=== PATIENT | male | born 1940 | race Caucasian/White ===

== ENCOUNTER → 2020-10-13 | Outpatient (CLI) | payer MEDICARE, OTHER ==
--- NOTE | 2020-10-14 05:13 | XR ---
EXAMINATION TYPE: XR chest 2V DATE OF EXAM: 10/13/2020 COMPARISON: 12/10/2015 HISTORY: 80-year-old male with cough and shortness of breath TECHNIQUE: Frontal and lateral views FINDINGS: Heart borderline enlarged. Hyperinflation. Interstitial prominence. Some patchy opacity at the periph mickey of the right mid to lower lung. Old healed fracture deformities right posterolateral ribs. No siz able effusion. IMPRESSION: COPD. Borderline heart size. Either atelectasis or possible early developing infiltrate at the periph mickey of the right mid and lower lung. If warranted, CT could provide more detailed parenchymal assessm ent.
== END ==
LOC: RADXRMAIN 16:31
PROVIDERS: ATTEND Internal Medicine
DX: J44.9 Chronic obstructive pulmonary disease, unspecified (principal)
CPT/HCPCS: 71046

== ENCOUNTER 2021-09-02 13:29 | Inpatient (IN) | payer MEDICARE, OTHER ==
[2021-09-02] MEDS ORDERED: cefTRIAXone IN SWFI 1,000 MG/10 ML SYRINGE IVP STA (14:51)
[2021-09-02] MEDS ORDERED: SODIUM CHLORIDE 0.9% 500 ML 500 ML IV STA (14:51)
[2021-09-02] MEDS ORDERED: MORPHINE SULFATE 4 MG/ML SYRINGE IVP STA (15:05)
--- NOTE | 2021-09-02 15:07 | ED ---
General Adult HPI - General Chief complaint: Extremity Problem,Nontraumatic Stated complaint: Left Foot Swelling Time Seen by Provider: 09/02/21 14:14 Source: patient Mode of arrival: ambulatory Limitations: no limitations - History of Present Illness Initial comments: 80-year-old male resents to the emergency room for a chief complaint of left foot pain. Patient states that he has had left foot redness and swelling for the past couple weeks. States he was seen at another facility a week ago and was told it looked like a contusion. Patient did offer the information that he injured his foot but it was several years ago. No recent injury. Patient now states that his lower leg is swollen and red as well. States that the lateral 3 toes are black on that foot and very painful. Patient has no other complaints at this time including shortness of breath, chest pain, abdominal pain, nausea or vomiting, headache, or visual changes. - Related Data Home Medications Medication Instructions Recorded Confirmed Aspirin EC [Ecotrin Low Dose] 81 mg PO DAILY 09/02/21 09/02/21 Cholecalciferol [Vitamin D3 (25 25 mcg PO DAILY 09/02/21 09/02/21 Mcg = 1000 Iu)] Fluticasone/Vilanterol [Breo 1 puff INHALATION RT-DAILY 09/02/21 09/02/21 Ellipta 100-25 Mcg Inhaler] HYDROcodone/APAP 7.5-325MG [[place] 1 tab PO BID PRN 09/02/21 09/02/21 7.5-325] Lisinopril-Hctz 20-25 mg 0.5 tab PO DAILY 09/02/21 09/02/21 [Zestoretic 20-25] Metoprolol Tartrate [Lopressor] 25 mg PO BID 09/02/21 09/02/21 Rosuvastatin Calcium [Crestor] 5 mg PO HS 09/02/21 09/02/21 Tamsulosin [Flomax] 0.4 mg PO DAILY 09/02/21 09/02/21 Allergies Allergy/AdvReac Type Severity Reaction Status Date / Time No Known Allergies Allergy Verified 09/02/21 15:32 Review of Systems ROS Statement: Those systems with pertinent positive or pertinent negative responses have been documented in the HPI. ROS Other: All systems not noted in ROS Statement are negative. Past Medical History Past Medical History: COPD, CVA/TIA, Hyperlipidemia, Hypertension History of Any Multi-Drug Resistant Organisms: None Reported Past Surgical History: Hernia Repair Past Psychological History: No Psychological Hx Reported Smoking Status: Current every day smoker Past Alcohol Use History: None Reported Past Drug Use History: None Reported General Exam Limitations: no limitations General appearance: alert, in no apparent distress Head exam: Present: atraumatic Eye exam: Present: normal appearance, PERRL, EOMI. Absent: scleral icterus, c onjunctival injection ENT exam: Present: normal exam, mucous membranes moist Neck exam: Present: normal inspection, full ROM. Absent: tenderness Respiratory exam: Present: normal lung sounds bilaterally. Absent: respiratory distress, wheezes Cardiovascular Exam: Present: regular rate, normal rhythm, normal heart sounds GI/Abdominal exam: Present: soft, normal bowel sounds. Absent: distended, tenderness Extremities exam: Present: tenderness (Tenderness to the left foot in general), joint swelling (Patient does have swelling of the tib-fib and left foot as well as some erythema), other (Patient's fourth and fifth toes are ischemic and necrotic). Absent: normal capillary refill (DP pulse not palpable however signals evident with ultrasound) Course Vital Signs 09/02/21 13:39 Temperature 97.8 F Pulse Rate 75 Respiratory 20 Rate Blood Pressure 107/58 O2 Sat by Pulse 93 L Oximetry Medical Decision Making - Medical Decision Making Vitals are stable. Patient is well appearing. However patient does have ischemia of the fourth and fifth digits of the left foot as well as erythema and edema of the lower leg. CBC CMP unremarkable. Case was discussed with Dr. Alvarado. He does accept admission and request Lovenox 1 mg per kg twice a day be started. We will consult Dr. Da Silva. We'll obtain an arterial ultrasound. - Lab Data Result diagrams: 09/02/21 15:06 09/02/21 15:06 Lab Results 09/02/21 09/02/21 09/02/21 Range/Units 15:06 15:06 15:06 WBC 9.6 (3.8-10.6) k/uL RBC 4.82 (4.30-5.90) m/uL Hgb 15.6 (13.0-17.5) gm/dL Hct 48.2 (39.0-53.0) % MCV 100.0 (80.0-100.0) fL MCH 32.4 (25.0-35.0) pg MCHC 32.4 (31.0-37.0) g/dL RDW 13.4 (11.5-15.5) % Plt Count 189 (150-450) k/uL MPV 9.3 Neutrophils % 73 % Lymphocytes % 14 % Monocytes % 5 % Eosinophils % 6 % Basophils % 1 % Neutrophils # 7.0 (1.3-7.7) k/uL Lymphocytes # 1.3 (1.0-4.8) k/uL Monocytes # 0.5 (0-1.0) k/uL Eosinophils # 0.6 (0-0.7) k/uL Basophils # 0.1 (0-0.2) k/uL PT 10.0 (9.0-12.0) sec INR 0.9 (<1.2) APTT 24.5 (22.0-30.0) sec Sodium 137 (137-145) mmol/L Potassium 4.2 (3.5-5.1) mmol/L Chloride 104 (98-107) mmol/L Carbon Dioxide 25 (22-30) mmol/L Anion Gap 8 mmol/L BUN 29 H (9-20) mg/dL Creatinine 0.88 (0.66-1.25) mg/dL Est GFR (CKD-EPI)AfAm >90 (>60 ml/min/1.73 sqM) Est GFR (CKD-EPI)NonAf 81 (>60 ml/min/1.73 sqM) Glucose 110 H (74-99) mg/dL Plasma Lactic Acid Mazin (0.7-2.0) mmol/L Calcium 10.2 (8.4-10.2) mg/dL Total Bilirubin 0.7 (0.2-1.3) mg/dL AST 29 (17-59) U/L ALT 23 (4-49) U/L Alkaline Phosphatase 62 (38-126) U/L Total Protein 6.6 (6.3-8.2) g/dL Albumin 3.8 (3.5-5.0) g/dL 09/02/21 Range/Units 15:06 WBC (3.8-10.6) k/uL RBC (4.30-5.90) m/uL Hgb (13.0-17.5) gm/dL Hct (39.0-53.0) % MCV (80.0-100.0) fL MCH (25.0-35.0) pg MCHC (31.0-37.0) g/dL RDW (11.5-15.5) % Plt Count (150-450) k/uL MPV Neutrophils % % Lymphocytes % % Monocytes % % Eosinophils % % Basophils % % Neutrophils # (1.3-7.7) k/uL Lymphocytes # (1.0-4.8) k/uL Monocytes # (0-1.0) k/uL Eosinophils # (0-0.7) k/uL Basophils # (0-0.2) k/uL PT (9.0-12.0) sec INR (<1.2) APTT (22.0-30.0) sec Sodium (137-145) mmol/L Potassium (3.5-5.1) mmol/L Chloride (98-107) mmol/L Carbon Dioxide (22-30) mmol/L Anion Gap mmol/L BUN (9-20) mg/dL Creatinine (0.66-1.25) mg/dL Est GFR (CKD-EPI)AfAm (>60 ml/min/1.73 sqM) Est GFR (CKD-EPI)NonAf (>60 ml/min/1.73 sqM) Glucose (74-99) mg/dL Plasma Lactic Acid Mazin 1.0 (0.7-2.0) mmol/L Calcium (8.4-10.2) mg/dL Total Bilirubin (0.2-1.3) mg/dL AST (17-59) U/L ALT (4-49) U/L Alkaline Phosphatase (38-126) U/L Total Protein (6.3-8.2) g/dL Albumin (3.5-5.0) g/dL Disposition Clinical Impression: Cellulitis, PAD (peripheral artery disease), Ischemia of toe Disposition: ADMITTED IP TO THIS HOSP Is patient prescribed a controlled substance at d/c from ED?: No Referrals: Uche Alvarado MD [Primary Care Provider] - 1-2 days Time of Disposition: 16:30
[2021-09-02 15:14] LABS: Basophils # (A) 0.1 k/uL (0-0.2); Basophils % (A) 1 %; Eosinophils # (A) 0.6 k/uL (0-0.7); Eosinophils % (A) 6 %; HCT 48.2 % (39.0-53.0); HGB 15.6 gm/dL (13.0-17.5); Lymphocytes # (A) 1.3 k/uL (1.0-4.8); Lymphocytes % (A) 14 %; MCH 32.4 pg (25.0-35.0); MCHC 32.4 g/dL (31.0-37.0); Mean Platelet Volume 9.3; Monocytes # (A) 0.5 k/uL (0-1.0); Monocytes % (A) 5 %; Neutrophils % (A) 73 %; Platelet Count 189 k/uL (150-450); RBC 4.82 m/uL (4.30-5.90); RDW 13.4 % (11.5-15.5); WBC 9.6 k/uL (3.8-10.6)
[2021-09-02 15:24] LABS: ALT 23 U/L (4-49); AST 29 U/L (17-59); African American GFR (CKD) >90 (>60 ml/min/1.73 sqM); Albumin 3.8 g/dL (3.5-5.0); Alkaline Phosphatase 62 U/L (38-126); Anion Gap 8 mmol/L; Blood Urea Nitrogen 29 mg/dL (9-20); Calcium 10.2 mg/dL (8.4-10.2); Carbon Dioxide 25 mmol/L (22-30); Chloride 104 mmol/L (98-107); Glucose 110 mg/dL (74-99); INR 0.9 (<1.2); Non-African American GFR(CKD) 81 (>60 ml/min/1.73 sqM); Partial Thromboplastin Time 24.5 sec (22.0-30.0); Potassium 4.2 mmol/L (3.5-5.1); Sodium 137 mmol/L (137-145); Total Bilirubin 0.7 mg/dL (0.2-1.3); Total Protein 6.6 g/dL (6.3-8.2)
[2021-09-02] MEDS ORDERED: HYDROmorphone 0.5 MG/0.5 ML SYRINGE IVP PRN (16:27)
[2021-09-02] MEDS ORDERED: NALOXONE 0.4 MG/ML 1 ML VIAL IV PRN (16:27)
[2021-09-02] MEDS ORDERED: HYDROcodone/APAP 7.5-325MG 1 EACH TAB PO PRN (16:29)
[2021-09-02] MEDS ORDERED: ENOXAPARIN 80 MG/0.8 ML SYRINGE SQ ONE (16:45)
[2021-09-02] MEDS: SODIUM CHLORIDE 0.9% 1,000 ML IV SCH (17:25)
[2021-09-02] MEDS ORDERED: ATORVASTATIN 10 MG TAB PO SCH (21:00)
[2021-09-02] MEDS: NICOTINE 21MG/24HR PATCH TRANSDERM SCH (21:21)
[2021-09-02] MEDS: METOPROLOL TARTRATE 25 MG TAB PO SCH (21:21)
[2021-09-03] MEDS ORDERED: ENOXAPARIN 80 MG/0.8 ML SYRINGE SQ SCH (06:00)
[2021-09-03] MEDS: SODIUM CHLORIDE 0.9% 1,000 ML IV SCH (06:56)
[2021-09-03] MEDS ORDERED: SYMBICORT 80-4.5 MCG INHALER INHALATION SCH (08:00)
[2021-09-03 08:21] VITALS: RESP 18
[2021-09-03 08:54] LABS: African American GFR (CKD) 97.8 (60.0-200.0); Albumin 3.7 g/dL (3.8-4.9); Albumin/Globulin Ratio 1.76 (1.60-3.17); Anion Gap 11.5 mmol/L (10.00-18.00); BUN/Creat Ratio 27.25 Ratio (12.00-20.00); Blood Urea Nitrogen 21.8 mg/dL (9.0-27.0); Calcium 9.7 mg/dL (8.7-10.3); Carbon Dioxide 21.5 mmol/L (20.0-27.5); Globulin 2.1 g/dL (1.6-3.3); Non-African American GFR(CKD) 84.4 (60.0-200.0); Potassium 4.3 mmol/L (3.5-5.5); Total Bilirubin 0.6 mg/dL (0.30-1.20); Total Protein 5.8 g/dL (6.2-8.2)
[2021-09-03] MEDS ORDERED: LISINOPRIL-HCTZ 20-25 MG 1 EACH TAB PO SCH (09:00)
[2021-09-03] MEDS ORDERED: CHOLECALCIFEROL 25 MCG (1000 IU) TABLET PO SCH (09:00)
[2021-09-03] MEDS ORDERED: ASPIRIN 81 MG PO SCH (09:00)
[2021-09-03] MEDS ORDERED: TAMSULOSIN 0.4 MG CAP.ER.24H PO SCH (09:00)
[2021-09-03 09:07] LABS: Basophils # (A) 0.14 X 10*3/uL (0.00-0.10); Basophils % (A) 1.5 %; Eosinophils # (A) 0.66 X 10*3/uL (0.04-0.35); HCT 46.7 % (39.6-50.0); HGB 15.1 g/dL (13.0-17.0); Lymphocytes # (A) 1.47 X 10*3/uL (0.90-5.00); Lymphocytes % (A) 15.5 %; MCH 31.4 pg (27.0-32.0); MCHC 32.3 g/dL (32.0-37.0); MCV 97.1 fL (80.0-97.0); Mean Platelet Volume 12.5 fL (9.5-12.2); Monocytes # (A) 0.69 X 10*3/uL (0.20-1.00); Monocytes % (A) 7.3 %; Neutrophils # (A) 6.49 X 10*3/uL (1.80-7.70); Neutrophils % (A) 68.4 %; Platelet Count 200 X 10*3/uL (140-440); RBC 4.81 X 10*6/uL (4.40-5.60); RDW 13.2 % (11.5-14.5); WBC 9.48 X 10*3/uL (4.50-10.00)
[2021-09-03] MEDS: METOPROLOL TARTRATE 25 MG TAB PO SCH (09:12)
[2021-09-03] MEDS: NICOTINE 21MG/24HR PATCH TRANSDERM SCH (09:15)
--- NOTE | 2021-09-03 12:29 | CT ---
EXAMINATION TYPE: CT angio abd aorta w/Runoff CT DLP: 2216 mGycm, Automated exposure control for dose reduction was used. DATE OF EXAM: 09/03/2021 11:58 AM COMPARISON: None. CLINICAL INDICATION:Male, 80 years old with history of PAD; TECHNIQUE: Multiple thin slice sub-millimeter images were obtained through the abdomen, pelvis, and l ower extremities after administration of contrast. Patient was given Isovue 370, 100 cc intravenousl y. 3-D reconstructed images and maximum intensity projection images were obtained of the abdomen, pe lvis, and lower extremities. FINDINGS: CTA Abdomen and pelvis: The abdominal aorta does not demonstrate aneurysmal dilatation there is infra renal aorta dilation measuring up to 31 mm. Scattered sclerosis with mural thrombus is seen within th e abdominal aorta. The origins of the superior mesenteric artery, renal arteries, inferior mesenteri c artery, and celiac axis are patent. There is one renal artery bilaterally. There is a left retroaor tic renal vein. The iliac vessels are normal in morphology. Atherosclerotic plaquing with is identif ied in the common iliac arteries and external iliac arteries. CTA Lower extremities: Right: The common femoral, popliteal arteries are patent there is scattered focal stenosis most prono unced in the mid superficial femoral artery of at least 90% best appreciated on series 5 on image 11 7. The popliteal artery is patent. Limited evaluation of the vessels of the leg secondary to their small appearance. The anterior tibial and posterior tibial arteries cross the leg. There is scattered athe rosclerotic disease noted. Left: The common femoral, popliteal arteries are patent there is scattered focal stenosis most pronou nced in the mid superficial femoral artery of at least 70% best appreciated on series 5 on image 115. The popliteal artery is patent. Limited evaluation of the vessels of the leg secondary to their small appearance. The anterior tibial and posterior tibial arteries cross the leg. There is scattered athe rosclerotic disease noted. VISCERA: The liver, spleen, adrenal glands, kidneys, pancreas, and gallbladder are not optimally enha nced due the arterial phase utilized. LIVER: Scattered Hyperenhancing areas examples include segment 6 12 mm in segment 2 7 mm. GALLBLADDER AND BILE DUCTS: Layering increased densities within the lumen consistent with gallstones are present. PANCREAS: Unremarkable. SPLEEN: Unremarkable. ADRENAL GLANDS: Bilateral adrenal nodule measuring 2.2 cm on the right and 1.8 cm on the left and are consistent with adrenal adenoma. KIDNEYS AND URETERS: No evidence of hydronephrosis or renal calculus. The ureters are unremarkable. B ilateral renal cysts some which are hyperdense laterally.. PELVIS BLADDER: Unremarkable REPRODUCTIVE: Unremarkable. ABDOMEN & PELVIS STOMACH AND BOWEL: No evidence of bowel obstruction. PERITONEUM: No evidence of pneumoperitoneum or free fluid. VASCULATURE: No evidence of aortic aneurysm. MUSCULOSKELETAL: No acute osseous abnormalities LYMPH NODES: No gross evidence for lymphadenopathy. SOFT TISSUE/ABDOMINAL WALL: Unremarkable IMPRESSION 1. No evidence of vascular occlusion. 2. Severe atherosclerotic disease involving abdominal aorta and lower extremity vasculature. There ar e focal areas of stenosis throughout the superficial femoral arteries, represented examples in the mi d arteries is 90% stenosis on the right and 70% stenosis on the left. 3. Infrarenal aortic fusiform dilation measuring up to 31 mm. 4. Limited evaluation of the leg vessels due to their small size they are at least two vessels are se en crossing the ankle joint bilaterally. 5. Bilateral indeterminate renal cysts further workup with MRI with IV contrast renal mass protocol i s recommended for further characterization. 6. Bilateral adrenal adenomas. 7. Enhancing foci within liver, receptors likely represent shunting phenomenon. These could be furthe r evaluated with IV abdomen liver mass protocol if clinically warranted. 8. Bilateral indeterminate renal cysts further workup with MRI with IV contrast renal mass protocol i s recommended for further characterization.
--- NOTE | 2021-09-03 13:09 | P.GSCN ---
History of Present Illness Consult date: 09/03/21 History of present illness: Patient is an 80-year-old male who presented to the ER after seeing his primary care doctor. He has a chief complaint of left foot pain in his toes. He has been going on for the past many weeks. Initially he was told likely contusion. He had no injury to his foot that he is aware of. He thinks his toes are improving somewhat since being here in the hospital. He denies any fevers, chills, nausea, vomiting or issues otherwise. He is adamant that he will be leaving today. Review of Systems 14 point review of systems performed. Pertinent positives and negatives per the HPI Past Medical History Past Medical History: COPD, CVA/TIA, Hyperlipidemia, Hypertension History of Any Multi-Drug Resistant Organisms: None Reported Past Surgical History: Hernia Repair Past Psychological History: No Psychological Hx Reported Smoking Status: Current every day smoker Past Alcohol Use History: None Reported Past Drug Use History: None Reported Medications and Allergies Home Medications Medication Instructions Recorded Confirmed Type Aspirin EC [Ecotrin Low Dose] 81 mg PO DAILY 09/02/21 09/02/21 History Cholecalciferol [Vitamin D3 (25 25 mcg PO DAILY 09/02/21 09/02/21 History Mcg = 1000 Iu)] Fluticasone/Vilanterol [Breo 1 puff INHALATION RT-DAILY 09/02/21 09/02/21 History Ellipta 100-25 Mcg Inhaler] HYDROcodone/APAP 7.5-325MG [[place] 1 tab PO BID PRN 09/02/21 09/02/21 History 7.5-325] Lisinopril-Hctz 20-25 mg 0.5 tab PO DAILY 09/02/21 09/02/21 History [Zestoretic 20-25] Metoprolol Tartrate [Lopressor] 25 mg PO BID 09/02/21 09/02/21 History Rosuvastatin Calcium [Crestor] 5 mg PO HS 09/02/21 09/02/21 History Tamsulosin [Flomax] 0.4 mg PO DAILY 09/02/21 09/02/21 History Allergies Allergy/AdvReac Type Severity Reaction Status Date / Time No Known Allergies Allergy Verified 09/02/21 15:32 Surgical - Exam Vital Signs Temp Pulse Resp BP Pulse Ox 97.8 F 75 20 107/58 93 L 09/02/21 13:39 09/02/21 13:39 09/02/21 13:39 09/02/21 13:39 09/02/21 13:39 Gen. pleasant cooperative male in no acute distress. Fully dressed Changes no c ephalic, atraumatic, except emotion intact. Heart appears regular at this time. Lungs are clear bilaterally. Extremity show no clubbing or edema. There is some ischemic changes to the distal 345 toe on the left. There is some drainage in between the toes. He has palpable radial pulses. Slightly diminished however palpable femoral pulses. No palpable pedal pulses. Normal motor sensory. Cranial nerve II through XII grossly intact Results ABIs are reviewed. Diminished bilaterally, worse on the left - Labs 09/03/21 05:51 09/03/21 05:51 Abnormal Lab Results - Last 24 Hours (Table) 09/02/21 09/03/21 09/03/21 Range/Units 15:06 05:51 05:51 MCV 97.1 H (80.0-97.0) fL MPV 12.5 H (9.5-12.2) fL Eosinophils # 0.66 H (0.04-0.35) X 10*3/uL Basophils # 0.14 H (0.00-0.10) X 10*3/uL BUN 29 H (9-20) mg/dL BUN/Creatinine Ratio 27.25 H (12.00-20.00) Ratio Glucose 110 H (74-99) mg/dL Total Protein 5.8 L (6.2-8.2) g/dL Albumin 3.7 L (3.8-4.9) g/dL Diabetes panel 09/02/21 09/03/21 Range/Units 15:06 05:51 Sodium 137 136 (137-145) mmol/L Potassium 4.2 4.3 (3.5-5.1) mmol/L Chloride 104 103 (98-107) mmol/L Carbon Dioxide 25 21.5 (22-30) mmol/L BUN 29 H 21.8 (9-20) mg/dL Creatinine 0.88 0.8 (0.66-1.25) mg/dL Glucose 110 H 95 (74-99) mg/dL Calcium 10.2 9.7 (8.4-10.2) mg/dL AST 29 22 (17-59) U/L ALT 23 22 (4-49) U/L Alkaline Phosphatase 62 58 (38-126) U/L Total Protein 6.6 5.8 L (6.3-8.2) g/dL Albumin 3.8 3.7 L (3.5-5.0) g/dL Calcium panel 09/02/21 09/03/21 Range/Units 15:06 05:51 Calcium 10.2 9.7 (8.4-10.2) mg/dL Albumin 3.8 3.7 L (3.5-5.0) g/dL Pituitary panel 09/02/21 09/03/21 Range/Units 15:06 05:51 Sodium 137 136 (137-145) mmol/L Potassium 4.2 4.3 (3.5-5.1) mmol/L Chloride 104 103 (98-107) mmol/L Carbon Dioxide 25 21.5 (22-30) mmol/L BUN 29 H 21.8 (9-20) mg/dL Creatinine 0.88 0.8 (0.66-1.25) mg/dL Glucose 110 H 95 (74-99) mg/dL Calcium 10.2 9.7 (8.4-10.2) mg/dL Adrenal panel 09/02/21 09/03/21 Range/Units 15:06 05:51 Sodium 137 136 (137-145) mmol/L Potassium 4.2 4.3 (3.5-5.1) mmol/L Chloride 104 103 (98-107) mmol/L Carbon Dioxide 25 21.5 (22-30) mmol/L BUN 29 H 21.8 (9-20) mg/dL Creatinine 0.88 0.8 (0.66-1.25) mg/dL Glucose 110 H 95 (74-99) mg/dL Calcium 10.2 9.7 (8.4-10.2) mg/dL Total Bilirubin 0.7 0.60 (0.2-1.3) mg/dL AST 29 22 (17-59) U/L ALT 23 22 (4-49) U/L Alkaline Phosphatase 62 58 (38-126) U/L Total Protein 6.6 5.8 L (6.3-8.2) g/dL Albumin 3.8 3.7 L (3.5-5.0) g/dL Assessment and Plan Assessment: Peripheral arterial disease, cyanotic changes to left toes Left toe pain secondary to above Plan: Patient is currently very abdomen he is going to be leaving today. He did not see any overt infection. I did discuss with the nurse that he should have gauze placed between his toes to allow for some offloading of the pressure. We will plan to obtain a CT abdomen with runoffs to evaluate. From my standpoint this may all be worked up as an outpatient if there is no significant acute arterial occlusion noted on the computed tomography scan, given the chronicity of his issue I do not believe this is likely. We'll plan for outpatient workup for his [place] 5 peripheral arterial disease. If he does go home today he should go home on either aspirin and Plavix or aspirin and low-dose anticoagulation for peripheral arterial disease
[2021-09-03 14:29] VITALS: BP 129/62; PULSE 96; TEMP 97.5
--- NOTE | 2021-09-03 15:52 | P.HPIM ---
History of Present Illness H&P Date: 09/02/21 Richard Reid, is an 80-year-old male who presented to [facility] emergency room with a chief complaint of left foot redness swelling and pain that started 2 weeks ago and has been worsening. Patient was seen at a different hospital and was told that he probably had an injury to his left foot. Patient denies any history of injury, patient started to develop lack discoloration in the third fourth and fifth left toe, he decided to come to emergency room for further evaluation. He was evaluated in the emergency room vital examination on presentation revealed a temperature of 97.8 pulse 75 respiration 20 blood pressure 107/58 pulse ox 93% on room air Laboratory data revealed a white blood count of 9.6 hemoglobin 15.6 platelet count 189 sodium 137 potassium 4.2 chloride 104 CO2 25 BUN 29 creatinine 0.88 lactic acid was 1.0 herrera virus PCR was negative Testing in the emergency room revealed CT angiogram revealed no evidence of vascular occlusion patient had severe atherosclerotic disease involving the abdominal aorta and lower extremity vasculature with multiple focal area of stenosis throughout the superficial femoral arteries Patient was admitted to medical floor for further evaluation and treatment, vascular surgery consultation was requested for further evaluation and treatment Past Medical History Past Medical History: COPD, CVA/TIA, Hyperlipidemia, Hypertension History of Any Multi-Drug Resistant Organisms: None Reported Past Surgical History: Hernia Repair Past Psychological History: No Psychological Hx Reported Smoking Status: Current every day smoker Past Alcohol Use History: None Reported Past Drug Use History: None Reported Medications and Allergies Home Medications Medication Instructions Recorded Confirmed Type Aspirin EC [Ecotrin Low Dose] 81 mg PO DAILY 09/02/21 09/02/21 History Cholecalciferol [Vitamin D3 (25 25 mcg PO DAILY 09/02/21 09/02/21 History Mcg = 1000 Iu)] Fluticasone/Vilanterol [Bre[place] 1 puff INHALATION RT-DAILY 09/02/21 09/02/21 History Ellipta 100-25 Mcg Inhaler] HYDROcodone/APAP 7.5-325MG [[place] 1 tab PO BID PRN 09/02/21 09/02/21 History 7.5-325] Lisinopril-Hctz 20-25 mg 0.5 tab PO DAILY 09/02/21 09/02/21 History [Zestoretic 20-25] Metoprolol Tartrate [Lopressor] 25 mg PO BID 09/02/21 09/02/21 History Rosuvastatin Calcium [Crestor] 5 mg PO HS 09/02/21 09/02/21 History Tamsulosin [Flomax] 0.4 mg PO DAILY 09/02/21 09/02/21 History Clopidogrel Bisulfate [Plavix] 75 mg PO DAILY 30 Days #30 tab 09/03/21 Rx Nicotine 21Mg/24Hr Patch [Habitrol] 1 patch TRANSDERM DAILY patch 09/03/21 Rx Allergies Allergy/AdvReac Type Severity Reaction Status Date / Time No Known Allergies Allergy Verified 09/02/21 15:32 Physical Exam Vitals: Vital Signs Temp Pulse Resp BP BP Pulse Ox 09/02/21 18:00 77 16 110/68 91 L 09/02/21 17:13 97.7 F 18 140/63 91 L 09/02/21 16:00 77 16 114/75 97 09/02/21 13:39 97.8 F 75 20 107/58 93 L Intake and Output 09/02/21 09/02/21 09/02/21 06:59 14:59 22:59 Other: Weight 80.739 kg In general patient is alert and oriented x 3 in no distress HEENT head normocephalic and atraumatic Neck is supple no JVD no goiter no lymphadenopathy no carotid bruit Chest examination is clear to auscultation no crackles no wheezing Cardiac exam reveals regular heart sounds S1 and S2 no gallops no murmurs Abdomen is soft nontender no organomegaly with normal bowel sounds Extremity exam reveals no edema no cyanosis or clubbing, left foot examination reveals swelling erythema and tenderness Neurological examination reveals no gross focal deficits Results CBC & Chem 7: 09/03/21 05:51 09/03/21 05:51 Labs: Abnormal Lab Results - Last 24 Hours (Table) 09/02/21 Range/Units 15:06 BUN 29 H (9-20) mg/dL Glucose 110 H (74-99) mg/dL Assessment and Plan Plan: Left foot erythema swelling and tenderness, patient is admitted to medical floor vascular surgery consultation was requested he was started on IV Rocephin in the emergency room Tobacco abuse patient counseled in length in regard to smoking cessation he was given a nicotine patch during this admission Underlying history of COPD Underlying history of hypertension Underlying history of hyperlipidemia maintained on atorvastatin Underlying history of benign prostatic hypertrophy At this time home medications reviewed and reordered Patient is admitted to medical floor and started on subcu Lovenox and IV Rocephin Vascular surgery consultation requested Will follow closely
--- NOTE | 2021-09-03 15:56 | P.DS ---
Providers Date of admission: 09/02/21 14:46 Expected date of discharge: 09/03/21 Attending physician: Uche Alvarado Consults: 09/02/21 16:27 Consult Physician Routine Consulting Provider: Luz Da Silva Consult Reason/Comments: PAD, ischemia of toes of LLE Do you want consulting provider notified?: Yes 09/02/21 20:39 Consult Physician Routine Consulting Provider: Paola Michel Consult Reason/Comments: LE cellulitis Do you want consulting provider notified?: Yes Primary care physician: Ucehkamari Alvarado [facility] Course: Diagnosis on discharge: Left foot erythema swelling and tenderness, patient is admitted to medical floor vascular surgery consultation was requested he was started on IV Rocephin in the emergency room, Tobacco abuse patient counseled in length in regard to smoking cessation he was given a nicotine patch during this admission Underlying history of COPD Underlying history of hypertension Underlying history of hyperlipidemia maintained on atorvastatin Underlying history of benign prostatic hypertrophy Hospital course: Richard Reid, is an 80-year-old male who presented to [facility] emergency room with a chief complaint of left foot redness swelling and pain that started 2 weeks ago and has been worsening. Patient was seen at a different hospital and was told that he probably had an injury to his left foot. Patient denies any history of injury, patient started to develop lack discoloration in the third fourth and fifth left toe, he decided to come to emergency room for further evaluation. He was evaluated in the emergency room vital examination on presentation revealed a temperature of 97.8 pulse 75 respiration 20 blood pressure 107/58 pulse ox 93% on room air Laboratory data revealed a white blood count of 9.6 hemoglobin 15.6 platelet count 189 sodium 137 potassium 4.2 chloride 104 CO2 25 BUN 29 creatinine 0.88 lactic acid was 1.0 herrera virus PCR was negative Testing in the emergency room revealed CT angiogram revealed no evidence of vascular occlusion patient had severe atherosclerotic disease involving the abdominal aorta and lower extremity vasculature with multiple focal area of stenosis throughout the superficial femoral arteries Patient was admitted to medical floor for further evaluation and treatment, vascular surgery consultation was requested for further evaluation and treatment On 09/03/2021 patient was seen and examined on the medical floor he is alert and oriented 3 in no apparent distress he was evaluated by Dr. Da Silva vascular surgery, CT angiogram revealed evidence of severe atherosclerosis however patient was very eager to go home he did not want to wait till Sunday for any procedure, he was cleared by Dr. Da Silva for discharge, she stated that he does not have any evidence of infection at this time and no need for antibiotic, there was no evidence of vascular occlusion requiring immediate surgery. She will follow with him as outpatient for further evaluation and treatment. She advised that patient had Plavix 75 mg by mouth daily on top of his daily aspirin. Patient was also counseled in length in regard to smoking cessation, he was given a prescription for NicoDerm patches. He was discharged home on 09/03/2021, he would be followed in our office in the next 2-3 days, will also arrange follow-up with Dr. Da Silva for further evaluation and possible vascular intervention. Plan - Discharge Summary Discharge Rx Participant: Yes New Discharge Prescriptions: New Nicotine 21Mg/24Hr Patch [Habitrol] 1 patch TRANSDERM DAILY patch Clopidogrel Bisulfate [Plavix] 75 mg PO DAILY 30 Days #30 tab Continue Tamsulosin [Flomax] 0.4 mg PO DAILY Lisinopril-Hctz 20-25 mg [Zestoretic 20-25] 0.5 tab PO DAILY Rosuvastatin Calcium [Crestor] 5 mg PO HS Fluticasone/Vilanterol [Breo Ellipta 100-25 Mcg Inhaler] 1 puff INHALATION RT-DAILY Cholecalciferol [Vitamin D3 (25 Mcg = 1000 Iu)] 25 mcg PO DAILY Aspirin EC [Ecotrin Low Dose] 81 mg PO DAILY Metoprolol Tartrate [Lopressor] 25 mg PO BID HYDROcodone/APAP 7.5-325MG [[place] 7.5-325] 1 tab PO BID PRN PRN Reason: Pain Discharge Medication List Aspirin EC [Ecotrin Low Dose] 81 mg PO DAILY 09/02/21 [History] Cholecalciferol [Vitamin D3 (25 Mcg = 1000 Iu)] 25 mcg PO DAILY 09/02/21 [History] Fluticasone/Vilanterol [Breo Ellipta 100-25 Mcg Inhaler] 1 puff INHALATION RT- DAILY 09/02/21 [History] HYDROcodone/APAP 7.5-325MG [[place] 7.5-325] 1 tab PO BID PRN 09/02/21 [History] Lisinopril-Hctz 20-25 mg [Zestoretic 20-25] 0.5 tab PO DAILY 09/02/21 [History] Metoprolol Tartrate [Lopressor] 25 mg PO BID 09/02/21 [History] Rosuvastatin Calcium [Crestor] 5 mg PO HS 09/02/21 [History] Tamsulosin [Flomax] 0.4 mg PO DAILY 09/02/21 [History] Clopidogrel Bisulfate [Plavix] 75 mg PO DAILY 30 Days #30 tab 09/03/21 [Rx] Nicotine 21Mg/24Hr Patch [Habitrol] 1 patch TRANSDERM DAILY patch 09/03/21 [Rx] Follow up Appointment(s)/Referral(s): Luz Da Silva DO [STAFF PHYSICIAN] - 1 Week Uche Alvarado MD [Primary Care Provider] - 1-2 days
== END 2021-09-03 15:44 | disposition home or self-care (01) | DRG 300 ==
LOC: EC 13:29 → 4SSUR 14:46
PROVIDERS: ADMIT Internal Medicine; ATTEND Internal Medicine
DX: I73.9 Peripheral vascular disease, unspecified (principal); L03.119 Cellulitis of unspecified part of limb; E78.5 Hyperlipidemia, unspecified; Z20.822 Contact with and (suspected) exposure to COVID-19; I70.0 Atherosclerosis of aorta; I10 Essential (primary) hypertension; J44.9 Chronic obstructive pulmonary disease, unspecified; Z71.6 Tobacco abuse counseling; Z86.73 Personal history of transient ischemic attack (TIA), and cerebral infarction without residual deficits; N40.0 Benign prostatic hyperplasia without lower urinary tract symptoms; F17.210 Nicotine dependence, cigarettes, uncomplicated; Z87.19 Personal history of other diseases of the digestive system; Z79.02 Long term (current) use of antithrombotics/antiplatelets; Z79.82 Long term (current) use of aspirin; Z79.899 Other long term (current) drug therapy
CPT/HCPCS: 36415; 75635; 80053; 83605; 85025; 85610; 85730; 87040; 87635; 93923; 96374; 96375; 99284

== ENCOUNTER 2021-09-08 12:23 | Inpatient (IN) | payer MEDICARE, OTHER ==
--- NOTE | 2021-09-08 13:11 | ED ---
Extremity Problem HPI - General Chief complaint: Extremity Problem,Nontraumatic Stated complaint: Swollen feet Time Seen by Provider: 09/08/21 12:52 Source: patient, family, RN notes reviewed Mode of arrival: ambulatory Limitations: no limitations - History of Present Illness Initial comments: 80-year-old male who was sent in for evaluation of painful red feet with some edema is a history of peripheral vascular disease was seen by vascular surgeon today and sent in from his doctor's office for further evaluation and treatment. He denies any fevers chills nausea vomiting sweats shortness of breath cough or phlegm production is complaining of bilateral foot pain he states it was worse on the left previously been on the right one is doing the same thing. He believes he needs to have a stent placed. MD Complaint: extremity pain, extremity swelling - Related Data Home Medications Medication Instructions Recorded Confirmed Aspirin EC [Ecotrin Low Dose] 81 mg PO DAILY 09/02/21 09/08/21 Cholecalciferol [Vitamin D3 (25 25 mcg PO DAILY 09/02/21 09/08/21 Mcg = 1000 Iu)] Fluticasone/Vilanterol [Breo 1 puff INHALATION RT-DAILY 09/02/21 09/08/21 Ellipta 100-25 Mcg Inhaler] HYDROcodone/APAP 7.5-325MG [[place] 1 tab PO BID PRN 09/02/21 09/08/21 7.5-325] Lisinopril-Hctz 20-25 mg 0.5 tab PO DAILY 09/02/21 09/08/21 [Zestoretic 20-25] Metoprolol Tartrate [Lopressor] 25 mg PO BID 09/02/21 09/08/21 Rosuvastatin Calcium [Crestor] 5 mg PO HS 09/02/21 09/08/21 Tamsulosin [Flomax] 0.4 mg PO DAILY 09/02/21 09/08/21 Previous Rx's Medication Instructions Recorded Clopidogrel Bisulfate [Plavix] 75 mg PO DAILY 30 Days #30 tab 09/03/21 Nicotine 21Mg/24Hr Patch [Habitrol] 1 patch TRANSDERM DAILY patch 09/03/21 Allergies Allergy/AdvReac Type Severity Reaction Status Date / Time No Known Allergies Allergy Verified 09/08/21 13:38 Review of Systems ROS Statement: Those systems with pertinent positive or pertinent negative responses have been documented in the HPI. ROS Other: All systems not noted in ROS Statement are negative. Past Medical History Past Medical History: COPD, CVA/TIA, Hyperlipidemia, Hypertension History of Any Multi-Drug Resistant Organisms: None Reported Past Surgical History: Hernia Repair Past Psychological History: No Psychological Hx Reported Smoking Status: Current every day smoker Past Alcohol Use History: None Reported Past Drug Use History: None Reported General Exam - General Exam Comments Initial Comments: This is a well-developed well-nourished awake alert oriented 3 male Limitations: no limitations General appearance: alert, in no apparent distress Head exam: Present: atraumatic, normocephalic, normal inspection Eye exam: Present: normal appearance, PERRL, EOMI. Absent: scleral icterus, conjunctival injection, periorbital swelling ENT exam: Present: normal exam, mucous membranes moist Neck exam: Present: normal inspection, full ROM. Absent: tenderness, meningismu s, lymphadenopathy Respiratory exam: Present: normal lung sounds bilaterally. Absent: respiratory distress, wheezes, rales, rhonchi, stridor Cardiovascular Exam: Present: regular rate, normal rhythm, normal heart sounds. Absent: systolic murmur, diastolic murmur, rubs, gallop, clicks GI/Abdominal exam: Present: soft, normal bowel sounds. Absent: distended, tenderness, guarding, rebound, rigid Extremities exam: Present: full ROM, tenderness, pedal edema, other (Slightest capillary refill at this time temperature appears be within normal limits no sensory loss. Some duskiness to the toes). Absent: joint swelling, calf tenderness Back exam: Present: normal inspection Neurological exam: Present: alert, oriented X3, CN II-XII intact Psychiatric exam: Present: normal affect, normal mood Skin exam: Present: warm, dry, intact, normal color. Absent: rash Course Vital Signs 09/08/21 09/08/21 12:25 13:29 Temperature 97.6 F Pulse Rate 67 68 Respiratory 22 18 Rate Blood Pressure 118/60 121/66 O2 Sat by Pulse 93 L 93 L Oximetry Medical Decision Making - Medical Decision Making Patient clinically demonstrated evidence of her last disease. Did discuss case with both Dr. Alvarado and Dr. Hayden. Patient will be admitted he is a tobacco a smoker we placed on a clean patch. - Lab Data Result diagrams: 09/08/21 14:30 Lab Results 09/08/21 Range/Units 14:30 WBC 15.1 H (3.8-10.6) k/uL RBC 4.84 (4.30-5.90) m/uL Hgb 15.4 (13.0-17.5) gm/dL Hct 48.1 (39.0-53.0) % MCV 99.3 (80.0-100.0) fL MCH 31.9 (25.0-35.0) pg MCHC 32.1 (31.0-37.0) g/dL RDW 12.7 (11.5-15.5) % Plt Count 212 (150-450) k/uL MPV 9.4 Neutrophils % 81 % Lymphocytes % 9 % Monocytes % 4 % Eosinophils % 5 % Basophils % 1 % Neutrophils # 12.2 H (1.3-7.7) k/uL Lymphocytes # 1.3 (1.0-4.8) k/uL Monocytes # 0.5 (0-1.0) k/uL Eosinophils # 0.7 (0-0.7) k/uL Basophils # 0.1 (0-0.2) k/uL Disposition Clinical Impression: Peripheral vascular disease of lower extremity, Tobacco dependence Disposition: ADMITTED IP TO THIS HOSP Condition: Fair Referrals: Uche Alvarado MD [Primary Care Provider] - 1-2 days
[2021-09-08] MEDS ORDERED: NICOTINE 21MG/24HR PATCH TRANSDERM STA (14:36)
[2021-09-08 14:56] LABS: Basophils # (A) 0.1 k/uL (0-0.2); Basophils % (A) 1 %; Eosinophils # (A) 0.7 k/uL (0-0.7); Eosinophils % (A) 5 %; HCT 48.1 % (39.0-53.0); HGB 15.4 gm/dL (13.0-17.5); Lymphocytes # (A) 1.3 k/uL (1.0-4.8); Lymphocytes % (A) 9 %; MCH 31.9 pg (25.0-35.0); MCHC 32.1 g/dL (31.0-37.0); MCV 99.3 fL (80.0-100.0); Mean Platelet Volume 9.4; Monocytes # (A) 0.5 k/uL (0-1.0); Monocytes % (A) 4 %; Neutrophils # (A) 12.2 k/uL (1.3-7.7); Neutrophils % (A) 81 %; Platelet Count 212 k/uL (150-450); RBC 4.84 m/uL (4.30-5.90); RDW 12.7 % (11.5-15.5); WBC 15.1 k/uL (3.8-10.6)
[2021-09-08] MEDS ORDERED: NALOXONE 0.4 MG/ML 1 ML VIAL IV PRN (15:06)
[2021-09-08] MEDS ORDERED: ACETAMINOPHEN TAB 325 MG TAB PO PRN (15:06)
[2021-09-08 15:07] LABS: Albumin 3.7 g/dL (3.5-5.0); Calcium 9.9 mg/dL (8.4-10.2); Magnesium 1.8 mg/dL (1.6-2.3); Total Bilirubin 0.9 mg/dL (0.2-1.3); Total Protein 6.3 g/dL (6.3-8.2)
[2021-09-08 15:09] LABS: Potassium 4.7 mmol/L (3.5-5.1)
[2021-09-08] MEDS: SODIUM CHLORIDE 0.9% 1,000 ML IV SCH (16:05)
[2021-09-08] MEDS: ATORVASTATIN 10 MG TAB PO SCH (21:40)
[2021-09-08] MEDS: METOPROLOL TARTRATE 25 MG TAB PO SCH (21:40)
[2021-09-08] MEDS: HYDROcodone/APAP 7.5-325MG 1 EACH TAB PO PRN (21:40)
[2021-09-09] MEDS: SODIUM CHLORIDE 0.9% 1,000 ML IV SCH ×2 (06:18→11:13)
[2021-09-09] MEDS: SYMBICORT 80-4.5 MCG INHALER INHALATION SCH ×2 (08:00→19:11)
[2021-09-09] MEDS: ASPIRIN 81 MG PO SCH (09:38)
[2021-09-09] MEDS: NICOTINE 21MG/24HR PATCH TRANSDERM SCH (09:38)
[2021-09-09] MEDS: TAMSULOSIN 0.4 MG CAP.ER.24H PO SCH (09:38)
[2021-09-09] MEDS: METOPROLOL TARTRATE 25 MG TAB PO SCH ×2 (09:39→21:07)
[2021-09-09] MEDS: CHOLECALCIFEROL 25 MCG (1000 IU) TABLET PO SCH (09:39)
[2021-09-09] MEDS: CLOPIDOGREL 75 MG TAB PO SCH (09:39)
--- NOTE | 2021-09-09 10:30 | P.HPIM ---
History of Present Illness H&P Date: 09/08/21 Richard Reid, is an 80-year-old male who presented to [facility] emergency room with a chief complaint of bilateral red feet with edema. Apparently patient was sent to ER per his vascular surgeon due to the extensive redness secondary to peripheral vascular disease. Patient has a known past medical history of peripheral vascular disease. Additional medical history includes COPD, CVA, hyperlipidemia, hypertension and nicotine dependence. Patient with elevated white blood cell count 15.1 bilateral redness noted. At this time will start patient on Kefzol. Blood culture ordered. Infectious disease service is consulted. Dr. Rain also consulted for evaluation for possible stent along with Dr. Da Silva for possible intervention. At this time patient is resting comfortably in bed. Patient reports improvement with edema and pain. Patient stresses that he is anxious to go home. Discussed with patient that he will need further evaluation due to the extensive redness to his lower extremity secondary to his peripheral vascular disease. Patient denies chest pain or shortness breath. Patient denies nausea vomiting or diarrhea. Patient denies any urinary burning or frequency. Review of Systems Please refer to HPI otherwise unremarkable Past Medical History Past Medical History: COPD, CVA/TIA, Hyperlipidemia, Hypertension History of Any Multi-Drug Resistant Organisms: None Reported Past Surgical History: Hernia Repair Past Psychological History: No Psychological Hx Reported Smoking Status: Current every day smoker Past Alcohol Use History: None Reported Past Drug Use History: None Reported Medications and Allergies Home Medications Medication Instructions Recorded Confirmed Type Aspirin EC [Ecotrin Low Dose] 81 mg PO DAILY 09/02/21 09/08/21 History Cholecalciferol [Vitamin D3 (25 25 mcg PO DAILY 09/02/21 09/08/21 History Mcg = 1000 Iu)] Fluticasone/Vilanterol [Breo 1 puff INHALATION RT-DAILY 09/02/21 09/08/21 History Ellipta 100-25 Mcg Inhaler] HYDROcodone/APAP 7.5-325MG [[place] 1 tab PO BID PRN 09/02/21 09/08/21 History 7.5-325] Lisinopril-Hctz 20-25 mg 0.5 tab PO DAILY 09/02/21 09/08/21 History [Zestoretic 20-25] Metoprolol Tartrate [Lopressor] 25 mg PO BID 09/02/21 09/08/21 History Rosuvastatin Calcium [Crestor] 5 mg PO HS 09/02/21 09/08/21 History Tamsulosin [Flomax] 0.4 mg PO DAILY 09/02/21 09/08/21 History Clopidogrel Bisulfate [Plavix] 75 mg PO DAILY 30 Days #30 tab 09/03/21 09/08/21 Rx Nicotine 21Mg/24Hr Patch [Habitrol] 1 patch TRANSDERM DAILY patch 09/03/21 09/08/21 Rx Allergies Allergy/AdvReac Type Severity Reaction Status Date / Time No Known Allergies Allergy Verified 09/08/21 13:38 Physical Exam Vitals: Vital Signs Temp Pulse Resp BP Pulse Ox 09/08/21 16:10 82 18 128/68 09/08/21 13:29 68 18 121/66 93 L 09/08/21 12:25 97.6 F 67 22 118/60 93 L Intake and Output 09/08/21 09/08/21 09/08/21 06:59 14:59 22:59 Other: Weight 80.739 kg In general patient is alert and oriented ?-3 in no distress HEENT head normocephalic and atraumatic Neck is supple no JVD no goiter no lymphadenopathy no carotid bruit Chest examination is clear to auscultation no crackles no wheezing Cardiac exam reveals regular heart sounds S1 and S2 no gallops no murmurs Abdomen is soft nontender no organomegaly with normal bowel sounds Extremity exam bilateral lower extremity erythema and +2 edema Neurological examination reveals no gross focal deficits Results CBC & Chem 7: 09/08/21 14:30 09/08/21 14:30 Labs: Abnormal Lab Results - Last 24 Hours (Table) 09/08/21 09/08/21 Range/Units 14:30 14:30 WBC 15.1 H (3.8-10.6) k/uL Neutrophils # 12.2 H (1.3-7.7) k/uL Sodium 133 L (137-145) mmol/L BUN 24 H (9-20) mg/dL Glucose 104 H (74-99) mg/dL Assessment and Plan Assessment: 1. Peripheral vascular disease with lower extremities. 2. Possible cellulitis of lower extremities. Elevated white count at 15.1. Infectious disease service is consulted. Blood culture ordered 3. History of ongoing nicotine dependence 4. History of COPD. No exacerbation at this time 5. History of hyperlipidemia. Maintained on statin 6. History of essential hypertension DVT prophylaxis Lovenox. GI prophylaxis Protonix Vascular surgery consulted Infectious disease service is consulted Patient started on IV antibiotics Repeat labs ordered Time with Patient: Greater than 30
--- NOTE | 2021-09-09 10:31 | P.PN ---
Subjective Progress Note Date: 09/09/21 Richard Reid, is an 80-year-old male who presented to [facility] emergency room with a chief complaint of bilateral red feet with edema. Apparently patient was sent to ER per his vascular surgeon due to the extensive redness secondary to peripheral vascular disease. Patient has a known past medical history of peripheral vascular disease. Additional medical history includes COPD, CVA, hyperlipidemia, hypertension and nicotine dependence. Patient with elevated white blood cell count 15.1 bilateral redness noted. At this time will start patient on Kefzol. Blood culture ordered. Infectious disease service is consulted. Dr. Rain also consulted for evaluation for possible stent along with Dr. Da Silva for possible intervention. At this time patient is resting comfortably in bed. Patient reports improvement with edema and pain. Patient stresses that he is anxious to go home. Discussed with patient that he will need further evaluation due to the extensive redness to his lower extremity secondary to his peripheral vascular disease. Patient denies chest pain or shortness breath. Patient denies nausea vomiting or diarrhea. Patient denies any urinary burning or frequency. On 09/09/2021 patient alert and oriented 3. Vascular surgery has been consulted. Patient reports improvement with lower extremity redness and swelling. Infectious disease services also consulted. At this time patient denies chest pain or shortness breath. Patient denies nausea vomiting or diarrhea. Patient denies any urinary burning or frequency Objective - Vital Signs Vital signs: Vital Signs Temp 98.5 F 09/09/21 08:15 Pulse 104 H 09/09/21 10:15 Resp 17 09/09/21 10:15 BP 146/66 09/09/21 08:15 Pulse Ox 92 L 09/09/21 08:15 Intake & Output 09/08/21 09/09/21 09/09/21 18:59 06:59 18:59 Intake Total 900 Balance 900 Weight 80.739 kg Intake: Intake, IV Titration 900 Amount Sodium Chloride 0.9% 1, 900 000 ml @ 75 mls/hr IV . [id number] LUZ ELENA Rx#:[id number] Other: Voiding Method Toilet Toilet # Voids 1 - Exam In general patient is alert and oriented ?-3 in no distress HEENT head normocephalic and atraumatic Neck is supple no JVD no goiter no lymphadenopathy no carotid bruit Chest examination is clear to auscultation no crackles no wheezing Cardiac exam reveals regular heart sounds S1 and S2 no gallops no murmurs Abdomen is soft nontender no organomegaly with normal bowel sounds Extremity exam bilateral lower extremity erythema and +2 edema Neurological examination reveals no gross focal deficits - Labs CBC & Chem 7: 09/08/21 14:30 09/08/21 14:30 Labs: Abnormal Lab Results - Last 24 Hours (Table) 09/08/21 09/08/21 Range/Units 14:30 14:30 WBC 15.1 H (3.8-10.6) k/uL Neutrophils # 12.2 H (1.3-7.7) k/uL Sodium 133 L (137-145) mmol/L BUN 24 H (9-20) mg/dL Glucose 104 H (74-99) mg/dL Assessment and Plan Assessment: 1. Peripheral vascular disease with lower extremities. 2. Possible cellulitis of lower extremities. Elevated white count at 15.1. Infectious disease service is consulted. Blood culture ordered 3. History of ongoing nicotine dependence 4. History of COPD. No exacerbation at this time 5. History of hyperlipidemia. Maintained on statin 6. History of essential hypertension DVT prophylaxis Lovenox. GI prophylaxis Protonix Vascular surgery consulted Infectious disease service is consulted Patient started on IV antibiotics Repeat labs ordered
[2021-09-09 10:55] LABS: Basophils # (A) 0.1 k/uL (0-0.2); Basophils % (A) 1 %; Eosinophils # (A) 0.5 k/uL (0-0.7); Eosinophils % (A) 4 %; HCT 46.9 % (39.0-53.0); Lymphocytes # (A) 0.9 k/uL (1.0-4.8); Lymphocytes % (A) 7 %; MCH 32.1 pg (25.0-35.0); MCHC 32.1 g/dL (31.0-37.0); Mean Platelet Volume 8.9; Monocytes # (A) 0.5 k/uL (0-1.0); Monocytes % (A) 4 %; Neutrophils # (A) 10.7 k/uL (1.3-7.7); Neutrophils % (A) 83 %; Platelet Count 207 k/uL (150-450); RBC 4.69 m/uL (4.30-5.90); RDW 12.5 % (11.5-15.5); WBC 12.8 k/uL (3.8-10.6)
[2021-09-09 11:09] LABS: ALT 19 U/L (4-49); AST 27 U/L (17-59); African American GFR (CKD) 88 (>60 ml/min/1.73 sqM); Albumin 3.4 g/dL (3.5-5.0); Albumin/Globulin Ratio 1.3; Alkaline Phosphatase 75 U/L (38-126); Anion Gap 3 mmol/L; Blood Urea Nitrogen 20 mg/dL (9-20); Calcium 9.5 mg/dL (8.4-10.2); Carbon Dioxide 29 mmol/L (22-30); Chloride 102 mmol/L (98-107); Globulin 2.7 g/dL; Glucose 113 mg/dL (74-99); Non-African American GFR(CKD) 76 (>60 ml/min/1.73 sqM); Potassium 4.4 mmol/L (3.5-5.1); Sodium 134 mmol/L (137-145); Total Bilirubin 0.9 mg/dL (0.2-1.3); Total Protein 6.1 g/dL (6.3-8.2)
--- NOTE | 2021-09-09 12:00 | P.CRDCN ---
History of Present Illness History of present illness: HISTORY OF PRESENTING ILLNESS This is a pleasant 80-year-old male past medical history significant for peripheral artery disease and hypertension, dyslipidemia He does not follow with a mother superior. We have been asked to see in consultation for peripheral vascular disease with possible stent. Patient presents emergency department with complaints of left lower extremity pain and swelling. He states yesterday he noticed the swelling his left foot increase in his pain in his left foot and toes increased. He states that the swelling has improved. He went to follow-up with his primary care provider and was told to come to the emergency department for further evaluation. He denies any chest pain, shortness of breath, lightheadedness, dizziness, palpitations. He denies any history of coronary disease, NC, stroke, diabetes. He was recently admitted on 09/02/21 and was evaluated by Dr. Da Silva with similar complaints for his peripheral artery disease, patient was started on Plavix 75 mg daily. He also takes aspirin 81 mg daily, lisinoprilhydrochlorothiazide 2025 milligrams daily, metoprolol titrate 25 mg twice a day and rosuvastatin 5 mg nightly. DIAGNOSTICS EKG reveals sinus rhythm, heart 63, no history of abnormalities. Laboratory reviewed, sodium 134, potassium 4.4, BUN 20, serum, and 0.9, magnesium 1.8, COVID-19 negative, WBC 12.8, hemoglobin 15, platelets 207 REVIEW OF SYSTEMS At the time of my exam: CONSTITUTIONAL: Denies fever or chills. CARDIOVASCULAR: Denies chest pain, shortness of breath, orthopnea, PND or palpitations. RESPIRATORY: Denies cough. GASTROINTESTINAL: Denies abdominal pain, diarrhea, constipation, nausea or vomiting. MUSCULOSKELETAL: left toe pain NEUROLOGIC: Denies numbness, tingling, headacbe or weakness. ENDOCRINE: Denies fatigue, weight change, polydipsia or polyurina. GENITOURINARY: Denies burning, hematuria or urgency with micturation. HEMATOLOGIC: Denies history of anemia or bleeding. PHYSICAL EXAMINATION Blood pressure 146/66, heart rate 100, afebrile, oxygen saturation greater than 90% on room air CONSTITUTIONAL: No apparent distress. HEENT: Head is normocephalic. Pupils are equal, round. Sclerae anicteric. Mucous membranes of the mouth are moist. No JVD. No carotid bruit. CHEST EXAMINATION: Lungs are clear to auscultation. No chest wall tenderness is noted on palpation or with deep breathing. HEART EXAMINATION: Regular rate and rhythm. S1, S2 heard. No murmurs, gallops or rub. ABDOMEN: Soft, nontender. Positive bowel sounds. EXTREMITIES: redness to left lower extremity, 1+ edema in left lower extremity NEUROLOGIC EXAMINATION: Patient is awake, alert and oriented x3. ASSESSMENT Peripheral artery disease History of hypertension Dyslipidemia PLAN Patient has been evaluated by vascular last week, recommend vascular consult for further evaluation of patient's peripheral artery disease Recommend on discharge to increase rosuvastatin to 10mg daily We will check lipid panel and hemoglobin A1C Patient may follow up outpatient with Dr. Sanchez We will follow the patient as needed. Please reach out with any further questions or concerns. Nurse Practitioner note has been reviewed, I agree with a documented findings and plan of care. Patient was seen and examined. Past Medical History Past Medical History: COPD, CVA/TIA, Hyperlipidemia, Hypertension History of Any Multi-Drug Resistant Organisms: None Reported Past Surgical History: Hernia Repair Past Psychological History: No Psychological Hx Reported Smoking Status: Current every day smoker Past Alcohol Use History: None Reported Past Drug Use History: None Reported Medications and Allergies Home Medications Medication Instructions Recorded Confirmed Type Aspirin EC [Ecotrin Low Dose] 81 mg PO DAILY 09/02/21 09/08/21 History Cholecalciferol [Vitamin D3 (25 25 mcg PO DAILY 09/02/21 09/08/21 History Mcg = 1000 Iu)] Fluticasone/Vilanterol [Breo 1 puff INHALATION RT-DAILY 09/02/21 09/08/21 History Ellipta 100-25 Mcg Inhaler] HYDROcodone/APAP 7.5-325MG [[place] 1 tab PO BID PRN 09/02/21 09/08/21 History 7.5-325] Lisinopril-Hctz 20-25 mg 0.5 tab PO DAILY 09/02/21 09/08/21 History [Zestoretic 20-25] Metoprolol Tartrate [Lopressor] 25 mg PO BID 09/02/21 09/08/21 History Rosuvastatin Calcium [Crestor] 5 mg PO HS 09/02/21 09/08/21 History Tamsulosin [Flomax] 0.4 mg PO DAILY 09/02/21 09/08/21 History Clopidogrel Bisulfate [Plavix] 75 mg PO DAILY 30 Days #30 tab 09/03/21 09/08/21 Rx Nicotine 21Mg/24Hr Patch [Habitrol] 1 patch TRANSDERM DAILY patch 09/03/21 09/08/21 Rx Allergies Allergy/AdvReac Type Severity Reaction Status Date / Time No Known Allergies Allergy Verified 09/08/21 13:38 Physical Exam Vitals: Vital Signs Temp Pulse Pulse Pulse Resp BP BP 09/09/21 04:14 97.6 F 76 18 09/08/21 21:35 70 16 09/08/21 21:17 98.4 F 70 16 121/67 09/08/21 19:10 80 20 134/80 09/08/21 16:10 82 18 128/68 09/08/21 13:29 68 18 121/66 09/08/21 12:25 97.6 F 67 22 118/60 BP Pulse Ox 09/09/21 04:14 120/60 95 09/08/21 21:35 09/08/21 21:17 90 L 09/08/21 19:10 93 L 09/08/21 16:10 09/08/21 13:29 93 L 09/08/21 12:25 93 L Intake and Output 09/08/21 09/09/21 09/09/21 22:59 06:59 14:59 Intake Total 900 Balance 900 Intake: Intake, IV Titration 900 Amount Sodium Chloride 0.9% 1, 900 000 ml @ 75 mls/hr IV . [id number] [facility] Rx#:[id number] Other: Voiding Method Toilet # Voids 1 Weight 80.739 kg Results 09/09/21 10:27 09/09/21 10:27 Cardiac Enzymes 09/08/21 Range/Units 14:30 AST 26 (17-59) U/L Coagulation 09/08/21 Range/Units 14:30 APTT 23.7 (22.0-30.0) sec CBC 09/08/21 Range/Units 14:30 WBC 15.1 H (3.8-10.6) k/uL RBC 4.84 (4.30-5.90) m/uL Hgb 15.4 (13.0-17.5) gm/dL Hct 48.1 (39.0-53.0) % Plt Count 212 (150-450) k/uL Comprehensive Metabolic Panel 09/08/21 Range/Units 14:30 Sodium 133 L (137-145) mmol/L Potassium 4.7 (3.5-5.1) mmol/L Chloride 100 (98-107) mmol/L Carbon Dioxide 26 (22-30) mmol/L BUN 24 H (9-20) mg/dL Creatinine 1.00 (0.66-1.25) mg/dL Glucose 104 H (74-99) mg/dL Calcium 9.9 (8.4-10.2) mg/dL AST 26 (17-59) U/L ALT 19 (4-49) U/L Alkaline Phosphatase 64 (38-126) U/L Total Protein 6.3 (6.3-8.2) g/dL Albumin 3.7 (3.5-5.0) g/dL Current Medications Generic Name Dose Route Start Last Admin Trade Name Freq PRN Reason Stop Dose Admin Acetaminophen 650 mg 09/08/21 15:06 Acetaminophen Tab 325 Mg Tab PO Q6HR PRN Mild Pain or Fever > 100.5 Hydrocodone Bitart/Acetaminophen 1 each 09/08/21 15:11 09/08/21 21:40 Hydrocodone/Apap 7.5-325mg 1 Each Tab PO 1 each BID PRN Administration Pain Aspirin 81 mg 09/09/21 09:00 Aspirin 81 Mg PO DAILY LUZ ELENA Atorvastatin Calcium 10 mg 09/08/21 21:00 09/08/21 21:40 Atorvastatin 10 Mg Tab PO 10 mg HS LUZ ELENA Administration Budesonide/Formoterol Fumarate 2 puff 09/09/21 08:00 Symbicort 80-4.5 Mcg Inhaler INHALATION RT-BID LUZ ELENA Cholecalciferol 25 mcg 09/09/21 09:00 Cholecalciferol 25 Mcg (1000 Iu) Tablet PO DAILY [facility] Clopidogrel Bisulfate 75 mg 09/09/21 09:00 Clopidogrel 75 Mg Tab PO DAILY [facility] ELENA Lisinopril/HCTZ 0.5 each 09/09/21 09:00 Lisinopril-Hctz 20-25 Mg 1 Each Tab PO DAILY [facility] Sodium Chloride 1,000 mls @ 75 mls/hr 09/08/21 15:15 09/09/21 06:18 Saline 0.9% IV Not Given .[id number] [facility] Metoprolol Tartrate 25 mg 09/08/21 21:00 09/08/21 21:40 Metoprolol Tartrate 25 Mg Tab PO 25 mg BID LUZ ELENA Administration Naloxone HCl 0.2 mg 09/08/21 15:06 Naloxone 0.4 Mg/Ml 1 Ml Vial IV Q2M PRN Opioid Reversal Nicotine 1 patch 09/09/21 09:00 Nicotine 21mg/24hr Patch TRANSDERM DAILY LU[facility] ELENA Tamsulosin HCl 0.4 mg 09/09/21 09:00 Tamsulosin 0.4 Mg Cap.Er.24h PO DAILY [facility] ELENA Intake and Output 09/08/21 09/09/21 09/09/21 22:59 06:59 14:59 Intake Total 900 Balance 900 Intake: Intake, IV Titration 900 Amount Sodium Chloride 0.9% 1, 900 000 ml @ 75 mls/hr IV . [id number] [facility] Rx#:[id number] Other: Voiding Method Toilet # Voids 1 Weight 80.739 kg 09/08/21 14:30 09/08/21 14:30
--- NOTE | 2021-09-09 12:19 | P.GSCN ---
History of Present Illness Consult date: 09/09/21 Reason for Consult: Peripheral arterial disease, ischemic toes Requesting physician: Uche Alvarado History of present illness: This and 80-year-old male who was sent in by his physician with complaints of pain in the left foot with increased redness and swelling. The patient was recently hospitalized and seen by Dr. Da Silva on 09/03/2021 for pain in his left foot which has been going on for the last several weeks. He has denied any trauma to his foot. During his last hospitalization he underwent a CT angiogram of the abdomen aorta with runoff that showed no evidence of vascular occlusion. Severe arthrosclerotic disease involving abdominal aorta and lower extremity vasculature. Focal areas of stenosis throughout the SFAs, represented examples in the mid arteries is 90% stenosis on the right and 70% stenosis on the left. Infrarenal aortic fusiform dilation measuring up to 31 mm. The patient also underwent a lower extremity arterial study showing ARIAN 0.56 on the right and 0.4 on the left reporting moderate right fem-pop disease with possible mild iliac component. Moderate left iliofemoral disease with suspected moderate fem-pop component as well. The patient was supposed to follow-up with Dr. Da Silva as an outpatient however did not do that. He is a chronic smoker of 50 years. He denies any fevers, chills, nausea or vomiting. During his last admission he was started on aspirin and Plavix, he is on Crestor 5 mg daily. Review of Systems 14 point review of systems was completed all pertinent positives and negatives as stated in the HPI Past Medical History Past Medical History: COPD, CVA/TIA, Hyperlipidemia, Hypertension History of Any Multi-Drug Resistant Organisms: None Reported Past Surgical History: Hernia Repair Past Psychological History: No Psychological Hx Reported Smoking Status: Current every day smoker Past Alcohol Use History: None Reported Past Drug Use History: None Reported Medications and Allergies Home Medications Medication Instructions Recorded Confirmed Type Aspirin EC [Ecotrin Low Dose] 81 mg PO DAILY 09/02/21 09/08/21 History Cholecalciferol [Vitamin D3 (25 25 mcg PO DAILY 09/02/21 09/08/21 History Mcg = 1000 Iu)] Fluticasone/Vilanterol [Breo 1 puff INHALATION RT-DAILY 09/02/21 09/08/21 History Ellipta 100-25 Mcg Inhaler] HYDROcodone/APAP 7.5-325MG [[place] 1 tab PO BID PRN 09/02/21 09/08/21 History 7.5-325] Lisinopril-Hctz 20-25 mg 0.5 tab PO DAILY 09/02/21 09/08/21 History [Zestoretic 20-25] Metoprolol Tartrate [Lopressor] 25 mg PO BID 09/02/21 09/08/21 History Rosuvastatin Calcium [Crestor] 5 mg PO HS 09/02/21 09/08/21 History Tamsulosin [Flomax] 0.4 mg PO DAILY 09/02/21 09/08/21 History Clopidogrel Bisulfate [Plavix] 75 mg PO DAILY 30 Days #30 tab 09/03/21 09/08/21 Rx Nicotine 21Mg/24Hr Patch [Habitrol] 1 patch TRANSDERM DAILY patch 09/03/21 09/08/21 Rx Allergies Allergy/AdvReac Type Severity Reaction Status Date / Time No Known Allergies Allergy Verified 09/08/21 13:38 Surgical - Exam Vital Signs Temp Pulse Resp BP Pulse Ox 97.6 F 67 22 118/60 93 L 09/08/21 12:25 09/08/21 12:25 09/08/21 12:25 09/08/21 12:25 09/08/21 12:25 General appearance: The patient is alert, oriented, appears in no acute distress. He is fully dressed in his street clothes. HET: Head is normocephalic and atraumatic. Pupils are equal and reactive. Neck: Supple without lymphadenopathy. Trachea midline. No audible carotid bruit. Heart: S1 S2. Regular rate and rhythm. Lungs: Clear to auscultation bilaterally. Abdomen: Soft, nontender, nondistended. Extremities: Bilateral lower extremity edema, left greater than right. Left foot with mild erythema, fourth and fifth toes with ischemic changes, dry gangrene. Nonpalpable DP or PT pulses. Positive DP and PT Doppler signals. Palpable but slightly diminished femoral pulses. Neurological: No focal deficits. Strength and sensation are grossly intact. Results - Labs 09/09/21 10:27 09/09/21 10:27 Abnormal Lab Results - Last 24 Hours (Table) 09/08/21 09/08/21 Range/Units 14:30 14:30 WBC 15.1 H (3.8-10.6) k/uL Neutrophils # 12.2 H (1.3-7.7) k/uL Sodium 133 L (137-145) mmol/L BUN 24 H (9-20) mg/dL Glucose 104 H (74-99) mg/dL Diabetes panel 09/08/21 Range/Units 14:30 Sodium 133 L (137-145) mmol/L Potassium 4.7 (3.5-5.1) mmol/L Chloride 100 (98-107) mmol/L Carbon Dioxide 26 (22-30) mmol/L BUN 24 H (9-20) mg/dL Creatinine 1.00 (0.66-1.25) mg/dL Glucose 104 H (74-99) mg/dL Calcium 9.9 (8.4-10.2) mg/dL AST 26 (17-59) U/L ALT 19 (4-49) U/L Alkaline Phosphatase 64 (38-126) U/L Total Protein 6.3 (6.3-8.2) g/dL Albumin 3.7 (3.5-5.0) g/dL Calcium panel 09/08/21 Range/Units 14:30 Calcium 9.9 (8.4-10.2) mg/dL Albumin 3.7 (3.5-5.0) g/dL Pituitary panel 09/08/21 Range/Units 14:30 Sodium 133 L (137-145) mmol/L Potassium 4.7 (3.5-5.1) mmol/L Chloride 100 (98-107) mmol/L Carbon Dioxide 26 (22-30) mmol/L BUN 24 H (9-20) mg/dL Creatinine 1.00 (0.66-1.25) mg/dL Glucose 104 H (74-99) mg/dL Calcium 9.9 (8.4-10.2) mg/dL Adrenal panel 09/08/21 Range/Units 14:30 Sodium 133 L (137-145) mmol/L Potassium 4.7 (3.5-5.1) mmol/L Chloride 100 (98-107) mmol/L Carbon Dioxide 26 (22-30) mmol/L BUN 24 H (9-20) mg/dL Creatinine 1.00 (0.66-1.25) mg/dL Glucose 104 H (74-99) mg/dL Calcium 9.9 (8.4-10.2) mg/dL Total Bilirubin 0.9 (0.2-1.3) mg/dL AST 26 (17-59) U/L ALT 19 (4-49) U/L Alkaline Phosphatase 64 (38-126) U/L Total Protein 6.3 (6.3-8.2) g/dL Albumin 3.7 (3.5-5.0) g/dL Assessment and Plan Assessment: 1. Rj 5 peripheral arterial disease 2. Ischemic changes to fourth and fifth toes on left foot Plan: 1. Continue aspirin, Plavix and statin 2. Antibiotics per recommendations from infectious disease 3. Further recommendations forthcoming from vascular surgery, likely outpatient follow-up and intervention. Patient later seen with vascular surgeon. Patient is adamant about being discharged home regarding having to deal with situation at home. He is agre eable to follow-up next week with Dr. Da Silva for outpatient angiogram. Thank you for this consultation. The impression and plan of care has been dictated as directed. Dr. Valle I performed a history and examination of this patient, discussed the same with the dictator. I agree with the dictator's note ,documented as a scribe. Any additional findings or plans will be noted.
[2021-09-09] MEDS: LISINOPRIL-HCTZ 20-25 MG 1 EACH TAB PO SCH (13:03)
[2021-09-09 16:47] LABS: Chol/HDL Ratio 2.74 Ratio; LDL Cholesterol,Calculated 62.7 mg/dL (0.0-131.0); VLDL Calculation 19.32 mg/dL (5.00-40.00)
[2021-09-09] MEDS: ATORVASTATIN 10 MG TAB PO SCH (21:07)
[2021-09-10] MEDS: HYDROcodone/APAP 7.5-325MG 1 EACH TAB PO PRN (03:35)
[2021-09-10] MEDS: CLOPIDOGREL 75 MG TAB PO SCH (07:47)
[2021-09-10] MEDS: TAMSULOSIN 0.4 MG CAP.ER.24H PO SCH (07:47)
[2021-09-10] MEDS: LISINOPRIL-HCTZ 20-25 MG 1 EACH TAB PO SCH (07:47)
[2021-09-10] MEDS: METOPROLOL TARTRATE 25 MG TAB PO SCH ×2 (07:47→21:30)
[2021-09-10] MEDS: PANTOPRAZOLE 40 MG TABLET PO SCH (07:47)
[2021-09-10] MEDS: ASPIRIN 81 MG PO SCH (07:47)
[2021-09-10] MEDS: CHOLECALCIFEROL 25 MCG (1000 IU) TABLET PO SCH (07:47)
[2021-09-10] MEDS: ENOXAPARIN 40 MG/0.4 ML SYRINGE SQ SCH (07:48)
[2021-09-10] MEDS: NICOTINE 21MG/24HR PATCH TRANSDERM SCH (07:48)
[2021-09-10] MEDS: SODIUM CHLORIDE 0.9% 1,000 ML IV SCH ×2 (07:48→21:29)
[2021-09-10] MEDS: SYMBICORT 80-4.5 MCG INHALER INHALATION SCH ×2 (08:43→21:22)
--- NOTE | 2021-09-10 09:42 | P.CONS ---
History of Present Illness - Reason for Consult Consult date: 09/09/21 cellulitis Requesting physician: Uche Alvarado - Chief Complaint left leg pain and redness x few days - History of Present Illness History of present illness : Patient is 80-year-old male presenting to the ER yesterday afternoon for evaluation of painful red feet especially his left leg patient was evaluated in the outpatient setting by his vascular physician and has been sent to the hospital for further evaluation concerning for cellulitis patient denies having any fever or any chills patient denies having any chest pain or shortness of breath he did have some chronic smoker's cough but no purulent sputum denies have any nausea no vomiting no abdominal aruna n no diarrhea patient has been complaining of pain to the left leg is more of a dull aching at times sharp 5-6 out of 10 and no radiation currently did not have any open wound or any drainage in the legs are painful to touch patient has been started on cefazolin infectious disease was consulted for further management of antibiotic therapy Review of system: CONSTITUTIONAL: Positive for weakness denies high-grade fever. EYES: No complaint. ENT: No complaint. RESPIRATORY: As per history of present illness. CARDIOVASCULAR: No complaint. GENITOURINARY: No complaint. GASTROINTESTINAL: No complaint. MUSCULOSKELETAL: No complaint. INTEGUMENTARY: As per history of present illness. PSYCHOLOGIC: No complaint. ENDOCRINE: No complaint. NEUROLOGIC: No complaint. Past medical history : Reviewed, documented below Past surgical history : Reviewed, documented below Social history: Reviewed, documented below Medications: Reviewed, as documented below EXAMINATION: Vital sigans= Reviewed and documented below GENERAL DESCRIPTION: Elderly male up in bed, no distress. No tachypnea or acces bee muscle of respiration use. HEENT: Shows Pallor , no scleral icterus. Oral mucous membrane is dry. NECK: Trachea central, no thyromegaly. LUNGS: Unlabored breathing. Clear to auscultation anteriorly. No wheeze or crackle. HEART: S1, S2, regular rate and rhythm. ABDOMEN: Soft, no tenderness , guarding or rigidity EXTREMITIES diffuse swelling of lower extremities bilaterally left greater than the right with a dry scaly skin slight erythema to the left leg and warm and tender to touch. SKIN: No rash, no masses palpable. NEUROLOGICAL: The patient is awake, alert, oriented x3, mood and affect normal. LABS AND RADIOLOGY: Reviewed results see below Assessment : Patient being admitted to hospital with left lower extremity pain swelling and redness concerning for underlying cellulitis likely from gram- positive skin juan with no evidence of any abscess or open wound clinically Plan: 1-we will switch cefazolin to 2 g every 8 hour 2-moisturizing cream to the bilateral lower extremity because of dry scaly skin We will follow on clinical condition and cultures to further adjust medication if needed Thank you for this consultation we will follow the patient along with you Past Medical History Past Medical History: COPD, CVA/TIA, Hyperlipidemia, Hypertension History of Any Multi-Drug Resistant Organisms: None Reported Past Surgical History: Hernia Repair Past Psychological History: No Psychological Hx Reported Smoking Status: Current every day smoker Past Alcohol Use History: None Reported Past Drug Use History: None Reported Medications and Allergies Home Medications Medication Instructions Recorded Confirmed Type Aspirin EC [Ecotrin Low Dose] 81 mg PO DAILY 09/02/21 09/08/21 History Cholecalciferol [Vitamin D3 (25 25 mcg PO DAILY 09/02/21 09/08/21 History Mcg = 1000 Iu)] Fluticasone/Vilanterol [Breo 1 puff INHALATION RT-DAILY 09/02/21 09/08/21 History Ellipta 100-25 Mcg Inhaler] HYDROcodone/APAP 7.5-325MG [[place] 1 tab PO BID PRN 09/02/21 09/08/21 History 7.5-325] Lisinopril-Hctz 20-25 mg 0.5 tab PO DAILY 09/02/21 09/08/21 History [Zestoretic 20-25] Metoprolol Tartrate [Lopressor] 25 mg PO BID 09/02/21 09/08/21 History Rosuvastatin Calcium [Crestor] 5 mg PO HS 09/02/21 09/08/21 History Tamsulosin [Flomax] 0.4 mg PO DAILY 09/02/21 09/08/21 History Clopidogrel Bisulfate [Plavix] 75 mg PO DAILY 30 Days #30 tab 09/03/21 09/08/21 Rx Nicotine 21Mg/24Hr Patch [Habitrol] 1 patch TRANSDERM DAILY patch 09/03/21 09/08/21 Rx Allergies Allergy/AdvReac Type Severity Reaction Status Date / Time No Known Allergies Allergy Verified 09/08/21 13:38 Physical Exam Vitals: Vital Signs Temp Pulse Pulse Pulse Resp BP BP 09/09/21 10:15 104 H 17 09/09/21 08:15 98.5 F 100 17 09/09/21 04:14 97.6 F 76 18 09/08/21 21:35 70 16 09/08/21 21:17 98.4 F 70 16 121/67 09/08/21 19:10 80 20 134/80 09/08/21 16:10 82 18 128/68 09/08/21 13:29 68 18 121/66 09/08/21 12:25 97.6 F 67 22 118/60 BP Pulse Ox 09/09/21 10:15 09/09/21 08:15 146/66 92 L 09/09/21 04:14 120/60 95 09/08/21 21:35 09/08/21 21:17 90 L 09/08/21 19:10 93 L 09/08/21 16:10 09/08/21 13:29 93 L 09/08/21 12:25 93 L Intake and Output 09/08/21 09/09/21 09/09/21 22:59 06:59 14:59 Intake Total 900 Balance 900 Intake: Intake, IV Titration 900 Amount Sodium Chloride 0.9% 1, 900 000 ml @ 75 mls/hr IV . [id number] [facility] Rx#:[id number] Other: Voiding Method Toilet Toilet # Voids 1 Weight 80.739 kg Results CBC & Chem 7: 09/09/21 10:27 09/09/21 10:27 Labs: Abnormal Lab Results - Last 24 Hours (Table) 09/08/21 09/08/21 09/09/21 Range/Units 14:30 14:30 10:27 WBC 15.1 H 12.8 H (3.8-10.6) k/uL Neutrophils # 12.2 H 10.7 H (1.3-7.7) k/uL Lymphocytes # 0.9 L (1.0-4.8) k/uL Sodium 133 L (137-145) mmol/L BUN 24 H (9-20) mg/dL Glucose 104 H (74-99) mg/dL Total Protein (6.3-8.2) g/dL Albumin (3.5-5.0) g/dL 09/09/21 Range/Units 10:27 WBC (3.8-10.6) k/uL Neutrophils # (1.3-7.7) k/uL Lymphocytes # (1.0-4.8) k/uL Sodium 134 L (137-145) mmol/L BUN (9-20) mg/dL Glucose 113 H (74-99) mg/dL Total Protein 6.1 L (6.3-8.2) g/dL Albumin 3.4 L (3.5-5.0) g/dL
--- NOTE | 2021-09-10 09:58 | P.CRDCN ---
History of Present Illness Consult date: 09/10/21 Chief complaint: Bilateral feet pain History of present illness: The patient is a pleasant 8-year-old gentleman with known lower extent his perip heral arterial disease as well as hypertension and dyslipidemia and history of smoking as well as history of CVA presented to the emergency department complaining of bilateral hip pain in both legs mainly in the feet and worse on the left side than the right side with edema at the left lower extremity as well. The patient stated that the pain has been getting worse for the last few days. On examination he does have evidence of critical limb ischemia with skin changes involving the fourth and fifth toe on the left side. Beside that he does have redness over the left foot and left chin. He was diagnosed with cellulitis and he was seen by ID and currently he is on IV antibiotic. Beside that he has been experiencing resting discomfort. No symptoms of chest pain or chest discomfort and no shortness of breath at this point nor dizziness or lightheadedness or any feeling of heart racing or fluttering. He was seen as an outpatient and evaluated for lower extent his peripheral arterial disease and he underwent a CTA of the aorta and lower extent his and that revealed critical bilateral SFA disease. Currently he is on dual antiplatelet therapy along with low intensity statin. I discuss the finding of the CTA with the patient and the need for revascularization to be performed. Meanwhile I'm going to start the patient on Lasix at 20 mg IV twice a day for the lower extremities edema which is worse on the left side than the right side. Continue IV antibiotic. Infectious disease. Increase the dose of statin to 80 mg by mouth daily at bedtime. Continue dual antiplatelet therapy at this point. Past Medical History Past Medical History: COPD, CVA/TIA, Hyperlipidemia, Hypertension History of Any Multi-Drug Resistant Organisms: None Reported Past Surgical History: Hernia Repair Past Psychological History: No Psychological Hx Reported Smoking Status: Current every day smoker Past Alcohol Use History: None Reported Past Drug Use History: None Reported Medications and Allergies Home Medications Medication Instructions Recorded Confirmed Type Aspirin EC [Ecotrin Low Dose] 81 mg PO DAILY 09/02/21 09/08/21 History Cholecalciferol [Vitamin D3 (25 25 mcg PO DAILY 09/02/21 09/08/21 History Mcg = 1000 Iu)] Fluticasone/Vilanterol [Breo 1 puff INHALATION RT-DAILY 09/02/21 09/08/21 History Ellipta 100-25 Mcg Inhaler] HYDROcodone/APAP 7.5-325MG [[place] 1 tab PO BID PRN 09/02/21 09/08/21 History 7.5-325] Lisinopril-Hctz 20-25 mg 0.5 tab PO DAILY 09/02/21 09/08/21 History [Zestoretic 20-25] Metoprolol Tartrate [Lopressor] 25 mg PO BID 09/02/21 09/08/21 History Rosuvastatin Calcium [Crestor] 5 mg PO HS 09/02/21 09/08/21 History Tamsulosin [Flomax] 0.4 mg PO DAILY 09/02/21 09/08/21 History Clopidogrel Bisulfate [Plavix] 75 mg PO DAILY 30 Days #30 tab 09/03/21 09/08/21 Rx Nicotine 21Mg/24Hr Patch [Habitrol] 1 patch TRANSDERM DAILY patch 09/03/21 09/08/21 Rx Allergies Allergy/AdvReac Type Severity Reaction Status Date / Time No Known Allergies Allergy Verified 09/08/21 13:38 Physical Exam Vitals: Vital Signs Temp Pulse Resp BP Pulse Ox 09/10/21 07:58 79 134/49 09/10/21 04:25 97.8 F 64 20 127/63 92 L 09/09/21 19:35 98.5 F 20 115/54 92 L 09/09/21 12:30 97.7 F 69 17 132/65 95 09/09/21 10:15 104 H 17 Intake and Output 09/09/21 09/10/21 09/10/21 22:59 06:59 14:59 Intake Total 200 Balance 200 Intake: Oral 200 Other: Voiding Method Toilet # Voids 1 2 2 - Constitutional General appearance: no acute distress - Respiratory Respiratory: bilateral: diminished - Cardiovascular Rhythm: regular Heart sounds: normal: S1, S2 Results 09/09/21 10:27 09/09/21 10:27 Cardiac Enzymes 09/09/21 Range/Units 10:27 AST 27 (17-59) U/L Lipids 09/09/21 Range/Units 10:27 Triglycerides 96.60 (0.00-149.00) mg/dL Cholesterol 129.00 (0.00-200.00) mg/dL HDL Cholesterol 47.00 (40.00-60.00) mg/dL Cholesterol/HDL Ratio 2.74 Ratio CBC 09/09/21 Range/Units 10:27 WBC 12.8 H (3.8-10.6) k/uL RBC 4.69 (4.30-5.90) m/uL Hgb 15.0 (13.0-17.5) gm/dL Hct 46.9 (39.0-53.0) % Plt Count 207 (150-450) k/uL Comprehensive Metabolic Panel 09/09/21 Range/Units 10:27 Sodium 134 L (137-145) mmol/L Potassium 4.4 (3.5-5.1) mmol/L Chloride 102 (98-107) mmol/L Carbon Dioxide 29 (22-30) mmol/L BUN 20 (9-20) mg/dL Creatinine 0.95 (0.66-1.25) mg/dL Glucose 113 H (74-99) mg/dL Calcium 9.5 (8.4-10.2) mg/dL AST 27 (17-59) U/L ALT 19 (4-49) U/L Alkaline Phosphatase 75 (38-126) U/L Total Protein 6.1 L (6.3-8.2) g/dL Albumin 3.4 L (3.5-5.0) g/dL Current Medications Generic Name Dose Route Start Last Admin Trade Name Freq PRN Reason Stop Dose Admin Acetaminophen 650 mg 09/08/21 15:06 Acetaminophen Tab 325 Mg Tab PO Q6HR PRN Mild Pain or Fever > 100.5 Hydrocodone Bitart/Acetaminophen 1 each 09/08/21 15:11 09/10/21 03:35 Hydrocodone/Apap 7.5-325mg 1 Each Tab PO 1 each BID PRN Administration Pain Aspirin 81 mg 09/09/21 09:00 09/10/21 07:47 Aspirin 81 Mg PO 81 mg DAILY [facility] Administration Atorvastatin Calcium 10 mg 09/08/21 21:00 09/09/21 21:07 Atorvastatin 10 Mg Tab PO 10 mg HS LUZ ELENA Administration Budesonide/Formoterol Fumarate 2 puff 09/09/21 08:00 09/10/21 08:43 Symbicort 80-4.5 Mcg Inhaler INHALATION Not Given RT-BID LUZ ELENA Cholecalciferol 25 mcg 09/09/21 09:00 09/10/21 07:47 Cholecalciferol 25 Mcg (1000 Iu) Tablet PO 25 mcg DAILY LUZ ELENA Administration Clopidogrel Bisulfate 75 mg 09/09/21 09:00 09/10/21 07:47 Clopidogrel 75 Mg Tab PO 75 mg DAILY [facility] ELENA Administration Enoxaparin Sodium 40 mg 09/10/21 09:00 09/10/21 07:48 Enoxaparin 40 Mg/0.4 Ml Syringe SQ 40 mg DAILY [facility] ELE[facility] Administration Lisinopril/HCTZ 0.5 each 09/09/21 09:00 09/10/21 07:47 Lisinopril-Hctz 20-25 Mg 1 Each Tab PO 0.5 each DAILY LU[facility] ELENA Administration Sodium Chloride 1,000 mls @ 75 mls/hr 09/08/21 15:15 09/10/21 07:48 Saline 0.9% IV Not Given .[id number] [facility] Cefazolin Sodium 2 gm/ Sodium 50 mls @ 100 mls/hr 09/09/21 16:00 09/10/21 07:55 Chloride IVPB 100 mls/hr Q8HR [facility] Administration Metoprolol Tartrate 25 mg 09/08/21 21:00 09/10/21 07:47 Metoprolol Tartrate 25 Mg Tab PO 25 mg BID [facility] Administration Naloxone HCl 0.2 mg 09/08/21 15:06 Naloxone 0.4 Mg/Ml 1 Ml Vial IV Q2M PRN Opioid Reversal Nicotine 1 patch 09/09/21 09:00 09/10/21 07:48 Nicotine 21mg/24hr Patch TRANSDERM 1 patch DAILY [facility]LE[facility] Administration Pantoprazole Sodium 40 mg 09/10/21 07:30 09/10/21 07:47 Pantoprazole 40 Mg Tablet PO 40 mg [id number] [facility]LE[facility] Administration Tamsulosin HCl 0.4 mg 09/09/21 09:00 09/10/21 07:47 Tamsulosin 0.4 Mg Cap.Er.24h PO 0.4 mg DAILY LU[facility] ELENA Administration Intake and Output 09/09/21 09/10/21 09/10/21 22:59 06:59 14:59 Intake Total 200 Balance 200 Intake: Oral 200 Other: Voiding Method Toilet # Voids 1 2 2 09/09/21 10:27 09/09/21 10:27 Assessment and Plan Assessment: Assessment #1 critical limb ischemia of the left foot #2 severe bilateral fem-pop disease #3 left lower extremity cellulitis #4 left lower extremity edema #5 multiple comorbid conditions #6 history of smoking Plan #1 increase the dose of Lipitor to 80 mg by mouth daily at bedtime #2 continue dual antiplatelet therapy #3 proceed with percutaneous revascularization #4 start the patient on Lasix #5 monitor the kidney function and electrolytes #6 follow-up with the patient
--- NOTE | 2021-09-10 13:38 | P.PN ---
Subjective Progress Note Date: 09/10/21 Richard Reid, is an 80-year-old male who presented to [facility] emergency room with a chief complaint of bilateral red feet with edema. Apparently patient was sent to ER per his vascular surgeon due to the extensive redness secondary to peripheral vascular disease. Patient has a known past medical history of peripheral vascular disease. Additional medical history includes COPD, CVA, hyperlipidemia, hypertension and nicotine dependence. Patient with elevated white blood cell count 15.1 bilateral redness noted. At this time will start patient on Kefzol. Blood culture ordered. Infectious disease service is consulted. Dr. Rain also consulted for evaluation for possible stent along with Dr. Da Silva for possible intervention. At this time patient is resting comfortably in bed. Patient reports improvement with edema and pain. Patient stresses that he is anxious to go home. Discussed with patient that he will need further evaluation due to the extensive redness to his lower extremity secondary to his peripheral vascular disease. Patient denies chest pain or shortness breath. Patient denies nausea vomiting or diarrhea. Patient denies any urinary burning or frequency. On 09/09/2021 patient alert and oriented 3. Vascular surgery has been consulted. Patient reports improvement with lower extremity redness and swelling. Infectious disease services also consulted. At this time patient denies chest pain or shortness breath. Patient denies nausea vomiting or diarrhea. Patient denies any urinary burning or frequency. On 09/10/2021 patient was seen and examined on the medical floor he is alert and oriented 3 in no apparent distress he is still complaining of pain in his foot and complaining of anxiety otherwise he denies any complaints there is no fever or chills no headache or dizziness no chest pain no shortness of breath no cough no nausea or vomiting no abdominal pain no diarrhea no blood in the stools no burning with urination no frequency or urgency no hematuria Objective - Vital Signs Vital signs: Vital Signs Temp 97.8 F 09/10/21 04:25 Pulse 79 09/10/21 07:58 Resp 20 09/10/21 04:25 BP 134/49 09/10/21 07:58 Pulse Ox 92 L 09/10/21 04:25 Intake & Output 09/09/21 09/10/21 09/10/21 18:59 06:59 18:59 Intake Total 200 Balance 200 Intake: Oral 200 Other: Voiding Method Toilet Toilet # Voids 1 2 - Exam In general patient is alert and oriented ?-3 in no distress HEENT head normocephalic and atraumatic Neck is supple no JVD no goiter no lymphadenopathy no carotid bruit Chest examination is clear to auscultation no crackles no wheezing Cardiac exam reveals regular heart sounds S1 and S2 no gallops no murmurs Abdomen is soft nontender no organomegaly with normal bowel sounds Extremity exam bilateral lower extremity erythema and +2 edema Neurological examination reveals no gross focal deficits - Labs CBC & Chem 7: 09/09/21 10:27 09/09/21 10:27 Labs: Abnormal Lab Results - Last 24 Hours (Table) 09/09/21 09/09/21 09/09/21 Range/Units 10:27 10: 10:27 WBC 12.8 H (3.8-10.6) k/uL Neutrophils # 10.7 H (1.3-7.7) k/uL Lymphocytes # 0.9 L (1.0-4.8) k/uL Sodium 134 L (137-145) mmol/L Glucose 113 H (74-99) mg/dL Hemoglobin A1c 6.5 H (0.0-6.0) % Total Protein 6.1 L (6.3-8.2) g/dL Albumin 3.4 L (3.5-5.0) g/dL Assessment and Plan Assessment: 1. Peripheral vascular disease with lower extremities. 2. Possible cellulitis of lower extremities. Elevated white count at 15.1. Infectious disease service is consulted. Blood culture ordered 3. History of ongoing nicotine dependence 4. History of COPD. No exacerbation at this time 5. History of hyperlipidemia. Maintained on statin 6. History of essential hypertension DVT prophylaxis Lovenox. GI prophylaxis Protonix Vascular surgery consulted Infectious disease service is consulted Patient started on IV antibiotics Repeat labs ordered
[2021-09-10] MEDS: ALPRAZolam 0.5 MG TAB PO SCH ×2 (16:40→21:29)
[2021-09-10] MEDS: ATORVASTATIN 10 MG TAB PO SCH (21:30)
[2021-09-10] MEDS: FUROSEMIDE 10 MG/ML 2 ML VIAL IV SCH (21:30)
[2021-09-11] MEDS: ASPIRIN 81 MG PO SCH (07:42)
[2021-09-11] MEDS: METOPROLOL TARTRATE 25 MG TAB PO SCH ×2 (07:42→21:58)
[2021-09-11] MEDS: LISINOPRIL-HCTZ 20-25 MG 1 EACH TAB PO SCH (07:42)
[2021-09-11] MEDS: CHOLECALCIFEROL 25 MCG (1000 IU) TABLET PO SCH (07:42)
[2021-09-11] MEDS: NICOTINE 21MG/24HR PATCH TRANSDERM SCH (07:42)
[2021-09-11] MEDS: TAMSULOSIN 0.4 MG CAP.ER.24H PO SCH (07:42)
[2021-09-11] MEDS: CLOPIDOGREL 75 MG TAB PO SCH (07:42)
[2021-09-11] MEDS: ENOXAPARIN 40 MG/0.4 ML SYRINGE SQ SCH (07:42)
[2021-09-11] MEDS: PANTOPRAZOLE 40 MG TABLET PO SCH (07:43)
[2021-09-11] MEDS: FUROSEMIDE 10 MG/ML 2 ML VIAL IV SCH ×2 (07:43→21:58)
[2021-09-11] MEDS: SYMBICORT 80-4.5 MCG INHALER INHALATION SCH ×2 (08:08→19:50)
[2021-09-11] MEDS: SODIUM CHLORIDE 0.9% 1,000 ML IV SCH ×2 (09:31→22:59)
[2021-09-11] MEDS: ALPRAZolam 0.5 MG TAB PO SCH ×3 (09:57→21:58)
--- NOTE | 2021-09-11 10:24 | P.PN ---
Subjective Progress Note Date: 09/11/21 Richard Reid, is an 80-year-old male who presented to [facility] emergency room with a chief complaint of bilateral red feet with edema. Apparently patient was sent to ER per his vascular surgeon due to the extensive redness secondary to peripheral vascular disease. Patient has a known past medical history of peripheral vascular disease. Additional medical history includes COPD, CVA, hyperlipidemia, hypertension and nicotine dependence. Patient with elevated white blood cell count 15.1 bilateral redness noted. At this time will start patient on Kefzol. Blood culture ordered. Infectious disease service is consulted. Dr. Rain also consulted for evaluation for possible stent along with Dr. Da Silva for possible intervention. At this time patient is resting comfortably in bed. Patient reports improvement with edema and pain. Patient stresses that he is anxious to go home. Discussed with patient that he will need further evaluation due to the extensive redness to his lower extremity secondary to his peripheral vascular disease. Patient denies chest pain or shortness breath. Patient denies nausea vomiting or diarrhea. Patient denies any urinary burning or frequency. On 09/09/2021 patient alert and oriented 3. Vascular surgery has been consulted. Patient reports improvement with lower extremity redness and swelling. Infectious disease services also consulted. At this time patient denies chest pain or shortness breath. Patient denies nausea vomiting or diarrhea. Patient denies any urinary burning or frequency. On 09/10/2021 patient was seen and examined on the medical floor he is alert and oriented 3 in no apparent distress he is still complaining of pain in his foot and complaining of anxiety otherwise he denies any complaints there is no fever or chills no headache or dizziness no chest pain no shortness of breath no cough no nausea or vomiting no abdominal pain no diarrhea no blood in the stools no burning with urination no frequency or urgency no hematuria On 09/11/2021 patient is alert and oriented 3 foot. Otherwise denies any acute complaints. maintained on antibiotics. Dr. Rain and Dr. Da Silva consulted for possible intervention. White blood cell improving to 12.8. Temperature 98.3, heart rate 74, respiratory rate 20, blood pressure 136/61 with a pulse ox of 92% on room air. Patient denies any chest pain or shortness breath. Patient denies nausea vomiting or diarrhea. Patient denies any urinary burning Objective - Vital Signs Vital signs: Vital Signs Temp 98.3 F 09/11/21 04:35 Pulse 64 09/11/21 08:00 Resp 20 09/11/21 08:00 BP 110/60 09/11/21 07:40 Pulse Ox 92 L 09/11/21 04:35 Intake & Output 09/10/21 09/11/21 09/11/21 18:59 06:59 18:59 Intake Total 1520 1050 240 Balance 1520 1050 240 Intake: Intake, IV Titration 800 950 Amount Sodium Chloride 0.9% 1, 700 900 000 ml @ 75 mls/hr IV . [id number] [facility] Rx#:[id number] ceFAZolin 2 gm In Sodium 100 50 Chloride 0.9% 50 ml @ 100 mls/hr IVPB Q8HR [facility] Rx# :[id number] Oral 720 100 240 Other: Voiding Method Toilet Toilet # Voids 4 2 - Exam In general patient is alert and oriented ?-3 in no distress HEENT head normocephalic and atraumatic Neck is supple no JVD no goiter no lymphadenopathy no carotid bruit Chest examination is clear to auscultation no crackles no wheezing Cardiac exam reveals regular heart sounds S1 and S2 no gallops no murmurs Abdomen is soft nontender no organomegaly with normal bowel sounds Extremity exam bilateral lower extremity erythema and +2 edema Neurological examination reveals no gross focal deficits - Labs CBC & Chem 7: 09/09/21 10:27 09/09/21 10:27 Labs: Microbiology - Last 24 Hours (Table) 09/09/21 10:27 Blood Culture - Preliminary Blood No Growth after 24 hours Assessment and Plan Assessment: 1. Peripheral vascular disease with lower extremities. 2. Possible cellulitis of lower extremities. Elevated white count at 15.1. Infectious disease service is consulted. Blood culture ordered 3. History of ongoing nicotine dependence 4. History of COPD. No exacerbation at this time 5. History of hyperlipidemia. Maintained on statin 6. History of essential hypertension DVT prophylaxis Lovenox. GI prophylaxis Protonix Vascular surgery consulted Infectious disease service is consulted Patient started on IV antibiotics Repeat labs ordered
--- NOTE | 2021-09-11 12:07 | P.PN ---
Subjective Progress Note Date: 09/11/21 Principal diagnosis: Critical limb ischemia of the left foot The patient is a pleasant 81-year-old gentleman with a past medical history significant for lower extremities peripheral arterial disease as well as hypertension and dyslipidemia history of smoking was admitted to the hospital with severe left lower extremity pain associated with ischemic changes. He was diagnosed was critical limb ischemia and also evidence of cellulitis of the left lower extremities. Currently he was seen by the infectious disease service and he is on IV antibiotic. He is known to have severe PAD where he underwent CTA of the aorta and lower extent his and that revealed critical bilateral SFA disease. I requested to see the patient for second opinion and the plan is to pursue with the CLOtest peripheral intervention on him this coming Sunday. Meanwhile he is on IV antibiotic and he is staying in the hospital. The patient was seen today. He continues to be on IV antibiotic. He continues to have left lower extent his discomfort and chronic skin changes and evidence of CLI most prominent in the fourth and fifth toe on the left side. I am going to schedule him to undergo a GRAIN OPERATIONS MANAGER of the left SFA to be performed this coming Sunday coin purse framer. The procedure in details was discussed with the patient. Objective - Vital Signs Vital signs: Vital Signs Temp 98.3 F 09/11/21 04:35 Pulse 64 09/11/21 08:00 Resp 20 09/11/21 08:00 BP 110/60 09/11/21 07:40 Pulse Ox 92 L 09/11/21 04:35 Intake & Output 09/10/21 09/11/21 09/11/21 18:59 06:59 18:59 Intake Total 1520 1050 240 Balance 1520 1050 240 Intake: Intake, IV Titration 800 950 Amount Sodium Chloride 0.9% 1, 700 900 000 ml @ 75 mls/hr IV . [id number] [facility] Rx#:[id number] ceFAZolin 2 gm In Sodium 100 50 Chloride 0.9% 50 ml @ 100 mls/hr IVPB Q8HR [facility] Rx# :[id number] Oral 720 100 240 Other: Voiding Method Toilet Toilet # Voids 4 2 - Constitutional General appearance: Present: no acute distress - Respiratory Respiratory: bilateral: diminished - Cardiovascular Heart sounds: normal: S1, S2 - Labs CBC & Chem 7: 09/09/21 10:27 09/09/21 10:27 Labs: Microbiology - Last 24 Hours (Table) 09/09/21 10:27 Blood Culture - Preliminary Blood No Growth after 24 hours Assessment and Plan Assessment: Assessment #1 critical limb ischemia of the left foot #2 severe bilateral fem-pop disease #3 left lower extremity cellulitis #4 left lower extremity edema #5 multiple comorbid conditions #6 history of smoking Plan #1 continue dual antiplatelet therapy #2 continue statin #3 GRAIN OPERATIONS MANAGER of the left SFA this coming Sunday in the morning Sunday morning
[2021-09-11] MEDS: ATORVASTATIN 10 MG TAB PO SCH (21:58)
--- NOTE | 2021-09-11 23:45 | P.PN ---
Subjective Progress Note Date: 09/10/21 Principal diagnosis: Left lower extremity cellulitis Patient is 81-year-old male presented to hospital with left lower extremity pain swelling redness in this patient who did have peripheral arterial disease and concern for left lower extremity cellulitis. On today's evaluation is 09/10/2021, the patient denies having any fever or chills, the patient is breathing comfortably no chest pain or shortness of breath. No abdominal pain and denies any worsening pain to the left leg Objective - Vital Signs Vital signs: Vital Signs Temp 98.5 F 09/10/21 19:20 Pulse 82 09/10/21 19:20 Resp 20 09/10/21 19:20 BP 134/56 09/10/21 19:20 Pulse Ox 82 L 09/10/21 19:20 Intake & Output 09/10/21 09/10/21 09/11/21 06:59 18:59 06:59 Intake Total 200 1520 Balance 200 1520 Intake: Intake, IV Titration 800 Amount Sodium Chloride 0.9% 1, 700 000 ml @ 75 mls/hr IV . [id number] [facility] Rx#:[id number] ceFAZolin 2 gm In Sodium 100 Chloride 0.9% 50 ml @ 100 mls/hr IVPB Q8HR [facility] Rx# :[id number] Oral 200 720 Other: Voiding Method Toilet Toilet # Voids 2 4 - Exam GENERAL DESCRIPTION:[ Patient is awake and alert in no distress] HEENT: [Oral mucosa is dry and no pharyngeal erythema] RESPIRATORY SYSTEM: [Unlabored breathing clear to auscultation] CARDIA VASCULAR SYSTEM: [S1-S2 regular rate and rhythm no murmur] GI: [Abdominal soft there's no tenderness no organomegaly] EXTREMITIES: [Left leg with minimal swelling slightly redness and dry scaly skin - Labs CBC & Chem 7: 09/09/21 10:27 09/09/21 10:27 Labs: Microbiology - Last 24 Hours (Table) 09/09/21 10:27 Blood Culture - Preliminary Blood No Growth after 24 hours Assessment and Plan (1) Left leg cellulitis Current Visit: Yes Status: Acute Code(s): L03.116 - CELLULITIS OF LEFT LOWER LIMB SNOMED Code(s): 746499130 Plan: 1patient with left lower extremity cellulitis in this patient did have diffuse swelling redness likely streptococcal to continue with cefazolin and monitor his clinical course closely Time with Patient: Less than 30
--- NOTE | 2021-09-11 23:46 | P.PN ---
Subjective Progress Note Date: 09/11/21 Principal diagnosis: Left lower extremity cellulitis Patient is 81-year-old male presented to hospital with left lower extremity pain swelling redness in this patient who did have peripheral arterial disease and concern for left lower extremity cellulitis. On today's evaluation is 09/11/2021, the patient remains to be afebrile, the patient is breathing comfortably on room air, the patient denies chest pain or shortness of breath. No abdominal pain and denies any worsening pain to the left leg Objective - Vital Signs Vital signs: Vital Signs Temp 98.2 F 09/11/21 20:05 Pulse 89 09/11/21 20:05 Resp 18 09/11/21 20:05 BP 106/57 09/11/21 20:05 Pulse Ox 92 L 09/11/21 20:05 Intake & Output 09/11/21 09/11/21 09/12/21 06:59 18:59 06:59 Intake Total 1050 2220 Balance 1050 2220 Intake: Intake, IV Titration 950 900 Amount Sodium Chloride 0.9% 1, 900 800 000 ml @ 75 mls/hr IV . [id number] [facility] Rx#:[id number] ceFAZolin 2 gm In Sodium 50 100 Chloride 0.9% 50 ml @ 100 mls/hr IVPB Q8HR [facility] Rx# :[id number] Oral 100 1320 Other: Voiding Method Toilet # Voids 2 6 - Exam GENERAL DESCRIPTION:[ Patient is awake and alert in no distress] HEENT: [Oral mucosa is dry and no pharyngeal erythema] RESPIRATORY SYSTEM: [Unlabored breathing clear to auscultation] CARDIA VASCULAR SYSTEM: [S1-S2 regular rate and rhythm no murmur] GI: [Abdominal soft there's no tenderness no organomegaly] EXTREMITIES: [Left leg with minimal swelling slightly redness and dry scaly skin - Labs CBC & Chem 7: 09/09/21 10:27 09/09/21 10:27 Labs: Microbiology - Last 24 Hours (Table) 09/09/21 10:27 Blood Culture - Preliminary Blood No Growth after 48 hours Assessment and Plan (1) Left leg cellulitis Current Visit: Yes Status: Acute Code(s): L03.116 - CELLULITIS OF LEFT LOWER LIMB SNOMED Code(s): 511187005 Plan: 1patient with left lower extremity cellulitis in this patient did have diffuse swelling redness likely streptococcal patient seemed to showing some clinical improvement with sepsis in which be continued scheduled for percutaneous intervention to the left leg tomorrow and monitor his clinical course closely Time with Patient: Less than 30
[2021-09-12] MEDS: SYMBICORT 80-4.5 MCG INHALER INHALATION SCH ×2 (08:31→19:33)
[2021-09-12] MEDS: ALPRAZolam 0.5 MG TAB PO SCH ×3 (10:10→20:47)
[2021-09-12] MEDS: LISINOPRIL-HCTZ 20-25 MG 1 EACH TAB PO SCH (10:10)
[2021-09-12] MEDS: CHOLECALCIFEROL 25 MCG (1000 IU) TABLET PO SCH (10:10)
[2021-09-12] MEDS: ASPIRIN 81 MG PO SCH (10:10)
[2021-09-12] MEDS: METOPROLOL TARTRATE 25 MG TAB PO SCH ×2 (10:10→20:18)
[2021-09-12] MEDS: TAMSULOSIN 0.4 MG CAP.ER.24H PO SCH (10:10)
[2021-09-12] MEDS: CLOPIDOGREL 75 MG TAB PO SCH (10:10)
[2021-09-12] MEDS: ENOXAPARIN 40 MG/0.4 ML SYRINGE SQ SCH (10:11)
[2021-09-12] MEDS: PANTOPRAZOLE 40 MG TABLET PO SCH (10:11)
[2021-09-12] MEDS: NICOTINE 21MG/24HR PATCH TRANSDERM SCH (10:11)
[2021-09-12] MEDS: FUROSEMIDE 10 MG/ML 2 ML VIAL IV SCH ×2 (10:11→20:18)
[2021-09-12 10:14] LABS: Basophils # (A) 0.11 X 10*3/uL (0.00-0.10); Basophils % (A) 1.1 %; Eosinophils # (A) 0.99 X 10*3/uL (0.04-0.35); Eosinophils % (A) 9.8 %; HCT 43.7 % (39.6-50.0); HGB 13.8 g/dL (13.0-17.0); Immature Grans, Automated 0.4 %; Lymphocytes # (A) 1.82 X 10*3/uL (0.90-5.00); Lymphocytes % (A) 18.1 %; MCH 31.2 pg (27.0-32.0); MCHC 31.6 g/dL (32.0-37.0); MCV 98.9 fL (80.0-97.0); Mean Platelet Volume 12.1 fL (9.5-12.2); NRBC Per 100 WBC 0 /100 WBCS (0.0-0.0); Neutrophils % (A) 62.6 %; Platelet Count 220 X 10*3/uL (140-440); RBC 4.42 X 10*6/uL (4.40-5.60); RDW 12.9 % (11.5-14.5); WBC 10.06 X 10*3/uL (4.50-10.00)
[2021-09-12 10:27] LABS: African American GFR (CKD) 91.4 (60.0-200.0); Albumin 3.2 g/dL (3.8-4.9); Albumin/Globulin Ratio 1.94 (1.60-3.17); Anion Gap 10.8 mmol/L (10.00-18.00); BUN/Creat Ratio 16.39 Ratio (12.00-20.00); Blood Urea Nitrogen 14.9 mg/dL (9.0-27.0); Calcium 9.1 mg/dL (8.7-10.3); Globulin 1.6 g/dL (1.6-3.3); Non-African American GFR(CKD) 78.9 (60.0-200.0); Potassium 3.8 mmol/L (3.5-5.5); Total Bilirubin 0.2 mg/dL (0.30-1.20); Total Protein 4.8 g/dL (6.2-8.2)
--- NOTE | 2021-09-12 11:41 | P.PN ---
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 We have been asked to see in consultation for peripheral vascular disease with possible stent. Patient presents emergency department with complaints of left lower extremity pain and swelling. Patient seen at bedside, no acute distress. He denies any chest pain, shortness of breath, lightheadedness, dizziness. He continues to be on IV antibiotic. He continues to have left lower extent his discomfort and chronic skin changes. He is scheduled him to undergo a HAND ALTERATIONS SEAMSTRESS of the left SFA to be performed Sunday with Dr. Hayden. The procedure in details was discussed with the patient. He is currently maintained on aspirin 81 mg daily, lisinoprilhydrochlorothiazide 2025 milligrams daily, metoprolol tartrate 25 mg twice a day and atorvastatin 10 mg nightly, Plavix 75 mg daily, IV antibiotics, IV Lasix 20 mg BID. Labs pending PHYSICAL EXAMINATION Vitals reviewed CONSTITUTIONAL: No apparent distress. HEENT: Neck Supple. No JVD. CHEST EXAMINATION: Lungs are clear to auscultation. No chest wall tenderness is noted on palpation or with deep breathing. HEART EXAMINATION: Regular rate and rhythm. S1, S2 heard. No murmurs, gallops or rub. ABDOMEN: Soft, nontender. Positive bowel sounds. EXTREMITIES: redness to left lower extremity, 1+ edema in left lower extremity NEUROLOGIC EXAMINATION: Patient is awake, alert and oriented x3. ASSESSMENT Peripheral artery disease History of hypertension Dyslipidemia Former smoker PLAN Continue dual antiplatelet therapy Continue statin Plan for HAND ALTERATIONS SEAMSTRESS of the left SFA Sunday with Dr. Hayden Nurse Practitioner note has been reviewed, I agree with a documented findings and plan of care. Patient was seen and examined. Objective - Vital Signs Vital signs: Vital Signs Temp 98.4 F 09/12/21 03:55 Pulse 67 09/12/21 03:55 Resp 16 09/12/21 03:55 BP 101/49 09/12/21 03:55 Pulse Ox 91 L 09/12/21 03:55 Intake & Output 09/11/21 09/12/21 09/12/21 18:59 06:59 18:59 Intake Total 2220 900 Balance 2220 900 Intake: Intake, IV Titration 900 900 Amount Sodium Chloride 0.9% 1, 800 900 000 ml @ 75 mls/hr IV . [id number] [facility] Rx#:[id number] ceFAZolin 2 gm In Sodium 100 Chloride 0.9% 50 ml @ 100 mls/hr IVPB Q8HR [facility] Rx# :[id number] Oral 1320 Other: Voiding Method Toilet # Voids 6 3 - Labs CBC & Chem 7: 09/12/21 06:17 09/12/21 06:17 Labs: Microbiology - Last 24 Hours (Table) 09/09/21 10:27 Blood Culture - Preliminary Blood No Growth after 48 hours
--- NOTE | 2021-09-12 14:41 | P.PN ---
Progress Note - Text Progress Note Date: 09/12/21 Vascular surgery was initially consulted for left ischemic toes a little over a week ago and was discharged home with instructions to follow-up with vascular surgery. Patient was reevaluated this past Sunday by vascular surgery. On Sunday patient was pretty adamant about wanting to be discharged home. At that time vascular surgery believe that was reasonable as there was no urgency to have the angiogram done. In the meantime cardiology was consulted. Patient is scheduled to undergo angiogram with Dr. Hayden on Sunday. Patient is scheduled to undergo angiogram with cardiology. Vascular surgery will sign off at this time. The impression and plan of care has been dictated as directed. Dr. Valle I performed a history and examination of this patient, discussed the same with the dictator. I agree with the dictator's note ,documented as a scribe. Any additional findings or plans will be noted.
[2021-09-12] MEDS: HYDROcodone/APAP 7.5-325MG 1 EACH TAB PO PRN (16:12)
--- NOTE | 2021-09-12 18:43 | P.PN ---
Subjective Progress Note Date: 09/12/21 Richard Reid, is an 80-year-old male who presented to [facility] emergency room with a chief complaint of bilateral red feet with edema. Apparently patient was sent to ER per his vascular surgeon due to the extensive redness secondary to peripheral vascular disease. Patient has a known past medical history of peripheral vascular disease. Additional medical history includes COPD, CVA, hyperlipidemia, hypertension and nicotine dependence. Patient with elevated white blood cell count 15.1 bilateral redness noted. At this time will start patient on Kefzol. Blood culture ordered. Infectious disease service is consulted. Dr. Rain also consulted for evaluation for possible stent along with Dr. Da Silva for possible intervention. At this time patient is resting comfortably in bed. Patient reports improvement with edema and pain. Patient stresses that he is anxious to go home. Discussed with patient that he will need further evaluation due to the extensive redness to his lower extremity secondary to his peripheral vascular disease. Patient denies chest pain or shortness breath. Patient denies nausea vomiting or diarrhea. Patient denies any urinary burning or frequency. On 09/09/2021 patient alert and oriented 3. Vascular surgery has been consulted. Patient reports improvement with lower extremity redness and swelling. Infectious disease services also consulted. At this time patient denies chest pain or shortness breath. Patient denies nausea vomiting or diarrhea. Patient denies any urinary burning or frequency. On 09/10/2021 patient was seen and examined on the medical floor he is alert and oriented 3 in no apparent distress he is still complaining of pain in his foot and complaining of anxiety otherwise he denies any complaints there is no fever or chills no headache or dizziness no chest pain no shortness of breath no cough no nausea or vomiting no abdominal pain no diarrhea no blood in the stools no burning with urination no frequency or urgency no hematuria On 09/11/2021 patient is alert and oriented 3 foot. Otherwise denies any acute complaints. maintained on antibiotics. Dr. Rain and Dr. Da Silva consulted for possible intervention. White blood cell improving to 12.8. Temperature 98.3, heart rate 74, respiratory rate 20, blood pressure 136/61 with a pulse ox of 92% on room air. Patient denies any chest pain or shortness breath. Patient denies nausea vomiting or diarrhea. Patient denies any urinary burning On 09/12/2021 patient was seen and examined on the medical floor he is alert and oriented 3 in no apparent distress pain and swelling in the foot is improving at this time we are awaiting for intervention on the lower extremity for angioplasty. Otherwise patient denies any symptoms there is no fever or chills no headache or dizziness no chest pain no shortness of breath no cough no nausea or vomiting no abdominal pain no diarrhea and no urinary symptoms Objective - Vital Signs Vital signs: Vital Signs Temp 97.5 F L 09/12/21 13:00 Pulse 59 L 09/12/21 13:00 Resp 17 09/12/21 13:00 BP 116/65 09/12/21 13:00 Pulse Ox 94 L 09/12/21 13:00 Intake & Output 09/11/21 09/12/21 09/12/21 18:59 06:59 18:59 Intake Total 2220 900 Balance 2220 900 Intake: Intake, IV Titration 900 900 Amount Sodium Chloride 0.9% 1, 800 900 000 ml @ 75 mls/hr IV . [id number] [facility] Rx#:[id number] ceFAZolin 2 gm In Sodium 100 Chloride 0.9% 50 ml @ 100 mls/hr IVPB Q8HR [facility] Rx# :[id number] Oral 1320 Other: Voiding Method Toilet Toilet # Voids 6 3 - Exam In general patient is alert and oriented ?-3 in no distress HEENT head normocephalic and atraumatic Neck is supple no JVD no goiter no lymphadenopathy no carotid bruit Chest examination is clear to auscultation no crackles no wheezing Cardiac exam reveals regular heart sounds S1 and S2 no gallops no murmurs Abdomen is soft nontender no organomegaly with normal bowel sounds Extremity exam bilateral lower extremity erythema and +2 edema Neurological examination reveals no gross focal deficits - Labs CBC & Chem 7: 09/12/21 06:17 09/12/21 06:17 Labs: Abnormal Lab Results - Last 24 Hours (Table) 09/12/21 09/12/21 Range/Units 06:17 06:17 WBC 10.06 H (4.50-10.00) X 10*3/uL MCV 98.9 H (80.0-97.0) fL MCHC 31.6 L (32.0-37.0) g/dL Eosinophils # 0.99 H (0.04-0.35) X 10*3/uL Basophils # 0.11 H (0.00-0.10) X 10*3/uL Total Bilirubin 0.20 L (0.30-1.20) mg/dL AST 12 L (14-35) U/L Total Protein 4.8 L (6.2-8.2) g/dL Albumin 3.2 L (3.8-4.9) g/dL Microbiology - Last 24 Hours (Table) 09/09/21 10:27 Blood Culture - Preliminary Blood No Growth after 72 hours Assessment and Plan Assessment: 1. Peripheral vascular disease with lower extremities. 2. Possible cellulitis of lower extremities. Elevated white count at 15.1. Infectious disease service is consulted. Blood culture ordered 3. History of ongoing nicotine dependence 4. History of COPD. No exacerbation at this time 5. History of hyperlipidemia. Maintained on statin 6. History of essential hypertension DVT prophylaxis Lovenox. GI prophylaxis Protonix Vascular surgery consulted Infectious disease service is consulted Patient started on IV antibiotics Repeat labs ordered
[2021-09-12] MEDS: ATORVASTATIN 10 MG TAB PO SCH (20:18)
[2021-09-12] MEDS: SODIUM CHLORIDE 0.9% 1,000 ML IV SCH (20:21)
--- NOTE | 2021-09-12 21:52 | P.PN ---
Subjective Progress Note Date: 09/12/21 Principal diagnosis: Left lower extremity cellulitis Patient is 81-year-old male presented to hospital with left lower extremity pain swelling redness in this patient who did have peripheral arterial disease and concern for left lower extremity cellulitis. On today's evaluation is 09/12/2021, the patient continues to be afebrile, the patient is breathing comfortably on room air, the patient denies chest pain or shortness of breath, the patient denies abdominal pain or diarrhea and pain to the left leg is currently controlled Objective - Vital Signs Vital signs: Vital Signs Temp 98.4 F 09/12/21 03:55 Pulse 67 09/12/21 03:55 Resp 16 09/12/21 03:55 BP 101/49 09/12/21 03:55 Pulse Ox 91 L 09/12/21 03:55 Intake & Output 09/11/21 09/12/21 09/12/21 18:59 06:59 18:59 Intake Total 2220 900 Balance 2220 900 Intake: Intake, IV Titration 900 900 Amount Sodium Chloride 0.9% 1, 800 900 000 ml @ 75 mls/hr IV . [id number] [facility] Rx#:[id number] ceFAZolin 2 gm In Sodium 100 Chloride 0.9% 50 ml @ 100 mls/hr IVPB Q8HR [facility] Rx# :[id number] Oral 1320 Other: Voiding Method Toilet # Voids 6 3 - Exam GENERAL DESCRIPTION:[ Patient is awake and alert in no distress] HEENT: [Oral mucosa is dry and no pharyngeal erythema] RESPIRATORY SYSTEM: [Unlabored breathing clear to auscultation] CARDIA VASCULAR SYSTEM: [S1-S2 regular rate and rhythm no murmur] GI: [Abdominal soft there's no tenderness no organomegaly] EXTREMITIES: [Left leg with minimal swelling slightly redness and dry scaly skin - Labs CBC & Chem 7: 09/12/21 06:17 09/12/21 06:17 Labs: Abnormal Lab Results - Last 24 Hours (Table) 09/12/21 09/12/21 Range/Units 06:17 06:17 WBC 10.06 H (4.50-10.00) X 10*3/uL MCV 98.9 H (80.0-97.0) fL MCHC 31.6 L (32.0-37.0) g/dL Eosinophils # 0.99 H (0.04-0.35) X 10*3/uL Basophils # 0.11 H (0.00-0.10) X 10*3/uL Total Bilirubin 0.20 L (0.30-1.20) mg/dL AST 12 L (14-35) U/L Total Protein 4.8 L (6.2-8.2) g/dL Albumin 3.2 L (3.8-4.9) g/dL Microbiology - Last 24 Hours (Table) 09/09/21 10:27 Blood Culture - Preliminary Blood No Growth after 48 hours Assessment and Plan (1) Left leg cellulitis Current Visit: Yes Status: Acute Code(s): L03.116 - CELLULITIS OF LEFT LOWER LIMB SNOMED Code(s): 089619582 Plan: 1patient with left lower extremity cellulitis in this patient did have diffuse swelling redness likely streptococcal patient, patient did have minimal clinical improvement with cefazolin which will be continued rescheduled for percutaneous intervention to the left leg tomorrow and continue supportive care Time with Patient: Less than 30
[2021-09-13] MEDS: SODIUM CHLORIDE 0.9% 1,000 ML IV SCH ×2 (05:40→21:23)
[2021-09-13] MEDS: SYMBICORT 80-4.5 MCG INHALER INHALATION SCH ×2 (07:53→20:06)
[2021-09-13] MEDS: PANTOPRAZOLE 40 MG TABLET PO SCH (09:02)
[2021-09-13] MEDS: FUROSEMIDE 40 MG TAB PO SCH (09:03)
[2021-09-13] MEDS: CHOLECALCIFEROL 25 MCG (1000 IU) TABLET PO SCH (09:03)
[2021-09-13] MEDS: ALPRAZolam 0.5 MG TAB PO SCH ×3 (09:03→21:16)
[2021-09-13] MEDS: CLOPIDOGREL 75 MG TAB PO SCH (09:08)
[2021-09-13] MEDS: ASPIRIN 81 MG PO SCH (09:09)
[2021-09-13] MEDS: LISINOPRIL-HCTZ 20-25 MG 1 EACH TAB PO SCH (09:09)
[2021-09-13] MEDS: ENOXAPARIN 40 MG/0.4 ML SYRINGE SQ SCH (09:09)
[2021-09-13] MEDS: TAMSULOSIN 0.4 MG CAP.ER.24H PO SCH (09:13)
[2021-09-13] MEDS: METOPROLOL TARTRATE 25 MG TAB PO SCH ×2 (09:13→21:16)
[2021-09-13] MEDS: NICOTINE 21MG/24HR PATCH TRANSDERM SCH (09:13)
--- NOTE | 2021-09-13 10:32 | P.PN ---
Subjective This is a pleasant 80-year-old male past medical history significant for peripheral artery disease and hypertension, dyslipidemia He does not follow with a representative phlebotomy services. We have been asked to see in consultation for peripheral vascular disease with possible stent. Patient presents emergency department with complaints of left lower extremity pain and swelling. Patient seen at bedside, no acute distress. He denies any chest pain, shortness of breath, lightheadedness, dizziness. He continues to be on IV antibiotics and IV Lasix. He continues to have left lower extent his discomfort, lower extremity edema and chronic skin changes. He is scheduled him to undergo a PORTABLE PINCH RIVETER of the left SFA to be performed Tomorrow, Sunday09/14/[address] Hayden. The procedure in details was discussed with the patient. He is currently maintained on aspirin 81 mg daily, lisinoprilhydrochlorothiazide 2025 milligrams daily, metoprolol tartrate 25 mg twice a day and atorvastatin 10 mg nightly, Plavix 75 mg daily, IV antibiotics, IV Lasix 20 mg BID. Labs reviewed, sodium 142, potassium 3.8, BUN 14, serum creatinine 0.9 PHYSICAL EXAMINATION Vitals reviewed CONSTITUTIONAL: No apparent distress. HEENT: Neck Supple. No JVD. CHEST EXAMINATION: Lungs are clear to auscultation. No chest wall tenderness is noted on palpation or with deep breathing. HEART EXAMINATION: Regular rate and rhythm. S1, S2 heard. No murmurs, gallops or rub. ABDOMEN: Soft, nontender. Positive bowel sounds. EXTREMITIES: redness to left lower extremity, 1+ edema in left lower extremity NEUROLOGIC EXAMINATION: Patient is awake, alert and oriented x3. ASSESSMENT Peripheral artery disease History of hypertension Dyslipidemia Former smoker PLAN Continue dual antiplatelet therapy Continue statin Plan for PORTABLE PINCH RIVETER of the left SFA Sunday09/14/[address] Hayden. Discussed with patient at length this morning with recommendation to stay in the hospital for procedure. Nurse Practitioner note has been reviewed, I agree with a documented findings and plan of care. Patient was seen and examined. Objective - Vital Signs Vital signs: Vital Signs Temp 98.3 F 09/13/21 08:30 Pulse 69 09/13/21 08:30 Resp 14 09/13/21 08:30 BP 120/63 09/13/21 08:30 Pulse Ox 94 L 09/13/21 08:30 Intake & Output 09/12/21 09/13/21 09/13/21 18:59 06:59 18:59 Intake Total 1240 1000 Balance 1240 1000 Intake: Intake, IV Titration 640 1000 Amount Sodium Chloride 0.9% 1, 640 900 000 ml @ 75 mls/hr IV . [id number] [facility] Rx#:[id number] ceFAZolin 2 gm In Sodium 100 Chloride 0.9% 50 ml @ 100 mls/hr IVPB Q8HR [facility] Rx# :[id number] Oral 600 Other: Voiding Method Toilet Toilet # Voids 3 - Labs CBC & Chem 7: 09/12/21 06:17 09/12/21 06:17 Labs: Microbiology - Last 24 Hours (Table) 09/09/21 10:27 Blood Culture - Preliminary Blood No Growth after 72 hours
[2021-09-13] MEDS: ATORVASTATIN 10 MG TAB PO SCH (21:15)
[2021-09-14] MEDS: SODIUM CHLORIDE 0.9% 1,000 ML IV SCH ×2 (06:11→17:00)
[2021-09-14 06:52] LABS: Basophils # (A) 0.1 k/uL (0-0.2); Basophils % (A) 1 %; Eosinophils # (A) 0.7 k/uL (0-0.7); Eosinophils % (A) 7 %; HGB 13.9 gm/dL (13.0-17.5); Lymphocytes # (A) 1.3 k/uL (1.0-4.8); Lymphocytes % (A) 14 %; MCH 32.2 pg (25.0-35.0); MCHC 32.3 g/dL (31.0-37.0); MCV 99.9 fL (80.0-100.0); Mean Platelet Volume 9.2; Monocytes # (A) 0.5 k/uL (0-1.0); Monocytes % (A) 5 %; Neutrophils % (A) 72 %; Platelet Count 207 k/uL (150-450); RDW 12.6 % (11.5-15.5); WBC 9.8 k/uL (3.8-10.6)
[2021-09-14 07:06] LABS: African American GFR (CKD) 79 (>60 ml/min/1.73 sqM); Anion Gap 1 mmol/L; Blood Urea Nitrogen 19 mg/dL (9-20); Calcium 8.9 mg/dL (8.4-10.2); Carbon Dioxide 29 mmol/L (22-30); Chloride 106 mmol/L (98-107); Glucose 100 mg/dL (74-99); Magnesium 1.6 mg/dL (1.6-2.3); Non-African American GFR(CKD) 68 (>60 ml/min/1.73 sqM); Potassium 3.6 mmol/L (3.5-5.1); Sodium 136 mmol/L (137-145)
[2021-09-14] MEDS: SYMBICORT 80-4.5 MCG INHALER INHALATION SCH ×2 (07:54→20:10)
[2021-09-14] MEDS: PANTOPRAZOLE 40 MG TABLET PO SCH (08:56)
[2021-09-14] MEDS: NICOTINE 21MG/24HR PATCH TRANSDERM SCH (08:57)
[2021-09-14] MEDS: ASPIRIN 81 MG PO SCH (08:57)
[2021-09-14] MEDS: CLOPIDOGREL 75 MG TAB PO SCH (08:57)
[2021-09-14] MEDS: CHOLECALCIFEROL 25 MCG (1000 IU) TABLET PO SCH (08:57)
[2021-09-14] MEDS: ALPRAZolam 0.5 MG TAB PO SCH ×3 (08:57→22:18)
[2021-09-14] MEDS: FUROSEMIDE 40 MG TAB PO SCH (08:58)
[2021-09-14] MEDS: LISINOPRIL-HCTZ 20-25 MG 1 EACH TAB PO SCH (08:58)
[2021-09-14] MEDS: TAMSULOSIN 0.4 MG CAP.ER.24H PO SCH (08:58)
[2021-09-14] MEDS: METOPROLOL TARTRATE 25 MG TAB PO SCH ×2 (08:58→22:19)
[2021-09-14] MEDS: ENOXAPARIN 40 MG/0.4 ML SYRINGE SQ SCH (08:59)
--- NOTE | 2021-09-14 10:56 | P.PN ---
Subjective Progress Note Date: 09/13/21 Richard Reid, is an 80-year-old male who presented to [facility] emergency room with a chief complaint of bilateral red feet with edema. Apparently patient was sent to ER per his vascular surgeon due to the extensive redness secondary to peripheral vascular disease. Patient has a known past medical history of peripheral vascular disease. Additional medical history includes COPD, CVA, hyperlipidemia, hypertension and nicotine dependence. Patient with elevated white blood cell count 15.1 bilateral redness noted. At this time will start patient on Kefzol. Blood culture ordered. Infectious disease service is consulted. Dr. Rain also consulted for evaluation for possible stent along with Dr. Da Silva for possible intervention. At this time patient is resting comfortably in bed. Patient reports improvement with edema and pain. Patient stresses that he is anxious to go home. Discussed with patient that he will need further evaluation due to the extensive redness to his lower extremity secondary to his peripheral vascular disease. Patient denies chest pain or shortness breath. Patient denies nausea vomiting or diarrhea. Patient denies any urinary burning or frequency. On 09/09/2021 patient alert and oriented 3. Vascular surgery has been consulted. Patient reports improvement with lower extremity redness and swelling. Infectious disease services also consulted. At this time patient denies chest pain or shortness breath. Patient denies nausea vomiting or diarrhea. Patient denies any urinary burning or frequency. On 09/10/2021 patient was seen and examined on the medical floor he is alert and oriented 3 in no apparent distress he is still complaining of pain in his foot and complaining of anxiety otherwise he denies any complaints there is no fever or chills no headache or dizziness no chest pain no shortness of breath no cough no nausea or vomiting no abdominal pain no diarrhea no blood in the stools no burning with urination no frequency or urgency no hematuria On 09/11/2021 patient is alert and oriented 3 foot. Otherwise denies any acute complaints. maintained on antibiotics. Dr. Rain and Dr. Da Silva consulted for possible intervention. White blood cell improving to 12.8. Temperature 98.3, heart rate 74, respiratory rate 20, blood pressure 136/61 with a pulse ox of 92% on room air. Patient denies any chest pain or shortness breath. Patient denies nausea vomiting or diarrhea. Patient denies any urinary burning On 09/12/2021 patient was seen and examined on the medical floor he is alert and oriented 3 in no apparent distress pain and swelling in the foot is improving at this time we are awaiting for intervention on the lower extremity for angioplasty. Otherwise patient denies any symptoms there is no fever or chills no headache or dizziness no chest pain no shortness of breath no cough no nausea or vomiting no abdominal pain no diarrhea and no urinary symptoms On 09/13/2021 patient's alert and oriented 3. Tentative plans for surgical intervention per Dr. Rain tomorrow to 10/02/2021. Patient denies chest pain or shortness of breath. Patient denies nausea vomiting or diarrhea. Patient denies any urinary burning or frequency Objective - Vital Signs Vital signs: Vital Signs Temp 97.6 F 09/13/21 12:00 Pulse 74 09/13/21 12:00 Resp 16 09/13/21 12:00 BP 107/63 09/13/21 12:00 Pulse Ox 94 L 09/13/21 08:30 Intake & Output 09/12/21 09/13/21 09/13/21 18:59 06:59 18:59 Intake Total 1240 1000 Balance 1240 1000 Intake: Intake, IV Titration 640 1000 Amount Sodium Chloride 0.9% 1, 640 900 000 ml @ 75 mls/hr IV . [id number] [facility] Rx#:[id number] ceFAZolin 2 gm In Sodium 100 Chloride 0.9% 50 ml @ 100 mls/hr IVPB Q8HR [facility] Rx# :[id number] Oral 600 Other: Voiding Method Toilet Toilet Toilet # Voids 3 2 - Exam In general patient is alert and oriented ?-3 in no distress HEENT head normocephalic and atraumatic Neck is supple no JVD no goiter no lymphadenopathy no carotid bruit Chest examination is clear to auscultation no crackles no wheezing Cardiac exam reveals regular heart sounds S1 and S2 no gallops no murmurs Abdomen is soft nontender no organomegaly with normal bowel sounds Extremity exam bilateral lower extremity erythema and +2 edema Neurological examination reveals no gross focal deficits - Labs CBC & Chem 7: 09/14/21 06:18 09/14/21 06:18 Labs: Microbiology - Last 24 Hours (Table) 09/09/21 10:27 Blood Culture - Preliminary Blood No Growth after 96 hours Assessment and Plan Assessment: 1. Peripheral vascular disease with lower extremities. 2. Possible cellulitis of lower extremities. Elevated white count at 15.1. Infectious disease service is consulted. Blood culture ordered 3. History of ongoing nicotine dependence 4. History of COPD. No exacerbation at this time 5. History of hyperlipidemia. Maintained on statin 6. History of essential hypertension DVT prophylaxis Lovenox. GI prophylaxis Protonix Vascular surgery consulted Infectious disease service is consulted Patient started on IV antibiotics Repeat labs ordered
--- NOTE | 2021-09-14 10:58 | P.PN ---
Subjective Progress Note Date: 09/14/21 Richard Reid, is an 80-year-old male who presented to [facility] emergency room with a chief complaint of bilateral red feet with edema. Apparently patient was sent to ER per his vascular surgeon due to the extensive redness secondary to peripheral vascular disease. Patient has a known past medical history of peripheral vascular disease. Additional medical history includes COPD, CVA, hyperlipidemia, hypertension and nicotine dependence. Patient with elevated white blood cell count 15.1 bilateral redness noted. At this time will start patient on Kefzol. Blood culture ordered. Infectious disease service is consulted. Dr. Rain also consulted for evaluation for possible stent along with Dr. Da Silva for possible intervention. At this time patient is resting comfortably in bed. Patient reports improvement with edema and pain. Patient stresses that he is anxious to go home. Discussed with patient that he will need further evaluation due to the extensive redness to his lower extremity secondary to his peripheral vascular disease. Patient denies chest pain or shortness breath. Patient denies nausea vomiting or diarrhea. Patient denies any urinary burning or frequency. On 09/09/2021 patient alert and oriented 3. Vascular surgery has been consulted. Patient reports improvement with lower extremity redness and swelling. Infectious disease services also consulted. At this time patient denies chest pain or shortness breath. Patient denies nausea vomiting or diarrhea. Patient denies any urinary burning or frequency. On 09/10/2021 patient was seen and examined on the medical floor he is alert and oriented 3 in no apparent distress he is still complaining of pain in his foot and complaining of anxiety otherwise he denies any complaints there is no fever or chills no headache or dizziness no chest pain no shortness of breath no cough no nausea or vomiting no abdominal pain no diarrhea no blood in the stools no burning with urination no frequency or urgency no hematuria On 09/11/2021 patient is alert and oriented 3 foot. Otherwise denies any acute complaints. maintained on antibiotics. Dr. Rain and Dr. Da Silva consulted for possible intervention. White blood cell improving to 12.8. Temperature 98.3, heart rate 74, respiratory rate 20, blood pressure 136/61 with a pulse ox of 92% on room air. Patient denies any chest pain or shortness breath. Patient denies nausea vomiting or diarrhea. Patient denies any urinary burning On 09/12/2021 patient was seen and examined on the medical floor he is alert and oriented 3 in no apparent distress pain and swelling in the foot is improving at this time we are awaiting for intervention on the lower extremity for angioplasty. Otherwise patient denies any symptoms there is no fever or chills no headache or dizziness no chest pain no shortness of breath no cough no nausea or vomiting no abdominal pain no diarrhea and no urinary symptoms On 09/13/2021 patient's alert and oriented 3. Tentative plans for surgical intervention per Dr. Rain tomorrow to 10/02/2021. Patient denies chest pain or shortness of breath. Patient denies nausea vomiting or diarrhea. Patient denies any urinary burning or frequency On 09/14/2021 patient's alert and oriented 3. Plans for peripheral vascular intervention today with Dr. Rain. Patient expresses eagerness for discharge home. Patient reports minimal pain to lower extremity. Patient denies chest pain or shortness of breath. Patient denies nausea vomiting or diarrhea. Patient denies any urinary burning or frequency. White blood cell 9.8. Patient remains on IV antibiotics. Objective - Vital Signs Vital signs: Vital Signs Temp 97.5 F L 09/13/21 20:15 Pulse 63 09/14/21 08:55 Resp 18 09/13/21 20:15 BP 114/65 09/14/21 08:55 Pulse Ox 96 09/13/21 20:15 Intake & Output 09/13/21 09/14/21 09/14/21 18:59 06:59 18:59 Intake Total 900 Balance 900 Intake: Intake, IV Titration 900 Amount Sodium Chloride 0.9% 1, 900 000 ml @ 75 mls/hr IV . [id number] [facility] Rx#:[id number] Other: Voiding Method Toilet Toilet # Voids 2 2 - Exam In general patient is alert and oriented ?-3 in no distress HEENT head normocephalic and atraumatic Neck is supple no JVD no goiter no lymphadenopathy no carotid bruit Chest examination is clear to auscultation no crackles no wheezing Cardiac exam reveals regular heart sounds S1 and S2 no gallops no murmurs Abdomen is soft nontender no organomegaly with normal bowel sounds Extremity exam bilateral lower extremity erythema and +2 edema Neurological examination reveals no gross focal deficits - Labs CBC & Chem 7: 09/14/21 06:18 02/02/22 06:18 Labs: Abnormal Lab Results - Last 24 Hours (Table) 09/14/21 Range/Units 06:18 Sodium 136 L (137-145) mmol/L Glucose 100 H (74-99) mg/dL Microbiology - Last 24 Hours (Table) 09/09/21 10:27 Blood Culture - Preliminary Blood No Growth after 96 hours Assessment and Plan Assessment: 1. Peripheral vascular disease with lower extremities. 2. Possible cellulitis of lower extremities. Elevated white count at 15.1. Infectious disease service is consulted. Blood culture ordered 3. History of ongoing nicotine dependence 4. History of COPD. No exacerbation at this time 5. History of hyperlipidemia. Maintained on statin 6. History of essential hypertension DVT prophylaxis Lovenox. GI prophylaxis Protonix Plans for vascular surgical intervention today with Dr. Rain 09/14/2021 Patient remains on IV antibiotics Infectious disease services are following
[2021-09-14] MEDS ORDERED: IV FLUID CONTINUATION 1,000 ML IV ONE (12:50)
[2021-09-14] MEDS ORDERED: LIDOCAINE 1% INJ 10MG/ML (20 ML MDV) ONE (13:05)
[2021-09-14] MEDS ORDERED: fentaNYL (PF) 50 MCG/ML 2 ML AMP IV ONE (13:19)
[2021-09-14] MEDS ORDERED: MIDAZOLAM 2 MG/2 ML VIAL IV ONE (13:19)
[2021-09-14] MEDS ORDERED: LIDOCAINE 1% INJ 10MG/ML (20 ML MDV) SQ ONE (13:19)
[2021-09-14] MEDS ORDERED: fentaNYL (PF) 50 MCG/ML 2 ML AMP ONE (13:21)
[2021-09-14] MEDS ORDERED: HEPARIN SODIUM 1,000 UN/ML (10ML VL) ONE (13:23)
[2021-09-14] MEDS ORDERED: HEPARIN SODIUM 1,000 UN/ML (10ML VL) IV ONE (13:27)
[2021-09-14] MEDS ORDERED: niCARdipine 25 MG/10 ML VIAL ONE (14:03)
[2021-09-14] MEDS ORDERED: CLOPIDOGREL 75 MG TAB ONE (14:13)
[2021-09-14] MEDS ORDERED: CLOPIDOGREL 75 MG TAB PO ONE (14:17)
[2021-09-14] MEDS ORDERED: IOPAMIDOL-250 100ML BTL INTRAARTER ONE (14:22)
[2021-09-14] MEDS ORDERED: NALOXONE 0.4 MG/ML 1 ML VIAL IVP PRN (14:34)
[2021-09-14] MEDS ORDERED: SODIUM CHLORIDE 0.9% 1,000 ML in EMPTY BAG 1 BAG IV SCH (14:45)
--- NOTE | 2021-09-14 14:45 | P.PCN ---
Date of Procedure: 09/14/21 Operative Findings: PERCUTANEOUS PERIPHERAL INTERVENTION Performing physician Reyes Hayden M.D. Procedure performed #1 successful stenting of the proximal left SFA using 7.0 x 40 mm Zilver PTX drug-coated stent with an excellent angiographic results #2 intravascular ultrasound of the left SFA #3 atherectomy of the left SFA using the Hawk device #4 left lower extremity angiogram #5 gradient measurement across the left external iliac artery #6 right common femoral #7 right iliac angiogram #8 ultrasound-guided access of the right common femoral artery Indication Critical limb ischemia of the left foot in this 81-year-old gentleman. He underwent a CTA and that revealed critical disease involving the left SFA Approach Right common femoral artery Complications None Level of sedation Moderate with a sedation time of 66 minutes Procedure description After obtaining an informed consent the patient was brought to the cardiac catheter builder. The right common femoral artery was cannulated using micropuncture technique under ultrasound guidance, the micropuncture wire passed easily then I placed a 6-Bur[place]ian 11 cm sheath at the right common femoral artery. At that point anticoagulation was initiated using heparin with continuous ACT mo nitoring throughout the case. After that I did selective the left SFA using 035 stiff Glidewire with a backup support of Omni Flush catheter. Subsequently I did pull the Omni Flush catheter out and I left the wire in the same spot at the left SFA. After that I did exchange my 035 stiff Glidewire into a stupor core wire because aortic bifurcation was extremely acute and a new I will be having challenging going up and over with the sheath. After that I was able to go up and over using a 6- [place] 7 cm sheath which was advanced over the supra core wire the way to the left common femoral artery. Left lower eccentric angiogram was performed and revealed intermediate lesion involving the left external iliac artery and a critical disease involving a calcified eccentric lesion involving the left SFA and 3 vessels run off below the knee. I did wire the left SFA using 014 wire. After that I did intravascular ultrasound which revealed eccentric calcified lesion with a diameter of the left SFA of about 6 mm. Subsequently I did atherectomy using the hot 1 device. Subsequently I did balloon angioplasty of the left SFA using 5 mm balloon. The following angiogram showed inadequate angiographic results and for that reason I decided to stent the left SFA. I deployed 7.0 x 40 mm Zilver PTX drug-coated stent where the stent was positioned under fluoroscopy guidance and was deployed under fluoroscopy guidance as well. Postdilatation of the stent was performed using 6 mm balloon. The final angiogram showed excellent angiographic results of the left SFA and completion angiogram was performed and revealed 3 vessels run off below the knee. Because there was a concern about a lesion in the left external iliac artery I did a gradient measurement across it with pressure connected to the sheath proximal and distal to that lesion. The gradient came in to be about 10 mmHg. For that reason we decided to treat the lesions medically. After that I pulled the sheath to the right iliac artery and it is selective right iliac angiogram which showed only mild disease. By the end I did exchange my long sheath into short sheath and I did selective right common femoral artery angiogram. The procedure was performed without any complication Postprocedure management #1 dual antiplatelet therapy #2 aggressive cholesterol control #3 risk factors modification #4 follow-up with the patient
[2021-09-14] MEDS ORDERED: HYDROmorphone 1 MG/ML 1 ML SYRINGE ONE (16:08)
[2021-09-14] MEDS ORDERED: HYDROmorphone 1 MG/ML 1 ML SYRINGE IVP STA (16:08)
--- NOTE | 2021-09-14 16:24 | IR ---
Fluoroscopy HISTORY: Pain in bilateral legs 19.6 minutes fluoroscopy time supplied to the referring clinician. 223 intraoperative C-arm images d ocument the procedure. See dictated report from cardiology.
[2021-09-14] MEDS ORDERED: ATORVASTATIN 80 MG TAB PO SCH (21:00)
--- NOTE | 2021-09-14 21:36 | P.PN ---
Subjective Progress Note Date: 09/13/21 Principal diagnosis: Left lower extremity cellulitis Patient is 81-year-old male presented to hospital with left lower extremity pain swelling redness in this patient who did have peripheral arterial disease and concern for left lower extremity cellulitis. On today's evaluation that is 09/13/2021 the patient continues to be afebrile, the patient is breathing comfortably on room air, the patient denies chest pain or shortness of breath, the patient denies abdominal pain or diarrhea and the patient pain to the left leg is currently controlled, currently waiting for left lower extremity vascular procedure Objective - Vital Signs Vital signs: Vital Signs Temp 97.5 F L 09/13/21 20:15 Pulse 63 09/13/21 20:15 Resp 18 09/13/21 20:15 BP 118/69 09/13/21 20:15 Pulse Ox 96 09/13/21 20:15 Intake & Output 09/13/21 09/13/21 09/14/21 06:59 18:59 06:59 Intake Total 1000 Balance 1000 Intake: Intake, IV Titration 1000 Amount Sodium Chloride 0.9% 1, 900 000 ml @ 75 mls/hr IV . [id number] [facility] Rx#:[id number] ceFAZolin 2 gm In Sodium 100 Chloride 0.9% 50 ml @ 100 mls/hr IVPB Q8HR [facility] Rx# :[id number] Other: Voiding Method Toilet Toilet Toilet # Voids 2 - Exam GENERAL DESCRIPTION:[ Patient is awake and alert in no distress] HEENT: [Oral mucosa is dry and no pharyngeal erythema] RESPIRATORY SYSTEM: [Unlabored breathing clear to auscultation] CARDIA VASCULAR SYSTEM: [S1-S2 regular rate and rhythm no murmur] GI: [Abdominal soft there's no tenderness no organomegaly] EXTREMITIES: [Left leg with minimal swelling slightly redness and dry scaly skin - Labs CBC & Chem 7: 09/14/21 06:18 09/14/21 06:18 Labs: Microbiology - Last 24 Hours (Table) 09/09/21 10:27 Blood Culture - Preliminary Blood No Growth after 96 hours Assessment and Plan (1) Left leg cellulitis Current Visit: Yes Status: Acute Code(s): L03.116 - CELLULITIS OF LEFT LOWER LIMB SNOMED Code(s): 352480852 Plan: 1patient with left lower extremity cellulitis in this patient did have diffuse swelling redness likely streptococcal patient, patient did have clinical improvement with cefazolin which will be continued patient is rescheduled for percutaneous intervention to the left leg tomorrow and continue supportive care Time with Patient: Less than 30
--- NOTE | 2021-09-14 21:38 | P.PN ---
Subjective Progress Note Date: 09/14/21 Principal diagnosis: Left lower extremity cellulitis Patient is 81-year-old male presented to hospital with left lower extremity pain swelling redness in this patient who did have peripheral arterial disease and concern for left lower extremity cellulitis. Patient is scheduled for left lower extremity vascular procedure today On today's evaluation that is 09/14/2021 the patient denies any fever or any chills, the patient is breathing comfortably on room air, the patient denies chest pain or shortness of breath, the patient denies abdominal pain or diarrhea and the patient pain to the left leg is currently controlled, Objective - Vital Signs Vital signs: Vital Signs Temp 97.5 F L 09/14/21 12:24 Pulse 58 L 09/14/21 16:35 Resp 18 09/14/21 16:35 BP 124/60 09/14/21 16:35 Pulse Ox 97 09/14/21 16:35 Intake & Output 09/14/21 09/14/21 09/15/21 06:59 18:59 06:59 Intake Total 900 400 Balance 900 400 Intake: IV 400 Intake, IV Titration 900 Amount Sodium Chloride 0.9% 1, 900 000 ml @ 75 mls/hr IV . [id number] [facility] Rx#:[id number] Other: Voiding Method Toilet Toilet # Voids 2 - Exam GENERAL DESCRIPTION:[ Patient is awake and alert in no distress] HEENT: [Oral mucosa is dry and no pharyngeal erythema] RESPIRATORY SYSTEM: [Unlabored breathing clear to auscultation] CARDIA VASCULAR SYSTEM: [S1-S2 regular rate and rhythm no murmur] GI: [Abdominal soft there's no tenderness no organomegaly] EXTREMITIES: [Left leg with minimal swelling slightly redness and dry scaly skin - Labs CBC & Chem 7: 09/14/21 06:18 09/14/21 06:18 Labs: Abnormal Lab Results - Last 24 Hours (Table) 09/14/21 Range/Units 06:18 Sodium 136 L (137-145) mmol/L Glucose 100 H (74-99) mg/dL Microbiology - Last 24 Hours (Table) 09/09/21 10:27 Blood Culture - Preliminary Blood No Growth after 120 hours Assessment and Plan (1) Left leg cellulitis Current Visit: Yes Status: Acute Code(s): L03.116 - CELLULITIS OF LEFT LOWER LIMB SNOMED Code(s): 560309049 Plan: 1patient with left lower extremity cellulitis in this patient did have diffuse swelling redness likely streptococcal patient, patient did have clinical improvement with cefazolin which will be continued with the plan to finish therapy with oral Keflex on discharge Time with Patient: Less than 30
[2021-09-14] MEDS: HYDROcodone/APAP 7.5-325MG 1 EACH TAB PO PRN (22:18)
[2021-09-15 05:38] VITALS: RESP 18
[2021-09-15] MEDS: PANTOPRAZOLE 40 MG TABLET PO SCH (06:44)
[2021-09-15] MEDS: HYDROcodone/APAP 7.5-325MG 1 EACH TAB PO PRN (06:48)
[2021-09-15] MEDS: SODIUM CHLORIDE 0.9% 1,000 ML IV SCH (08:22)
[2021-09-15] MEDS: SYMBICORT 80-4.5 MCG INHALER INHALATION SCH (08:24)
[2021-09-15 08:43] LABS: ALT <6 U/L (4-49); AST 17 U/L (17-59); African American GFR (CKD) 80 (>60 ml/min/1.73 sqM); Albumin 2.5 g/dL (3.5-5.0); Alkaline Phosphatase 55 U/L (38-126); Anion Gap 1 mmol/L; Blood Urea Nitrogen 17 mg/dL (9-20); Calcium 8.9 mg/dL (8.4-10.2); Carbon Dioxide 29 mmol/L (22-30); Chloride 107 mmol/L (98-107); Glucose 82 mg/dL (74-99); Non-African American GFR(CKD) 69 (>60 ml/min/1.73 sqM); Potassium 3.6 mmol/L (3.5-5.1); Sodium 137 mmol/L (137-145); Total Bilirubin 0.6 mg/dL (0.2-1.3); Total Protein 4.9 g/dL (6.3-8.2)
[2021-09-15 08:52] LABS: Basophils # (A) 0.1 k/uL (0-0.2); Basophils % (A) 1 %; Eosinophils # (A) 0.5 k/uL (0-0.7); Eosinophils % (A) 5 %; HCT 44.4 % (39.0-53.0); HGB 14.2 gm/dL (13.0-17.5); Lymphocytes % (A) 10 %; MCH 32.1 pg (25.0-35.0); MCV 100.6 fL (80.0-100.0); Mean Platelet Volume 9.2; Monocytes # (A) 0.5 k/uL (0-1.0); Monocytes % (A) 5 %; Neutrophils # (A) 7.2 k/uL (1.3-7.7); Neutrophils % (A) 78 %; Platelet Count 206 k/uL (150-450); RBC 4.41 m/uL (4.30-5.90); RDW 13.1 % (11.5-15.5); WBC 9.3 k/uL (3.8-10.6)
[2021-09-15] MEDS ORDERED: CLOPIDOGREL 75 MG TAB PO SCH (09:00)
[2021-09-15] MEDS: CHOLECALCIFEROL 25 MCG (1000 IU) TABLET PO SCH (09:01)
[2021-09-15] MEDS: NICOTINE 21MG/24HR PATCH TRANSDERM SCH (09:01)
[2021-09-15] MEDS: CLOPIDOGREL 75 MG TAB PO SCH (09:01)
[2021-09-15] MEDS: ASPIRIN 81 MG PO SCH (09:01)
[2021-09-15] MEDS: METOPROLOL TARTRATE 25 MG TAB PO SCH (09:01)
[2021-09-15] MEDS: FUROSEMIDE 40 MG TAB PO SCH (09:02)
[2021-09-15] MEDS: ENOXAPARIN 40 MG/0.4 ML SYRINGE SQ SCH (09:02)
[2021-09-15] MEDS: ALPRAZolam 0.5 MG TAB PO SCH (09:02)
[2021-09-15] MEDS: TAMSULOSIN 0.4 MG CAP.ER.24H PO SCH (09:02)
[2021-09-15] MEDS: LISINOPRIL-HCTZ 20-25 MG 1 EACH TAB PO SCH (09:02)
[2021-09-15 09:11] VITALS: BP 104/43; PULSE 71; TEMP 97.8
--- NOTE | 2021-09-15 11:39 | P.PN ---
Subjective Progress Note Date: 09/15/21 Richard Reid, is an 80-year-old male who presented to [facility] emergency room with a chief complaint of bilateral red feet with edema. Apparently patient was sent to ER per his vascular surgeon due to the extensive redness secondary to peripheral vascular disease. Patient has a known past medical history of peripheral vascular disease. Additional medical history includes COPD, CVA, hyperlipidemia, hypertension and nicotine dependence. Patient with elevated white blood cell count 15.1 bilateral redness noted. At this time will start patient on Kefzol. Blood culture ordered. Infectious disease service is consulted. Dr. Rain also consulted for evaluation for possible stent along with Dr. Da Silva for possible intervention. At this time patient is resting comfortably in bed. Patient reports improvement with edema and pain. Patient stresses that he is anxious to go home. Discussed with patient that he will need further evaluation due to the extensive redness to his lower extremity secondary to his peripheral vascular disease. Patient denies chest pain or shortness breath. Patient denies nausea vomiting or diarrhea. Patient denies any urinary burning or frequency. On 09/09/2021 patient alert and oriented 3. Vascular surgery has been consulted. Patient reports improvement with lower extremity redness and swelling. Infectious disease services also consulted. At this time patient denies chest pain or shortness breath. Patient denies nausea vomiting or diarrhea. Patient denies any urinary burning or frequency. On 09/10/2021 patient was seen and examined on the medical floor he is alert and oriented 3 in no apparent distress he is still complaining of pain in his foot and complaining of anxiety otherwise he denies any complaints there is no fever or chills no headache or dizziness no chest pain no shortness of breath no cough no nausea or vomiting no abdominal pain no diarrhea no blood in the stools no burning with urination no frequency or urgency no hematuria On 09/11/2021 patient is alert and oriented 3 foot. Otherwise denies any acute complaints. maintained on antibiotics. Dr. Rain and Dr. Da Silva consulted for possible intervention. White blood cell improving to 12.8. Temperature 98.3, heart rate 74, respiratory rate 20, blood pressure 136/61 with a pulse ox of 92% on room air. Patient denies any chest pain or shortness breath. Patient denies nausea vomiting or diarrhea. Patient denies any urinary burning On 09/12/2021 patient was seen and examined on the medical floor he is alert and oriented 3 in no apparent distress pain and swelling in the foot is improving at this time we are awaiting for intervention on the lower extremity for angioplasty. Otherwise patient denies any symptoms there is no fever or chills no headache or dizziness no chest pain no shortness of breath no cough no nausea or vomiting no abdominal pain no diarrhea and no urinary symptoms On 09/13/2021 patient's alert and oriented 3. Tentative plans for surgical intervention per Dr. Rain tomorrow to 10/02/2021. Patient denies chest pain or shortness of breath. Patient denies nausea vomiting or diarrhea. Patient denies any urinary burning or frequency On 09/14/2021 patient's alert and oriented 3. Plans for peripheral vascular intervention today with Dr. Rain. Patient expresses eagerness for discharge home. Patient reports minimal pain to lower extremity. Patient denies chest pain or shortness of breath. Patient denies nausea vomiting or diarrhea. Patient denies any urinary burning or frequency. White blood cell 9.8. Patient remains on IV antibiotics. On 09/15/2021 patient is alert and oriented 3 in no apparent distress he underwent angioplasty on his lower extremity yesterday by Dr. Hayden, discharge was made for yesterday per patient request, however he was not able to go home due to whether and having to wait several hours after angioplasty. Patient wishes to go home today, he was given prescriptions for Keflex, nicotine patches, and Xanax, he will be followed in our office within 1 week Objective - Vital Signs Vital signs: Vital Signs Temp 97.8 F 09/15/21 08:50 Pulse 71 09/15/21 08:50 Resp 18 09/15/21 08:50 BP 104/43 09/15/21 08:50 Pulse Ox 90 L 09/15/21 08:50 Intake & Output 09/14/21 09/15/21 09/15/21 18:59 06:59 18:59 Intake Total 400 120 Output Total 700 150 Balance 400 -700 -30 Intake: IV 400 Oral 120 Output: Urine 700 150 Other: Voiding Method Toilet Toilet Toilet - Exam In general patient is alert and oriented ?-3 in no distress HEENT head normocephalic and atraumatic Neck is supple no JVD no goiter no lymphadenopathy no carotid bruit Chest examination is clear to auscultation no crackles no wheezing Cardiac exam reveals regular heart sounds S1 and S2 no gallops no murmurs Abdomen is soft nontender no organomegaly with normal bowel sounds Extremity exam bilateral lower extremity erythema and +2 edema Neurological examination reveals no gross focal deficits - Labs CBC & Chem 7: 09/15/21 07:26 09/15/21 07:26 Labs: Abnormal Lab Results - Last 24 Hours (Table) 09/15/21 09/15/21 Range/Units 07:26 07:26 MCV 100.6 H (80.0-100.0) fL Total Protein 4.9 L (6.3-8.2) g/dL Albumin 2.5 L (3.5-5.0) g/dL Microbiology - Last 24 Hours (Table) 09/09/21 10:27 Blood Culture - Preliminary Blood No Growth after 120 hours Assessment and Plan Assessment: 1. Peripheral vascular disease with lower extremities. 2. Possible cellulitis of lower extremities. Elevated white count at 15.1. Infectious disease service is consulted. Blood culture ordered 3. History of ongoing nicotine dependence 4. History of COPD. No exacerbation at this time 5. History of hyperlipidemia. Maintained on statin 6. History of essential hypertension DVT prophylaxis Lovenox. GI prophylaxis Protonix Plans for vascular surgical intervention today with Dr. Rain 09/14/2021 Patient remains on IV antibiotics Infectious disease services are following
--- NOTE | 2021-09-18 10:09 | P.DS ---
Providers Date of admission: 09/08/21 15:12 Expected date of discharge: 09/18/21 Attending physician: Uche Alvarado Consults: 09/08/21 15:10 Consult Physician Routine Consulting Provider: Reyes Hayden Consult Reason/Comments: Peripheral vascular disease, evaluation for stent Do you want consulting provider notified?: Already Contacted 09/09/21 10:23 Consult Physician Routine Consulting Provider: Paola Michel Consult Reason/Comments: cellulitis Do you want consulting provider notified?: Yes 09/09/21 12:53 Consult Physician Routine Consulting Provider: Reyes Hayden Consult Reason/Comments: possible angioplasty on lower extremity Do you want consulting provider notified?: Yes Primary care physician: Uche Alvarado [facility] Course: Discharge diagnosis 1. Peripheral vascular disease with lower extremities. 2. Possible cellulitis of lower extremities. 3. History of ongoing nicotine dependence 4. History of COPD. No exacerbation at this time 5. History of hyperlipidemia. Maintained on statin 6. History of essential hypertension hospital Course Richard Reid, is an 80-year-old male who presented to [facility] emergency room with a chief complaint of bilateral red feet with edema. Apparently patient was sent to ER per his vascular surgeon due to the extensive redness secondary to peripheral vascular disease. Patient has a known past medical history of peripheral vascular disease. Additional medical history includes COPD, CVA, hyperlipidemia, hypertension and nicotine dependence. Patient with elevated white blood cell count 15.1 bilateral redness noted. At this time will start patient on Kefzol. Blood culture ordered. Infectious disease service is consulted. Dr. Rain also consulted for evaluation for possible stent along with Dr. Da Silva for possible intervention. At this time patient is resting comfortably in bed. Patient reports improvement with edema and pain. Patient stresses that he is anxious to go home. Discussed with patient that he will need further evaluation due to the extensive redness to his lower extremity secondary to his peripheral vascular disease. Patient denies chest pain or shortness breath. Patient denies nausea vomiting or diarrhea. Patient denies any urinary burning or frequency. On 09/09/2021 patient alert and oriented 3. Vascular surgery has been consulted. Patient reports improvement with lower extremity redness and swelling. Infectious disease services also consulted. At this time patient denies chest pain or shortness breath. Patient denies nausea vomiting or diarrhea. Patient denies any urinary burning or frequency. On 09/10/2021 patient was seen and examined on the medical floor he is alert and oriented 3 in no apparent distress he is still complaining of pain in his foot and complaining of anxiety otherwise he denies any complaints there is no fever or chills no headache or dizziness no chest pain no shortness of breath no cough no nausea or vomiting no abdominal pain no diarrhea no blood in the stools no burning with urination no frequency or urgency no hematuria On 09/11/2021 patient is alert and oriented 3 foot. Otherwise denies any acute complaints. maintained on antibiotics. Dr. Rain and Dr. Da Silva consulted for possible intervention. White blood cell improving to 12.8. Temperature 98.3, heart rate 74, respiratory rate 20, blood pressure 136/61 with a pulse ox of 92% on room air. Patient denies any chest pain or shortness breath. Patient denies nausea vomiting or diarrhea. Patient denies any urinary burning On 09/12/2021 patient was seen and examined on the medical floor he is alert and oriented 3 in no apparent distress pain and swelling in the foot is improving a t this time we are awaiting for intervention on the lower extremity for angioplasty. Otherwise patient denies any symptoms there is no fever or chills no headache or dizziness no chest pain no shortness of breath no cough no nausea or vomiting no abdominal pain no diarrhea and no urinary symptoms On 09/13/2021 patient's alert and oriented 3. Tentative plans for surgical intervention per Dr. Rain tomorrow to 10/02/2021. Patient denies chest pain or shortness of breath. Patient denies nausea vomiting or diarrhea. Patient denies any urinary burning or frequency On 09/14/2021 patient's alert and oriented 3. Plans for peripheral vascular intervention today with Dr. Rain. Patient expresses eagerness for discharge home. Patient reports minimal pain to lower extremity. Patient denies chest pain or shortness of breath. Patient denies nausea vomiting or diarrhea. Patient denies any urinary burning or frequency. White blood cell 9.8. Patient remains on IV antibiotics. On 09/15/2021 patient is alert and oriented 3 in no apparent distress he underwent angioplasty on his lower extremity yesterday by Dr. Hayden, discharge was made for yesterday per patient request, however he was not able to go home due to whether and having to wait several hours after angioplasty. Patient wishes to go home today, he was given prescriptions for Keflex, nicotine patches, and Xanax, he will be followed in our office within 1 week Patient Condition at Discharge: Stable Plan - Discharge Summary Discharge Rx Participant: Yes New Discharge Prescriptions: New ALPRAZolam [Xanax] 0.5 mg PO TID tab Cephalexin [Keflex] 500 mg PO Q8HR 21 Days #7 cap Furosemide [Lasix] 40 mg PO DAILY tab Continue Tamsulosin [Flomax] 0.4 mg PO DAILY Lisinopril-Hctz 20-25 mg [Zestoretic 20-25] 0.5 tab PO DAILY Nicotine 21Mg/24Hr Patch [Habitrol] 1 patch TRANSDERM DAILY patch Clopidogrel Bisulfate [Plavix] 75 mg PO DAILY 30 Days #30 tab Rosuvastatin Calcium [Crestor] 5 mg PO HS Fluticasone/Vilanterol [Breo Ellipta 100-25 Mcg Inhaler] 1 puff INHALATION RT-DAILY Cholecalciferol [Vitamin D3 (25 Mcg = 1000 Iu)] 25 mcg PO DAILY Aspirin EC [Ecotrin Low Dose] 81 mg PO DAILY Metoprolol Tartrate [Lopressor] 25 mg PO BID HYDROcodone/APAP 7.5-325MG [[place] 7.5-325] 1 tab PO BID PRN PRN Reason: Pain Discharge Medication List Aspirin EC [Ecotrin Low Dose] 81 mg PO DAILY 09/02/21 [History] Cholecalciferol [Vitamin D3 (25 Mcg = 1000 Iu)] 25 mcg PO DAILY 09/02/21 [History] Fluticasone/Vilanterol [Breo Ellipta 100-25 Mcg Inhaler] 1 puff INHALATION RT- DAILY 09/02/21 [History] HYDROcodone/APAP 7.5-325MG [[place] 7.5-325] 1 tab PO BID PRN 09/02/21 [History] Lisinopril-Hctz 20-25 mg [Zestoretic 20-25] 0.5 tab PO DAILY 09/02/21 [History] Metoprolol Tartrate [Lopressor] 25 mg PO BID 09/02/21 [History] Rosuvastatin Calcium [Crestor] 5 mg PO HS 09/02/21 [History] Tamsulosin [Flomax] 0.4 mg PO DAILY 09/02/21 [History] Clopidogrel Bisulfate [Plavix] 75 mg PO DAILY 30 Days #30 tab 09/03/21 [Rx] Nicotine 21Mg/24Hr Patch [Habitrol] 1 patch TRANSDERM DAILY patch 09/03/21 [Rx] ALPRAZolam [Xanax] 0.5 mg PO TID tab 09/14/21 [Rx] Cephalexin [Keflex] 500 mg PO Q8HR 21 Days #7 cap 09/14/21 [Rx] Furosemide [Lasix] 40 mg PO DAILY tab 09/14/21 [Rx] Follow up Appointment(s)/Referral(s): Reyes Hayden MD [STAFF PHYSICIAN] - 1 Week (The office will call with appointment time and date. ) Uche Alvarado MD [Primary Care Provider] - 09/21/21 10:00 am Patient Instructions/Handouts: Cellulitis (DC), Peripheral Vascular Disease (DC), Peripheral Vascular Angioplasty (DC), Peripheral Vascular Stent Placement (DC) Discharge Disposition: HOME SELF-CARE
== END 2021-09-15 10:38 | disposition home or self-care (01) | DRG 271 ==
LOC: EC 12:23 → 5NMEDONC 15:12 → 3SCARD 09-14 15:33
PROVIDERS: ADMIT Internal Medicine; ATTEND Internal Medicine
PROC: B41G1ZZ Fluoroscopy of Left Lower Extremity Arteries using Low Osmolar Contrast (ICD-10-PCS; principal; 2021-09-14 12:00)
PROC: 04CL3ZZ Extirpation of Matter from Left Femoral Artery, Percutaneous Approach (ICD-10-PCS; principal; 2021-09-14 12:00)
PROC: 047L3DZ Dilation of Left Femoral Artery with Intraluminal Device, Percutaneous Approach (ICD-10-PCS; principal; 2021-09-14 12:00)
DX: I70.222 Atherosclerosis of native arteries of extremities with rest pain, left leg (principal); L03.116 Cellulitis of left lower limb; I70.221 Atherosclerosis of native arteries of extremities with rest pain, right leg; E78.5 Hyperlipidemia, unspecified; F17.210 Nicotine dependence, cigarettes, uncomplicated; F41.9 Anxiety disorder, unspecified; M25.551 Pain in right hip; M25.552 Pain in left hip; I10 Essential (primary) hypertension; J44.9 Chronic obstructive pulmonary disease, unspecified; Z20.822 Contact with and (suspected) exposure to COVID-19; Z79.02 Long term (current) use of antithrombotics/antiplatelets; Z79.82 Long term (current) use of aspirin; Z79.899 Other long term (current) drug therapy; Z86.73 Personal history of transient ischemic attack (TIA), and cerebral infarction without residual deficits
CPT/HCPCS: 36415; 37227; 37252; 80048; 80053; 80061; 82550; 83036; 83735; 85025; 85730; 87040; 87635; 93005; 94640; 99284

== ENCOUNTER 2022-05-22 09:43 | Day surgery (SDC) | payer MEDICARE, OTHER ==
[2022-05-19 09:37] VITALS: BMI 24.1
[~2022-05-22 09:43] MED LIST: LACTATED RINGERS 1,000 ML IV SCH; LIDOCAINE 1% (10MG/ML) FOR IV START INTRADERMA PRN
[2022-05-22 10:18] VITALS: TEMP 97
[2022-05-22] MEDS ORDERED: PROPOFOL 10 MG/ML 20 ML VIAL IV ONE (11:19)
--- NOTE | 2022-05-22 11:21 | P.GSHP ---
History of Present Illness H&P Date: 05/22/22 Chief Complaint: GI bleed This 81-year-old male with history of GI bleed. 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 History of Any Multi-Drug Resistant Organisms: None Reported Past Surgical History: Hernia Repair Past Anesthesia/Blood Transfusion Reactions: No Reported Reaction Additional Past Anesthesia/Blood Transfusion Reaction / Comment(s): no hx blood transfusion Smoking Status: Current every day smoker - Past Family History Mother Family Medical History: Cancer Father Family Medical History: Cancer Medications and Allergies Home Medications Medication Instructions Recorded Confirmed Type Aspirin EC [Ecotrin Low Dose] 81 mg PO DAILY 09/02/21 05/19/22 History Cholecalciferol [Vitamin D3 (25 25 mcg PO DAILY 09/02/21 05/19/22 History Mcg = 1000 Iu)] Fluticasone/Vilanterol [Breo 1 puff INHALATION RT-DAILY 09/02/21 05/19/22 History Ellipta 100-25 Mcg Inhaler] Lisinopril-Hctz 20-25 mg 0.5 tab PO DAILY 09/02/21 05/19/22 History [Zestoretic 20-25] Metoprolol Tartrate [Lopressor] 25 mg PO BID 09/02/21 05/19/22 History Rosuvastatin Calcium [Crestor] 5 mg PO HS 09/02/21 05/19/22 History Tamsulosin [Flomax] 0.4 mg PO QAM 09/02/21 05/19/22 History Furosemide [Lasix] 40 mg PO DAILY tab 09/14/21 05/19/22 Rx ALPRAZolam [Xanax] 0.25 - 0.5 mg PO TID PRN 05/19/22 05/19/22 History Albuterol Inhaler [Ventolin Hfa 1 - 2 puff INHALATION Q6H PRN 05/19/22 05/19/22 History Inhaler] Allergies Allergy/AdvReac Type Severity Reaction Status Date / Time No Known Allergies Allergy Verified 05/22/22 10:01 Surgical - Exam Vital Signs Temp Pulse Resp BP Pulse Ox 97.0 F L 66 14 138/65 93 L 05/22/22 10:16 05/22/22 10:16 05/22/22 10:16 05/22/22 10:16 05/22/22 10:16 - General well developed, well nourished, no distress - Eyes PERRL - ENT normal pinna - Neck no masses - Respiratory normal expansion - Cardiovascular Rhythm: regular - Abdomen Abdomen: soft, non tender Assessment and Plan Assessment: GI bleed. We'll perform colonoscopy
--- NOTE | 2022-05-22 11:49 | P.OP ---
Date of Procedure: 05/22/22 Preoperative Diagnosis: GI bleed Postoperative Diagnosis: Colonic polyposis Procedure(s) Performed: Colonoscopy Anesthesia: MAC Surgeon: Misael Liu Pathology: other (Colon polyps) Condition: stable Disposition: PACU Description of Procedure: The patient's placed on the endoscopy table in the lateral position. He received IV sedation. Digital rectal exam was performed which revealed no abnormalities. The colonoscope was then placed patient anus and passed throughout the entire colon. Patient had polyposis of his colon. There were multiple polyps seen throughout the colon. The ileocecal valve was visualized. In the right colon there was a large polyp seen that was occupied approximately one third of the lumen of the colon. This was partially removed using the snare and cold biopsy forcep. The area was tattooed. Multiple polyps were seen within the scope was withdrawn. And in the area of the left colon at approximately 30 cm another large polyp was seen. It was too large to be removed via the scope. This area was tattooed and biopsied and partially removed with the snare and forcep. Scope was then withdrawn. Remainder of the sigmoid colon appeared normal except for some small hyperplastic polyps. Scope was brought back the rectum was normal scope withdrawn for patient. There is no evidence of any active GI bleed today. His presumed patient may have had bleeding from colon polyps.
[2022-05-22] MEDS ORDERED: HYDROmorphone 0.5 MG/0.5 ML SYRINGE IVP ONE ×2 (12:26→12:29)
[2022-05-22] MEDS ORDERED: METOCLOPRAMIDE 5 MG/ML 2 ML VIAL ONE (12:38)
[2022-05-22] MEDS ORDERED: METOCLOPRAMIDE 5 MG/ML 2 ML VIAL IVP ONE ×2 (12:40→12:49)
--- NOTE | 2022-05-22 12:56 | XR ---
EXAMINATION TYPE: XR abdomen 2V DATE OF EXAM: 05/22/2022 COMPARISON: None INDICATION: Severe bloating after colonoscopy TECHNIQUE: Single view abdomen supine view. Upright view is obtained. FINDINGS: There is abundant colonic bowel gas present. Redundancy is to the colon. No free air is identified. N o mass effect is evident. Psoas margins appear normal. IMPRESSION: 1. Abundant colonic bowel gas. Free air is not identified. Follow-up as clinically indicated.
--- NOTE | 2022-05-22 13:06 | P.OP ---
Date of Procedure: 05/22/22 Preoperative Diagnosis: GI bleed Postoperative Diagnosis: Diverticular bleed Mild antral gastritis Procedure(s) Performed: Colonoscopy EGD Anesthesia: MAC Surgeon: Misael Liu Pathology: none sent Condition: stable Disposition: PACU Description of Procedure: The patient's placed on the endoscopy table in the lateral position. He received IV sedation. The gastro-/oropharynx passed in the esophagus into the stomach. Scope was then placed through the pylorus. The first and second portion of the duodenum appeared normal. Scope was then brought back the antrum this. Minimal inflamed. Biopsies performed. Scope was retroflexed and the remainder the stomach appeared normal. The GE junction was at 40 cm. The distal esophagus. Normal. The proximal esophagus appeared normal. Scope was withdrawn. Next digital rectal exam was performed. This revealed no abnormality. The colonoscope was then placed patient anus. The scope was placed up in the sigmoid colon. There is extensive diverticular changes. Some clots were seen within the diverticulum. The scope couldn't be advanced due to tortuosity valve. Scope was withdrawn. There is no active bleeding seen. However there was definite blood clot seen within the diverticulum. The scope was withdrawn. There is no unsteady active GI bleed. Patient presented have bleeding from diverticulum.
--- NOTE | 2022-05-22 13:22 | P.PN ---
Progress Note - Text Progress Note Date: 05/22/22 The patient had complaints of postoperative pain. His abdomen was quite distended. Upright abdominal x-ray was performed to evaluate for possible free air. . The x-ray shows evidence of dilated loops of colon and small bowel suggestive of retained air. There is no evidence of free air. There is no evidence of colonic perforation The patient will K receive supportive care hopefully when she he has some flatus his pain will resolve.
[2022-05-22] MEDS ORDERED: LACTATED RINGERS 1,000 ML IV ONE (13:39)
[2022-05-22 15:01] VITALS: BP 118/55; PULSE 78; RESP 20
== END 2022-05-22 15:25 | disposition home or self-care (01) ==
LOC: ORWHC2ENDO 09:43
PROVIDERS: ATTEND Surgery
DX: D12.2 Benign neoplasm of ascending colon (principal); K29.50 Unspecified chronic gastritis without bleeding; K57.31 Diverticulosis of large intestine without perforation or abscess with bleeding; J44.9 Chronic obstructive pulmonary disease, unspecified; E78.5 Hyperlipidemia, unspecified; I10 Essential (primary) hypertension; N42.9 Disorder of prostate, unspecified; Z90.49 Acquired absence of other specified parts of digestive tract; F17.210 Nicotine dependence, cigarettes, uncomplicated; Z80.9 Family history of malignant neoplasm, unspecified; Z79.82 Long term (current) use of aspirin; Z79.899 Other long term (current) drug therapy; Z79.51 Long term (current) use of inhaled steroids; Z86.73 Personal history of transient ischemic attack (TIA), and cerebral infarction without residual deficits
CPT/HCPCS: 43239; 88305; 74019; 45380; 45385; 45381; J2765; J2704; J1170

== ENCOUNTER → 2022-06-13 | Outpatient (CLI) | payer MEDICARE, OTHER ==
--- NOTE | 2022-06-13 15:57 | US ---
EXAMINATION TYPE: US venous doppler duplex LE LT DATE OF EXAM: 06/13/2022 3:02 PM COMPARISON: NONE CLINICAL HISTORY: M79.662 PAIN LT LOWER LIMB. SIDE PERFORMED: Left TECHNIQUE: The lower extremity deep venous system is examined utilizing real time linear array sonog yeyo with graded compression, doppler sonography and color-flow sonography. VESSELS IMAGED: Common Femoral Vein Deep Femoral Vein Greater Saphenous Vein * Femoral Vein Popliteal Vein Small Saphenous Vein * Proximal Calf Veins (* superficial vessels) Left Leg: Negative for DVT IMPRESSION: 1. Left lower extremity ultrasound negative for deep venous thrombosis
== END | disposition home or self-care (01) ==
LOC: RADUSWWP 15:01
PROVIDERS: ATTEND Internal Medicine
DX: M79.662 Pain in left lower leg (principal)

== ENCOUNTER 2022-06-27 10:44 | Emergency (ER) | payer MEDICARE, OTHER ==
[2022-06-27 10:57] VITALS: BP 125/64; PULSE 60; RESP 20; TEMP 98.5
--- NOTE | 2022-06-27 12:31 | ED ---
Extremity Problem HPI - General Chief complaint: Extremity Problem,Nontraumatic Stated complaint: L. Foot Swelling Time Seen by Provider: 06/27/22 11:18 Source: patient, family, RN notes reviewed Mode of arrival: ambulatory Limitations: no limitations - History of Present Illness Initial comments: Patient is 81-year-old male presenting to the emergency room with complaints of pain and swelling in his left foot. He reports that the swelling has gone down some but the pain persists. The symptoms were evaluated by his primary care provider last week in which he underwent a venous Doppler that was negative for DVT. He has known with peripheral vascular disease along with peripheral arterial disease been following with a vascular surgeon. He has an upcoming appointment with a vascular surgeon. His is also concerned regarding a small wound to his left fifth toe in the inner aspect which she has been providing localized wound care. She reports that she believes that the wound is healing well without any significant purulent drainage or surrounding erythema. He denies any new changes in sensation, new extremity discoloration for worsening chronic cold sensation to his extremities. In addition to his vascular disease he has a past medical history significant for CVA, COPD, hypertension, hyperlipidemia, prostate disease and he is a current heavy smoker. - Related Data Home Medications Medication Instructions Recorded Confirmed Aspirin EC [Ecotrin Low Dose] 81 mg PO DAILY 09/02/21 07/05/22 Fluticasone/Vilanterol [Breo 1 puff INHALATION RT-DAILY 09/02/21 07/05/22 Ellipta 100-25 Mcg Inhaler] Lisinopril-Hctz 20-25 mg 0.5 tab PO DAILY 09/02/21 07/05/22 [Zestoretic 20-25] Metoprolol Tartrate [Lopressor] 25 mg PO BID 09/02/21 07/05/22 Rosuvastatin Calcium [Crestor] 5 mg PO HS 09/02/21 07/05/22 Tamsulosin [Flomax] 0.4 mg PO DAILY 09/02/21 07/05/22 ALPRAZolam [Xanax] 0.5 mg PO HS 05/19/22 07/05/22 Acetaminophen [Tylenol Arthritis] 650 mg PO BID 06/27/22 07/05/22 Ipratropium [place] 0.06%Nasal 1 spray EA NOSTRIL TID PRN 06/27/22 07/05/22 [Atrovent Nasal 0.06%] Cephalexin [Keflex] 500 mg PO Q6HR 07/05/22 07/05/22 HYDROcodone/APAP 7.5-325MG [[place] 1 tab PO BID 07/05/22 07/05/22 7.5-325] Allergies Allergy/AdvReac Type Severity Reaction Status Date / Time No Known Allergies Allergy Verified 07/05/22 13:18 Review of Systems ROS Statement: Those systems with pertinent positive or pertinent negative responses have been documented in the HPI. ROS Other: All systems not noted in ROS Statement are negative. 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 History of Any Multi-Drug Resistant Organisms: None Reported Past Surgical History: Hernia Repair Past Anesthesia/Blood Transfusion Reactions: No Reported Reaction Additional Past Anesthesia/Blood Transfusion Reaction / Comment(s): no hx blood transfusion Past Psychological History: No Psychological Hx Reported Smoking Status: Current every day smoker Past Alcohol Use History: None Reported Past Drug Use History: None Reported - Past Family History Mother Family Medical History: Cancer Father Family Medical History: Cancer General Exam Limitations: no limitations General appearance: alert, in no apparent distress Head exam: Present: atraumatic, normocephalic, normal inspection Eye exam: Present: normal appearance, PERRL, EOMI. Absent: scleral icterus, conjunctival injection, periorbital swelling ENT exam: Present: normal exam, mucous membranes moist Neck exam: Present: normal inspection, full ROM Respiratory exam: Present: wheezes (Exploratory). Absent: respiratory distress, rales, rhonchi, stridor, accessory muscle use Cardiovascular Exam: Present: regular rate, normal rhythm, normal heart sounds. Absent: systolic murmur, diastolic murmur, rubs, gallop, clicks GI/Abdominal exam: Present: soft, normal bowel sounds. Absent: distended, tenderness, guarding, rebound, rigid Left Ankle exam: Present: swelling Foot/Toe exam: Present: full ROM, tenderness, swelling Neurovascular tendon exam: Present: sensory deficit (chronic) Gait: observed and limited by pain Back exam: Present: normal inspection Neurological exam: Present: alert, oriented X3, CN II-XII intact Psychiatric exam: Present: normal affect, normal mood Skin exam: Present: other (Discolored lower extremities cooler to the touch but with blanchable erythema. Medial aspect fifth digit left foot with blister like healing wound without exudate or induration) Course Vital Signs 06/27/22 06/27/22 10:54 13:34 Temperature 98.5 F Pulse Rate 60 Respiratory 20 20 Rate Blood Pressure 125/64 O2 Sat by Pulse 99 Oximetry Medical Decision Making - Medical Decision Making 89-year-old male presenting with left foot pain and swelling ongoing for 2 weeks with improvement in swelling and continuation of pain with known peripheral vascular and arterial disease without evidence of limb ischemia and established with vascular surgeon for intervention next month. Previous Doppler for DVT completed within the last 2 weeks which was negative for DVT no indication for repeat Doppler. Will obtain ABIs for review by primary care provider and vascular surgeon. No indication for further diagnostic imaging or laboratory studies at this time. Blisterlike wound to fifth toe healing well without any need for IV antibiotic therapy, oral antibiotic therapy cultures or further testing completed. ABIs completed without complication. Report will be available and sent to primary care provider and vascular provider whom patient is to follow-up with. Will discharge patient home in stable condition with follow-up with his primary care provider and vascular provider and continuation of localized wound care. Return parameters to the emergency room reviewed at length. Case discussed with Dr. Acuña Disposition Clinical Impression: PAD (peripheral artery disease), Pain of left lower extremity Disposition: HOME SELF-CARE Condition: Stable Instructions (If sedation given, give patient instructions): Peripheral Vascular Disease (ED) Additional Instructions: Continue localized wound care to wound on left fifth toe. Please follow-up with your primary care provider regarding testing completed today. Please return to the Emergency Department if symptoms worsen or any other concerns. Is patient prescribed a controlled substance at d/c from ED?: No Referrals: Uche Alvarado MD [Primary Care Provider] - 1-2 days Time of Disposition: 13:18
--- NOTE | 2022-06-28 10:09 | US ---
EXAMINATION TYPE: US arterial LE multi level DATE OF EXAM: 06/27/2022 12:45 PM CLINICAL HISTORY: pain. Left femoral stent 10/04. left foot edema for 2 weeks. wound left 5th toe. thi ck toenails Doppler Waveforms: Right: Monophasic Left: Monophasic and flattened Pulse Volume Recording: Pressure Gradients: Ankle-Brachial Indices: Right: 0.64 Left: 0.29 Toe Brachial Indices: Right: 0.40 Left: IMPRESSION: Loss of phasicity with diminished ARIAN and TBI values bilaterally. Findings consistent wi th at least moderate peripheral arterial disease in the right leg and foot and severe peripheral obbo rial disease in the left lower extremity. Further workup and follow-up advised.
== END 2022-06-27 13:35 | disposition home or self-care (01) ==
LOC: EC 10:44
DX: I73.9 Peripheral vascular disease, unspecified (principal); F17.200 Nicotine dependence, unspecified, uncomplicated; J44.9 Chronic obstructive pulmonary disease, unspecified; E78.5 Hyperlipidemia, unspecified; I10 Essential (primary) hypertension; Z79.82 Long term (current) use of aspirin; Z86.73 Personal history of transient ischemic attack (TIA), and cerebral infarction without residual deficits; Z79.899 Other long term (current) drug therapy
CPT/HCPCS: 93923; 99283

== ENCOUNTER 2022-07-05 11:34 | Inpatient (IN) | payer MEDICARE, OTHER ==
[2022-07-05] MEDS ORDERED: MORPHINE SULFATE 4 MG/ML SYRINGE IVP STA (12:38)
[2022-07-05] MEDS ORDERED: SODIUM CHLORIDE 0.9% 1,000 ML IV STA (12:58)
--- NOTE | 2022-07-05 12:58 | ED ---
General Adult HPI - General Chief complaint: Extremity Problem,Nontraumatic Stated complaint: left foot swelling Time Seen by Provider: 07/05/22 12:24 Source: patient, family, RN notes reviewed, old records reviewed Mode of arrival: wheelchair Limitations: no limitations - History of Present Illness Initial comments: Patient is an 81-year-old male with past medical history remarkable for peripheral vascular disease, peripheral artery disease, hypertension, prostate disorder, COPD who presents emergency Department complaining of left toe infection with left foot swelling. Seems to have been ongoing for the last 2-4 weeks. Was evaluated 2 weeks ago for similar complaints, and workup was unremarkable. He did follow up with his PCP Dr. Alvarado who placed him on antibiotics for left toe infection. States the swelling is improved and the pain is somewhat improved but is not different spots. He has swelling over the dorsal aspect of his distal left foot, left fifth and fourth toe pain secondary to the wound, as well as left heel pain. Denies any swelling in the leg. Is not on blood thinners. Has received numerous ultrasounds over the last month. Swelling overall is improved. No DVT found on the prior ultrasounds. He presents today primarily for the foot pain. Cannot recall which antibiotic he was on. No history of diabetes. Denies any other acute complaints include chest pain, shortness breath, abdominal pain, nausea, vomiting. Is on pain medications at home with minimal improvement in his symptoms. He presents with his for further evaluation at this time. - Related Data Home Medications Medication Instructions Recorded Confirmed Aspirin EC [Ecotrin Low Dose] 81 mg PO DAILY 09/02/21 07/05/22 Fluticasone/Vilanterol [Breo 1 puff INHALATION RT-DAILY 09/02/21 07/05/22 Ellipta 100-25 Mcg Inhaler] Lisinopril-Hctz 20-25 mg 0.5 tab PO DAILY 09/02/21 07/05/22 [Zestoretic 20-25] Metoprolol Tartrate [Lopressor] 25 mg PO BID 09/02/21 07/05/22 Rosuvastatin Calcium [Crestor] 5 mg PO HS 09/02/21 07/05/22 Tamsulosin [Flomax] 0.4 mg PO DAILY 09/02/21 07/05/22 ALPRAZolam [Xanax] 0.5 mg PO HS 05/19/22 07/05/22 Acetaminophen [Tylenol Arthritis] 650 mg PO BID 06/27/22 07/05/22 Ipratropium [place] 0.06%Nasal 1 spray EA NOSTRIL TID PRN 06/27/22 07/05/22 [Atrovent Nasal 0.06%] Cephalexin [Keflex] 500 mg PO Q6HR 07/05/22 07/05/22 HYDROcodone/APAP 7.5-325MG [[place] 1 tab PO BID 07/05/22 07/05/22 7.5-325] Allergies Allergy/AdvReac Type Severity Reaction Status Date / Time No Known Allergies Allergy Verified 07/05/22 13:18 Review of Systems ROS Statement: Those systems with pertinent positive or pertinent negative responses have been documented in the HPI. Review of Systems: CONST: Denies fever EYES: Denies blurry vision ENT: Denies nasal congestion C/V: Denies Chest pain RESP: Denies shortness of breath GI: Denies abdominal pain : Denies dysuria SKIN: Endorses left toe sores. MSK: Endorses left foot pain. NEURO: Denies headache ROS Other: All systems not noted in ROS Statement are negative. 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 History of Any Multi-Drug Resistant Organisms: None Reported Past Surgical History: Hernia Repair Past Anesthesia/Blood Transfusion Reactions: No Reported Reaction Additional Past Anesthesia/Blood Transfusion Reaction / Comment(s): no hx blood transfusion Past Psychological History: No Psychological Hx Reported Smoking Status: Current every day smoker Past Alcohol Use History: None Reported Past Drug Use History: None Reported - Past Family History Mother Family Medical History: Cancer Father Family Medical History: Cancer General Exam - General Exam Comments Initial Comments: General: He is in mild distress secondary to left foot pain. HEAD: Normal with no signs of head trauma. EYES: PERRLA, EOMI, conjunctiva normal, no discharge. ENT: Hearing grossly intact, normal oropharynx. RESPIRATORY: Clear breath sounds bilaterally. No wheezes, rales, or rhonchi. C/V: Regular rate and rhythm. S1 and S2 auscultated, peripheral pulses 2+ and intact throughout ABD: Abd is soft, nontender, nondistended EXT: Normal range of motion, no obvious deformity. Patient does have some tenderness to palpation located over the distal dorsal aspect of the left foot. There is some edema at the site. Patient also has point tenderness located over the inferior left heel. No obvious deformities. SKIN: Patient has an open wound located in between toes 4 and 5 on the left foot. Approximately the size of a dime. Surrounding erythema extends up to the dorsal aspect of the left foot. No fluctuance. No induration. Minimal drainage. NEURO: Alert and oriented x 4. No focal sensory or strength deficits. Limitations: no limitations Course Vital Signs 07/05/22 07/05/22 07/05/22 11:47 13:06 14:23 Temperature 97.9 F Pulse Rate 59 L 58 L 65 Respiratory 18 16 18 Rate Blood Pressure 103/57 131/64 125/54 O2 Sat by Pulse 94 L 94 L 93 L Oximetry 07/05/22 07/05/22 15:06 16:21 Temperature 98.0 F Pulse Rate 57 L 80 Respiratory 16 18 Rate Blood Pressure 132/64 135/64 O2 Sat by Pulse 94 L 94 L Oximetry Medical Decision Making - Medical Decision Making Based on the patient's presentation and physical exam, I'm concerned for what appears to be a left foot infection secondary to the sore between his fourth and fifth toes. He seems to have some extension into the dorsal aspect of the left foot. He was on antibiotics. I'm concerned for possible failed outpatient treatment of this. He has a cellulitic component apparently as well. I discussed this with the patient, and we will obtain basic labs as well as wound cultures. Vital signs are within acceptable limits. He will be given IV medications for pain. He was in agreement with this plan. X-ray of the left foot also be obtained. Patient's laboratory studies are relatively unremarkable. No leukocytosis. Foot x-ray reveals no acute fracture or dislocation. There is soft tissue swelling of the fourth and fifth digits. Wound cultures were obtained and sent. Blood cultures were obtained and sent. I did update the patient at this time. I would like to admit him for IV antibiotics and evaluation. He was in agreem ent this plan. He was started on IV vancomycin. I contacted the patient's admitting physician, Dr. Alvarado who accepted the patient. Patient was admitted in stable condition. - Lab Data Result diagrams: 07/05/22 12:49 07/05/22 12:49 Lab Results 07/05/22 07/05/22 Range/Units 12:49 12:49 WBC 10.2 (3.8-10.6) k/uL RBC 4.94 (4.30-5.90) m/uL Hgb 15.8 (13.0-17.5) gm/dL Hct 48.1 (39.0-53.0) % MCV 97.5 (80.0-100.0) fL MCH 32.1 (25.0-35.0) pg MCHC 32.9 (31.0-37.0) g/dL RDW 13.0 (11.5-15.5) % Plt Count 178 (150-450) k/uL MPV 10.1 Neutrophils % 73 % Lymphocytes % 15 % Monocytes % 4 % Eosinophils % 6 % Basophils % 1 % Neutrophils # 7.5 (1.3-7.7) k/uL Lymphocytes # 1.5 (1.0-4.8) k/uL Monocytes # 0.4 (0-1.0) k/uL Eosinophils # 0.7 (0-0.7) k/uL Basophils # 0.1 (0-0.2) k/uL Sodium 135 L (137-145) mmol/L Potassium 4.2 (3.5-5.1) mmol/L Chloride 100 (98-107) mmol/L Carbon Dioxide 31 H (22-30) mmol/L Anion Gap 4 mmol/L BUN 17 (9-20) mg/dL Creatinine 0.99 (0.66-1.25) mg/dL Est GFR (CKD-EPI)AfAm 82 (>60 ml/min/1.73 sqM) Est GFR (CKD-EPI)NonAf 71 (>60 ml/min/1.73 sqM) Glucose 107 H (74-99) mg/dL Calcium 9.2 (8.4-10.2) mg/dL Magnesium 1.8 (1.6-2.3) mg/dL Disposition Clinical Impression: Cellulitis, Peripheral arterial disease Disposition: ADMITTED IP TO THIS HOSP Condition: Stable Is patient prescribed a controlled substance at d/c from ED?: No Time of Disposition: 13:55
--- NOTE | 2022-07-05 13:00 | XR ---
EXAMINATION TYPE: XR foot complete LT DATE OF EXAM: 07/05/2022 CLINICAL HISTORY: pain TECHNIQUE: Frontal, lateral and oblique images of the left foot are obtained. COMPARISON: None. FINDINGS: There is no acute fracture/dislocation evident. The joint spaces appear within normal aguayo its. Soft tissue swelling of fourth and fifth digits. No bony destructive process to suggest osteomye litis. IMPRESSION: There is no acute fracture or dislocation. ICD 10 NO FRACTURE, INITIAL EVALUATION
[2022-07-05 13:13] LABS: Calcium 9.2 mg/dL (8.4-10.2); Magnesium 1.8 mg/dL (1.6-2.3); Potassium 4.2 mmol/L (3.5-5.1)
[2022-07-05 13:26] LABS: Basophils # (A) 0.1 k/uL (0-0.2); Basophils % (A) 1 %; Eosinophils # (A) 0.7 k/uL (0-0.7); Eosinophils % (A) 6 %; HCT 48.1 % (39.0-53.0); HGB 15.8 gm/dL (13.0-17.5); Lymphocytes # (A) 1.5 k/uL (1.0-4.8); Lymphocytes % (A) 15 %; MCH 32.1 pg (25.0-35.0); MCHC 32.9 g/dL (31.0-37.0); MCV 97.5 fL (80.0-100.0); Mean Platelet Volume 10.1; Monocytes # (A) 0.4 k/uL (0-1.0); Monocytes % (A) 4 %; Neutrophils # (A) 7.5 k/uL (1.3-7.7); Neutrophils % (A) 73 %; Platelet Count 178 k/uL (150-450); RBC 4.94 m/uL (4.30-5.90); WBC 10.2 k/uL (3.8-10.6)
[2022-07-05] MEDS ORDERED: VANCOMYCIN IV PER PHARMACY 1 EACH MISC MISCELLANE PRN (13:59)
[2022-07-05] MEDS ORDERED: MORPHINE SULFATE 4 MG/ML SYRINGE IV PRN (14:00)
[2022-07-05] MEDS ORDERED: NALOXONE 0.4 MG/ML 1 ML VIAL IV PRN (14:00)
[2022-07-05] MEDS ORDERED: IPRATROPIUM BROMIDE 0.06% NASAL SPRAY (15 ML) EA NOSTRIL PRN (14:02)
[2022-07-05] MEDS ORDERED: NICOTINE 14MG/24HR PATCH TRANSDERM STA (14:03)
[2022-07-05] MEDS ORDERED: VANCOMYCIN 1,500 MG in SODIUM CHLORIDE 0.9% 500 ML 500 ML IVPB STA (14:05)
--- NOTE | 2022-07-05 18:09 | P.HPIM ---
History of Present Illness H&P Date: 07/05/22 Richard Reid, is an 81 year old male who presented to [facility] emergency room with a chief complaint of left foot swelling erythema and tenderness, patient was recently seen in the office for similar complaint and was started on oral antibiotic Keflex, however his condition continued to worsen he was having significant swelling and erythema on the dorsal part of the left foot, he was having an ulcer with purulent drainage between the fourth and fifth toes, he was admitted to medical floor and started on IV antibiotics, infectious disease consultation was requested He was evaluated in the emergency room vital examination on presentation revealed a temperature of 97.9 pulse 59 respiration 18 and blood pressure 103/57 pulse ox 94% on room air Laboratory data revealed a white blood count of 10.2 hemoglobin 15.8 platelet count 178 Patient was admitted to medical floor for further evaluation and treatment 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 History of Any Multi-Drug Resistant Organisms: None Reported Past Surgical History: Hernia Repair Past Anesthesia/Blood Transfusion Reactions: No Reported Reaction Additional Past Anesthesia/Blood Transfusion Reaction / Comment(s): no hx blood transfusion Past Psychological History: No Psychological Hx Reported Smoking Status: Current every day smoker Past Alcohol Use History: None Reported Past Drug Use History: None Reported - Past Family History Mother Family Medical History: Cancer Father Family Medical History: Cancer Medications and Allergies Home Medications Medication Instructions Recorded Confirmed Type Aspirin EC [Ecotrin Low Dose] 81 mg PO DAILY 09/02/21 07/05/22 History Fluticasone/Vilanterol [Breo 1 puff INHALATION RT-DAILY 09/02/21 07/05/22 History Ellipta 100-25 Mcg Inhaler] Lisinopril-Hctz 20-25 mg 0.5 tab PO DAILY 09/02/21 07/05/22 History [Zestoretic 20-25] Metoprolol Tartrate [Lopressor] 25 mg PO BID 09/02/21 07/05/22 History Rosuvastatin Calcium [Crestor] 5 mg PO HS 09/02/21 07/05/22 History Tamsulosin [Flomax] 0.4 mg PO DAILY 09/02/21 07/05/22 History ALPRAZolam [Xanax] 0.5 mg PO HS 05/19/22 07/05/22 History Acetaminophen [Tylenol Arthritis] 650 mg PO BID 06/27/22 07/05/22 History Ipratropium [place] 0.06%Nasal 1 spray EA NOSTRIL TID PRN 06/27/22 07/05/22 History [Atrovent Nasal 0.06%] Cephalexin [Keflex] 500 mg PO Q6HR 07/05/22 07/05/22 History HYDROcodone/APAP 7.5-325MG [[place] 1 tab PO BID 07/05/22 07/05/22 History 7.5-325] Allergies Allergy/AdvReac Type Severity Reaction Status Date / Time No Known Allergies Allergy Verified 07/05/22 13:18 Physical Exam Vitals: Vital Signs Temp Pulse Resp BP Pulse Ox 07/05/22 14:23 65 18 125/54 93 L 07/05/22 13:06 58 L 16 131/64 94 L 07/05/22 11:47 97.9 F 59 L 18 103/57 94 L Intake and Output 07/04/22 07/05/22 07/05/22 22:59 06:59 14:59 Other: Weight 80.739 kg In general patient is alert and oriented x 3 in no distress HEENT head normocephalic and atraumatic Neck is supple no JVD no goiter no lymphadenopathy no carotid bruit Chest examination is clear to auscultation no crackles no wheezing Cardiac exam reveals regular heart sounds S1 and S2 no gallops no murmurs Abdomen is soft nontender no organomegaly with normal bowel sounds Extremity exam reveals no edema no cyanosis or clubbing, there is significant swelling erythema and tenderness in the left foot there is purulent drainage from ulcer between the fourth and fifth toes Neurological examination reveals no gross focal deficits Results CBC & Chem 7: 07/05/22 12:49 07/05/22 12:49 Labs: Abnormal Lab Results - Last 24 Hours (Table) 07/05/22 Range/Units 12:49 Sodium 135 L (137-145) mmol/L Carbon Dioxide 31 H (22-30) mmol/L Glucose 107 H (74-99) mg/dL Assessment and Plan Plan: Left foot cellulitis, failed outpatient treatment with oral antibiotics Underlying history of hypertension Underlying history of hyperlipidemia Underlying history of COPD Underlying history of benign prostatic hypertrophy Underlying history of anxiety disorder At this time patient was seen and examined on the medical floor He was started on IV vancomycin in the emergency room will continue at this time Infectious disease consultation requested Home medications reviewed and reordered For DVT prophylaxis subcu heparin Will follow closely
[2022-07-05] MEDS: HEPARIN SODIUM,PORCINE/PF 5,000 UNIT/0.5 ML SYRINGE SQ SCH (20:51)
[2022-07-05] MEDS: ATORVASTATIN 10 MG TAB PO SCH (20:51)
[2022-07-05] MEDS: ALPRAZolam 0.5 MG TAB PO SCH (20:51)
[2022-07-05] MEDS: HYDROcodone/APAP 7.5-325MG 1 EACH TAB PO SCH (20:51)
[2022-07-05] MEDS: METOPROLOL TARTRATE 25 MG TAB PO SCH (20:53)
[2022-07-06] MEDS: IBUPROFEN 400 MG TAB PO PRN ×2 (03:52→22:55)
[2022-07-06] MEDS: VANCOMYCIN 1,500 MG in SODIUM CHLORIDE 0.9% 500 ML 500 ML IVPB SCH ×2 (06:24→21:32)
[2022-07-06] MEDS: SYMBICORT 80-4.5 MCG INHALER INHALATION SCH ×2 (07:52→19:57)
[2022-07-06] MEDS: TAMSULOSIN 0.4 MG CAP.ER.24H PO SCH (09:46)
[2022-07-06] MEDS: METOPROLOL TARTRATE 25 MG TAB PO SCH ×2 (09:46→20:09)
[2022-07-06] MEDS: ASPIRIN 81 MG PO SCH (09:46)
[2022-07-06] MEDS: LISINOPRIL-HCTZ 20-25 MG 1 EACH TAB PO SCH (09:46)
[2022-07-06] MEDS: HYDROcodone/APAP 7.5-325MG 1 EACH TAB PO SCH ×2 (09:46→20:07)
[2022-07-06] MEDS: HEPARIN SODIUM,PORCINE/PF 5,000 UNIT/0.5 ML SYRINGE SQ SCH ×3 (09:48→20:10)
--- NOTE | 2022-07-06 09:52 | P.CONS ---
History of Present Illness - Reason for Consult Consult date: 07/05/22 Foot cellulitis Requesting physician: Uche Alvarado - Chief Complaint Left foot swelling and redness x few days - History of Present Illness Patient is a 81-year-old male with a past medical he significant for peripheral vascular disease hypertension COPD presenting to the ER for evaluation of left foot swelling in this patient symptom has been going on for 3 to 4 days before presentation to the hospital apparently has been treated in the outpatient setting with an oral antibiotic and did not have improvement patient has been concerning about increasing swelling Redness to the Left Foot Dorsum and He Also Have a Wound on His Left Fourth and Fifth Toe with Some Drainage Patient Been Complaining of Pain Mostly Dull Aching to Sharp 5-6 out of 10 No Radiation with Associated Swelling Redness and Did Have Some Drainage with the Symptoms the Patient Has Been Evaluated by ER Physician on Arrival to the ER the Patient Was Afebrile Did Have a Normal White Count Kidney Function Has Been Normal Patient Did Have X-Ray of the Foot No Acute Fracture or Dislocation the Patient Was Started on Vancomycin Has Been Admitted to the Hospital Infectious Disease Was Consulted for Further Management of Antibiotic Therapy Review of Systems Positive point has been mentioned in the HPI rest of the systems are negative 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 History of Any Multi-Drug Resistant Organisms: None Reported Past Surgical History: Hernia Repair Past Anesthesia/Blood Transfusion Reactions: No Reported Reaction Additional Past Anesthesia/Blood Transfusion Reaction / Comm: no hx blood transfusion Past Psychological History: No Psychological Hx Reported Smoking Status: Current every day smoker Past Alcohol Use History: None Reported Past Drug Use History: None Reported - Past Family History Mother Family Medical History: Cancer Father Family Medical History: Cancer Medications and Allergies Home Medications Medication Instructions Recorded Confirmed Type Aspirin EC [Ecotrin Low Dose] 81 mg PO DAILY 09/02/21 07/05/22 History Fluticasone/Vilanterol [Breo 1 puff INHALATION RT-DAILY 09/02/21 07/05/22 History Ellipta 100-25 Mcg Inhaler] Lisinopril-Hctz 20-25 mg 0.5 tab PO DAILY 09/02/21 07/05/22 History [Zestoretic 20-25] Metoprolol Tartrate [Lopressor] 25 mg PO BID 09/02/21 07/05/22 History Rosuvastatin Calcium [Crestor] 5 mg PO HS 09/02/21 07/05/22 History Tamsulosin [Flomax] 0.4 mg PO DAILY 09/02/21 07/05/22 History ALPRAZolam [Xanax] 0.5 mg PO HS 05/19/22 07/05/22 History Acetaminophen [Tylenol Arthritis] 650 mg PO BID 06/27/22 07/05/22 History Ipratropium [place] 0.06%Nasal 1 spray EA NOSTRIL TID PRN 06/27/22 07/05/22 History [Atrovent Nasal 0.06%] HYDROcodone/APAP 7.5-325MG [[place] 1 tab PO BID 07/05/22 07/05/22 History 7.5-325] Amoxic-Pot Clav 875-125Mg 1 tab PO Q12HR 10 Days #20 tab 07/08/22 Rx [Augmentin 875-125] Nicotine 14Mg/24Hr Patch [Habitrol] 1 patch TRANSDERM DAILY patch 07/08/22 Rx Allergies Allergy/AdvReac Type Severity Reaction Status Date / Time No Known Allergies Allergy Verified 07/05/22 13:18 Physical Exam Vitals: Vital Signs Temp Pulse Pulse Resp BP BP BP 07/06/22 07:00 97.9 F 78 16 124/64 07/06/22 02:00 97.9 F 67 17 127/77 07/05/22 18:59 98.3 F 64 19 163/71 07/05/22 16:52 97.9 F 94 18 155/65 07/05/22 16:21 98.0 F 80 18 135/64 07/05/22 15:06 57 L 16 132/64 07/05/22 14:23 65 18 125/54 07/05/22 13:06 58 L 16 131/64 07/05/22 11:47 97.9 F 59 L 18 103/57 Pulse Ox 07/06/22 07:00 95 07/06/22 02:00 92 L 07/05/22 18:59 92 L 07/05/22 16:52 93 L 07/05/22 16:21 94 L 07/05/22 15:06 94 L 07/05/22 14:23 93 L 07/05/22 13:06 94 L 07/05/22 11:47 94 L Intake and Output 07/05/22 07/06/22 07/06/22 22:59 06:59 14:59 Other: Voiding Method Toilet # Voids 1 2 Weight 80.739 kg GENERAL DESCRIPTION: Anderle male lying in bed, no distress. No tachypnea or accessory muscle of respiration use. HEENT: Shows Pallor , no scleral icterus. Oral mucous membrane is dry. No pharyngeal erythema or thrush NECK: Trachea central, no thyromegaly. LUNGS: Unlabored breathing. Clear to auscultation anteriorly. No wheeze or crackle. HEART: S1, S2, regular rate and rhythm. No loud murmur ABDOMEN: Soft, no tenderness , guarding or rigidity, no organomegaly EXTREMITIES: Left fourth and fifth toe did have some swelling and discoloration and drainage. SKIN: No rash, no masses palpable. NEUROLOGICAL: The patient is awake, alert, oriented x3, mood and affect normal. Results CBC & Chem 7: 07/08/22 05:54 07/08/22 05:54 Labs: Abnormal Lab Results - Last 24 Hours (Table) 07/05/22 Range/Units 12:49 Sodium 135 L (137-145) mmol/L Carbon Dioxide 31 H (22-30) mmol/L Glucose 107 H (74-99) mg/dL Microbiology - Last 24 Hours (Table) 07/05/22 12:49 Gram Stain - Preliminary Toe - Left Fifth Wound Culture - Preliminary 07/05/22 18:15 Wound Culture - Preliminary Toe - Left Fifth 07/05/22 12:49 Anaerobic Culture - Preliminary Toe - Left Fifth Assessment and Plan (1) Ischemia of toe Status: Acute Code(s): I99.8 - OTHER DISORDER OF CIRCULATORY SYSTEM SNOMED Code(s): 304239303 (2) Left leg cellulitis Status: Acute Code(s): L03.116 - CELLULITIS OF LEFT LOWER LIMB SNOMED Code(s): 355501021 Plan: 1patient with a left foot cellulitis in this patient who did have a wound to the left fourth and fifth toe with some purulent drainage failing outpatient oral antibiotic therapy concerning for possible community associated MRSA. 2local wound culture has been obtained to guide further antibiotic therapy. 3vancomycin pharmacy to dose target trough of 15 while watching kidney function and vancomycin trough closely. 4local wound care with dry Aquacel silver dressing change every 48 hour. We will follow on clinical condition and cultures to further adjust medication if needed Thank you for this consultation will follow this patient along with you
[2022-07-06 12:13] LABS: Basophils # (A) 0.14 X 10*3/uL (0.00-0.10); Basophils % (A) 1.5 %; Eosinophils # (A) 0.73 X 10*3/uL (0.04-0.35); HCT 45.2 % (39.6-50.0); HGB 14.3 g/dL (13.0-17.0); Immature Grans, Automated 0.2 %; Lymphocytes % (A) 17.6 %; MCH 30.9 pg (27.0-32.0); MCHC 31.6 g/dL (32.0-37.0); MCV 97.6 fL (80.0-97.0); Mean Platelet Volume 11.6 fL (9.5-12.2); Monocytes # (A) 0.57 X 10*3/uL (0.20-1.00); Monocytes % (A) 6.3 %; NRBC Per 100 WBC 0 /100 WBCS (0.0-0.0); Neutrophils # (A) 6.02 X 10*3/uL (1.80-7.70); Neutrophils % (A) 66.4 %; Platelet Count 185 X 10*3/uL (140-440); RBC 4.63 X 10*6/uL (4.40-5.60); RDW 13.3 % (11.5-14.5); WBC 9.08 X 10*3/uL (4.50-10.00)
[2022-07-06 12:20] LABS: African American GFR (CKD) 81.4 (60.0-200.0); Albumin 3.5 g/dL (3.8-4.9); Albumin/Globulin Ratio 1.84 (1.60-3.17); Anion Gap 8.5 mmol/L (10.00-18.00); BUN/Creat Ratio 13.9 Ratio (12.00-20.00); Blood Urea Nitrogen 13.9 mg/dL (9.0-27.0); Calcium 9.2 mg/dL (8.7-10.3); Carbon Dioxide 28.5 mmol/L (20.0-27.5); Globulin 1.9 g/dL (1.6-3.3); Non-African American GFR(CKD) 70.3 (60.0-200.0); Potassium 4.1 mmol/L (3.5-5.5); Total Bilirubin 0.5 mg/dL (0.30-1.20); Total Protein 5.4 g/dL (6.2-8.2)
--- NOTE | 2022-07-06 14:20 | P.PN ---
Subjective Progress Note Date: 07/06/22 Richard Reid, is an 81 year old male who presented to [facility] emergency room with a chief complaint of left foot swelling erythema and tenderness, patient was recently seen in the office for similar complaint and was started on oral antibiotic Keflex, however his condition continued to worsen he was having significant swelling and erythema on the dorsal part of the left foot, he was having an ulcer with purulent drainage between the fourth and fifth toes, he was admitted to medical floor and started on IV antibiotics, infectious disease consultation was requested He was evaluated in the emergency room vital examination on presentation revealed a temperature of 97.9 pulse 59 respiration 18 and blood pressure 103/57 pulse ox 94% on room air Laboratory data revealed a white blood count of 10.2 hemoglobin 15.8 platelet count 178 Patient was admitted to medical floor for further evaluation and treatment On 07/06/2022 patient was seen and examined on the medical floor he is alert and oriented 3 in no distress he is still complaining of left foot swelling and pain there is minimal discharge from the ulcer between the fourth and fifth stools otherwise patient denies any complaints at this time there is no fever or chills no headache or dizziness no chest pain no shortness of breath no cough no nausea or vomiting no abdominal pain no diarrhea and no urinary symptoms. Labs were reviewed, continue was current IV antibiotics, input from infectious disease reviewed, consult vascular surgery. Objective - Vital Signs Vital signs: Vital Signs Temp 97.9 F 07/06/22 07:00 Pulse 78 07/06/22 07:00 Resp 16 07/06/22 07:00 BP 124/64 07/06/22 07:00 Pulse Ox 95 07/06/22 07:00 FiO2 Intake & Output 07/05/22 07/06/22 07/06/22 18:59 06:59 18:59 Weight 80.739 kg Other: Voiding Method Toilet # Voids 2 - Exam In general patient is alert and oriented x 3 in no distress HEENT head normocephalic and atraumatic Neck is supple no JVD no goiter no lymphadenopathy no carotid bruit Chest examination is clear to auscultation no crackles no wheezing Cardiac exam reveals regular heart sounds S1 and S2 no gallops no murmurs Abdomen is soft nontender no organomegaly with normal bowel sounds Extremity exam reveals no edema no cyanosis or clubbing, there is significant swelling erythema and tenderness in the left foot there is purulent drainage from ulcer between the fourth and fifth toes Neurological examination reveals no gross focal deficits - Labs CBC & Chem 7: 07/06/22 07:21 07/06/22 07:21 Labs: Abnormal Lab Results - Last 24 Hours (Table) 07/05/22 Range/Units 12:49 Sodium 135 L (137-145) mmol/L Carbon Dioxide 31 H (22-30) mmol/L Glucose 107 H (74-99) mg/dL Microbiology - Last 24 Hours (Table) 07/05/22 12:49 Gram Stain - Preliminary Toe - Left Fifth Wound Culture - Preliminary 07/05/22 18:15 Wound Culture - Preliminary Toe - Left Fifth 07/05/22 12:49 Anaerobic Culture - Preliminary Toe - Left Fifth Assessment and Plan Plan: Left foot cellulitis, failed outpatient treatment with oral antibiotics Underlying history of hypertension Underlying history of hyperlipidemia Underlying history of COPD Underlying history of benign prostatic hypertrophy Underlying history of anxiety disorder At this time patient was seen and examined on the medical floor He was started on IV vancomycin in the emergency room will continue at this time Infectious disease consultation requested Home medications reviewed and reordered For DVT prophylaxis subcu heparin Will follow closely
[2022-07-06] MEDS: NICOTINE 14MG/24HR PATCH TRANSDERM SCH (15:52)
[2022-07-06] MEDS: ALPRAZolam 0.5 MG TAB PO SCH (20:07)
[2022-07-06] MEDS: ATORVASTATIN 10 MG TAB PO SCH (20:07)
--- NOTE | 2022-07-07 00:12 | P.PN ---
Subjective Progress Note Date: 07/06/22 Principal diagnosis: Left foot cellulitis Patient is a 81-year-old male with a past medical history significant for peripheral vascular disease hypertension COPD presenting to the ER for evaluation of left foot swelling in this patient symptom has been going on for 3 to 4 days before presentation to the hospital , patient did have a wound to the left fifth toe cultures were obtained. On today's evaluation that is 07/06/2022, the patient denies having any fever or any chills patient is breathing comfortably on room air denies any chest pain shortness of breath or cough no abdominal pain or any worsening pain to the left foot area Objective - Vital Signs Vital signs: Vital Signs Temp 97.9 F 07/06/22 07:00 Pulse 78 07/06/22 07:00 Resp 16 07/06/22 07:00 BP 124/64 07/06/22 07:00 Pulse Ox 95 07/06/22 07:00 FiO2 Intake & Output 07/05/22 07/06/22 07/06/22 18:59 06:59 18:59 Intake Total 240 Balance 240 Weight 80.739 kg Intake: Oral 240 Other: Voiding Method Toilet # Voids 2 - Exam GENERAL DESCRIPTION: An elderly male lying in bed in no distress RESPIRATORY SYSTEM: Unlabored breathing , decreased breath sounds at bases HEART: S1 S2 regular rate and rhythm , ABDOMEN: Soft , no tenderness EXTREMITIES: Left fifth toe medial wound and did have discoloration to the left fifth toe - Labs CBC & Chem 7: 07/06/22 07:21 07/06/22 07:21 Labs: Abnormal Lab Results - Last 24 Hours (Table) 07/05/22 07/06/22 07/06/22 Range/Units 12:49 07:21 07:21 MCV 97.6 H (80.0-97.0) fL MCHC 31.6 L (32.0-37.0) g/dL Eosinophils # 0.73 H (0.04-0.35) X 10*3/uL Basophils # 0.14 H (0.00-0.10) X 10*3/uL Sodium 135 L (137-145) mmol/L Carbon Dioxide 31 H 28.5 H (22-30) mmol/L Anion Gap 8.50 L (10.00-18.00) mmol/L Glucose 107 H (74-99) mg/dL AST 9 L (14-35) U/L ALT 9 L (10-49) U/L Total Protein 5.4 L (6.2-8.2) g/dL Albumin 3.5 L (3.8-4.9) g/dL Microbiology - Last 24 Hours (Table) 07/05/22 12:49 Gram Stain - Preliminary Toe - Left Fifth Wound Culture - Preliminary 07/05/22 18:15 Wound Culture - Preliminary Toe - Left Fifth 07/05/22 12:49 Anaerobic Culture - Preliminary Toe - Left Fifth Assessment and Plan (1) Ischemia of toe Current Visit: No Status: Acute Code(s): I99.8 - OTHER DISORDER OF CIRCULATORY SYSTEM SNOMED Code(s): 829085784 (2) Left leg cellulitis Current Visit: No Status: Acute Code(s): L03.116 - CELLULITIS OF LEFT LOWER LIMB SNOMED Code(s): 253379724 Plan: 1patient with a left foot cellulitis in this patient who did have a wound to the left fourth and fifth toe with some purulent drainage failing outpatient oral antibiotic therapy concerning for possible community associated MRSA. 2local wound culture has been obtained which are currently pending. 3patient will continue with vancomycin pharmacy to dose target trough of 15 while watching kidney function and vancomycin trough closely. 4local wound care with dry Aquacel silver dressing change every 48 hour. 5-with concern for ischemic changes to the left fifth toe vascular surgery has been consulted
[2022-07-07] MEDS: SYMBICORT 80-4.5 MCG INHALER INHALATION SCH ×2 (07:19→19:51)
[2022-07-07] MEDS: HYDROcodone/APAP 7.5-325MG 1 EACH TAB PO SCH ×2 (08:07→20:26)
[2022-07-07] MEDS: ASPIRIN 81 MG PO SCH (08:07)
[2022-07-07] MEDS: HEPARIN SODIUM,PORCINE/PF 5,000 UNIT/0.5 ML SYRINGE SQ SCH ×2 (08:07→20:27)
[2022-07-07] MEDS: TAMSULOSIN 0.4 MG CAP.ER.24H PO SCH (08:08)
[2022-07-07] MEDS: METOPROLOL TARTRATE 25 MG TAB PO SCH ×2 (08:08→20:26)
[2022-07-07] MEDS: NICOTINE 14MG/24HR PATCH TRANSDERM SCH (08:08)
[2022-07-07] MEDS: LISINOPRIL-HCTZ 20-25 MG 1 EACH TAB PO SCH (08:08)
--- NOTE | 2022-07-07 09:09 | P.GSCN ---
History of Present Illness Consult date: 07/07/22 History of present illness: Patient is a 81-year-old male who presented to the ER with complaints of left foot swelling and worsening of erythema and pain. He recently was seen in the office for similar complaints and was started on oral antibiotic however this is not improved and he came to the ER for further evaluation and workup. He has had a wound in this area for a while some degree of pain. Early in the year he had significant lower extremity pain and underwent revascularization with Dr. Hayden of his left superficial femoral artery. He states he has been feeling relatively well since then, but states that at this point he has worsening discomfort in his foot. 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 History of Any Multi-Drug Resistant Organisms: None Reported Past Surgical History: Hernia Repair Past Anesthesia/Blood Transfusion Reactions: No Reported Reaction Additional Past Anesthesia/Blood Transfusion Reaction / Comm: no hx blood transfusion Past Psychological History: No Psychological Hx Reported Smoking Status: Current every day smoker Past Alcohol Use History: None Reported Past Drug Use History: None Reported - Past Family History Mother Family Medical History: Cancer Father Family Medical History: Cancer Medications and Allergies Home Medications Medication Instructions Recorded Confirmed Type Aspirin EC [Ecotrin Low Dose] 81 mg PO DAILY 09/02/21 07/05/22 History Fluticasone/Vilanterol [Breo 1 puff INHALATION RT-DAILY 09/02/21 07/05/22 History Ellipta 100-25 Mcg Inhaler] Lisinopril-Hctz 20-25 mg 0.5 tab PO DAILY 09/02/21 07/05/22 History [Zestoretic 20-25] Metoprolol Tartrate [Lopressor] 25 mg PO BID 09/02/21 07/05/22 History Rosuvastatin Calcium [Crestor] 5 mg PO HS 09/02/21 07/05/22 History Tamsulosin [Flomax] 0.4 mg PO DAILY 09/02/21 07/05/22 History ALPRAZolam [Xanax] 0.5 mg PO HS 05/19/22 07/05/22 History Acetaminophen [Tylenol Arthritis] 650 mg PO BID 06/27/22 07/05/22 History Ipratropium [place] 0.06%Nasal 1 spray EA NOSTRIL TID PRN 06/27/22 07/05/22 History [Atrovent Nasal 0.06%] Cephalexin [Keflex] 500 mg PO Q6HR 07/05/22 07/05/22 History HYDROcodone/APAP 7.5-325MG [[place] 1 tab PO BID 07/05/22 07/05/22 History 7.5-325] Allergies Allergy/AdvReac Type Severity Reaction Status Date / Time No Known Allergies Allergy Verified 07/05/22 13:18 Surgical - Exam Vital Signs Temp Pulse Resp BP Pulse Ox 97.9 F 59 L 18 103/57 94 L 07/05/22 11:47 07/05/22 11:47 07/05/22 11:47 07/05/22 11:47 07/05/22 11:47 Gen a pleasant cooperative male in no acute distress. Headis normocephalic. Multiple hypertrophic facial lesion. Heart appears regular at this time. Lungs are clear. Abdomen is soft. Nontender nondistended. Extremity show no clubbing, mild edema to the left lower extremity with mild erythema. Some drainage between the fourth and fifth toe interspace. No significant purulence. Tender to Palpation. Results - Labs 07/06/22 07:21 07/07/22 05:32 Abnormal Lab Results - Last 24 Hours (Table) 07/06/22 07/06/22 Range/Units 07:21 07:21 MCV 97.6 H (80.0-97.0) fL MCHC 31.6 L (32.0-37.0) g/dL Eosinophils # 0.73 H (0.04-0.35) X 10*3/uL Basophils # 0.14 H (0.00-0.10) X 10*3/uL Carbon Dioxide 28.5 H (20.0-27.5) mmol/L Anion Gap 8.50 L (10.00-18.00) mmol/L AST 9 L (14-35) U/L ALT 9 L (10-49) U/L Total Protein 5.4 L (6.2-8.2) g/dL Albumin 3.5 L (3.8-4.9) g/dL Microbiology - Last 24 Hours (Table) 07/05/22 18:15 Gram Stain - Preliminary Toe - Left Fifth Wound Culture - Preliminary 07/05/22 14:00 Blood Culture - Preliminary Blood No Growth after 24 hours 07/05/22 14:17 Blood Culture - Preliminary Blood No Growth after 24 hours 07/05/22 12:49 Gram Stain - Preliminary Toe - Left Fifth Wound Culture - Preliminary Diabetes panel 07/06/22 07/07/22 Range/Units 07:21 05:32 Sodium 139 (135-145) mmol/L Potassium 4.1 (3.5-5.5) mmol/L Chloride 102 (96-109) mmol/L Carbon Dioxide 28.5 H (20.0-27.5) mmol/L BUN 13.9 (9.0-27.0) mg/dL Creatinine 1.0 0.94 (0.6-1.5) mg/dL Glucose 87 (70-110) mg/dL Calcium 9.2 (8.7-10.3) mg/dL AST 9 L (14-35) U/L ALT 9 L (10-49) U/L Alkaline Phosphatase 55 (41-126) U/L Total Protein 5.4 L (6.2-8.2) g/dL Albumin 3.5 L (3.8-4.9) g/dL Calcium panel 07/06/22 Range/Units 07:21 Calcium 9.2 (8.7-10.3) mg/dL Albumin 3.5 L (3.8-4.9) g/dL Pituitary panel 07/06/22 07/07/22 Range/Units 07:21 05:32 Sodium 139 (135-145) mmol/L Potassium 4.1 (3.5-5.5) mmol/L Chloride 102 (96-109) mmol/L Carbon Dioxide 28.5 H (20.0-27.5) mmol/L BUN 13.9 (9.0-27.0) mg/dL Creatinine 1.0 0.94 (0.6-1.5) mg/dL Glucose 87 (70-110) mg/dL Calcium 9.2 (8.7-10.3) mg/dL Adrenal panel 07/06/22 07/07/22 Range/Units 07:21 05:32 Sodium 139 (135-145) mmol/L Potassium 4.1 (3.5-5.5) mmol/L Chloride 102 (96-109) mmol/L Carbon Dioxide 28.5 H (20.0-27.5) mmol/L BUN 13.9 (9.0-27.0) mg/dL Creatinine 1.0 0.94 (0.6-1.5) mg/dL Glucose 87 (70-110) mg/dL Calcium 9.2 (8.7-10.3) mg/dL Total Bilirubin 0.50 (0.30-1.20) mg/dL AST 9 L (14-35) U/L ALT 9 L (10-49) U/L Alkaline Phosphatase 55 (41-126) U/L Total Protein 5.4 L (6.2-8.2) g/dL Albumin 3.5 L (3.8-4.9) g/dL Assessment and Plan Assessment: Left lower extremity diabetic foot infection Peripheral arterial disease with previous revascularization endovascular. Tobacco abuse Plan: At this point we'll plan to obtain a CT scan of the foot for evaluation of deep space abscess, no evidence of patient needs urgent debridement, continue with IV antibiotics at this time. Also obtain lower extremity arterial Dopplers to fully evaluate for peripheral arterial disease after revascularization. If there is further concern significant vascular disease, would refer back to the [facility] emergency stem roller who previously did his procedure for evaluation vs us taking over if needed. Will discuss
--- NOTE | 2022-07-07 13:19 | P.PN ---
Subjective Progress Note Date: 07/07/22 Richard Reid, is an 81 year old male who presented to [facility] emergency room with a chief complaint of left foot swelling erythema and tenderness, patient was recently seen in the office for similar complaint and was started on oral antibiotic Keflex, however his condition continued to worsen he was having significant swelling and erythema on the dorsal part of the left foot, he was having an ulcer with purulent drainage between the fourth and fifth toes, he was admitted to medical floor and started on IV antibiotics, infectious disease consultation was requested He was evaluated in the emergency room vital examination on presentation revealed a temperature of 97.9 pulse 59 respiration 18 and blood pressure 103/57 pulse ox 94% on room air Laboratory data revealed a white blood count of 10.2 hemoglobin 15.8 platelet count 178 Patient was admitted to medical floor for further evaluation and treatment On 07/06/2022 patient was seen and examined on the medical floor he is alert and oriented 3 in no distress he is still complaining of left foot swelling and pain there is minimal discharge from the ulcer between the fourth and fifth stools otherwise patient denies any complaints at this time there is no fever or chills no headache or dizziness no chest pain no shortness of breath no cough no nausea or vomiting no abdominal pain no diarrhea and no urinary symptoms. Labs were reviewed, continue was current IV antibiotics, input from infectious disease reviewed, consult vascular surgery. On 07/07/2022 patient is alert and oriented 3. Redness noted to foot with mi nimal improvement per patient patient remains on IV vancomycin vascular surgery has been consulted computed tomography scan foot has been ordered ordered. Denies any chest pain or shortness breath. Patient denies nausea vomiting or diarrhea. Patient denies any urinary burning or frequency Objective - Vital Signs Vital signs: Vital Signs Temp 97.6 F 07/07/22 06:56 Pulse 60 07/07/22 06:56 Resp 18 07/07/22 06:56 BP 104/51 07/07/22 06:56 Pulse Ox 91 L 07/07/22 06:56 FiO2 Intake & Output 07/06/22 07/07/22 07/07/22 18:59 06:59 18:59 Intake Total 358 240 Balance 358 240 Intake: Oral 358 240 Other: Voiding Method Toilet # Voids 3 2 # Bowel Movements 1 - Exam In general patient is alert and oriented x 3 in no distress HEENT head normocephalic and atraumatic Neck is supple no JVD no goiter no lymphadenopathy no carotid bruit Chest examination is clear to auscultation no crackles no wheezing Cardiac exam reveals regular heart sounds S1 and S2 no gallops no murmurs Abdomen is soft nontender no organomegaly with normal bowel sounds Extremity exam reveals no edema no cyanosis or clubbing, there is significant swelling erythema and tenderness in the left foot there is purulent drainage from ulcer between the fourth and fifth toes Neurological examination reveals no gross focal deficits - Labs CBC & Chem 7: 07/06/22 07:21 07/07/22 05:32 Labs: Microbiology - Last 24 Hours (Table) 07/05/22 18:15 Gram Stain - Preliminary Toe - Left Fifth Wound Culture - Preliminary 07/05/22 14:00 Blood Culture - Preliminary Blood No Growth after 24 hours 07/05/22 14:17 Blood Culture - Preliminary Blood No Growth after 24 hours 07/05/22 12:49 Gram Stain - Preliminary Toe - Left Fifth Wound Culture - Preliminary Assessment and Plan Plan: Left foot cellulitis, failed outpatient treatment with oral antibiotics Underlying history of hypertension Underlying history of hyperlipidemia Underlying history of COPD Underlying history of benign prostatic hypertrophy Underlying history of anxiety disorder At this time patient was seen and examined on the medical floor He was started on IV vancomycin in the emergency room will continue at this time Infectious disease consultation requested vascular surgery consulted Home medications reviewed and reordered For DVT prophylaxis subcu heparin Will follow closely
--- NOTE | 2022-07-07 14:04 | CT ---
CT left foot with contrast. HISTORY: Rule out deep space infection graft comparison: None. TECHNIQUE: Multiple axial images are obtained to the foot and ankle following the uneventful menstrua tion nonionic IV contrast. Coronal and sagittal soft tissue edema of the dorsal foot and medial foot but there is no discrete fluid collection. The osseous structures are intact there is no cortical disruption or periosteal reaction There is no soft tissue gas. There is mild degeneration of the MTP joint. Incidental is made of a small bone island in the talus.. IMPRESSION: No evidence of deep space infection. A three-phase bone scan might be useful for further evaluation i f clinically
[2022-07-07] MEDS: VANCOMYCIN 1,500 MG in SODIUM CHLORIDE 0.9% 500 ML 500 ML IVPB SCH (14:56)
[2022-07-07] MEDS: ATORVASTATIN 10 MG TAB PO SCH (20:26)
[2022-07-07] MEDS: ALPRAZolam 0.5 MG TAB PO SCH (20:26)
[2022-07-08] MEDS: IBUPROFEN 400 MG TAB PO PRN (02:25)
[2022-07-08] MEDS ORDERED: VANCOMYCIN TROUGH DUE 1 EACH MISC MISCELLANE ONE (05:00)
[2022-07-08] MEDS: VANCOMYCIN 1,500 MG in SODIUM CHLORIDE 0.9% 500 ML 500 ML IVPB SCH (06:13)
[2022-07-08] MEDS: SYMBICORT 80-4.5 MCG INHALER INHALATION SCH (07:40)
[2022-07-08 08:18] VITALS: RESP 16
[2022-07-08 08:54] LABS: Basophils % (A) 1.5 %; Eosinophils # (A) 0.73 X 10*3/uL (0.04-0.35); Eosinophils % (A) 10.6 %; HCT 41.2 % (39.6-50.0); HGB 13.2 g/dL (13.0-17.0); Immature Grans, Automated 0.3 %; Lymphocytes # (A) 1.46 X 10*3/uL (0.90-5.00); Lymphocytes % (A) 21.2 %; MCH 31.6 pg (27.0-32.0); MCV 98.6 fL (80.0-97.0); Monocytes # (A) 0.59 X 10*3/uL (0.20-1.00); Monocytes % (A) 8.6 %; NRBC Per 100 WBC 0 /100 WBCS (0.0-0.0); Neutrophils # (A) 3.99 X 10*3/uL (1.80-7.70); Neutrophils % (A) 57.8 %; Platelet Count 164 X 10*3/uL (140-440); RBC 4.18 X 10*6/uL (4.40-5.60); RDW 13.2 % (11.5-14.5); WBC 6.89 X 10*3/uL (4.50-10.00)
[2022-07-08] MEDS: HYDROcodone/APAP 7.5-325MG 1 EACH TAB PO SCH (09:09)
[2022-07-08] MEDS: LISINOPRIL-HCTZ 20-25 MG 1 EACH TAB PO SCH (09:09)
[2022-07-08] MEDS: HEPARIN SODIUM,PORCINE/PF 5,000 UNIT/0.5 ML SYRINGE SQ SCH (09:09)
[2022-07-08] MEDS: NICOTINE 14MG/24HR PATCH TRANSDERM SCH (09:11)
[2022-07-08] MEDS: ASPIRIN 81 MG PO SCH (09:11)
[2022-07-08] MEDS: METOPROLOL TARTRATE 25 MG TAB PO SCH (09:11)
[2022-07-08] MEDS: TAMSULOSIN 0.4 MG CAP.ER.24H PO SCH (09:11)
[2022-07-08 09:42] LABS: African American GFR (CKD) 81.4 (60.0-200.0); Albumin/Globulin Ratio 1.67 (1.60-3.17); Anion Gap 10.3 mmol/L (10.00-18.00); BUN/Creat Ratio 17.5 Ratio (12.00-20.00); Blood Urea Nitrogen 17.5 mg/dL (9.0-27.0); Calcium 9.1 mg/dL (8.7-10.3); Carbon Dioxide 25.7 mmol/L (20.0-27.5); Globulin 1.8 g/dL (1.6-3.3); Non-African American GFR(CKD) 70.3 (60.0-200.0); Potassium 3.9 mmol/L (3.5-5.5); Total Bilirubin 0.5 mg/dL (0.30-1.20); Total Protein 4.8 g/dL (6.2-8.2)
--- NOTE | 2022-07-08 12:35 | P.PN ---
Subjective Progress Note Date: 07/08/22 Patient seen and examined. States his foot pain is improved. Denies a fevers, chills, nausea or vomiting. No acute distress, resting comfortably. No significant edema. Improvement of erythema. No drainage noted. No fluctuance. Improved motion from previous. Left lower extremity foot wound Peripheral arterial disease Tobacco abuse Imaging was reviewed. There is no evidence of obvious drainable abscess or fluid collection. Therefore this point no plans for surgical intervention, co ntinue with IV antibiotics. I also reviewed the lower extremity arterial ultrasound, does appear to be some degree of significant arterial disease and likely superficial femoral arterial disease as previous, would contact previous interventional physician, Dr. Hayden regarding further recommendations. We are available if assistance is needed however relatively recent intervention in September by mobile home technician. Objective - Vital Signs Vital signs: Vital Signs Temp 97.9 F 07/08/22 07:00 Pulse 62 07/08/22 07:00 Resp 16 07/08/22 07:00 BP 115/61 07/08/22 07:00 Pulse Ox 93 L 07/08/22 07:00 FiO2 Intake & Output 07/07/22 07/08/22 07/08/22 18:59 06:59 18:59 Intake Total 358 240 Balance 358 240 Intake: Oral 358 240 Other: Voiding Method Toilet # Voids 1 3 - Labs CBC & Chem 7: 07/08/22 05:54 07/08/22 05:54 Labs: Abnormal Lab Results - Last 24 Hours (Table) 07/08/22 07/08/22 Range/Units 05:54 05:54 RBC 4.18 L (4.40-5.60) X 10*6/uL MCV 98.6 H (80.0-97.0) fL Eosinophils # 0.73 H (0.04-0.35) X 10*3/uL AST 9 L (14-35) U/L ALT 8 L (10-49) U/L Total Protein 4.8 L (6.2-8.2) g/dL Albumin 3.0 L (3.8-4.9) g/dL Microbiology - Last 24 Hours (Table) 07/05/22 18:15 Gram Stain - Final Toe - Left Fifth Wound Culture - Final Yaz albicans 07/05/22 14:17 Blood Culture - Preliminary Blood No Growth after 48 hours 07/05/22 14:00 Blood Culture - Preliminary Blood No Growth after 48 hours 07/05/22 12:49 Anaerobic Culture - Preliminary Toe - Left Fifth 07/05/22 12:49 Gram Stain - Final Toe - Left Fifth Wound Culture - Final
[2022-07-08 14:49] VITALS: BP 105/57; PULSE 53; TEMP 97.7
--- NOTE | 2022-07-08 15:23 | P.DS ---
Providers Date of admission: 07/05/22 14:02 Expected date of discharge: 07/08/22 Attending physician: Uche Alvarado Consults: 07/05/22 18:09 Consult Physician Routine Consulting Provider: Paola Michel Consult Reason/Comments: Foot cellulitis Do you want consulting provider notified?: Yes 07/06/22 13:20 Consult Physician Routine Consulting Provider: Luz Da Silva Consult Reason/Comments: discoloration left fifth toe Do you want consulting provider notified?: Yes Primary care physician: Uche Alvarado [facility] Course: Diagnosis on discharge: Left foot cellulitis, failed outpatient treatment with oral antibiotics Underlying history of hypertension Underlying history of hyperlipidemia Underlying history of COPD Underlying history of benign prostatic hypertrophy Underlying history of anxiety disorder Hospital course: Richard Reid, is an 81 year old male who presented to [facility] emergency room with a chief complaint of left foot swelling erythema and tenderness, patient was recently seen in the office for similar complaint and was started on oral antibiotic Keflex, however his condition continued to worsen he was having significant swelling and erythema on the dorsal part of the left foot, he was having an ulcer with purulent drainage between the fourth and fifth toes, he was admitted to medical floor and started on IV antibiotics, infectious disease consultation was requested He was evaluated in the emergency room vital examination on presentation revealed a temperature of 97.9 pulse 59 respiration 18 and blood pressure 103/57 pulse ox 94% on room air Laboratory data revealed a white blood count of 10.2 hemoglobin 15.8 platelet count 178 Patient was admitted to medical floor for further evaluation and treatment On 07/06/2022 patient was seen and examined on the medical floor he is alert and oriented 3 in no distress he is still complaining of left foot swelling and pain there is minimal discharge from the ulcer between the fourth and fifth stools otherwise patient denies any complaints at this time there is no fever or chills no headache or dizziness no chest pain no shortness of breath no cough no nausea or vomiting no abdominal pain no diarrhea and no urinary symptoms. Labs were reviewed, continue was current IV antibiotics, input from infectious diseas e reviewed, consult vascular surgery. On 07/07/2022 patient is alert and oriented 3. Redness noted to foot with minimal improvement per patient patient remains on IV vancomycin vascular surgery has been consulted computed tomography scan foot has been ordered ordered. Denies any chest pain or shortness breath. Patient denies nausea vomiting or diarrhea. Patient denies any urinary burning or frequency On 07/08/2022 patient was seen and examined on the medical floor he is alert and oriented 3 in no apparent distress he was evaluated by vascular surgery, no intervention was recommended at this time, he was also cleared by Dr. Michel for discharge on oral antibiotic Augmentin for 10 more days, patient will be followed in our office next week, will make arrangement was podiatry for toenail current, will also make arrangements to follow-up with Dr. Rain for peripheral vascular disease evaluation and further treatment Patient Condition at Discharge: Stable Plan - Discharge Summary Discharge Rx Participant: No New Discharge Prescriptions: New Nicotine 14Mg/24Hr Patch [Habitrol] 1 patch TRANSDERM DAILY patch Amoxic-Pot Clav 875-125Mg [Augmentin 875-125] 1 tab PO Q12HR 10 Days #20 tab Continue Tamsulosin [Flomax] 0.4 mg PO DAILY Lisinopril-Hctz 20-25 mg [Zestoretic 20-25] 0.5 tab PO DAILY ALPRAZolam [Xanax] 0.5 mg PO HS Ipratropium [place] 0.06%Nasal [Atrovent Nasal 0.06%] 1 spray EA NOSTRIL TID PRN PRN Reason: Allergy Symptoms Acetaminophen [Tylenol Arthritis] 650 mg PO BID Rosuvastatin Calcium [Crestor] 5 mg PO HS Fluticasone/Vilanterol [Breo Ellipta 100-25 Mcg Inhaler] 1 puff INHALATION RT-DAILY Aspirin EC [Ecotrin Low Dose] 81 mg PO DAILY Metoprolol Tartrate [Lopressor] 25 mg PO BID HYDROcodone/APAP 7.5-325MG [[place] 7.5-325] 1 tab PO BID Discontinued Cephalexin [Keflex] 500 mg PO Q6HR Discharge Medication List Aspirin EC [Ecotrin Low Dose] 81 mg PO DAILY 09/02/21 [History] Fluticasone/Vilanterol [Breo Ellipta 100-25 Mcg Inhaler] 1 puff INHALATION RT- DAILY 09/02/21 [History] Lisinopril-Hctz 20-25 mg [Zestoretic 20-25] 0.5 tab PO DAILY 09/02/21 [History] Metoprolol Tartrate [Lopressor] 25 mg PO BID 09/02/21 [History] Rosuvastatin Calcium [Crestor] 5 mg PO HS 09/02/21 [History] Tamsulosin [Flomax] 0.4 mg PO DAILY 09/02/21 [History] ALPRAZolam [Xanax] 0.5 mg PO HS 05/19/22 [History] Acetaminophen [Tylenol Arthritis] 650 mg PO BID 06/27/22 [History] Ipratropium [place] 0.06%Nasal [Atrovent Nasal 0.06%] 1 spray EA NOSTRIL TID PRN 06/27/22 [History] HYDROcodone/APAP 7.5-325MG [[place] 7.5-325] 1 tab PO BID 07/05/22 [History] Amoxic-Pot Clav 875-125Mg [Augmentin 875-125] 1 tab PO Q12HR 10 Days #20 tab 07/08/22 [Rx] Nicotine 14Mg/24Hr Patch [Habitrol] 1 patch TRANSDERM DAILY patch 07/08/22 [Rx] Follow up Appointment(s)/Referral(s): Uche Alvarado MD [Primary Care Provider] - 1-2 days
--- NOTE | 2022-07-12 07:25 | US ---
EXAMINATION TYPE: US arterial LE multi level DATE OF EXAM: 07/07/2022 11:24 AM CLINICAL HISTORY: Left foot pad wound. History of prior vascular surgery. Doppler Waveforms: Right: Monophasic Left: Monophasic Ankle-Brachial Indices: Right: 0.68 Left: 0.33 Toe Brachial Indices: Right: 0.46 Left: Non-compressible IMPRESSION: Markedly abnormal study. At least moderate peripheral arterial disease bilaterally worse in the left lower extremity. Further workup and follow-up advised.
--- NOTE | 2022-07-16 00:01 | P.PN ---
Subjective Progress Note Date: 07/07/22 Principal diagnosis: Left foot cellulitis Patient is a 81-year-old male with a past medical history significant for peripheral vascular disease hypertension COPD presenting to the ER for evaluation of left foot swelling in this patient symptom has been going on for 3 to 4 days before presentation to the hospital , patient did have a wound to the left fifth toe cultures were obtained. On today's evaluation that is 07/07/2022, the patient remains to be afebrile, patient is breathing comfortably on room air denies any chest pain shortness of breath or cough no abdominal pain, the patient pain to the left foot area has decreased in intensity Objective - Vital Signs Vital signs: Vital Signs Temp 97.6 F 07/07/22 06:56 Pulse 60 07/07/22 06:56 Resp 18 07/07/22 06:56 BP 104/51 07/07/22 06:56 Pulse Ox 91 L 07/07/22 06:56 FiO2 Intake & Output 07/06/22 07/07/22 07/07/22 18:59 06:59 18:59 Intake Total 358 240 Balance 358 240 Intake: Oral 358 240 Other: Voiding Method Toilet # Voids 3 2 # Bowel Movements 1 - Exam GENERAL DESCRIPTION: An elderly male lying in bed in no distress RESPIRATORY SYSTEM: Unlabored breathing , decreased breath sounds at bases HEART: S1 S2 regular rate and rhythm , ABDOMEN: Soft , no tenderness EXTREMITIES: Left fifth toe medial wound and did have discoloration to the left fifth toe - Labs CBC & Chem 7: 07/08/22 05:54 07/08/22 05:54 Labs: Abnormal Lab Results - Last 24 Hours (Table) 07/06/22 Range/Units 07:21 Carbon Dioxide 28.5 H (20.0-27.5) mmol/L Anion Gap 8.50 L (10.00-18.00) mmol/L AST 9 L (14-35) U/L ALT 9 L (10-49) U/L Total Protein 5.4 L (6.2-8.2) g/dL Albumin 3.5 L (3.8-4.9) g/dL Microbiology - Last 24 Hours (Table) 07/05/22 18:15 Gram Stain - Preliminary Toe - Left Fifth Wound Culture - Preliminary 07/05/22 14:00 Blood Culture - Preliminary Blood No Growth after 24 hours 07/05/22 14:17 Blood Culture - Preliminary Blood No Growth after 24 hours 07/05/22 12:49 Gram Stain - Preliminary Toe - Left Fifth Wound Culture - Preliminary Assessment and Plan (1) Ischemia of toe Status: Acute Code(s): I99.8 - OTHER DISORDER OF CIRCULATORY SYSTEM SNOMED Code(s): 623834755 (2) Left leg cellulitis Status: Acute Code(s): L03.116 - CELLULITIS OF LEFT LOWER LIMB SNOMED Code(s): 888491863 Plan: 1patient with a left foot cellulitis in this patient who did have a wound to the left fourth and fifth toe with some purulent drainage failing outpatient oral antibiotic therapy concerning for possible community associated MRSA. 2local wound culture has been obtained which are currently pending. 3patient will continue with vancomycin pharmacy to dose target trough of 15 while watching kidney function and vancomycin trough closely. 4local wound care with dry Aquacel silver dressing change every 48 hour. 5-patient has been 1 by vascular surgery did not recommending any surgical intervention at this point Time with Patient: Less than 30
--- NOTE | 2022-07-16 00:04 | P.PN ---
Subjective Progress Note Date: 07/08/22 Principal diagnosis: Left foot cellulitis Patient is a 81-year-old male with a past medical history significant for peripheral vascular disease hypertension COPD presenting to the ER for evaluation of left foot swelling in this patient symptom has been going on for 3 to 4 days before presentation to the hospital , patient did have a wound to the left fifth toe cultures were obtained. On today's evaluation that is 07/08/2022, the patient continues to be afebrile, patient is breathing comfortably on room air, the patient denies any chest pain shortness of breath or cough no abdominal pain, the patient pain to the left foot area has decreased in intensity, patient feeling better and wants to go home Objective - Vital Signs Vital signs: Vital Signs Temp 97.7 F 07/08/22 14:49 Pulse 53 L 07/08/22 14:49 Resp 16 07/08/22 14:49 BP 105/57 07/08/22 14:49 Pulse Ox 91 L 07/08/22 14:49 FiO2 Intake & Output 07/07/22 07/08/22 07/08/22 18:59 06:59 18:59 Intake Total 358 480 Balance 358 480 Intake: Oral 358 480 Other: Voiding Method Toilet # Voids 1 3 4 # Bowel Movements 1 - Exam GENERAL DESCRIPTION: An elderly male lying in bed in no distress RESPIRATORY SYSTEM: Unlabored breathing , decreased breath sounds at bases HEART: S1 S2 regular rate and rhythm , ABDOMEN: Soft , no tenderness EXTREMITIES: Left fifth toe medial wound and did have discoloration to the left fifth toe - Labs CBC & Chem 7: 07/08/22 05:54 07/08/22 05:54 Labs: Abnormal Lab Results - Last 24 Hours (Table) 07/08/22 07/08/22 Range/Units 05:54 05:54 RBC 4.18 L (4.40-5.60) X 10*6/uL MCV 98.6 H (80.0-97.0) fL Eosinophils # 0.73 H (0.04-0.35) X 10*3/uL AST 9 L (14-35) U/L ALT 8 L (10-49) U/L Total Protein 4.8 L (6.2-8.2) g/dL Albumin 3.0 L (3.8-4.9) g/dL Microbiology - Last 24 Hours (Table) 07/05/22 18:15 Gram Stain - Final Toe - Left Fifth Wound Culture - Final Yaz albicans 07/05/22 14:17 Blood Culture - Preliminary Blood No Growth after 48 hours 07/05/22 14:00 Blood Culture - Preliminary Blood No Growth after 48 hours 07/05/22 12:49 Anaerobic Culture - Preliminary Toe - Left Fifth 07/05/22 12:49 Gram Stain - Final Toe - Left Fifth Wound Culture - Final Assessment and Plan (1) Ischemia of toe Status: Acute Code(s): I99.8 - OTHER DISORDER OF CIRCULATORY SYSTEM SNOMED Code(s): 906926888 (2) Left leg cellulitis Status: Acute Code(s): L03.116 - CELLULITIS OF LEFT LOWER LIMB SNOMED Code(s): 069113515 Plan: 1patient with a left foot cellulitis in this patient who did have a wound to the left fourth and fifth toe with some purulent drainage failing outpatient oral antibiotic therapy concerning for possible community associated MRSA. 2local wound culture has been obtained which are so far negative for any resistant pathogen. 3patient to continue local wound care with dry Aquacel silver dressing change every 48 hour. 4-patient has been evaluated by vascular surgery and not recommending any surgical intervention at this point, patient has been insisting on going home an tibiotics switched over to Augmentin prescription sent to the pharmacy and close outpatient follow-up Time with Patient: Less than 30
== END 2022-07-08 16:03 | disposition home or self-care (01) | DRG 638 ==
LOC: EC 11:34 → 6NMEDSUR 14:02 → OBSVTOIN 07-06 13:18 → UNDODISOB 07-08 16:03
PROVIDERS: ADMIT Internal Medicine; ATTEND Internal Medicine
DX: E11.628 Type 2 diabetes mellitus with other skin complications (principal); L03.116 Cellulitis of left lower limb; E11.51 Type 2 diabetes mellitus with diabetic peripheral angiopathy without gangrene; E78.5 Hyperlipidemia, unspecified; F17.210 Nicotine dependence, cigarettes, uncomplicated; F41.9 Anxiety disorder, unspecified; I10 Essential (primary) hypertension; J44.9 Chronic obstructive pulmonary disease, unspecified; N40.0 Benign prostatic hyperplasia without lower urinary tract symptoms; Z79.82 Long term (current) use of aspirin; Z79.899 Other long term (current) drug therapy; Z86.73 Personal history of transient ischemic attack (TIA), and cerebral infarction without residual deficits; Z87.19 Personal history of other diseases of the digestive system
CPT/HCPCS: 36415; 80048; 80053; 80202; 82565; 83735; 85025; 87040; 87070; 87075; 87205; 93923; 94640

== ENCOUNTER → 2022-07-28 | Outpatient (CLI) | payer MEDICARE, OTHER ==
--- NOTE | 2022-07-28 16:51 | CT ---
EXAMINATION TYPE: CT angio abd aorta w/Runoff DATE OF EXAM: 07/28/2022 COMPARISON: 09/03/2021 INDICATION: Peripheral vascular disease, left foot numbness and pain. DLP: 1797.5 mGycm, Automated exposure control for dose reduction was used. CONTRAST: 120ml mL of Isovue 370. Study performed TECHNIQUE: Axial images were obtained from above the diaphragm to the pubic rami in the axial plane a t 5 mm thick sections. Reconstructed images are reviewed on the computer in the coronal plane. FINDINGS: Limited CT sections are obtained the lung bases. The lung bases are clear. CT ABDOMEN: Abdominal aorta: The celiac axis and superior mesenteric artery takeoffs are identified. Left and rig ht renal artery takeoffs are identified. Scattered fusiform focal areas of prominence within the desc ending abdominal aorta are present. Aortic bifurcation appears normal. Common iliac vessels are paten t. Internal/external iliac vessels are patent profunda femoris vessels are normal. There may be obstr uction of the left superficial femoral artery. Collateral vessels reconstitute this limits proximal p ortion. There are scattered areas of narrowing through the left superficial femoral artery. Left bobo rial caliber is less than on the right. There is loss of the popliteal artery in its midportion on th e left. This is reconstituted into the trifurcation vessels on the left. Right trifurcation vessels a re patent. There are scattered areas of focal stenosis within the bilateral lower extremity trifurcat ion vessels. Anterior tibial arteries are patent at the level of the ankle. Incidental note is made of multiple right renal cysts. There is some mild diffuse thickening of the l eft adrenal gland. IMPRESSIONS: 1. Fusiform focal areas of prominence within the abdominal aorta. 2. 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 3. Multiple focal areas of narrowing within the femoral arteries bilaterally more so on the left. Tri furcation vessels are patent. 4. Occlusion distal left superficial femoral artery with reconstitution of the trifurcation vessels. 5. Findings are developing prior exam
== END | disposition home or self-care (01) ==
LOC: RADCTMAIN 09:56
PROVIDERS: ATTEND Surgery
DX: I70.213 Atherosclerosis of native arteries of extremities with intermittent claudication, bilateral legs (principal)
CPT/HCPCS: 82565; 84520; 75635; 36415; Q9967

== ENCOUNTER 2022-08-08 14:00 | Inpatient (IN) | payer MEDICARE, OTHER ==
--- NOTE | 2022-08-08 14:41 | ED ---
General Adult HPI - General Source: patient, RN notes reviewed Mode of arrival: ambulatory <Hakan Hopson - Last Filed: 08/08/22 14:39> <Sergei Kwong - Last Filed: 08/08/22 16:55> - General Stated complaint: weakness/pain Time Seen by Provider: 08/08/22 14:32 - History of Present Illness Initial comments: This an 81-year-old male presents emergency Department chief complaint of weakness, left leg pain. Patient has known peripheral vascular disease in which a vascular surgery Dr. Valle. As discussed doing stenting of his left leg. Patient though needs surgical clearance with Dr. Hayden, needs a stress test. Patient recently has been having worsening left leg pain, increasing weakness, decreased oral intake. Patient has had increase weakness from this. Patient does take [place] chronically for his leg pain. Patient doesn't that he is short of breath is more is related to his COPD, smoking history. (Hakan Hopson) This is a 81-year-old male who presents to the emergency department complaining of severe left leg pain such that it makes it difficult to walk and sleep. Patient states if his foot hits anything it's absolutely severe pain. Patient states she has [place] but is not helping. Patient states she supposed to get bypass surgery for the leg but he has to be cleared by cardiology first. Patient states that he cannot put up with pain at home. Patient's mouth planing that his left hand feels tingly and he thinks maybe he is getting some decreased blood flow to the hand. Patient denies any actual numbness he states tingly like it's fallen asleep but he is able to still feel light touch and is still able to move the hand normally. Patient denies chest pain difficult breathing shortness of breath. is very concerned the patient is not eating or drinking anything. Patient states she just doesn't have an appetite. Patient denies any abdominal pain patient denies headache patient denies numbness weakness. (Sergei Kwong) - Related Data Home Medications Medication Instructions Recorded Confirmed Aspirin EC [Ecotrin Low Dose] 81 mg PO DAILY 09/02/21 08/08/22 Fluticasone/Vilanterol [Breo 1 puff INHALATION RT-DAILY 09/02/21 08/08/22 Ellipta 100-25 Mcg Inhaler] Lisinopril-Hctz 20-25 mg 0.5 tab PO DAILY 09/02/21 08/08/22 [Zestoretic 20-25] Metoprolol Tartrate [Lopressor] 25 mg PO BID 09/02/21 08/08/22 Rosuvastatin Calcium [Crestor] 5 mg PO HS 09/02/21 08/08/22 Tamsulosin [Flomax] 0.4 mg PO DAILY 09/02/21 08/08/22 ALPRAZolam [Xanax] 0.5 mg PO HS 05/19/22 08/08/22 Acetaminophen [Tylenol Arthritis] 650 mg PO BID 06/27/22 08/08/22 Ipratropium Frostproof 0.06%Nasal 1 spray EA NOSTRIL TID PRN 06/27/22 08/08/22 [Atrovent Nasal 0.06%] HYDROcodone/APAP 7.5-325MG [[place] 1 tab PO TID 07/05/22 08/08/22 7.5-325] Allergies Allergy/AdvReac Type Severity Reaction Status Date / Time No Known Allergies Allergy Verified 08/08/22 15:54 Review of Systems ROS Other: All systems not noted in ROS Statement are negative. <Hakan Hopson - Last Filed: 08/08/22 14:39> ROS Other: All systems not noted in ROS Statement are negative. <Sergei Kwong - Last Filed: 08/08/22 16:55> ROS Statement: Those systems with pertinent positive or pertinent negative responses have been documented in the HPI. 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 History of Any Multi-Drug Resistant Organisms: None Reported Past Surgical History: Hernia Repair Past Anesthesia/Blood Transfusion Reactions: No Reported Reaction Additional Past Anesthesia/Blood Transfusion Reaction / Comment(s): no hx blood transfusion Past Psychological History: No Psychological Hx Reported Smoking Status: Current every day smoker Past Alcohol Use History: None Reported Past Drug Use History: None Reported - Past Family History Mother Family Medical History: Cancer Father Family Medical History: Cancer <Hakan Hopson - Last Filed: 08/08/22 14:39> General Exam <Sergei Kwong - Last Filed: 08/08/22 16:55> - General Exam Comments Initial Comments: GENERAL: Patient is well-developed and well-nourished. Patient is nontoxic and well- hydrated and is in moderate distress. ENT: Neck is soft and supple. No significant lymphadenopathy is noted. Oropharynx is clear. Moist mucous membranes. Neck has full range of motion without eliciting any pain. EYES: The sclera were anicteric and conjunctiva were pink and moist. Extraocular movements were intact and pupils were equal round and reactive to light. Eyelids were unremarkable. PULMONARY: Unlabored respirations. Good breath sounds bilaterally. No audible rales rhonchi or wheezing was noted. CARDIOVASCULAR: There is a regular rate and rhythm without any murmurs gallops or rubs. ABDOMEN: Soft and nontender with normal bowel sounds. SKIN: Skin is clear with no lesions or rashes and otherwise unremarkable. NEUROLOGIC: Patient is alert and oriented x3. Cranial nerves II through XII are grossly intact. Motor and sensory are also intact. Normal speech, volume and content. Symmetrical smile. MUSCULOSKELETAL: Normal extremities with adequate strength and full range of motion. I'm unable to get any DP pulses on the left leg capillary refill is well over 2 seconds. Patient does have a radial pulse and does have poor cap refill to the hand but does have normal sensation and movement LYMPHATICS: No significant lymphadenopathy is noted PSYCHIATRIC: Normal psychiatric evaluation. (Sergei Kwong) Course Vital Signs 08/08/22 08/08/22 08/08/22 14:43 16:31 16:36 Temperature 97.3 F L Pulse Rate 73 60 60 Respiratory 18 18 18 Rate Blood Pressure 74/46 80/52 116/70 O2 Sat by Pulse 92 L 96 95 Oximetry Medical Decision Making - Lab Data Result diagrams: 08/08/22 15:08 08/08/22 15:08 <Sergei Kwong - Last Filed: 08/08/22 16:55> - Medical Decision Making EKG shows sinus rhythm at a rate of 61 bpm PA interval 142 QRS is 113 QT interval 374 QTC is 376 per patient's EKG shows no ST segment patient or depression. Was pt. sent in by a medical professional or institution? @ -No Did you speak to anyone other than the patient for history? @ - Did you review nursing and triage notes? @ -Agree with nursing notes Were old charts reviewed? @ -I read previous CT angiogram of the extremities. Differential Diagnosis? @ -Arterial occlusion, DVT, muscular strain EKG interpreted by me (3pts min.)? @ -As above X-rays interpreted by me (1pt min.)? @ -None CT interpreted by me (1pt min.)? @ -None U/S interpreted by me (1pt. min.)? @ -Done What testing was considered but not performed? (CT, X-rays, U/S, labs)? Why? @ -I considered TO RULE OUT DVT HOWEVER THE PATIENT'S LEG WAS SWOLLEN AND IT WAS MUCH MORE INDICATIVE OF AN ARTERIAL OCCLUSION SO WAS NOT DONE. What meds were considered but not given? Why? @ -None Did you discuss the management of the patient with other professionals? @ -I spoke with Dr. Mcqueen he agreed to admit the patient admitted the patient wrote admitting orders I consulted cardiology and vascular. I also spoke with Dr. Da Silva and she wanted heparin. Did you reconcile home meds? @ -No Was smoking cessation discussed for >3mins.? @ -I discussed smoking cessation for greater than 3 minutes. The risk of smoking were discussed with the patient including but not limited to risks of cancer, stroke, coronary artery disease and COPD. Also discussed with patient were multiple methods of quitting smoking. Lastly we discussed the financial cost of smoking. Was critical care preformed (if so, how long)? @ -Yes. Patient was started on high-dose heparin. Patient was admitted and Dr. Da Silva was contacted. Were there social determinants of health that impacted care today? How? (Homelessness, low income, unemployed, alcoholism, drug addiction, transportation, low edu. Level, literacy, decrease access to med. care, alf, r ehab)? @ -No Was there de-escalation of care discussed even if they declined? (Discuss DNR or withdrawal of care, Hospice)? @ -No What co-morbidities impacted this encounter? (DM, HTN, Smoking, COPD, CAD, Cancer, CVA, Hep., AIDS, mental health diagnosis, sleep apnea, morbid obesity)? @ -Smoking patient continues to smoke and his arterial occlusions have been progressing rapidly lately and this is making this worse. Was patient admitted / discharged? @ -Arterial occlusion left common femoral. Patient was given Dilaudid and Toradol emergency department for pain. I spoke with Dr. Sanderson agreed to admit the patient admitted the patient I consulted vascular and cardiology. Undiagnosed new problem with uncertain prognosis? @ -None Drug Therapy requiring intensive monitoring for toxicity (Heparin, Nitro, Insulin, Cardizem)? @ -None Were any procedures done? @ -On Diagnosis/symptom? @ -Arterial occlusion with intractable pain Acute, or Chronic, or Acute on Chronic? @ -Acute on chronic Uncomplicated (without systemic symptoms) or Complicated (systemic symptoms)? @ -Complicated Side effects of treatment? @ -None Exacerbation, Progression, or Severe Exacerbation] @ -Progression Poses a threat to life or bodily function? @ -Yes patient could lose his leg. Diagnosis/symptom? @ -Renal insufficiency Acute, or Chronic, or Acute on Chronic? @ -Acute Uncomplicated (without systemic symptoms) or Complicated (systemic symptoms)? @ -Uncomplicated Side effects of treatment? @ -None Exacerbation, Progression, or Severe Exacerbation] @ -No Poses a threat to life or bodily function? @ -No (Sergei Kwong) - Lab Data Lab Results 08/08/22 08/08/22 08/08/22 Range/Units 15:08 15:08 15:08 WBC 13.5 H (3.8-10.6) k/uL RBC 4.75 (4.30-5.90) m/uL Hgb 15.2 (13.0-17.5) gm/dL Hct 46.7 (39.0-53.0) % MCV 98.3 (80.0-100.0) fL MCH 31.9 (25.0-35.0) pg MCHC 32.5 (31.0-37.0) g/dL RDW 12.7 (11.5-15.5) % Plt Count 193 (150-450) k/uL MPV 10.4 Neutrophils % 84 % Lymphocytes % 9 % Monocytes % 4 % Eosinophils % 1 % Basophils % 1 % Neutrophils # 11.4 H (1.3-7.7) k/uL Lymphocytes # 1.3 (1.0-4.8) k/uL Monocytes # 0.5 (0-1.0) k/uL Eosinophils # 0.2 (0-0.7) k/uL Basophils # 0.1 (0-0.2) k/uL Sodium 136 L (137-145) mmol/L Potassium 4.6 (3.5-5.1) mmol/L Chloride 102 (98-107) mmol/L Carbon Dioxide 27 (22-30) mmol/L Anion Gap 7 mmol/L BUN 56 H (9-20) mg/dL Creatinine 1.70 H (0.66-1.25) mg/dL Est GFR (CKD-EPI)AfAm 43 (>60 ml/min/1.73 sqM) Est GFR (CKD-EPI)NonAf 37 (>60 ml/min/1.73 sqM) Glucose 100 H (74-99) mg/dL Plasma Lactic Acid Mazin 1.2 (0.7-2.0) mmol/L Calcium 9.3 (8.4-10.2) mg/dL Magnesium 2.2 (1.6-2.3) mg/dL Total Bilirubin 0.7 (0.2-1.3) mg/dL AST 21 (17-59) U/L ALT 13 (4-49) U/L Alkaline Phosphatase 72 (38-126) U/L Troponin I (0.000-0.034) ng/mL Total Protein 6.2 L (6.3-8.2) g/dL Albumin 3.4 L (3.5-5.0) g/dL 08/08/22 Range/Units 15:08 WBC (3.8-10.6) k/uL RBC (4.30-5.90) m/uL Hgb (13.0-17.5) gm/dL Hct (39.0-53.0) % MCV (80.0-100.0) fL MCH (25.0-35.0) pg MCHC (31.0-37.0) g/dL RDW (11.5-15.5) % Plt Count (150-450) k/uL MPV Neutrophils % % Lymphocytes % % Monocytes % % Eosinophils % % Basophils % % Neutrophils # (1.3-7.7) k/uL Lymphocytes # (1.0-4.8) k/uL Monocytes # (0-1.0) k/uL Eosinophils # (0-0.7) k/uL Basophils # (0-0.2) k/uL Sodium (137-145) mmol/L Potassium (3.5-5.1) mmol/L Chloride (98-107) mmol/L Carbon Dioxide (22-30) mmol/L Anion Gap mmol/L BUN (9-20) mg/dL Creatinine (0.66-1.25) mg/dL Est GFR (CKD-EPI)AfAm (>60 ml/min/1.73 sqM) Est GFR (CKD-EPI)NonAf (>60 ml/min/1.73 sqM) Glucose (74-99) mg/dL Plasma Lactic Acid Mazin (0.7-2.0) mmol/L Calcium (8.4-10.2) mg/dL Magnesium (1.6-2.3) mg/dL Total Bilirubin (0.2-1.3) mg/dL AST (17-59) U/L ALT (4-49) U/L Alkaline Phosphatase (38-126) U/L Troponin I <0.012 (0.000-0.034) ng/mL Total Protein (6.3-8.2) g/dL Albumin (3.5-5.0) g/dL Critical Care Time Critical Care Time: Yes Total Critical Care Time: 35 <Sergei Kwong - Last Filed: 08/08/22 16:55> Disposition <Hakan Hopson - Last Filed: 08/08/22 14:39> Time of Disposition: 16:05 <Sergei Kwong - Last Filed: 08/08/22 16:55> Clinical Impression: Arterial occlusion, Intractable pain, Renal insufficiency Disposition: ADMITTED IP TO THIS HOSP Referrals: Uche Alvarado MD [Primary Care Provider] - 1-2 days
[2022-08-08 15:25] LABS: Basophils # (A) 0.1 k/uL (0-0.2); Basophils % (A) 1 %; Eosinophils # (A) 0.2 k/uL (0-0.7); Eosinophils % (A) 1 %; HCT 46.7 % (39.0-53.0); HGB 15.2 gm/dL (13.0-17.5); Lymphocytes # (A) 1.3 k/uL (1.0-4.8); Lymphocytes % (A) 9 %; MCH 31.9 pg (25.0-35.0); MCHC 32.5 g/dL (31.0-37.0); MCV 98.3 fL (80.0-100.0); Mean Platelet Volume 10.4; Monocytes # (A) 0.5 k/uL (0-1.0); Monocytes % (A) 4 %; Neutrophils # (A) 11.4 k/uL (1.3-7.7); Neutrophils % (A) 84 %; Platelet Count 193 k/uL (150-450); RBC 4.75 m/uL (4.30-5.90); RDW 12.7 % (11.5-15.5); WBC 13.5 k/uL (3.8-10.6)
[2022-08-08 15:33] LABS: Albumin 3.4 g/dL (3.5-5.0); Calcium 9.3 mg/dL (8.4-10.2); Magnesium 2.2 mg/dL (1.6-2.3); Potassium 4.6 mmol/L (3.5-5.1); Total Bilirubin 0.7 mg/dL (0.2-1.3); Total Protein 6.2 g/dL (6.3-8.2)
[2022-08-08] MEDS ORDERED: HYDROmorphone 0.5 MG/0.5 ML SYRINGE IVP STA (16:00)
[2022-08-08] MEDS ORDERED: KETOROLAC 15 MG/ML 1 ML VIAL IVP STA (16:00)
[2022-08-08] MEDS ORDERED: SODIUM CHLORIDE 0.9% 2,000 ML IV ONE (16:21)
[2022-08-08] MEDS ORDERED: SODIUM CHLORIDE 0.9% 1,000 ML IV ONE (16:24)
[2022-08-08 17:17] LABS: INR 0.9 (<1.2); Partial Thromboplastin Time 27.8 sec (22.0-30.0); Prothrombin Time 9.6 sec (9.0-12.0)
[2022-08-08] MEDS: HEPARIN SOD,PORK IN 0.45% NACL 25,000 UNIT in 0.45% NACL 1 250ML.BAG IV SCH (17:32)
[2022-08-08] MEDS: HEPARIN SODIUM 1,000 UN/ML (10ML VL) IV ONE (17:32)
[2022-08-08] MEDS ORDERED: IPRATROPIUM BROMIDE 0.06% NASAL SPRAY (15 ML) EA NOSTRIL PRN (17:44)
[2022-08-08] MEDS ORDERED: ALPRAZolam 0.25 MG TAB PO PRN (17:44)
--- NOTE | 2022-08-08 17:57 | P.GSCN ---
History of Present Illness Consult date: 08/08/22 Reason for Consult: left lower extremity pain History of present illness: 81 year old gentleman with history of left lower extremity claudication, superficial femoral artery occlusive disease with previous endovascular repair with stenting by Dr. Hayden earlier this year. He states he was doing well at that time but ultimately returned to the hospital in June for increased pain and swelling of his foot. He was worked up for possible abscess and had a negative CT of his foot at that time. Since then he has had a CTA of his abdomen and pelvis with runoff earlier in July which demonstrated occlusion of the left common femoral artery as well as the superficial femoral artery and the previously placed stents. He states he might have been seen in the office by Dr. Valle and needed clearance for possible surgical intervention for his left leg. He now returns to the emergency department secondary to increased pain in his left leg as well as his heel to the point where he is unable to sleep and having difficulty with walking. He is also complaining of increased weakness. He states he is actually having numbness now in his foot as well. Currently he states his heel is causing him the most pain and if he has any pressure to this area and causes significant discomfort. He denies any fevers, chills, chest pain or shortness of breath. 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 History of Any Multi-Drug Resistant Organisms: None Reported Past Surgical History: Hernia Repair Past Anesthesia/Blood Transfusion Reactions: No Reported Reaction Additional Past Anesthesia/Blood Transfusion Reaction / Comm: no hx blood transfusion Past Psychological History: No Psychological Hx Reported Smoking Status: Current every day smoker Past Alcohol Use History: None Reported Past Drug Use History: None Reported - Past Family History Mother Family Medical History: Cancer Father Family Medical History: Cancer Medications and Allergies Home Medications Medication Instructions Recorded Confirmed Type Aspirin EC [Ecotrin Low Dose] 81 mg PO DAILY 09/02/21 08/08/22 History Fluticasone/Vilanterol [Breo 1 puff INHALATION RT-DAILY 09/02/21 08/08/22 History Ellipta 100-25 Mcg Inhaler] Lisinopril-Hctz 20-25 mg 0.5 tab PO DAILY 09/02/21 08/08/22 History [Zestoretic 20-25] Metoprolol Tartrate [Lopressor] 25 mg PO BID 09/02/21 08/08/22 History Rosuvastatin Calcium [Crestor] 5 mg PO HS 09/02/21 08/08/22 History Tamsulosin [Flomax] 0.4 mg PO DAILY 09/02/21 08/08/22 History ALPRAZolam [Xanax] 0.5 mg PO HS 05/19/22 08/08/22 History Acetaminophen [Tylenol Arthritis] 650 mg PO BID 06/27/22 08/08/22 History Ipratropium [place] 0.06%Nasal 1 spray EA NOSTRIL TID PRN 06/27/22 08/08/22 Hi story [Atrovent Nasal 0.06%] HYDROcodone/APAP 7.5-325MG [[place] 1 tab PO TID 07/05/22 08/08/22 History 7.5-325] Allergies Allergy/AdvReac Type Severity Reaction Status Date / Time No Known Allergies Allergy Verified 08/08/22 15:54 Surgical - Exam Vital Signs Temp Pulse Resp BP Pulse Ox 97.3 F L 73 18 74/46 92 L 08/08/22 14:43 08/08/22 14:43 08/08/22 14:43 08/08/22 14:43 08/08/22 14:43 - General well developed, well nourished, moderate pain - Eyes PERRL, normal ocular movement - ENT normal pinna, normal nares - Neck no masses - Respiratory normal expansion, clear to auscultation - Cardiovascular Rhythm: regular - Abdomen Abdomen: soft, non tender - Integumentary Petechial rash noted in the foot on the left no growths - Neurologic no normal sensation, confused - Psychiatric oriented to time, oriented to person, oriented to place Nonpalpable DP or PT pulse bilaterally. Exquisite tenderness to palpation left heel and calf. Gross motor intact and patient is able to actively move his leg with minimal pain Nonpalpable femoral pulse on the left No pulsatile abdominal mass noted Results - Labs 08/08/22 15:08 08/08/22 15:08 Abnormal Lab Results - Last 24 Hours (Table) 08/08/22 08/08/22 Range/Units 15:08 15:08 WBC 13.5 H (3.8-10.6) k/uL Neutrophils # 11.4 H (1.3-7.7) k/uL Sodium 136 L (137-145) mmol/L BUN 56 H (9-20) mg/dL Creatinine 1.70 H (0.66-1.25) mg/dL Glucose 100 H (74-99) mg/dL Total Protein 6.2 L (6.3-8.2) g/dL Albumin 3.4 L (3.5-5.0) g/dL Diabetes panel 08/08/22 Range/Units 15:08 Sodium 136 L (137-145) mmol/L Potassium 4.6 (3.5-5.1) mmol/L Chloride 102 (98-107) mmol/L Carbon Dioxide 27 (22-30) mmol/L BUN 56 H (9-20) mg/dL Creatinine 1.70 H (0.66-1.25) mg/dL Glucose 100 H (74-99) mg/dL Calcium 9.3 (8.4-10.2) mg/dL AST 21 (17-59) U/L ALT 13 (4-49) U/L Alkaline Phosphatase 72 (38-126) U/L Total Protein 6.2 L (6.3-8.2) g/dL Albumin 3.4 L (3.5-5.0) g/dL Calcium panel 08/08/22 Range/Units 15:08 Calcium 9.3 (8.4-10.2) mg/dL Albumin 3.4 L (3.5-5.0) g/dL Pituitary panel 08/08/22 Range/Units 15:08 Sodium 136 L (137-145) mmol/L Potassium 4.6 (3.5-5.1) mmol/L Chloride 102 (98-107) mmol/L Carbon Dioxide 27 (22-30) mmol/L BUN 56 H (9-20) mg/dL Creatinine 1.70 H (0.66-1.25) mg/dL Glucose 100 H (74-99) mg/dL Calcium 9.3 (8.4-10.2) mg/dL Adrenal panel 08/08/22 Range/Units 15:08 Sodium 136 L (137-145) mmol/L Potassium 4.6 (3.5-5.1) mmol/L Chloride 102 (98-107) mmol/L Carbon Dioxide 27 (22-30) mmol/L BUN 56 H (9-20) mg/dL Creatinine 1.70 H (0.66-1.25) mg/dL Glucose 100 H (74-99) mg/dL Calcium 9.3 (8.4-10.2) mg/dL Total Bilirubin 0.7 (0.2-1.3) mg/dL AST 21 (17-59) U/L ALT 13 (4-49) U/L Alkaline Phosphatase 72 (38-126) U/L Total Protein 6.2 L (6.3-8.2) g/dL Albumin 3.4 L (3.5-5.0) g/dL - Imaging Additional studies: CTA earlier in July reviewed demonstrating occlusion of the left common femoral artery and superficial femoral artery with reconstitution at the SFA Assessment and Plan Assessment: Acute on chronic peripheral artery disease with ischemic rest pain, Bicknell classification 4 Infrarenal abdominal aortic aneurysm History of left superficial femoral artery revascularization and stenting History of left lower extremity, foot cellulitis History of hypertension, COPD, hyperlipidemia Plan: Recommend admission to the hospital for continued monitoring. Recommend heparin drip for now and plan for revascularization of his left lower extremity. Reviewed his previous CTA which has demonstrated occlusion of the common femoral artery and superficial femoral artery. He would likely need femoral endarterectomy and patch angioplasty with possible bypass. Would recommend cardiology follow-up in the hospital and clearance for surgical intervention. Thank you for allowing us to participate in your patient's care.
[2022-08-08] MEDS: HYDROcodone/APAP 5-325MG 1 EACH TAB PO PRN (20:54)
[2022-08-08] MEDS: METOPROLOL TARTRATE 25 MG TAB PO SCH (20:54)
[2022-08-08] MEDS: ATORVASTATIN 10 MG TAB PO SCH (20:54)
[2022-08-08] MEDS: ACETAMINOPHEN TAB 325 MG TAB PO SCH (21:00)
--- NOTE | 2022-08-09 00:46 | HP ---
HISTORY AND PHYSICAL CHIEF COMPLAINT: Significant pain and weakness of the left leg. HISTORY OF PRESENT ILLNESS: This is an 81-year-old gentleman with a past medical history of COPD, hypertension, hyperlipidemia, multiple medical issues, being followed by Dr. Alvarado in the outpatient setting. He was recently admitted to [facility] with left foot cellulitis. The patient has significant peripheral vascular disease and apparently cardiology evaluation and vascular intervention is pending at this time. There is no history of any fever, rigors, or chills. Dr. Da Silva has seen the patient previously. PAST MEDICAL HISTORY: Reviewed include COPD, peripheral vascular disease, multiple medical issues. MEDICATIONS: Reviewed include Flomax, doses and rest of medications reviewed, rest of the chart is also reviewed. ALLERGIES: None. FAMILY HISTORY: No history of cancer in the family. SOCIAL HISTORY: History of current continued smoking. REVIEW OF SYSTEMS: A 14-point review is negative as mentioned earlier. PHYSICAL EXAMINATION: VITAL SIGNS: Pulse is 60, blood pressure 122/100, respirations 18. HEENT: Conjunctivae normal. NECK: No jugular venous distention. CARDIOVASCULAR: S1, S2. RESPIRATIONS: Few scattered rhonchi. ABDOMEN: Soft, nontender. LEGS: Pulses diminished bilaterally. Capillary return is poor on the left foot. Some erythema also present. NERVOUS SYSTEM: No focal deficits. SKIN: No ulcer, rash, bleeding. JOINTS: No active deforming arthropathy. LABORATORY DATA: Reviewed. ASSESSMENT: 1. Left leg pain and severe pain, possibly ischemic left leg. 2. History of recent cellulitis. 3. Elevated creatinine. 4. Chronic obstructive pulmonary disease. 5. Hyperlipidemia. 6. History of cerebrovascular accident. RECOMMENDATIONS: This 81-year-old gentleman presented with multiple medical issues. At this time, we will monitor the patient closely, continue the current medications and symptomatic treatment. Vascular surgery consultation, cardiology consultation for possible preop evaluation, symptomatic treatment for pain. Heparin was initiated. Prognosis guarded because of multiple complex medications. See orders for further details. Further recommendations to follow. Home medications will be continued once they are confirmed. Further recommendations per pain management. MMODL / IJN: [id number] /
[2022-08-09] MEDS ORDERED: ONDANSETRON 4 MG/2 ML VIAL IVP PRN (06:35)
[2022-08-09 07:38] LABS: Basophils # (A) 0.1 k/uL (0-0.2); Basophils % (A) 1 %; Eosinophils # (A) 0.1 k/uL (0-0.7); Eosinophils % (A) 1 %; HCT 40.3 % (39.0-53.0); HGB 12.6 gm/dL (13.0-17.5); Hypochromasia Slight; Lymphocytes # (A) 0.9 k/uL (1.0-4.8); Lymphocytes % (A) 12 %; MCH 30.9 pg (25.0-35.0); MCHC 31.2 g/dL (31.0-37.0); Monocytes # (A) 0.3 k/uL (0-1.0); Monocytes % (A) 4 %; Neutrophils % (A) 81 %; Platelet Count 166 k/uL (150-450); RBC 4.07 m/uL (4.30-5.90); RDW 12.5 % (11.5-15.5); WBC 7.4 k/uL (3.8-10.6)
[2022-08-09 07:56] LABS: Albumin 2.5 g/dL (3.5-5.0); Calcium 8.3 mg/dL (8.4-10.2); Potassium 4.3 mmol/L (3.5-5.1); Total Bilirubin 0.6 mg/dL (0.2-1.3); Total Protein 4.8 g/dL (6.3-8.2)
[2022-08-09] MEDS: METOPROLOL TARTRATE 25 MG TAB PO SCH ×2 (09:13→20:13)
[2022-08-09] MEDS: TAMSULOSIN 0.4 MG CAP.ER.24H PO SCH (09:13)
[2022-08-09] MEDS: ACETAMINOPHEN TAB 325 MG TAB PO SCH ×2 (09:14→20:13)
[2022-08-09] MEDS: ASPIRIN 81 MG PO SCH (09:14)
[2022-08-09] MEDS: LISINOPRIL-HCTZ 20-25 MG 1 EACH TAB PO SCH (09:14)
[2022-08-09] MEDS: NICOTINE 14MG/24HR PATCH TRANSDERM SCH (09:15)
[2022-08-09] MEDS: SYMBICORT 80-4.5 MCG INHALER INHALATION SCH ×2 (09:22→20:28)
[2022-08-09] MEDS: HEPARIN SODIUM 1,000 UN/ML (10ML VL) IV ONE (09:22)
--- NOTE | 2022-08-09 10:38 | CONS ---
CONSULTATION REASON FOR CONSULTATION: Clearance for vascular surgery because of significant left lower extremity critical ischemia. HISTORY OF PRESENT ILLNESS: This gentleman has hypertension, hyperlipidemia, smoking, COPD, and also benign prostatic hypertrophy. He continues to smoke and he smoked as recently as yesterday or day before. He is here with severe pain in the left leg and has also had a CT angiograms performed on the , which revealed total occlusion of left common femoral and also multiple focal areas of narrowing within bilateral femoral arteries and also distal left superficial femoral artery reconstitution. He is having significant pain. He is here for urgent vascular surgery by Dr. Dorsey. This patient follows with Dr. Hayden, had a percutaneous intervention in August of this year. His echo from the revealed ejection fraction of 50% to 55% without wall motion. He has no chest pain or shortness of breath. He is coughing, and he has history of smoking and COPD. The patient's activity is limited, but with limited activity, he has no chest pain or shortness of breath. PAST MEDICAL HISTORY: 1. Peripheral artery disease with previous percutaneous intervention, now has significant ischemia of the left common femoral occlusion. 2. Hypertension. 3. Hyperlipidemia. 4. Smoking and COPD. MEDICATIONS: Medications at home include; 1. Rosuvastatin. 2. Flomax. 3. Metoprolol tartrate 25 mg b.i.d. 4. Lisinopril. 5. Hydrochlorothiazide. 6. Aspirin 81 mg daily. 7. Xanax. 8. Inhalers for COPD. PHYSICAL EXAMINATION: VITAL SIGNS: Blood pressure is 118/70, pulse rate is 60 per minute. NECK: No significant JVD. No carotid bruit. HEART: S1, S2. No significant murmurs. LUNGS: Bilateral scattered rhonchi with fair air entry. ABDOMEN: Soft. EXTREMITIES: Lower extremity pulses are not palpable. CENTRAL NERVOUS SYSTEM ASSESSMENT: Grossly no focal deficits. DIAGNOSTIC DATA: EKG revealed sinus mechanism with mild IVCD, nonspecific ST abnormality. IMPRESSION: 1. Significant pain, left lower extremity with ischemia, going for urgent vascular surgery by Dr. Dorsey. 2. Hypertension. 3. Hyperlipidemia. 4. No documented evidence of coronary artery disease. 5. History of smoking and chronic obstructive pulmonary disease. RECOMMENDATIONS: The patient can proceed with surgery under the circumstances of urgency. The patient has not had formal stress testing. There is no absolute contraindication. I am recommending cautious fluid administration, optimal BP control perioperatively. I would also seek pulmonary evaluation as well. Postsurgical course will have to be followed very closely. I discussed my thoughts in detail with the patient and also communicated with Dr. Dorsey. NAVYA / RAMOND: [id number] /
[2022-08-09] MEDS: HEPARIN SOD,PORK IN 0.45% NACL 25,000 UNIT in 0.45% NACL 1 250ML.BAG IV SCH (11:27)
[2022-08-09] MEDS: HYDROcodone/APAP 5-325MG 1 EACH TAB PO PRN ×2 (11:38→23:09)
[2022-08-09] MEDS: HYDROmorphone 0.5 MG/0.5 ML SYRINGE IVP PRN (15:46)
--- NOTE | 2022-08-09 16:51 | P.PN ---
Subjective Progress Note Date: 08/09/22 Patient seen and examined. No complaints. Reportedly he has been cleared, continuing to have pain worse in his left foot. Objective - Vital Signs Vital signs: Vital Signs Temp 98.9 F 08/09/22 16:00 Pulse 66 08/09/22 16:00 Resp 16 08/09/22 16:00 BP 116/55 08/09/22 16:00 Pulse Ox 90 L 08/09/22 16:00 FiO2 Intake & Output 08/08/22 08/09/22 08/09/22 18:59 06:59 18:59 Intake Total 131.351 200.777 Output Total 150 Balance -18.649 200.777 Weight 80.739 kg Intake: IV 10 Invasive Line 1 10 Intake, IV Titration 121.351 200.777 Amount Heparin Sod,Pork in 0.45% 121.351 200.777 NaCl 25,000 unit In 0.45 % NaCl 1 250ml.bag @ 18 UNITS/KG/HR 14.533 mls/hr IV .[id number] [facility] Rx#: [id number] Output: Urine 150 Other: Voiding Method Urinal - Exam No acute distress resting comfortably. Tenderness to palpation of the left lower extremity. Motor intact with minimal pain with active motion. No palpable femoral pulse on the left. No pulsatile abdominal masses. Dependent rubor - Labs CBC & Chem 7: 08/09/22 07:18 08/09/22 07:18 Labs: Abnormal Lab Results - Last 24 Hours (Table) 08/09/22 08/09/22 08/09/22 Range/Units 00:27 07:18 07:18 RBC 4.07 L (4.30-5.90) m/uL Hgb 12.6 L (13.0-17.5) gm/dL Lymphocytes # 0.9 L (1.0-4.8) k/uL APTT 77.0 H (22.0-30.0) sec Sodium 136 L (137-145) mmol/L Chloride 109 H (98-107) mmol/L BUN 47 H (9-20) mg/dL Calcium 8.3 L (8.4-10.2) mg/dL AST 16 L (17-59) U/L Total Protein 4.8 L (6.3-8.2) g/dL Albumin 2.5 L (3.5-5.0) g/dL 08/09/22 08/09/22 Range/Units 07:18 15:09 RBC (4.30-5.90) m/uL Hgb (13.0-17.5) gm/dL Lymphocytes # (1.0-4.8) k/uL APTT 34.8 H 154.3 H* (22.0-30.0) sec Sodium (137-145) mmol/L Chloride (98-107) mmol/L BUN (9-20) mg/dL Calcium (8.4-10.2) mg/dL AST (17-59) U/L Total Protein (6.3-8.2) g/dL Albumin (3.5-5.0) g/dL Assessment and Plan Assessment: Acute on chronic peripheral artery disease with ischemic rest pain, Letcher classification 4 Infrarenal abdominal aortic aneurysm History of left superficial femoral artery revascularization and stenting History of left lower extremity, foot cellulitis History of hypertension, COPD, hyperlipidemia Plan: Patient has been cleared by cardiology for went forward with intervention. We'll plan for femoral endarterectomy on 08/11/[address] Valle
[2022-08-09] MEDS: SODIUM CHLORIDE 0.9% 1,000 ML IV SCH (17:23)
[2022-08-09] MEDS: TEMAZEPAM 15 MG CAP PO PRN (20:13)
[2022-08-09] MEDS: ATORVASTATIN 10 MG TAB PO SCH (20:13)
--- NOTE | 2022-08-10 01:09 | PN ---
PROGRESS NOTE DATE OF SERVICE: 08/09/2022 SUBJECTIVE: This is an 81-year-old gentleman with a past medical history of multiple medical problems, was admitted with severe left leg pain and features of arterial occlusion. Dr. Dorsey is planning a femoral endarterectomy and patch angioplasty. Cardiology is seeing the patient and apparently clearing the patient. OBJECTIVE: VITAL SIGNS: Pulse is 63, blood pressure n, respirations 16. CHEST: Clear to auscultation. CARDIOVASCULAR: S1, S2. ABDOMEN: Soft. LEGS: Pulses diminished bilaterally. LABORATORY DATA: Reviewed. ASSESSMENT: 1. Left leg pain and severe pain, possibly ischemic left leg with peripheral vascular disease. 2. History of recent cellulitis. 3. Elevated creatinine. 4. Chronic obstructive pulmonary disease. 5. Hyperlipidemia. 6. History of cerebrovascular accident. RECOMMENDATIONS AND DISCUSSION: Recommend to continue current management and symptomatic treatment. Closely follow up with Vascular Surgery and Cardiology. I would recommend repeat labs. Monitor creatinine closely. Avoid nephrotoxic medications. Possible revascularization. Further recommendations to follow. MMCHAIL / IJN: [id number] / GAURANG
[2022-08-10] MEDS: HEPARIN SOD,PORK IN 0.45% NACL 25,000 UNIT in 0.45% NACL 1 250ML.BAG IV SCH ×2 (05:05→20:04)
[2022-08-10] MEDS: SODIUM CHLORIDE 0.9% 1,000 ML IV SCH ×2 (05:05→17:23)
[2022-08-10] MEDS: TAMSULOSIN 0.4 MG CAP.ER.24H PO SCH (08:31)
[2022-08-10] MEDS: METOPROLOL TARTRATE 25 MG TAB PO SCH ×2 (08:31→20:03)
[2022-08-10] MEDS: ASPIRIN 81 MG PO SCH (08:31)
[2022-08-10] MEDS: LISINOPRIL-HCTZ 20-25 MG 1 EACH TAB PO SCH (08:31)
[2022-08-10] MEDS: NICOTINE 14MG/24HR PATCH TRANSDERM SCH (08:31)
[2022-08-10] MEDS: ACETAMINOPHEN TAB 325 MG TAB PO SCH ×2 (08:31→20:03)
[2022-08-10] MEDS: SYMBICORT 80-4.5 MCG INHALER INHALATION SCH (09:06)
[2022-08-10 09:52] LABS: ALT 16 U/L (4-49); AST 20 U/L (17-59); African American GFR (CKD) >90 (>60 ml/min/1.73 sqM); Albumin 2.9 g/dL (3.5-5.0); Alkaline Phosphatase 50 U/L (38-126); Anion Gap 1 mmol/L; Blood Urea Nitrogen 27 mg/dL (9-20); Calcium 8.8 mg/dL (8.4-10.2); Carbon Dioxide 28 mmol/L (22-30); Chloride 108 mmol/L (98-107); Glucose 90 mg/dL (74-99); Non-African American GFR(CKD) 81 (>60 ml/min/1.73 sqM); Potassium 4.1 mmol/L (3.5-5.1); Sodium 137 mmol/L (137-145); Total Bilirubin 0.9 mg/dL (0.2-1.3); Total Protein 5.3 g/dL (6.3-8.2)
[2022-08-10 09:55] VITALS: BMI 24.1
[2022-08-10 10:28] LABS: Basophils # (A) 0.1 k/uL (0-0.2); Basophils % (A) 1 %; Eosinophils # (A) 0.2 k/uL (0-0.7); Eosinophils % (A) 3 %; HCT 44.8 % (39.0-53.0); HGB 14.2 gm/dL (13.0-17.5); Lymphocytes # (A) 0.9 k/uL (1.0-4.8); Lymphocytes % (A) 14 %; MCH 31.1 pg (25.0-35.0); MCHC 31.7 g/dL (31.0-37.0); MCV 98.2 fL (80.0-100.0); Mean Platelet Volume 10.2; Monocytes # (A) 0.3 k/uL (0-1.0); Monocytes % (A) 5 %; Neutrophils # (A) 4.7 k/uL (1.3-7.7); Neutrophils % (A) 75 %; Platelet Count 162 k/uL (150-450); RBC 4.57 m/uL (4.30-5.90); RDW 12.8 % (11.5-15.5); WBC 6.3 k/uL (3.8-10.6)
--- NOTE | 2022-08-10 10:31 | CDI ---
Documentation Clarification Form Date: 08/10/2022 10:24:34 AM From: Bonita Miranda CCS, CCDS Admit Date: 08/08/2022 04:48:00 PM Patient Name: Richard Reid Visit Number: [id number] Discharge Date: ATTENTION: The Clinical Documentation Specialists (CDI) and [facility] Coding Staff appreciate your assistance in clarifying documentation. Please respond to the clarification below the line at the bottom and electronically sign. The CDI & [facility] Coding staff will review the response and follow-up if needed. Please note: Queries are made part of the Legal Health Record. If you have any questions, please contact the author of this message via ITS. Dr. Elsy Mcqueen: Renal Insufficiency is documented in the 08/08 ED Clinical Impression. Additional clarification regarding the Acuity of Renal Failure is requested. History/Risk Factors per the 08/08 H/P: Recent cellulitis left leg, PAD with previous intervention/stent, COPD, Hyperlipidemia, CVA. Current smoker. Clinical Indicators: Presented to the ED on 08/08 with weakness and increased left leg pain with known PVD and stent to left leg. Decreased oral intake, difficulty walking. Admit with Arterial occlusion, Intractable pain and Renal Insufficiency. 08/08 LAB: BUN 56, Creatinine 1.70, GFR 37. Historical GFR: 08/10/2022: 81. 02/17/2014: >60 Treatment 08/08: Vascular Surgery Consult, Cardiology Consult, IV Dilaudid 0.5 mg x1, IV Toradol 15 mg x1, IV Na Chl bolus 2,000 mls @ 999 mls/hr q2H, IV Na Chl 1,000 ls @ 75 mls/hr q13H, IV Heparin Please clarify the Acuity of Renal Failure and Stage if Chronic, if known: [ ] Acute Renal Failure [ ] Chronic renal failure (specify stage if known) [ ] Other, please specify [ ] Unable to determine (Template Last Revised: October 2020) Unable to determine MTDD
--- NOTE | 2022-08-10 12:11 | P.PN ---
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 Patient planned to undergo left lower extremity and proctectomy tomorrow. Pole Tester preop evaluation already done, ejection fraction 50-55%, also pulmonary consult evaluation is recommended given his history of COPD. However patient does not complain of from dyspnea or wheezing at rest now, he states that he used to smoke 4 packs per day and now down to half-1 pack per day. He is not on home oxygen. But he complains from exer tional dyspnea whenever he tries to do simple things prior to admission to the hospital for example patient was trying to go to the bathroom. He denies alcohol or illicit drugs. Vitals and labs look stable. Discontinued on heparin drip, normal saline 75 mg, he is on home dose of aspirin 81 mg metoprolol 25 mg Objective - Vital Signs Vital signs: Vital Signs Temp 98.1 F 08/10/22 08:30 Pulse 58 L 08/10/22 08:30 Resp 18 08/10/22 08:30 BP 132/51 08/10/22 08:30 Pulse Ox 93 L 08/10/22 08:30 FiO2 Intake & Output 08/09/22 08/10/22 08/10/22 18:59 06:59 18:59 Intake Total 203.098 6890.377 Output Total 550 Balance 200.777 666.377 Weight 80.739 kg Intake: Intake, IV Titration 200.777 856.377 Amount Heparin Sod,Pork in 0.45% 200.777 106.377 NaCl 25,000 unit In 0.45 % NaCl 1 250ml.bag @ 18 UNITS/KG/HR 14.533 mls/hr IV .[id number] [facility] Rx#: [id number] Sodium Chloride 0.9% 1, 750 000 ml @ 75 mls/hr IV . [id number] [facility] Rx#:[id number] Oral 360 Output: Urine 550 Other: Voiding Method Urinal Urinal # Voids 1 # Bowel Movements 1 - Exam GENERAL: The patient is alert and oriented x3, not in any acute distress. Well developed, well nourished. HEENT: Pupils are round and equally reacting to light. EOMI. No scleral icterus. No conjunctival pallor. Normocephalic, atraumatic. No pharyngeal erythema. No thyromegaly. CARDIOVASCULAR: S1 and S2 present. No murmurs, rubs, or gallops. PULMONARY: Chest is clear to auscultation, no wheezing or crackles. ABDOMEN: Soft, nontender, nondistended, normoactive bowel sounds. No palpable organomegaly. MUSCULOSKELETAL: No joint swelling or deformity. -EXTREMITIES: No cyanosis, clubbing, or pedal edema. Patient Keeps left foot dangling from the bed due to pain NEUROLOGICAL: Gross neurological examination did not reveal any focal deficits. SKIN: No rashes. no petechiae. - Labs CBC & Chem 7: 08/10/22 09:17 08/10/22 09:17 Labs: Abnormal Lab Results - Last 24 Hours (Table) 08/09/22 08/10/22 08/10/22 Range/Units 15:09 09:17 09:17 Lymphocytes # 0.9 L (1.0-4.8) k/uL APTT 154.3 H* (22.0-30.0) sec Chloride 108 H (98-107) mmol/L BUN 27 H (9-20) mg/dL Total Protein 5.3 L (6.3-8.2) g/dL Albumin 2.9 L (3.5-5.0) g/dL 08/10/22 Range/Units 09:17 Lymphocytes # (1.0-4.8) k/uL APTT 48.2 H (22.0-30.0) sec Chloride (98-107) mmol/L BUN (9-20) mg/dL Total Protein (6.3-8.2) g/dL Albumin (3.5-5.0) g/dL Assessment and Plan Assessment: Acute on chronic peripheral artery disease with left foot ischemia, rest pain Infrarenal aortic abdominal aneurysm History of left superficial femoral artery stenosis status post stent placement hypertension Hyperlipidemia Nicotine dependence COPD, no acute exacerbation Plan: Continue with heparin drip Continue with aspirin Patient is planned to undergo endarterectomy with Dr. Valle on 08/11 Cardiology evaluation is appreciated Consults pulmonary team Labs and medication were reviewed.. Continue same treatment. Continue with symptomatic treatment. Resume home medication. Monitor labs and vitals. DVT and GI prophylaxis. Further recommendations as per clinical course of the patient DVT prophylaxis: heparin GI Prophylaxis: Pepcid PT/OT: Deferred Prognosis is guarded
--- NOTE | 2022-08-10 12:22 | XR ---
EXAMINATION TYPE: XR chest 1V portable DATE OF EXAM: 08/10/2022 12:13 PM COMPARISON: Chest radiographs from 10/13/2020 TECHNIQUE: XR chest 1V portable Portable AP radiograph of the chest. CLINICAL INDICATION:Male, 81 years old with history of preoperative clearance; FINDINGS: Lungs/Pleura: There is no evidence of pleural effusion, focal consolidation, or pneumothorax. Pulmonary vascularity: Unremarkable. Heart/mediastinum: Cardiomediastinal silhouette is unremarkable. Musculoskeletal: No acute osseous pathology. IMPRESSION: No acute cardiopulmonary disease/process. No significant change from prior.
--- NOTE | 2022-08-10 12:31 | P.PN ---
Subjective Progress Note Date: 08/10/22 Patient seen and examined. No complaints. Continue to have pain in his foot, mildly anxious about upcoming surgery Objective - Vital Signs Vital signs: Vital Signs Temp 98.1 F 08/10/22 08:30 Pulse 58 L 08/10/22 08:30 Resp 18 08/10/22 08:30 BP 132/51 08/10/22 08:30 Pulse Ox 93 L 08/10/22 08:30 FiO2 Intake & Output 08/09/22 08/10/22 08/10/22 18:59 06:59 18:59 Intake Total 847.308 3529.377 Output Total 550 Balance 200.777 666.377 Weight 80.739 kg Intake: Intake, IV Titration 200.777 856.377 Amount Heparin Sod,Pork in 0.45% 200.777 106.377 NaCl 25,000 unit In 0.45 % NaCl 1 250ml.bag @ 18 UNITS/KG/HR 14.533 mls/hr IV .[id number] [facility] Rx#: [id number] Sodium Chloride 0.9% 1, 750 000 ml @ 75 mls/hr IV . [id number] [facility] Rx#:[id number] Oral 360 Output: Urine 550 Other: Voiding Method Urinal Urinal # Voids 1 # Bowel Movements 1 - Exam No acute distress resting comfortably. Tenderness to palpation of the left lower extremity. Motor intact with minimal pain with active motion. No palpable femoral pulse on the left. No pulsatile abdominal masses. Dependent rubor - Labs CBC & Chem 7: 08/10/22 09:17 08/10/22 09:17 Labs: Abnormal Lab Results - Last 24 Hours (Table) 08/09/22 08/10/22 08/10/22 Range/Units 15:09 09:17 09:17 Lymphocytes # 0.9 L (1.0-4.8) k/uL APTT 154.3 H* (22.0-30.0) sec Chloride 108 H (98-107) mmol/L BUN 27 H (9-20) mg/dL Total Protein 5.3 L (6.3-8.2) g/dL Albumin 2.9 L (3.5-5.0) g/dL 08/10/22 Range/Units 09:17 Lymphocytes # (1.0-4.8) k/uL APTT 48.2 H (22.0-30.0) sec Chloride (98-107) mmol/L BUN (9-20) mg/dL Total Protein (6.3-8.2) g/dL Albumin (3.5-5.0) g/dL Assessment and Plan Assessment: Acute on chronic peripheral artery disease with ischemic rest pain, Rj classification 4 Infrarenal abdominal aortic aneurysm History of left superficial femoral artery revascularization and stenting History of left lower extremity, foot cellulitis History of hypertension, COPD, hyperlipidemia Plan: Questions answered. Risks and benefits of going for the surgery again di scussed. Hold heparin drip tonight at midnight, nothing by mouth after midnight for intervention tomorrow Patient has been cleared by cardiology for intervention. We'll plan for femoral endarterectomy on 08/11/[address] Valle
[2022-08-10] MEDS: HYDROcodone/APAP 5-325MG 1 EACH TAB PO PRN ×2 (13:33→20:03)
[2022-08-10] MEDS ORDERED: IPRATROPIUM-ALBUTEROL 3 ML NEB INHALATION PRN (15:53)
--- NOTE | 2022-08-10 15:53 | P.CNPUL ---
History of Present Illness Consult date: 08/10/22 Requesting physician: Elsy Mcqueen Reason for consult: dyspnea, COPD, other Chief complaint: Preoperative clearance/COPD. History of present illness: Pulmonary consult dated 08/10/2022. 81-year-old patient who presents to the emergency department, on August 08, with weakness and pain in his left leg. The patient does have a history of known peripheral vascular disease, and is seen by one of the vascular surgeons on staff here. The patient is apparently going to have stenting of his left lower extremity, done on this admission. We were asked to see the patient for preoperative clearance, as the patient likely has COPD, from 60 years of tobacco use. The patient does complain of shortness of breath, cough, and wheezing. Today, after seeing the patient, in room 358, we asked for a chest x-ray, and a spirogram. His FEV1 was 1.51 L, his FVC was 2.74 L, and his MVV was 57 L/m. Based on the FEV1, and the MVV, the patient's at low increased operative risk. His COPD is graded as being moderately severe. The patient is planning to have a femoral endarterectomy on August 11. White count 6.3, hemoglobin 14.2, hematocrit 44.8, and platelet count 262,000. The patient's PTT is 48.2. Sodium 137, potassium 4.1, chlorides 108, CO2 28, BUN 27, and creatinine 0.87. Albumin is 2.9. Chest x-ray is normal. Review of Systems REVIEW OF SYSTEMS: CONSTITUTIONAL: [Negative.] NEUROLOGIC: [ Negative.] HEENT: [ Negative.] CARDIAC: Left leg pain and weakness. PULMONARY: Shortness of breath, cough, and wheezing, primarily on exertion. GI: [Negative.] : [Negative.] RHEUMATOLOGIC: [ Negative.] IMMUNOLOGIC: [ Negative.] ENDOCRINE: [Negative. 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 History of Any Multi-Drug Resistant Organisms: None Reported Past Surgical History: Hernia Repair Past Anesthesia/Blood Transfusion Reactions: No Reported Reaction Additional Past Anesthesia/Blood Transfusion Reaction / Comment(s): no hx blood transfusion Past Psychological History: No Psychological Hx Reported Smoking Status: Current every day smoker Past Alcohol Use History: None Reported Additional Past Alcohol Use History / Comment(s): started smoking at age 15,1 ppd Past Drug Use History: None Reported - Past Family History Mother Family Medical History: Cancer Father Family Medical History: Cancer Medications and Allergies Home Medications Medication Instructions Recorded Confirmed Type Aspirin EC [Ecotrin Low Dose] 81 mg PO DAILY 09/02/21 08/08/22 History Fluticasone/Vilanterol [Breo 1 puff INHALATION RT-DAILY 09/02/21 08/08/22 History Ellipta 100-25 Mcg Inhaler] Lisinopril-Hctz 20-25 mg 0.5 tab PO DAILY 09/02/21 08/08/22 History [Zestoretic 20-25] Metoprolol Tartrate [Lopressor] 25 mg PO BID 09/02/21 08/08/22 History Rosuvastatin Calcium [Crestor] 5 mg PO HS 09/02/21 08/08/22 History Tamsulosin [Flomax] 0.4 mg PO DAILY 09/02/21 08/08/22 History ALPRAZolam [Xanax] 0.5 mg PO HS 05/19/22 08/08/22 History Acetaminophen [Tylenol Arthritis] 650 mg PO BID 06/27/22 08/08/22 History Ipratropium [place] 0.06%Nasal 1 spray EA NOSTRIL TID PRN 06/27/22 08/08/22 History [Atrovent Nasal 0.06%] HYDROcodone/APAP 7.5-325MG [[place] 1 tab PO TID 07/05/22 08/08/22 History 7.5-325] Allergies Allergy/AdvReac Type Severity Reaction Status Date / Time No Known Allergies Allergy Verified 08/08/22 15:54 Physical Exam Osteopathic Statement: *. No significant issues noted on an osteopathic s tructural exam other than those noted in the History and Physical/Consult. Vitals: Vital Signs Temp Pulse Pulse Resp BP Pulse Ox 08/10/22 11:30 64 17 119/59 94 L 08/10/22 08:30 98.1 F 58 L 18 132/51 93 L 08/10/22 04:00 98.1 F 60 18 132/78 95 08/10/22 02:00 55 L 66 16 08/10/22 00:00 58 L 18 106/62 94 L 08/09/22 20:00 97.9 F 60 66 18 118/60 94 L 08/09/22 16:00 98.9 F 66 16 116/55 90 L Intake and Output 08/10/22 08/10/22 08/10/22 06:59 14:59 22:59 Intake Total 526.377 Output Total 250 Balance 276.377 Intake: Intake, IV Titration 406.377 Amount Heparin Sod,Pork in 0.45% 106.377 NaCl 25,000 unit In 0.45 % NaCl 1 250ml.bag @ 18 UNITS/KG/HR 14.533 mls/hr IV .[id number] [facility] Rx#: [id number] Sodium Chloride 0.9% 1, 300 000 ml @ 75 mls/hr IV . [id number] [facility] Rx#:[id number] Oral 120 Output: Urine 250 Other: Voiding Method Urinal Urinal # Voids 1 # Bowel Movements 1 Weight 80.739 kg No acute distress, oriented 3. No conversational dyspnea or use of accessory muscles. Room air saturation is 94%. HEENT examination is grossly unremarkable. Neck supple. Full range of motion. No adenopathy thyromegaly or neck vein distention. Cardiovascular examination reveals regular rhythm rate. S1-S2 normal. No S3 or S4. No discernible murmur noted. Heart rate 64 bpm. Lungs reveal mostly clear breath sounds. Minimal scattered rhonchi. No wheezes or crackles. Breath sounds equal bilaterally. Resting room air saturation is 94%. Abdomen soft bowel sounds are heard. No masses or tenderness. Extremities are intact. No cyanosis clubbing or edema. Skin is without rash or lesion. Neurologic examination is brief but nonfocal. Results - Laboratory Findings CBC and BMP: 08/10/22 09:17 08/10/22 09:17 PT/INR, D-dimer PT 9.6 sec (9.0-12.0) 08/08/22 15:08 INR 0.9 (<1.2) 08/08/22 15:08 Abnormal lab findings: Abnormal Labs 08/08/22 08/08/22 08/09/22 15:08 15:08 00:27 WBC 13.5 H RBC Hgb Neutrophils # 11.4 H Lymphocytes # APTT 77.0 H Sodium 136 L Chloride BUN 56 H Creatinine 1.70 H Glucose 100 H Calcium AST Total Protein 6.2 L Albumin 3.4 L 08/09/22 08/09/22 08/09/22 07:18 07:18 07:18 WBC RBC 4.07 L Hgb 12.6 L Neutrophils # Lymphocytes # 0.9 L APTT 34.8 H Sodium 136 L Chloride 109 H BUN 47 H Creatinine Glucose Calcium 8.3 L AST 16 L Total Protein 4.8 L Albumin 2.5 L 08/09/22 08/10/22 08/10/22 15:09 09:17 09:17 WBC RBC Hgb Neutrophils # Lymphocytes # 0.9 L APTT 154.3 H* Sodium Chloride 108 H BUN 27 H Creatinine Glucose Calcium AST Total Protein 5.3 L Albumin 2.9 L 08/10/22 09:17 WBC RBC Hgb Neutrophils # Lymphocytes # APTT 48.2 H Sodium Chloride BUN Creatinine Glucose Calcium AST Total Protein Albumin - Diagnostic Findings Chest x-ray: image reviewed Assessment and Plan Assessment: 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 Acute on chronic peripheral artery disease with ischemic rest pain. Infrarenal abdominal aortic aneurysm. History of left lower extremity cellulitis. Moderately severe COPD from significant tobacco use. History of CVA. History of hyperlipidemia. History of hypertension. Plan: Plan dated 08/10/2022. The patient's FEV1 was 1.51 L which is 48% predicted. The FVC was 2.74 L which is 63% of predicted. The MVV is 57 L/m. Based on the FEV1, and the MVV, the patient is a low increased operative risk. His chronic lung disease is graded as being moderately severe. From our perspective, the patient is cleared for surgery tomorrow. We will continue to follow along make recommendations along the way. Currently, the patient's on Symbicort, and we will add duo nebs. Additional recommendations and suggestions are forthcoming. Time with Patient: Greater than 30
[2022-08-10] MEDS: ATORVASTATIN 10 MG TAB PO SCH (20:03)
[2022-08-10] MEDS: FAMOTIDINE 20 MG/2 ML VIAL IV SCH (20:06)
[2022-08-10] MEDS: IPRATROPIUM-ALBUTEROL 3 ML NEB INHALATION SCH (20:08)
[2022-08-10] MEDS: SYMBICORT 160-4.5 MCG INHALER INHALATION SCH (20:08)
[2022-08-10] MEDS: TEMAZEPAM 15 MG CAP PO PRN (22:53)
--- NOTE | 2022-08-11 01:25 | PN ---
PROGRESS NOTE SUBJECTIVE: This is a gentleman with peripheral vascular disease. He is having significant discomfort and he is going for vascular surgery by Dr. Da Silva or Dr. Dorsey. His risk is moderate to high. His stress test was not performed. He is a smoker and has some pulmonary issues. Advised to seek a pulmonary evaluation. Cardiac-boyer, no chest pain. Activity is limited. Maintaining sinus rhythm. OBJECTIVE: HEART: S1, S2 heard normally. Short systolic murmur noted. LUNGS: Reveal diminished air entry. ABDOMEN: Unremarkable. LOWER EXTREMITIES: Reveal diminished pulses. Prognosis remains guarded. He is going for surgery tomorrow. The patient is aware that the risk is high. MMODL / IJN: [id number] /
[2022-08-11] MEDS: SODIUM CHLORIDE 0.9% 1,000 ML IV SCH ×3 (03:31→23:26)
[2022-08-11] MEDS: HYDROcodone/APAP 5-325MG 1 EACH TAB PO PRN (04:27)
[2022-08-11] MEDS: IPRATROPIUM-ALBUTEROL 3 ML NEB INHALATION SCH ×3 (07:06→21:39)
[2022-08-11] MEDS: SYMBICORT 160-4.5 MCG INHALER INHALATION SCH ×2 (07:06→21:39)
--- NOTE | 2022-08-11 07:38 | P.PN ---
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 Patient planned to undergo left lower extremity and proctectomy tomorrow. [employer] preop evaluation already done, ejection fraction 50-55%, also pulmonary consult evaluation is recommended given his history of COPD. However patient does not complain of from dyspnea or wheezing at rest now, he states that he used to smoke 4 packs per day and now down to half-1 pack per day. He is not on home oxygen. But he complains from exer tional dyspnea whenever he tries to do simple things prior to admission to the hospital for example patient was trying to go to the bathroom. He denies alcohol or illicit drugs. Vitals and labs look stable. Discontinued on heparin drip, normal saline 75 mg, he is on home dose of aspirin 81 mg metoprolol 25 mg 08/11/2022 Patient is going for left foot endarterectomy for his acute ischemic foot. P atient still complaining from the same pain of the left foot and keep it dangling from the bed. No other new complaints, no chest pain, no dyspnea with rest or exertion. Neurologist x-ray negative vitals are stable Patient has been evaluated by cardiology and pulmonary team and cleared to proceed with surgery, he still has some risks however there is no absolute contraindication. He remains on heparin drip and gentle hydration. Objective - Vital Signs Vital signs: Vital Signs Temp 98 F 08/11/22 03:49 Pulse 60 08/11/22 07:15 Resp 16 08/11/22 03:49 BP 125/43 08/11/22 03:49 Pulse Ox 95 08/11/22 03:49 FiO2 Intake & Output 08/10/22 08/11/22 08/11/22 18:59 06:59 18:59 Intake Total 308.103 Output Total 350 Balance -41.897 Weight 80.739 kg Intake: Intake, IV Titration 68.103 Amount Heparin Sod,Pork in 0.45% 68.103 NaCl 25,000 unit In 0.45 % NaCl 1 250ml.bag @ 18 UNITS/KG/HR 14.533 mls/hr IV .[id number] [facility] Rx#: [id number] Oral 240 Output: Urine 350 Other: Voiding Method Urinal Urinal # Voids 1 1 # Bowel Movements 1 - Exam GENERAL: The patient is alert and oriented x3, not in any acute distress. Well developed, well nourished. HEENT: Pupils are round and equally reacting to light. EOMI. No scleral icterus. No conjunctival pallor. Normocephalic, atraumatic. No pharyngeal erythema. No thyromegaly. CARDIOVASCULAR: S1 and S2 present. No murmurs, rubs, or gallops. PULMONARY: Chest is clear to auscultation, no wheezing or crackles. ABDOMEN: Soft, nontender, nondistended, normoactive bowel sounds. No palpable organomegaly. MUSCULOSKELETAL: No joint swelling or deformity. -EXTREMITIES: No cyanosis, clubbing, or pedal edema. Patient Keeps left foot dangling from the bed due to pain NEUROLOGICAL: Gross neurological examination did not reveal any focal deficits. SKIN: No rashes. no petechiae. - Labs CBC & Chem 7: 08/10/22 09:17 08/10/22 09:17 Labs: Abnormal Lab Results - Last 24 Hours (Table) 08/10/22 08/10/22 08/10/22 Range/Units 09:17 09:17 09:17 Lymphocytes # 0.9 L (1.0-4.8) k/uL APTT 48.2 H (22.0-30.0) sec Chloride 108 H (98-107) mmol/L BUN 27 H (9-20) mg/dL Total Protein 5.3 L (6.3-8.2) g/dL Albumin 2.9 L (3.5-5.0) g/dL Assessment and Plan Assessment: Acute on chronic peripheral artery disease with left foot ischemia, rest pain Infrarenal aortic abdominal aneurysm History of left superficial femoral artery stenosis status post stent placement hypertension Hyperlipidemia Nicotine dependence COPD, no acute exacerbation Plan: Continue with heparin drip Continue with aspirin Patient is planned to undergo endarterectomy with Dr. Valle on 08/11 Cardiology evaluation is appreciated Consults pulmonary team Labs and medication were reviewed.. Continue same treatment. Continue with symptomatic treatment. Resume home medication. Monitor labs and vitals. DVT and GI prophylaxis. Further recommendations as per clinical course of the patient DVT prophylaxis: heparin GI Prophylaxis: Pepcid PT/OT: Deferred Prognosis is guarded
[2022-08-11] MEDS: ACETAMINOPHEN TAB 325 MG TAB PO SCH ×2 (08:59→21:20)
[2022-08-11] MEDS: NICOTINE 14MG/24HR PATCH TRANSDERM SCH (08:59)
[2022-08-11] MEDS: METOPROLOL TARTRATE 25 MG TAB PO SCH ×2 (08:59→21:20)
[2022-08-11] MEDS: ASPIRIN 81 MG PO SCH (09:00)
[2022-08-11] MEDS: TAMSULOSIN 0.4 MG CAP.ER.24H PO SCH (09:00)
[2022-08-11] MEDS: FAMOTIDINE 20 MG/2 ML VIAL IV SCH ×2 (09:01→21:10)
[2022-08-11] MEDS: LISINOPRIL-HCTZ 20-25 MG 1 EACH TAB PO SCH (09:01)
[2022-08-11] MEDS: HYDROmorphone 0.5 MG/0.5 ML SYRINGE IVP PRN (09:01)
[2022-08-11] MEDS ORDERED: IV FLUID CONTINUATION 600 ML IV ONE (10:30)
[2022-08-11] MEDS ORDERED: MIDAZOLAM 2 MG/2 ML VIAL IVP ONE (10:31)
[2022-08-11 11:26] LABS: INR 1.1 (<1.2); Partial Thromboplastin Time 25.7 sec (22.0-30.0); Prothrombin Time 11.2 sec (9.0-12.0)
[2022-08-11] MEDS ORDERED: LIDOCAINE 2% INJ 20 MG/ML (2 ML VIAL) ONE (11:50)
[2022-08-11] MEDS ORDERED: fentaNYL (PF) 50 MCG/ML 2 ML AMP ONE (11:50)
[2022-08-11] MEDS ORDERED: PROPOFOL 10 MG/ML 20 ML VIAL IV ONE (11:50)
[2022-08-11] MEDS ORDERED: ePHEDrine 50 MG/ML 1 ML VIAL ONE (11:50)
[2022-08-11] MEDS ORDERED: HEPARIN SODIUM,PORCINE 10,000 UNIT/ML 1 ML VIAL ONE (11:50)
[2022-08-11] MEDS ORDERED: MIDAZOLAM 2 MG/2 ML VIAL ONE (11:50)
[2022-08-11] MEDS ORDERED: PROTAMINE SULFATE 10 MG/ML 5 ML VIAL IV ONE (11:50)
[2022-08-11] MEDS ORDERED: PHENYLEPHRINE-0.9% NACL SYG 1,000 MCG/10 ML SYRINGE ONE (11:50)
[2022-08-11] MEDS ORDERED: SODIUM CHLORIDE 0.9% 50 ML with ceFAZolin 2 GM IV ONE ×2 (11:57)
[2022-08-11] MEDS ORDERED: LACTATED RINGERS 1,000 ML IV ONE (12:33)
--- NOTE | 2022-08-11 14:57 | P.OP ---
Date of Procedure: 08/11/22 Preoperative Diagnosis: Left common femoral occlusion with ischemic rest pain left foot. Postoperative Diagnosis: Same. Procedure(s) Performed: Left common and profundus femoris thromboendarterectomy with patch angioplasty Anesthesia: spinal Surgeon: Riley Maya Estimated Blood Loss (ml): 50 Pathology: other (Femoral plaque) Condition: stable Disposition: no change Indications for Procedure: Patient is an 81-year-old male who presented with symptoms of ischemic rest pain of his left foot and ulceration along the web space of the fourth and fifth toe left foot. Physical examination revealed absent femoral pulse. CT angiogram was performed which demonstrated the common and proximal portion of the profundus femoris arteries to be occluded. Additionally multilevel stenosis of the SFA was noted. It was felt that thromboendarterectomy in the common and profundus would provide enough flow to leave his ischemic rest pain allowing to lead a normal life. The procedure, risk and benefits were discussed with the patient patient wished to proceed. Consent form was signed. Description of Procedure: Description of procedure and findings: Patient was brought the upper and placed in the supine position after having received spinal anesthesia Mr. by the department anesthesiology. Da Silva catheter was placed to gravity drainage. The patient received 2 g of Ancef administered intravenously in the perioperative phase for prophylactic antibiotic therapy. Patient's left lower abdomen and anterior thigh area were sterilely prepped and draped in usual manner. Skin incision was made overlying the common femoral artery and carried down thr ough subcu change tissues. Hemostasis was achieved using electrocautery. The lymphatic layer was divided laterally swept medially exposing the femoral sheath. This was incised exposing the common femoral artery. The artery was absent of pulse and was quite firm to palpation. The dissection was carried to the level of the inguinal ligament at which point a pulse was identified. The artery was dissected free of investing tissues and encircled Vesseloops. The dissection was then carried distally until the origin of the profundus was identified. This was dissected free of investing tissues and encircled Vesseloops. In the very proximal portion of the SFA a previous stent had been placed and this was also occluded. The artery distal to the distal end of the stent was dissected free of investing tissues and encircled Vesseloops. The patient was systemically heparinized and after adequate circulation time the [place]essel[place] running profundus and superficial femoral arteries were drawn closed and a clamp was placed on the distal external iliac artery. Arteriotomy was made in the common and extended both proximally and distally. Was extended to the very proximal end of the plaque and distally to the end of the stent. Thromboendarterectomy was then performed beginning the common and extending to the level of the profundus. Retraction endarterectomy was performed on the profundus femoris artery. Once this was performed excellent backbleeding through the profundus was identified. The thromboendarterectomy was continued to the stent and the stent was noted to be fairly ingrown into the intima of the vessel. The stent was removed with thromboendarterectomy of the entire stented segment. Once freely mobilize the plaque was sent to the department of pathology. The remaining luminal surface of the artery was inspected for any loose or free-floating material and this was removed where identified. Distally was necessary to tack the plaque and this was performed with 6-0 Prolene suture. Patch closure of the arteriotomy was performed with 6-0 Prolene suture and a bovine pericardial patch. Just prior to completion of the patch closure the artery was backbled through the superficial femoral and profundus femoris and flushed from the common and no thrombus was retrieved. The anastomotic line was completed and flow was restored through the common into the profundus and eventually into the superficial femoral artery. 2 areas of leak were identified and these were easily controlled with 6-0 Prolene suture. The wound was irrigated with antibiotic containing solution. The patient received 25 mg of protamine to help reverse the heparin effect topical thrombin and Gelfoam were placed about the anastomotic line to help assure hemostasis. Deep tissues were closed in multiple layers with 3-0 Vicryl dermis was closed with 4-0 Monocryl placed in running intradermal fashion. Appropriate dressings were applied. Patient tolerated the procedure well. The left foot was pink and had excellent capillary refill. Patient was then transported to the recovery area satisfactory and stable condition.
[2022-08-11] MEDS ORDERED: SODIUM CHLORIDE 0.9% 1,000 ML IV ONE (15:25)
[2022-08-11] MEDS: HEPARIN SOD,PORK IN 0.45% NACL 25,000 UNIT in 0.45% NACL 1 250ML.BAG IV SCH (15:46)
[2022-08-11] MEDS: LACTATED RINGERS 1,000 ML IV SCH ×2 (15:46→23:19)
[2022-08-11] MEDS: GABAPENTIN 300 MG CAP PO SCH ×2 (16:03→21:20)
[2022-08-11] MEDS: HYDROcodone/APAP 7.5-325MG 1 EACH TAB PO SCH ×2 (16:03→21:20)
--- NOTE | 2022-08-11 21:01 | PN ---
PROGRESS NOTE SUBJECTIVE: Mr. Reid is going for vascular surgery by Dr. Da Silva. He remains in sinus rhythm, hemodynamically stable. He is at [id number] risk. This was explained to the patient and also Dr. Dorsey. OBJECTIVE: VITAL SIGNS: Stable. HEART: S1 and S2 heard normally. Short systolic murmur noted. LUNGS: Reveal bilateral scattered rhonchi. Diminished air entry. ABDOMEN: Soft. EXTREMITIES: Lower extremity pulses are diminished. CENTRAL NERVOUS SYSTEM: No focal deficits. MMODL / IJN: [id number] /
[2022-08-11] MEDS: ATORVASTATIN 10 MG TAB PO SCH (21:20)
[2022-08-11] MEDS: ALPRAZolam 0.5 MG TAB PO SCH (21:20)
[2022-08-12] MEDS: HEPARIN SOD,PORK IN 0.45% NACL 25,000 UNIT in 0.45% NACL 1 250ML.BAG IV SCH (00:56)
--- NOTE | 2022-08-12 05:35 | P.PN ---
Subjective Progress Note Date: 08/12/22 Principal diagnosis: PAD The patient is a pleasant 81-year-old gentleman with a past medical history significant for history of smoking as well as lower extremity PAD who was admi tted to the hospital was a critical limb ischemia of the left leg and he underwent left femoral endarterectomy which was uneventful. August [id number] The patient was seen and evaluated this morning. He remains asymptomatic. He remains hemodynamics are stable. He is on antiplatelet as well as he is on statin. From the cardiovascular standpoint of view, the patient can be discharged home in the next 24 hours. Continue the current medical regimen at this point Objective - Vital Signs Vital signs: Vital Signs Temp 98.6 F 08/12/22 04:00 Pulse 66 08/12/22 04:00 Resp 16 08/12/22 04:00 BP 129/55 08/12/22 04:00 Pulse Ox 90 L 08/12/22 04:00 FiO2 Intake & Output 08/11/22 08/11/22 08/12/22 06:59 18:59 06:59 Intake Total 340.006 5419 240 Output Total 350 720 250 Balance -41.897 1555 -10 Weight 80.739 kg Intake: IV 1575 Intake, IV Titration 68.103 700 Amount Heparin Sod,Pork in 0.45% 68.103 NaCl 25,000 unit In 0.45 % NaCl 1 250ml.bag @ 18 UNITS/KG/HR 14.533 mls/hr IV .[id number] [facility] Rx#: [id number] Sodium Chloride 0.9% 1, 600 000 ml @ 75 mls/hr IV . [id number] [facility] Rx#:[id number] ceFAZolin 1,000 mg In 100 Sodium Chloride 0.9% 50 ml @ 100 mls/hr IVPB Q8HR [facility] Rx#:[id number] Oral 240 240 Output: Urine 350 700 250 Estimated Blood Loss 20 Other: Voiding Method Urinal Urinal # Voids 1 2 - Constitutional General appearance: Present: no acute distress - Respiratory Respiratory: bilateral: CTA - Cardiovascular Rhythm: regular - Labs CBC & Chem 7: 08/10/22 09:17 08/10/22 09:17 Assessment and Plan Assessment: Assessment Critical limb ischemia of the left leg Significant history of smoking Plan The patient can be discharged home in the next 24 hours Continue the current medical regimen Follow-up with the patient
[2022-08-12] MEDS: IPRATROPIUM-ALBUTEROL 3 ML NEB INHALATION SCH ×3 (07:43→21:18)
[2022-08-12] MEDS: SYMBICORT 160-4.5 MCG INHALER INHALATION SCH ×2 (07:43→21:18)
--- NOTE | 2022-08-12 08:19 | P.ANPRN ---
Procedure Note - Anesthesia - Invasive Line Arterial Line Time Out Performed: Yes Date of Procedure: 08/12/22 Location of Patient: PreOp Preparation: Sterile Prep, Sterile Dressing Arterial Line Location: Radial (left) Ultrasound Used: No Purpose - Visualization and Identification of Vasculature: No Needle Guage: 20g Narrative: Left radial line placement per sterile protocol utilized.
[2022-08-12] MEDS: ACETAMINOPHEN TAB 325 MG TAB PO SCH ×2 (09:22→21:16)
[2022-08-12] MEDS: TAMSULOSIN 0.4 MG CAP.ER.24H PO SCH (09:22)
[2022-08-12] MEDS: GABAPENTIN 300 MG CAP PO SCH ×3 (09:22→21:17)
[2022-08-12] MEDS: LISINOPRIL-HCTZ 20-25 MG 1 EACH TAB PO SCH (09:23)
[2022-08-12] MEDS: METOPROLOL TARTRATE 25 MG TAB PO SCH ×2 (09:23→21:17)
[2022-08-12] MEDS: ASPIRIN 81 MG PO SCH (09:23)
[2022-08-12] MEDS: HYDROcodone/APAP 7.5-325MG 1 EACH TAB PO SCH ×3 (09:23→21:17)
[2022-08-12] MEDS: NICOTINE 14MG/24HR PATCH TRANSDERM SCH (09:24)
[2022-08-12] MEDS: FAMOTIDINE 20 MG/2 ML VIAL IV SCH ×2 (09:24→21:16)
[2022-08-12] MEDS: SODIUM CHLORIDE 0.9% 1,000 ML IV SCH ×2 (09:31→21:25)
--- NOTE | 2022-08-12 10:53 | P.PN ---
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 Patient planned to undergo left lower extremity and proctectomy tomorrow. 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 However patient does not complain of from dyspnea or wheezing at rest now, he states that he used to smoke 4 packs per day and now down to half-1 pack per day. He is not on home oxygen. But he complains from exer tional dyspnea whenever he tries to do simple things prior to admission to the hospital for example patient was trying to go to the bathroom. He denies alcohol or illicit drugs. Vitals and labs look stable. Discontinued on heparin drip, normal saline 75 mg, he is on home dose of aspirin 81 mg metoprolol 25 mg 08/11/2022 Patient is going for left foot endarterectomy for his acute ischemic foot. P atient still complaining from the same pain of the left foot and keep it dangling from the bed. No other new complaints, no chest pain, no dyspnea with rest or exertion. Neurologist x-ray negative vitals are stable Patient has been evaluated by cardiology and pulmonary team and cleared to proceed with surgery, he still has some risks however there is no absolute contraindication. He remains on heparin drip and gentle hydration. 08/12/2022 Patient is status post Left common and profundus femoris thromboendarterectomy with patch angioplasty. His total complaining from pain at the surgical site. No other symptoms. Hemodynamically stable. Vitals are stable. Patient is afebrile. Heparin drip is a stopped and patient placed on Ringer lactate 100 mg by surgery team. Heparin drip was stopped, we will start subcu heparin if cleared by orthopedic team, discussed with staff and bedside nurse. Continue with pain management. Also patient was to be DO NOT RESUSCITATE once confirmed with the staff Objective - Vital Signs Vital signs: Vital Signs Temp 98.2 F 08/12/22 09:20 Pulse 94 08/12/22 09:20 Resp 16 08/12/22 09:20 BP 107/51 08/12/22 09:20 Pulse Ox 94 L 12/31/22 09:20 FiO2 Intake & Output 08/11/22 08/12/22 08/12/22 18:59 06:59 18:59 Intake Total 2275 240 Output Total 720 475 Balance 1555 -235 Weight 80.739 kg Intake: IV 1575 Intake, IV Titration 700 Amount Sodium Chloride 0.9% 1, 600 000 ml @ 75 mls/hr IV . [id number] [facility] Rx#:[id number] ceFAZolin 1,000 mg In 100 Sodium Chloride 0.9% 50 ml @ 100 mls/hr IVPB Q8HR [facility] Rx#:[id number] Oral 240 Output: Urine 700 475 Estimated Blood Loss 20 Other: Voiding Method Urinal # Voids 1 - Exam GENERAL: The patient is alert and oriented x3, not in any acute distress. Well developed, well nourished. HEENT: Pupils are round and equally reacting to light. EOMI. No scleral icterus. No conjunctival pallor. Normocephalic, atraumatic. No pharyngeal erythema. No thyromegaly. CARDIOVASCULAR: S1 and S2 present. No murmurs, rubs, or gallops. PULMONARY: Chest is clear to auscultation, no wheezing or crackles. ABDOMEN: Soft, nontender, nondistended, normoactive bowel sounds. No palpable organomegaly. MUSCULOSKELETAL: No joint swelling or deformity. -EXTREMITIES: No cyanosis, clubbing, or pedal edema. Left lower extremity surgical wound with approximately a Place, rest of exam deferred to surgery team NEUROLOGICAL: Gross neurological examination did not reveal any focal deficits. SKIN: No rashes. no petechiae. 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 Continue same treatment. Continue with symptomatic treatment. Resume home medication. Monitor labs and vitals. DVT and GI prophylaxis. Further recommendations as per clinical course of the patient DVT prophylaxis: Subcutaneous heparin, if cleared GI Prophylaxis: Pepcid PT/OT: Deferred Prognosis is guarded
--- NOTE | 2022-08-12 12:27 | P.PN ---
Subjective Progress Note Date: 08/12/22 81-year-old patient who presents to the emergency department, on August 08, with weakness and pain in his left leg. The patient does have a history of known peripheral vascular disease, and is seen by one of the vascular surgeons on staff here. The patient is apparently going to have stenting of his left lower extremity, done on this admission. We were asked to see the patient for preoperative clearance, as the patient likely has COPD, from 60 years of tobacco use. The patient does complain of shortness of breath, cough, and wheezing. Today, after seeing the patient, in room 358, we asked for a chest x-ray, and a spirogram. His FEV1 was 1.51 L, his FVC was 2.74 L, and his MVV was 57 L/m. Based on the FEV1, and the MVV, the patient's at low increased operative risk. His COPD is graded as being moderately severe. The patient is planning to have a femoral endarterectomy on August 11. White count 6.3, hemoglobin 14.2, hematocrit 44.8, and platelet count 262,000. The patient's PTT is 48.2. Sodium 137, potassium 4.1, chlorides 108, CO2 28, BUN 27, and creatinine 0.87. Albumin is 2.9. Chest x-ray is normal. The patient is seen today 08/12/2022 in follow-up on the selective care unit. He is currently resting comfortably in bed. Awake and alert in no acute distress. Maintaining good O2 saturations in the 90s on 2 L/m per nasal cannula. Normal saline at 75 ML's per hour. He did undergo a left common and profundus femoral is from below endarterectomy with patch angioplasty for ischemic rest pain of his left foot. Postoperative day #1. He remains on a heparin drip. Antibiotics in the form of cefazolin. Continued on DuoNeb inhalations, Symbicort. NicoDerm patch in place. Objective - Vital Signs Vital signs: Vital Signs Temp 98.2 F 08/12/22 09:20 Pulse 60 08/12/22 11:37 Resp 16 08/12/22 09:20 BP 107/51 08/12/22 09:20 Pulse Ox 94 L 08/12/22 09:20 FiO2 Intake & Output 08/11/22 08/12/2222 18:59 06:59 18:59 Intake Total 2275 240 Output Total 720 475 Balance 1555 -235 Weight 80.739 kg Intake: IV 1575 Intake, IV Titration 700 Amount Sodium Chloride 0.9% 1, 600 000 ml @ 75 mls/hr IV . [id number] [facility] Rx#:[id number] ceFAZolin 1,000 mg In 100 Sodium Chloride 0.9% 50 ml @ 100 mls/hr IVPB Q8HR [facility] Rx#:[id number] Oral 240 Output: Urine 700 475 Estimated Blood Loss 20 Other: Voiding Method Urinal # Voids 1 - Exam Alert, pleasant 81-year-old male patient. No acute distress, oriented 3. No conversational dyspnea or use of accessory muscles. HEENT examination is grossly unremarkable. Neck supple. Full range of motion. No adenopathy thyromegaly or neck vein distention. Cardiovascular examination reveals regular rhythm rate. S1-S2 normal. No S3 or S4. No discernible murmur noted. Lungs reveal mostly clear breath sounds. Minimal scattered rhonchi. No wheezes or crackles. Breath sounds equal bilaterally. Abdomen soft bowel sounds are heard. No masses or tenderness. Extremities are intact. No cyanosis clubbing or edema. Skin is without rash or lesion. Neurologic examination is brief but nonfocal. 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 Postoperative day #1. Acute on chronic peripheral artery disease with ischemic rest pain. Infrarenal abdominal aortic aneurysm. History of left lower extremity cellulitis. Moderately severe COPD from significant tobacco use. History of CVA. History of hyperlipidemia. History of hypertension. Plan: The patient was seen and evaluated in Currently stable and on 2 L nasal cannula Continue bronchodilators Continue cefazolin NicoDerm patch in place Home once cleared by medicine I have personally seen and examined the patient, performed the documentation and the assessment and plan as written. Number of minutes spent on the visit: 10.
--- NOTE | 2022-08-12 12:58 | P.PN ---
Subjective Progress Note Date: 08/12/22 Principal diagnosis: Left femoral endarterectomy Patient seen and examined. He is doing well. He states his pain is controlled at the left groin. His foot is warm and his pain in his heel has improved since surgery. He denies any fevers, chills, chest pain or shortness of breath Objective - Vital Signs Vital signs: Vital Signs Temp 98.4 F 08/12/22 12:25 Pulse 69 08/12/22 12:25 Resp 16 08/12/22 12:25 BP 103/49 08/12/22 12:25 Pulse Ox 94 L 08/12/22 12:25 FiO2 Intake & Output 08/11/22 08/12/22 08/12/22 18:59 06:59 18:59 Intake Total 2275 240 Output Total 720 475 Balance 1555 -235 Weight 80.739 kg Intake: IV 1575 Intake, IV Titration 700 Amount Sodium Chloride 0.9% 1, 600 000 ml @ 75 mls/hr IV . [id number] [facility] Rx#:[id number] ceFAZolin 1,000 mg In 100 Sodium Chloride 0.9% 50 ml @ 100 mls/hr IVPB Q8HR [facility] Rx#:[id number] Oral 240 Output: Urine 700 475 Estimated Blood Loss 20 Other: Voiding Method Urinal # Voids 1 - Exam Left groin surgical site is clean, dry and intact. No hematoma. Palpable femoral pulse Multiphasic PT and DP signal. Faint PT pulse. Good capillary refill. Mild tenderness to palpation at the toes. - Labs CBC & Chem 7: 08/10/22 09:17 08/10/22 09:17 Assessment and Plan Assessment: Postoperative day 1 left common femoral artery endarterectomy and patch angioplasty Acute on chronic peripheral artery disease with ischemic rest pain, [place] classification 4 Infrarenal abdominal aortic aneurysm History of left superficial femoral artery revascularization and stenting History of left lower extremity, foot cellulitis History of hypertension, COPD, hyperlipidemia Plan: Increase activity. Ambulate with assistance in the hallway Okay to change dressing when needed. Continue current medications aspirin, statin.
[2022-08-12] MEDS: HEPARIN SODIUM,PORCINE/PF 5,000 UNIT/0.5 ML SYRINGE SQ SCH (21:16)
[2022-08-12] MEDS: ATORVASTATIN 10 MG TAB PO SCH (21:17)
[2022-08-12] MEDS: ALPRAZolam 0.5 MG TAB PO SCH (21:18)
[2022-08-13] MEDS: IPRATROPIUM-ALBUTEROL 3 ML NEB INHALATION SCH ×3 (07:47→20:39)
[2022-08-13] MEDS: SYMBICORT 160-4.5 MCG INHALER INHALATION SCH ×2 (07:47→20:39)
--- NOTE | 2022-08-13 07:59 | P.PN ---
Subjective Progress Note Date: 08/13/22 Principal diagnosis: PAD The patient is a pleasant 81-year-old gentleman with a past medical history significant for history of smoking as well as lower extremity PAD who was admi tted to the hospital was a critical limb ischemia of the left leg and he underwent left femoral endarterectomy which was uneventful. August 122021 The patient was seen and evaluated this morning. He remains asymptomatic. He remains hemodynamics are stable. He is on antiplatelet as well as he is on statin. From the cardiovascular standpoint of view, the patient can be discharged home in the next 24 hours. Continue the current medical regimen at this point 08/13/2022 The patient was seen and evaluated this morning. He remains asymptomatic from a cardiovascular standpoint of view and he remains hemodynamically stable. Currently he is on antiplatelet. He is on low intensity statin and point to increase the dose of Lipitor to 80 mg by mouth daily at bedtime. From the cardiovascular standpoint of view, the patient potentially can be discharged home in the next 12-24 hours. Objective - Vital Signs Vital signs: Vital Signs Temp 98.1 F 08/13/22 04:00 Pulse 56 L 08/13/22 07:50 Resp 15 08/13/22 04:00 BP 107/51 08/13/22 04:00 Pulse Ox 93 L 08/13/22 04:00 FiO2 Intake & Output 08/12/22 08/13/22 08/13/22 18:59 06:59 18:59 Intake Total 1440 Output Total 300 Balance 1140 Intake: Intake, IV Titration 900 Amount Sodium Chloride 0.9% 1, 900 000 ml @ 75 mls/hr IV . [id number] [facility] Rx#:[id number] Oral 540 Output: Urine 300 Other: Voiding Method Urinal Urinal # Voids 1 2 - Constitutional General appearance: Present: no acute distress - Respiratory Respiratory: bilateral: CTA - Cardiovascular Rhythm: regular - Labs CBC & Chem 7: 08/10/22 09:17 08/10/22 09:17 Assessment and Plan Assessment: Assessment Critical limb ischemia of the left leg Significant history of smoking Plan The patient can be discharged home in the next 24 hours Increase the dose of Lipitor to 80 mg by mouth daily at bedtime Potential discharge in the next 12-24
[2022-08-13] MEDS: HYDROcodone/APAP 7.5-325MG 1 EACH TAB PO SCH ×3 (09:19→21:14)
[2022-08-13] MEDS: GABAPENTIN 300 MG CAP PO SCH ×3 (09:19→21:14)
[2022-08-13] MEDS: HEPARIN SODIUM,PORCINE/PF 5,000 UNIT/0.5 ML SYRINGE SQ SCH ×2 (09:19→21:15)
[2022-08-13] MEDS: METOPROLOL TARTRATE 25 MG TAB PO SCH ×2 (09:19→21:15)
[2022-08-13] MEDS: NICOTINE 14MG/24HR PATCH TRANSDERM SCH (09:19)
[2022-08-13] MEDS: FAMOTIDINE 20 MG/2 ML VIAL IV SCH ×2 (09:20→21:15)
[2022-08-13] MEDS: TAMSULOSIN 0.4 MG CAP.ER.24H PO SCH (09:20)
[2022-08-13] MEDS: ASPIRIN 81 MG PO SCH (09:20)
[2022-08-13] MEDS: LISINOPRIL-HCTZ 20-25 MG 1 EACH TAB PO SCH (09:20)
--- NOTE | 2022-08-13 10:55 | P.PN ---
Subjective Progress Note Date: 08/13/22 81-year-old patient who presents to the emergency department, on August 08, with weakness and pain in his left leg. The patient does have a history of known peripheral vascular disease, and is seen by one of the vascular surgeons on staff here. The patient is apparently going to have stenting of his left lower extremity, done on this admission. We were asked to see the patient for preoperative clearance, as the patient likely has COPD, from 60 years of tobacco use. The patient does complain of shortness of breath, cough, and wheezing. Today, after seeing the patient, in room 358, we asked for a chest x-ray, and a spirogram. His FEV1 was 1.51 L, his FVC was 2.74 L, and his MVV was 57 L/m. Based on the FEV1, and the MVV, the patient's at low increased operative risk. His COPD is graded as being moderately severe. The patient is planning to have a femoral endarterectomy on August 11. White count 6.3, hemoglobin 14.2, hematocrit 44.8, and platelet count 262,000. The patient's PTT is 48.2. Sodium 137, potassium 4.1, chlorides 108, CO2 28, BUN 27, and creatinine 0.87. Albumin is 2.9. Chest x-ray is normal. The patient is seen today 08/12/2022 in follow-up on the selective care unit. He is currently resting comfortably in bed. Awake and alert in no acute distress. Maintaining good O2 saturations in the 90s on 2 L/m per nasal cannula. Normal saline at 75 ML's per hour. He did undergo a left common and profundus femoral is from below endarterectomy with patch angioplasty for ischemic rest pain of his left foot. Postoperative day #1. He remains on a heparin drip. Antibiotics in the form of cefazolin. Continued on DuoNeb inhalations, Symbicort. NicoDerm patch in place. The patient is seen today 08/13/2022 in follow-up on the selective care unit. H e is awake and alert in no acute distress. Maintaining O2 saturations in the 90s on room air. No shortness of breath, cough or congestion. Today's continue on Symbicort, DuoNeb inhalations. NicoDerm patch in place. Heparin for DVT prophylaxis. Objective - Vital Signs Vital signs: Vital Signs Temp 98.0 F 08/13/22 08:00 Pulse 60 08/13/22 08:04 Resp 18 08/13/22 08:00 BP 121/62 08/13/22 08:00 Pulse Ox 90 L 08/13/22 08:00 FiO2 Intake & Output 08/12/22 08/13/22 08/13/22 18:59 06:59 18:59 Intake Total 1440 Output Total 300 Balance 1140 Intake: Intake, IV Titration 900 Amount Sodium Chloride 0.9% 1, 900 000 ml @ 75 mls/hr IV . [id number] [facility] Rx#:[id number] Oral 540 Output: Urine 300 Other: Voiding Method Urinal Urinal Urinal # Voids 1 2 - Exam Alert, pleasant 81-year-old male patient. No acute distress, oriented 3. On room air. No conversational dyspnea or use of accessory muscles. HEENT examination is grossly unremarkable. Neck supple. Full range of motion. No adenopathy thyromegaly or neck vein distention. Cardiovascular examination reveals regular rhythm rate. S1-S2 normal. No S3 or S4. No discernible murmur noted. Lungs reveal mostly clear breath sounds. Minimal scattered rhonchi. No wheezes or crackles. Breath sounds equal bilaterally. Abdomen soft bowel sounds are heard. No masses or tenderness. Extremities are intact. No cyanosis clubbing or edema. Skin is without rash or lesion. Neurologic examination is brief but nonfocal. 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 Postoperative day #2. Acute on chronic peripheral artery disease with ischemic rest pain. Infrarenal abdominal aortic aneurysm. History of left lower extremity cellulitis. Moderately severe COPD from significant tobacco use. History of CVA. History of hyperlipidemia. History of hypertension. Plan: The patient was seen and evaluated Currently stable and on room air Continue bronchodilators Educated regarding the importance of complete smoking cessation NicoDerm patch in place We will see as needed I have personally seen and examined the patient, performed the documentation and the assessment and plan as written. Number of minutes spent on the visit: 10.
--- NOTE | 2022-08-13 11:38 | P.PN ---
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 Patient planned to undergo left lower extremity and proctectomy tomorrow. 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 However patient does not complain of from dyspnea or wheezing at rest now, he states that he used to smoke 4 packs per day and now down to half-1 pack per day. He is not on home oxygen. But he complains from exer tional dyspnea whenever he tries to do simple things prior to admission to the hospital for example patient was trying to go to the bathroom. He denies alcohol or illicit drugs. Vitals and labs look stable. Discontinued on heparin drip, normal saline 75 mg, he is on home dose of aspirin 81 mg metoprolol 25 mg 08/11/2022 Patient is going for left foot endarterectomy for his acute ischemic foot. P atient still complaining from the same pain of the left foot and keep it dangling from the bed. No other new complaints, no chest pain, no dyspnea with rest or exertion. Neurologist x-ray negative vitals are stable Patient has been evaluated by cardiology and pulmonary team and cleared to proceed with surgery, he still has some risks however there is no absolute contraindication. He remains on heparin drip and gentle hydration. 08/12/2022 Patient is status post Left common and profundus femoris thromboendarterectomy with patch angioplasty. His total complaining from pain at the surgical site. No other symptoms. Hemodynamically stable. Vitals are stable. Patient is afebrile. Heparin drip is a stopped and patient placed on Ringer lactate 100 mg by surgery team. Heparin drip was stopped, we will start subcu heparin if cleared by orthopedic team, discussed with staff and bedside nurse. Continue with pain management. Also patient was to be DO NOT RESUSCITATE once confirmed with the staff 08/13/2022 Patient left foot pain improved per patient however E still complains from tenderness on his foot when he stands up, today he almost fell after 2 steps Denies any other symptoms We will do want to consult PT/OT for him. He is currently kept on aspirin home dose of 81 mg and normal saline at 75 mL/h Objective - Vital Signs Vital signs: Vital Signs Temp 98.1 F 08/13/22 04:00 Pulse 60 08/13/22 08:04 Resp 15 08/13/22 04:00 BP 107/51 08/13/22 04:00 Pulse Ox 93 L 08/13/22 04:00 FiO2 Intake & Output 08/12/22 08/13/22 08/13/22 18:59 06:59 18:59 Intake Total 1440 Output Total 300 Balance 1140 Intake: Intake, IV Titration 900 Amount Sodium Chloride 0.9% 1, 900 000 ml @ 75 mls/hr IV . [id number] [facility] Rx#:[id number] Oral 540 Output: Urine 300 Other: Voiding Method Urinal Urinal # Voids 1 2 - Exam GENERAL: The patient is alert and oriented x3, not in any acute distress. Well developed, well nourished. HEENT: Pupils are round and equally reacting to light. EOMI. No scleral icterus. No conjunctival pallor. Normocephalic, atraumatic. No pharyngeal erythema. No thyromegaly. CARDIOVASCULAR: S1 and S2 present. No murmurs, rubs, or gallops. PULMONARY: Chest is clear to auscultation, no wheezing or crackles. ABDOMEN: Soft, nontender, nondistended, normoactive bowel sounds. No palpable organomegaly. MUSCULOSKELETAL: No joint swelling or deformity. -EXTREMITIES: No cyanosis, clubbing, or pedal edema. Left lower extremity surgical wound with approximately a Place, rest of exam deferred to surgery team NEUROLOGICAL: Gross neurological examination did not reveal any focal deficits. SKIN: No rashes. no petechiae. 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 Continue same treatment. Continue with symptomatic treatment. Resume home medication. Monitor labs and vitals. DVT and GI prophylaxis. Further recommendations as per clinical course of the patient DVT prophylaxis: Subcutaneous heparin GI Prophylaxis: Pepcid PT/OT: consulted Prognosis is guarded
[2022-08-13] MEDS: ACETAMINOPHEN TAB 325 MG TAB PO SCH ×2 (14:35→21:15)
[2022-08-13] MEDS: ALPRAZolam 0.5 MG TAB PO SCH (21:14)
[2022-08-13] MEDS: ATORVASTATIN 80 MG TAB PO SCH (21:14)
[2022-08-14] MEDS: SODIUM CHLORIDE 0.9% 1,000 ML IV SCH ×2 (04:30→13:21)
--- NOTE | 2022-08-14 06:30 | P.PN ---
Subjective Progress Note Date: 08/14/22 Principal diagnosis: PAD The patient is a pleasant 81-year-old gentleman with a past medical history significant for history of smoking as well as lower extremity PAD who was admi tted to the hospital was a critical limb ischemia of the left leg and he underwent left femoral endarterectomy which was uneventful. August 122021 The patient was seen and evaluated this morning. He remains asymptomatic. He remains hemodynamics are stable. He is on antiplatelet as well as he is on statin. From the cardiovascular standpoint of view, the patient can be discharged home in the next 24 hours. Continue the current medical regimen at this point 08/13/2022 The patient was seen and evaluated this morning. He remains asymptomatic from a cardiovascular standpoint of view and he remains hemodynamically stable. Currently he is on antiplatelet. He is on low intensity statin and point to increase the dose of Lipitor to 80 mg by mouth daily at bedtime. From the cardiovascular standpoint of view, the patient potentially can be discharged home in the next 12-24 hours. 08/14/2022 The patient is stable from a cardiovascular standpoint, he is also asymptomatic. He is on maximize medical treatment including dual antiplatelet therapy along with cardiac intensity statin. Blood pressure is marginal but is asymptomatic. The patient can be discharged Objective - Vital Signs Vital signs: Vital Signs Temp 98.5 F 08/13/22 20:00 Pulse 72 08/14/22 04:00 Resp 17 08/14/22 04:00 BP 105/72 08/14/22 04:00 Pulse Ox 94 L 08/14/22 04:00 FiO2 Intake & Output 08/13/22 08/13/22 08/14/22 06:59 18:59 06:59 Intake Total 1440 476 Output Total 300 Balance 1140 476 Intake: Intake, IV Titration 900 Amount Sodium Chloride 0.9% 1, 900 000 ml @ 75 mls/hr IV . [id number] [facility] Rx#:[id number] Oral 540 476 Output: Urine 300 Other: Voiding Method Urinal Urinal Urinal # Voids 2 2 1 - Constitutional General appearance: Present: no acute distress - Respiratory Respiratory: bilateral: CTA - Cardiovascular Rhythm: regular - Labs CBC & Chem 7: 08/10/22 09:17 08/10/22 09:17 Assessment and Plan Assessment: Assessment Critical limb ischemia of the left leg status post left femoral endarterectomy Significant history of smoking Plan The patient can be discharged home
[2022-08-14] MEDS: SYMBICORT 160-4.5 MCG INHALER INHALATION SCH ×2 (07:22→21:31)
[2022-08-14] MEDS: IPRATROPIUM-ALBUTEROL 3 ML NEB INHALATION SCH ×3 (07:22→21:31)
[2022-08-14] MEDS: HYDROcodone/APAP 7.5-325MG 1 EACH TAB PO SCH ×3 (09:41→21:09)
[2022-08-14] MEDS: TAMSULOSIN 0.4 MG CAP.ER.24H PO SCH (09:42)
[2022-08-14] MEDS: ACETAMINOPHEN TAB 325 MG TAB PO SCH ×2 (09:42→21:09)
[2022-08-14] MEDS: ASPIRIN 81 MG PO SCH (09:43)
[2022-08-14] MEDS: HEPARIN SODIUM,PORCINE/PF 5,000 UNIT/0.5 ML SYRINGE SQ SCH ×2 (09:43→21:09)
[2022-08-14] MEDS: METOPROLOL TARTRATE 25 MG TAB PO SCH ×2 (09:43→21:09)
[2022-08-14] MEDS: NICOTINE 14MG/24HR PATCH TRANSDERM SCH (09:43)
[2022-08-14] MEDS: GABAPENTIN 300 MG CAP PO SCH ×3 (09:43→21:09)
[2022-08-14] MEDS: LISINOPRIL-HCTZ 20-25 MG 1 EACH TAB PO SCH (09:43)
[2022-08-14] MEDS: FAMOTIDINE 20 MG/2 ML VIAL IV SCH ×2 (09:44→21:09)
--- NOTE | 2022-08-14 11:49 | P.PN ---
Subjective Progress Note Date: 08/14/22 Principal diagnosis: Left femoral endarterectomy Patient was seen and examined as a follow-up. Overall he is doing well. Pain has improved. He is still having some pain in the left foot related to some cellulitis. Left groin dressing removed, incision well approximated without any significant pain or swelling. Patient has been afebrile. Denies any shortness of breath, chest pain, fevers or chills. Objective - Vital Signs Vital signs: Vital Signs Temp 98 F 08/14/22 08:10 Pulse 63 08/14/22 11:31 Resp 18 08/14/22 08:10 BP 105/72 08/14/22 08:10 Pulse Ox 91 L 08/14/22 11:17 FiO2 Intake & Output 08/13/22 08/14/22 08/14/22 18:59 06:59 18:59 Intake Total 476 Balance 476 Intake: Oral 476 Other: Voiding Method Urinal Urinal Urinal # Voids 2 1 - Exam General appearance: The patient is alert, oriented, appears in no acute distress. HET: Head is normocephalic and atraumatic. Pupils are equal and reactive. Neck: Supple without lymphadenopathy. Trachea midline. Extremities: Normal skin color and turgor. Left groin surgical site well approximated, swelling or drainage. No hematoma. Palpable femoral pulse. Multiphasic PT and DP signal. Good capillary refill. Neurological: No focal deficits. Strength and sensation are grossly intact. - Labs CBC & Chem 7: 08/10/22 09:17 08/10/22 09:17 Assessment and Plan Assessment: 1. Postop day #3 left common femoral artery endarterectomy with patch angioplasty 2. Acute on chronic peripheral arterial disease with ischemic rest pain, Rj classification for 3. Infrarenal abdominal aortic aneurysm 4. History of left superficial femoral artery revascularization and stenting 5. History of left lower extremity foot cellulitis 6. History of hypertension, COPD and hyperlipidemia Plan: 1. Encourage ambulation 2. Patient may shower 3. Continue current medications Patient is clear from vascular surgery for discharge. Follow-up in 1-[address] Valle. The impression and plan of care has been dictated as directed. Dr. Maya I performed a history and examination of this patient, discussed the same with the dictator. I agree with the dictator's note ,documented as a scribe. Any additional findings or plans will be noted.
--- NOTE | 2022-08-14 17:04 | P.PN ---
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 Patient planned to undergo left lower extremity and proctectomy tomorrow. Transit Clerk preop evaluation already done, ejection fraction 50-55%, also pulmonary consult evaluation is recommended given his history of COPD. However patient does not complain of from dyspnea or wheezing at rest now, he states that he used to smoke 4 packs per day and now down to half-1 pack per day. He is not on home oxygen. But he complains from exertional dyspnea whenever he tries to do simple things prior to admission to the hospital for example patient was trying to go to the bathroom. He denies alcohol or illicit drugs. Vitals and labs look stable. Discontinued on heparin drip, normal saline 75 mg, he is on home dose of aspirin 81 mg metoprolol 25 mg Patient left foot pain improved per patient however E still complains from tenderness on his foot when he stands up, today he almost fell after 2 steps Denies any other symptoms We will do want to consult PT/OT for him. He is currently kept on aspirin home dose of 81 mg and normal saline at 75 mL/h Objective - Vital Signs Vital signs: Vital Signs Temp 98.5 F 08/13/22 20:00 Pulse 68 08/13/22 23:46 Resp 18 08/13/22 23:46 BP 90/52 08/13/22 23:46 Pulse Ox 93 L 08/13/22 23:46 FiO2 Intake & Output 08/13/22 08/13/22 08/14/22 06:59 18:59 06:59 Intake Total 1440 476 Output Total 300 Balance 1140 476 Intake: Intake, IV Titration 900 Amount Sodium Chloride 0.9% 1, 900 000 ml @ 75 mls/hr IV . [id number] [facility] Rx#:[id number] Oral 540 476 Output: Urine 300 Other: Voiding Method Urinal Urinal Urinal # Voids 2 2 1 - Exam GENERAL: The patient is alert and oriented x3, not in any acute distress. Well developed, well nourished. HEENT: Pupils are round and equally reacting to light. EOMI. No scleral icterus. No conjunctival pallor. Normocephalic, atraumatic. No pharyngeal erythema. No thyromegaly. CARDIOVASCULAR: S1 and S2 present. No murmurs, rubs, or gallops. PULMONARY: Chest is clear to auscultation, no wheezing or crackles. ABDOMEN: Soft, nontender, nondistended, normoactive bowel sounds. No palpable organomegaly. MUSCULOSKELETAL: No joint swelling or deformity. -EXTREMITIES: No cyanosis, clubbing, or pedal edema. Left lower extremity surgical wound with approximately a Place, rest of exam deferred to surgery team NEUROLOGICAL: Gross neurological examination did not reveal any focal deficits. SKIN: No rashes. no petechiae. 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 Continue same treatment. Continue with symptomatic treatment. Resume home medication. Monitor labs and vitals. DVT and GI prophylaxis. Further recommendations as per clinical course of the patient DVT prophylaxis: Subcutaneous heparin GI Prophylaxis: Pepcid PT/OT: consulted
[2022-08-14] MEDS: ATORVASTATIN 80 MG TAB PO SCH (21:09)
[2022-08-14] MEDS: ALPRAZolam 0.5 MG TAB PO SCH (21:09)
[2022-08-15] MEDS: IPRATROPIUM-ALBUTEROL 3 ML NEB INHALATION SCH ×2 (07:50→12:15)
[2022-08-15] MEDS: SYMBICORT 160-4.5 MCG INHALER INHALATION SCH (07:50)
[2022-08-15] MEDS: ASPIRIN 81 MG PO SCH (09:35)
[2022-08-15] MEDS: GABAPENTIN 300 MG CAP PO SCH (09:35)
[2022-08-15] MEDS: HEPARIN SODIUM,PORCINE/PF 5,000 UNIT/0.5 ML SYRINGE SQ SCH (09:35)
[2022-08-15] MEDS: METOPROLOL TARTRATE 25 MG TAB PO SCH (09:35)
[2022-08-15] MEDS: NICOTINE 14MG/24HR PATCH TRANSDERM SCH (09:35)
[2022-08-15] MEDS: TAMSULOSIN 0.4 MG CAP.ER.24H PO SCH (09:35)
[2022-08-15] MEDS: ACETAMINOPHEN TAB 325 MG TAB PO SCH (09:35)
[2022-08-15] MEDS: HYDROcodone/APAP 7.5-325MG 1 EACH TAB PO SCH (09:36)
[2022-08-15] MEDS: FAMOTIDINE 20 MG/2 ML VIAL IV SCH (09:36)
[2022-08-15] MEDS: LISINOPRIL-HCTZ 20-25 MG 1 EACH TAB PO SCH (09:36)
[2022-08-15 10:43] VITALS: RESP 18; TEMP 97.9
--- NOTE | 2022-08-15 15:18 | P.DS ---
Providers Date of admission: 08/08/22 16:48 Expected date of discharge: 08/15/22 Attending physician: Uche Alvarado Consults: 08/08/22 16:24 Consult Physician Urgent Consulting Provider: [facility] Consult Reason/Comments: Surgical clearance Do you want consulting provider notified?: Yes Consult Physician Urgent Consulting Provider: Luz Da Silva Consult Reason/Comments: Arterial occlusion Do you want consulting provider notified?: Yes 08/10/22 09:07 Consult Physician Routine Consulting Provider: Ferdinand Hamlin Consult Reason/Comments: pre-op eval. smoker, Hx of copd Do you want consulting provider notified?: Yes Primary care physician: 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 Patient planned to undergo left lower extremity and proctectomy tomorrow. 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 However patient does not complain of from dyspnea or wheezing at rest now, he states that he used to smoke 4 packs per day and now down to half-1 pack per day. He is not on home oxygen. But he complains from exertional dyspnea whenever he tries to do simple things prior to admission to the hospital for example patient was trying to go to the bathroom. He denies alcohol or illicit drugs. Vitals and labs look stable. Discontinued on heparin drip, normal saline 75 mg, he is on home dose of aspirin 81 mg metoprolol 25 mg 08/11/2022 Patient is going for left foot endarterectomy for his acute ischemic foot. Patient still complaining from the same pain of the left foot and keep it dangling from the bed. No other new complaints, no chest pain, no dyspnea with rest or exertion. Neurologist x-ray negative vitals are stable Patient has been evaluated by cardiology and pulmonary team and cleared to proceed with surgery, he still has some risks however there is no absolute contraindication. He remains on heparin drip and gentle hydration. 08/12/2022 Patient is status post Left common and profundus femoris thromboendarterectomy with patch angioplasty. His total complaining from pain at the surgical site. No other symptoms. Hemodynamically stable. Vitals are stable. Patient is afebrile. Heparin drip is a stopped and patient placed on Ringer lactate 100 mg by surgery team. Heparin drip was stopped, we will start subcu heparin if cleared by orthopedic team, discussed with staff and bedside nurse. Continue with pain management. Also patient was to be DO NOT RESUSCITATE once confirmed with the staff 08/13/2022 Patient left foot pain improved per patient however E still complains from tenderness on his foot when he stands up, today he almost fell after 2 steps Denies any other symptoms We will do want to consult PT/OT for him. He is currently kept on aspirin home dose of 81 mg and normal saline at 75 mL/h 1. Postop day #3 left common femoral artery endarterectomy with patch angioplasty 2. Acute on chronic peripheral arterial disease with ischemic rest pain, Rj classification for 3. Infrarenal abdominal aortic aneurysm 4. History of left superficial femoral artery revascularization and stenting 5. History of left lower extremity foot cellulitis 6. History of hypertension, COPD and hyperlipidemia Plan: 1. Encourage ambulation 2. Patient may shower 3. Continue current medications Patient is clear from vascular surgery for discharge. Follow-up in 1-[address] Valle. Plan - Discharge Summary Discharge Rx Participant: No New Discharge Prescriptions: New Gabapentin [Neurontin] 300 mg PO TID #90 cap Atorvastatin [Lipitor] 80 mg PO HS 30 Days #30 tab Budesonide-Formot 160-4.5 Mcg [Symbicort 160-4.5 Mcg Inhaler] 2 puff INHALATION RT-BID 30 Days #1 each Continue Tamsulosin [Flomax] 0.4 mg PO DAILY Lisinopril-Hctz 20-25 mg [Zestoretic 20-25] 0.5 tab PO DAILY ALPRAZolam [Xanax] 0.5 mg PO HS Ipratropium [place] 0.06%Nasal [Atrovent Nasal 0.06%] 1 spray EA NOSTRIL TID PRN PRN Reason: Allergy Symptoms Acetaminophen [Tylenol Arthritis] 650 mg PO BID Rosuvastatin Calcium [Crestor] 5 mg PO HS Fluticasone/Vilanterol [Breo Ellipta 100-25 Mcg Inhaler] 1 puff INHALATION RT-DAILY Aspirin EC [Ecotrin Low Dose] 81 mg PO DAILY Metoprolol Tartrate [Lopressor] 25 mg PO BID HYDROcodone/APAP 7.5-325MG [Iron 7.5-325] 1 tab PO TID Discharge Medication List Aspirin EC [Ecotrin Low Dose] 81 mg PO DAILY 09/02/21 [History] Fluticasone/Vilanterol [Breo Ellipta 100-25 Mcg Inhaler] 1 puff INHALATION RT- DAILY 09/02/21 [History] Lisinopril-Hctz 20-25 mg [Zestoretic 20-25] 0.5 tab PO DAILY 09/02/21 [History] Metoprolol Tartrate [Lopressor] 25 mg PO BID 09/02/21 [History] Rosuvastatin Calcium [Crestor] 5 mg PO HS 09/02/21 [History] Tamsulosin [Flomax] 0.4 mg PO DAILY 09/02/21 [History] ALPRAZolam [Xanax] 0.5 mg PO HS 05/19/22 [History] Acetaminophen [Tylenol Arthritis] 650 mg PO BID 06/27/22 [History] Ipratropium [place] 0.06%Nasal [Atrovent Nasal 0.06%] 1 spray EA NOSTRIL TID PRN 06/27/22 [History] HYDROcodone/APAP 7.5-325MG [Iron 7.5-325] 1 tab PO TID 07/05/22 [History] Atorvastatin [Lipitor] 80 mg PO HS 30 Days #30 tab 08/15/22 [Rx] Budesonide-Formot 160-4.5 Mcg [Symbicort 160-4.5 Mcg Inhaler] 2 puff INHALATION RT-BID 30 Days #1 each 08/15/22 [Rx] Gabapentin [Neurontin] 300 mg PO TID #90 cap 08/15/22 [Rx] Follow up Appointment(s)/Referral(s): Riley Maya DO [Doctor of Osteopathic Medicine] - 1 Week Uche Alvarado MD [Primary Care Provider] - 1-2 days Activity/Diet/Wound Care/Special Instructions: Avoid heavy lifting greater than 10 lbs , pushing, pulling, straining, flights of stairs for three days. ok to shower tomorrow but no baths, pools, soaking in tubs to avoid risk of infection until cleared by surgeon. signs of infection ie: fever, rash, drainage from puncture site, swelling contact doctor or return to ER immediately. Heavy bleeding from surgical site apply firm direct pressure and return to ER. Do not attempt to drive self. low sodium/low fat diet Discharge Disposition: HOME WITH HOME HEALTH SERVICES
[2022-08-15 15:21] VITALS: BP 114/56; PULSE 59
--- NOTE | 2022-08-18 10:59 | CDI ---
Documentation Clarification Form Date: 08/10/2022 10:24:00 AM From: Bonita Miranda CCS, CCDS Admit Date: 08/08/2022 4:48:00 PM Patient Name: Richard Reid Visit Number: [id number] Discharge Date: 08/15/2022 5:29:00 PM ATTENTION: The Clinical Documentation Specialists (CDI) and [facility] Coding Staff appreciate your assistance in clarifying documentation. Please respond to the clarification below the line at the bottom and electronically sign. The CDI & [facility] Coding staff will review the response and follow-up if needed. Please note: Queries are made part of the Legal Health Record. If you have any questions, please contact the author of this message via ITS. Dr. Esly Mcqueen: Renal Insufficiency is documented in the 08/08 ED Clinical Impression. Additional clarification regarding the Acuity of Renal Failure is requested. History/Risk Factors per the 08/08 H/P: Recent cellulitis left leg, PAD with previous intervention/stent, COPD, Hyperlipidemia, CVA. Current smoker. Clinical Indicators: Presented to the ED on 08/08 with weakness and increased left leg pain with known PVD and stent to left leg. Decreased oral intake, difficulty walking. Admit with Arterial occlusion, Intractable pain and Renal Insufficiency. 08/08 LAB: BUN 56, Creatinine 1.70, GFR 37. Historical GFR: 08/10/2022: 81. 02/17/2014: >60 Treatment 08/08: Vascular Surgery Consult, Cardiology Consult, IV Dilaudid 0.5 mg x1, IV Toradol 15 mg x1, IV Na Chl bolus 2,000 mls @ 999 mls/hr q2H, IV Na Chl 1,000 ls @ 75 mls/hr q13H, IV Heparin Please clarify the Acuity of Renal Failure and Stage if Chronic, if known: [x ] Acute Renal Failure [ ] Chronic renal failure (specify stage if known) [ ] Acute on Chronic Renal Failure (specify stage of CKD if known) [ ] Other, please specify [ ] Unable to determine (Template Last Revised: October 2020) MTDD
== END 2022-08-15 17:29 | disposition home health service (06) | DRG 253 ==
LOC: EC 14:00 → 3SCARD 16:48
PROVIDERS: ADMIT Internal Medicine; ATTEND Internal Medicine
PROC: 04UL0KZ Supplement Left Femoral Artery with Nonautologous Tissue Substitute, Open Approach (ICD-10-PCS; 2022-08-11)
PROC: 04CL0ZZ Extirpation of Matter from Left Femoral Artery, Open Approach (ICD-10-PCS; principal; 2022-08-11 13:15)
DX: T82.856A Stenosis of peripheral vascular stent, initial encounter (principal); L03.116 Cellulitis of left lower limb; N17.9 Acute kidney failure, unspecified; L97.529 Non-pressure chronic ulcer of other part of left foot with unspecified severity; E11.51 Type 2 diabetes mellitus with diabetic peripheral angiopathy without gangrene; E11.621 Type 2 diabetes mellitus with foot ulcer; J44.9 Chronic obstructive pulmonary disease, unspecified; I10 Essential (primary) hypertension; I71.43 Infrarenal abdominal aortic aneurysm, without rupture; E78.5 Hyperlipidemia, unspecified; N28.9 Disorder of kidney and ureter, unspecified; N40.0 Benign prostatic hyperplasia without lower urinary tract symptoms; F17.210 Nicotine dependence, cigarettes, uncomplicated; R01.1 Cardiac murmur, unspecified; Z66 Do not resuscitate; Y71.1 Therapeutic (nonsurgical) and rehabilitative cardiovascular devices associated with adverse incidents; Z79.899 Other long term (current) drug therapy; Z79.82 Long term (current) use of aspirin; Z86.73 Personal history of transient ischemic attack (TIA), and cerebral infarction without residual deficits; Z79.51 Long term (current) use of inhaled steroids; Z79.891 Long term (current) use of opiate analgesic; Z79.1 Long term (current) use of non-steroidal anti-inflammatories (NSAID)
CPT/HCPCS: 36415; 71045; 80053; 83605; 83735; 84484; 85025; 85610; 85730; 86850; 86900; 86901; 88304; 88311; 93005; 94150; 94640; 94760; 96361; 96365; 96366; 96375; 99291; 99406

== ENCOUNTER 2022-08-20 13:24 | Emergency (ER) | payer MEDICARE, OTHER ==
--- NOTE | 2022-08-20 14:46 | ED ---
General Adult HPI - General Chief complaint: Wound/Laceration Stated complaint: post op Time Seen by Provider: 08/20/22 14:24 Source: patient, family, RN notes reviewed Mode of arrival: wheelchair Limitations: no limitations - History of Present Illness Initial comments: 81-year-old male presents emergency department for evaluation of his left groin. Patient states that he had surgery by Dr. Valle. Patient states that he had a clot has left groin in which she had thromboendarterectomy states that his leg is feeling better but states that he notices swelling and he states his instructions advise him to be evaluated if there was some swelling. He has mild discomfort though he states that [place] prior arrival which is helped. He denies any fevers or chills no drainage no other associated complaints. - Related Data Home Medications Medication Instructions Recorded Confirmed Aspirin EC [Ecotrin Low Dose] 81 mg PO DAILY 09/02/21 08/20/22 Fluticasone/Vilanterol [Breo 1 puff INHALATION RT-DAILY 09/02/21 08/20/22 Ellipta 100-25 Mcg Inhaler] Lisinopril-Hctz 20-25 mg 0.5 tab PO DAILY 09/02/21 08/20/22 [Zestoretic 20-25] Metoprolol Tartrate [Lopressor] 25 mg PO BID 09/02/21 08/20/22 Rosuvastatin Calcium [Crestor] 5 mg PO HS 09/02/21 08/20/22 Tamsulosin [Flomax] 0.4 mg PO DAILY 09/02/21 08/20/22 ALPRAZolam [Xanax] 0.5 mg PO HS 05/19/22 08/20/22 Acetaminophen [Tylenol Arthritis] 650 mg PO BID 06/27/22 08/20/22 Ipratropium [place] 0.06%Nasal 1 spray EA NOSTRIL TID PRN 06/27/22 08/20/22 [Atrovent Nasal 0.06%] HYDROcodone/APAP 7.5-325MG [[place] 1 tab PO TID 07/05/22 08/20/22 7.5-325] Previous Rx's Medication Instructions Recorded Atorvastatin [Lipitor] 80 mg PO HS 30 Days #30 tab 08/15/22 Gabapentin [Neurontin] 300 mg PO TID #90 cap 08/15/22 Fluticasone Propion/Salmeterol 1 inhalation PO BID 30 Days #1 each 08/18/22 [Advair 250-50 Diskus] Allergies Allergy/AdvReac Type Severity Reaction Status Date / Time No Known Allergies Allergy Verified 08/20/22 15:44 Review of Systems ROS Statement: Those systems with pertinent positive or pertinent negative responses have been documented in the HPI. ROS Other: All systems not noted in ROS Statement are negative. 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 History of Any Multi-Drug Resistant Organisms: None Reported Past Surgical History: Hernia Repair Additional Past Surgical History / Comment(s): ENDARECTOMY Past Anesthesia/Blood Transfusion Reactions: No Reported Reaction Additional Past Anesthesia/Blood Transfusion Reaction / Comment(s): no hx blood transfusion Past Psychological History: No Psychological Hx Reported Smoking Status: Current every day smoker Past Alcohol Use History: None Reported Past Drug Use History: None Reported - Past Family History Mother Family Medical History: Cancer Father Family Medical History: Cancer General Exam Limitations: no limitations General appearance: alert, in no apparent distress Head exam: Present: atraumatic, normocephalic, normal inspection Respiratory exam: Present: normal lung sounds bilaterally. Absent: respiratory distress, wheezes, rales, rhonchi, stridor Cardiovascular Exam: Present: regular rate, normal rhythm, normal heart sounds. Absent: systolic murmur, diastolic murmur, rubs, gallop, clicks Extremities exam: Present: other (Left groin incision site is healing, no wound dehiscence, minimal swelling no erythema, mild tenderness with palpation) Course Vital Signs 08/20/22 13:59 Temperature 98.6 F Pulse Rate 63 Respiratory 16 Rate Blood Pressure 112/62 O2 Sat by Pulse 95 Oximetry Medical Decision Making - Medical Decision Making Was pt. sent in by a medical professional or institution (, PA, RESEARCH LEADER, urgent care, hospital, or [facility]...) When possible be specific @ -No Did you speak to anyone other than the patient for history (EMS, parent, family, police, friend...)? What history was obtained from this source @ -No Did you review nursing and triage notes (agree or disagree)? Why? @ -I reviewed and agree with nursing and triage notes Were old charts reviewed (outside hosp., previous admission, EMS record, old EKG, old radiological studies, urgent care reports/EKG's, [facility] records)? Report findings @ -Reviewed prior surgical notes from Dr. Valle Differential Diagnosis (chest pain, altered mental status, abdominal pain women, abdominal pain men, vaginal bleeding, weakness, fever, dyspnea, syncope, headache, dizziness, GI bleed, back pain, seizure, CVA, palpatations, mental health)? @ -Pseudoaneurysm, hematoma, seroma, abscess this list is not all inclusive. EKG interpreted by me (3pts min.). @ -None X-rays interpreted by me (1pt min.). @ -None done CT interpreted by me (1pt min.). @ -None done U/S interpreted by me (1pt. min.). @ -Ultrasound left groin no evidence of pseudoaneurysm there is a fluid collection possible small hematoma. What testing was considered but not performed or refused? (CT, X-rays, U/S, labs)? Why? @ -None What meds were considered but not given or refused? Why? @ -None Did you discuss the management of the patient with other professionals (professionals i.e. , PA, RESEARCH LEADER, lab, RT, psych nurse, neonatal social worker, feed adviser, teacher, chief lending officer, case making machine operator)? Give summary @ -No Was smoking cessation discussed for >3mins.? @ -No Was critical care preformed (if so, how long)? @ -No Were there social determinants of health that impacted care today? How? (Homelessness, low income, unemployed, alcoholism, drug addiction, transportation, low edu. Level, literacy, decrease access to med. care, longterm, rehab)? @ -No Was there de-escalation of care discussed even if they declined (Discuss DNR or withdrawal of care, Hospice)? DNR status @ -No What co-morbidities impacted this encounter? (DM, HTN, Smoking, COPD, CAD, Cancer, CVA, ARF, Chemo, Hep., AIDS, mental health diagnosis, sleep apnea, morbid obesity)? @ -None Was patient admitted / discharged? Hospital course, mention meds given and route, prescriptions, significant lab abnormalities, going to OR and other pertinent info. @ -Discharged - ultrasound shows evidence of fluid collection most likely seroma versus hematoma. There is no significant cellulitic changes to the area there is no evidence of significant aneurysm, patient will be discharged he has follow-up tomorrow. Return parameters were discussed. Undiagnosed new problem with uncertain prognosis? @ -no Drug Therapy requiring intensive monitoring for toxicity (Heparin, Nitro, Insulin, Cardizem)? @ -No Were any procedures done? @ -No Diagnosis/symptom? @ -Left groin seroma Acute, or Chronic, or Acute on Chronic? @ -Acute Uncomplicated (without systemic symptoms) or Complicated (systemic symptoms)? @ -Uncomplicated Side effects of treatment? @ -No Exacerbation, Progression, or Severe Exacerbation? @ -No Poses a threat to life or bodily function? How? (Chest pain, [place], PR, pneumonia, PE, COPD, DKA, ARF, appy, cholecystitis, CVA, Diverticulitis, Homicidal, Suicidal, threat to staff... and all critical care pts) @ -No Diagnosis/symptom? @ -Left groin hematoma Acute, or Chronic, or Acute on Chronic? @ -Acute Uncomplicated (without systemic symptoms) or Complicated (systemic symptoms)? @ -Uncomplicated Side effects of treatment? @ -none Exacerbation, Progression, or Severe Exacerbation] @ -no Poses a threat to life or bodily function? @ -no Disposition Clinical Impression: Seroma, Hematoma Disposition: HOME SELF-CARE Condition: Stable Instructions (If sedation given, give patient instructions): Seroma (DC) Additional Instructions: Please return to the Emergency Department if symptoms worsen or any other concerns. Is patient prescribed a controlled substance at d/c from ED?: No Referrals: Uche Alvarado MD [Primary Care Provider] - 1-2 days Time of Disposition: 16:12
--- NOTE | 2022-08-20 15:56 | US ---
EXAMINATION TYPE: US lower ext pseudo artery LT DATE OF EXAM: 08/20/2022 COMPARISON: CLINICAL HISTORY: Pain, swelling recent surgery. Recent endarectomy of left groin artery per patient on 08/11. Redness and swelling. EXAM PERFORMED: Grayscale and color Doppler duplex imaging performed of the groin, post surgical site puncture to assess for pseudoaneurysm. SIDE PERFORMED: Left Color and Waveform Doppler performed to assess for the presence of pseudoaneurysm; Is there ultrasound evidence of a pseudoaneurysm: no Is there evidence of AV shunting: no Is there a fluid collection present: At site of vascular access, there is a heterogeneous fluid colle ction measuring approximately 3.7 x 2.6 x 1.4 cm . No evidence for internal color Doppler flow. Prominent lymph node see in left groin with short axis= 1.0 cm. Likely reactive. IMPRESSION: No evidence for pseudoaneurysm. Heterogeneous fluid collection at site of vascular access, some with small hematoma.
[2022-08-20 16:50] VITALS: BP 115/62; PULSE 70; RESP 18; TEMP 98.5
== END 2022-08-20 16:26 | disposition home or self-care (01) ==
LOC: EC 13:24
DX: S30.1XXA Contusion of abdominal wall, initial encounter (principal); N99.842 Postprocedural seroma of a genitourinary system organ or structure following a genitourinary system procedure; J44.9 Chronic obstructive pulmonary disease, unspecified; I63.9 Cerebral infarction, unspecified; E78.5 Hyperlipidemia, unspecified; I10 Essential (primary) hypertension; F17.200 Nicotine dependence, unspecified, uncomplicated; Z79.82 Long term (current) use of aspirin; Z79.899 Other long term (current) drug therapy; X58.XXXA Exposure to other specified factors, initial encounter
CPT/HCPCS: 93975; 99284

== ENCOUNTER → 2022-11-06 | Outpatient (CLI) | payer MEDICARE, OTHER ==
--- NOTE | 2022-11-06 12:28 | XR ---
EXAMINATION TYPE: XR chest 2V DATE OF EXAM: 11/06/2022 COMPARISON: Chest x-ray August 10, 2022 HISTORY: Cough and weight loss. TECHNIQUE: Frontal and lateral views of the chest are obtained. FINDINGS: Background chronic emphysematous and pulmonary fibrotic changes redemonstrated. There is n o suspicious new focal air space opacity, pleural effusion, or pneumothorax seen. Cardiomegaly remain s present. Multilevel spurring in the spine is again seen IMPRESSION: Chronic changes and cardiomegaly without acute pulmonary process. No significant change from prior.
== END | disposition home or self-care (01) ==
LOC: RADXRMAIN 11:58
PROVIDERS: ATTEND Internal Medicine
DX: J84.10 Pulmonary fibrosis, unspecified (principal); J43.9 Emphysema, unspecified; R63.4 Abnormal weight loss; I51.7 Cardiomegaly
CPT/HCPCS: 71046

== ENCOUNTER 2022-12-21 08:29 | Day surgery (SDC) | payer MEDICARE, OTHER ==
[2022-12-20 09:51] VITALS: BMI 22.2
[~2022-12-21 08:29] MED LIST changes: -LIDOCAINE 1% (10MG/ML) FOR IV START INTRADERMA PRN
[2022-12-21 09:32] VITALS: RESP 18; TEMP 97.9
[2022-12-21] MEDS ORDERED: MIDAZOLAM 2 MG/2 ML VIAL IVP ONE (09:47)
[2022-12-21] MEDS ORDERED: LIDOCAINE 2% INJ 20 MG/ML (2 ML VIAL) ONE (10:29)
[2022-12-21] MEDS ORDERED: PROPOFOL 10 MG/ML 20 ML VIAL IV ONE (10:29)
--- NOTE | 2022-12-21 10:49 | P.OP ---
Date of Procedure: 12/21/22 Preoperative Diagnosis: GI bleed Postoperative Diagnosis: Internal hemorrhoids Colonic polyposis Procedure(s) Performed: Colonoscopy Anesthesia: MAC Surgeon: Misael Liu Pathology: other (Right colon polyp) Condition: stable Disposition: PACU Description of Procedure: The patient's placed on the endoscopy table in the lateral position. He received IV sedation. Digital rectal exam was performed. This revealed internal hemorrhoids. Flexible colonoscope was then placed patient anus and passed throughout the entire colon. The ileocecal valve was visualized. The patient has polyposis of his colon. The right colon polyp was seen. This was removed the cold forcep. There are multiple colon polyps seen throughout the colon. The scope was withdrawn. In the ascending colon multiple polyps seen. In the transverse colon multiple seen. At approximately the 60 cm ezequiel there was another large polyp. This was occupying approximately two thirds of the lumen of the colon. The scope was withdrawn. Multiple polyp was seen in the descending and sigmoid colon another large polyp was seen at the 5 cm ezequiel of the sigmoid colon. Scope was brought back the rectum and several small sessile polyp was seen. Scope was then withdrawn and internal hemorrhoids noted. The The patient has multiple colonic polyps of the entire colon. The patient will most likely need a subtotal colectomy
[2022-12-21 11:10] VITALS: BP 119/64; PULSE 64
== END 2022-12-21 11:34 | disposition home or self-care (01) ==
LOC: ORWHC2ENDO 08:29
PROVIDERS: ATTEND Surgery
DX: D12.2 Benign neoplasm of ascending colon (principal); K64.8 Other hemorrhoids; I10 Essential (primary) hypertension; E78.5 Hyperlipidemia, unspecified; J44.9 Chronic obstructive pulmonary disease, unspecified; Z86.73 Personal history of transient ischemic attack (TIA), and cerebral infarction without residual deficits; Z79.899 Other long term (current) drug therapy
CPT/HCPCS: 88305; 45380; J2250; J2704; J2001

== ENCOUNTER 2023-07-08 11:30 | Emergency (ER) | payer MEDICARE, OTHER ==
[2023-07-08 12:47] LABS: Basophils # (A) 0.1 k/uL (0-0.2); Basophils % (A) 1 %; Eosinophils # (A) 0.8 k/uL (0-0.7); Eosinophils % (A) 8 %; HCT 48.2 % (39.0-53.0); Lymphocytes # (A) 1.5 k/uL (1.0-4.8); Lymphocytes % (A) 14 %; MCH 32.3 pg (25.0-35.0); MCHC 33.1 g/dL (31.0-37.0); MCV 97.5 fL (80.0-100.0); Mean Platelet Volume 9.4; Monocytes # (A) 0.4 k/uL (0-1.0); Monocytes % (A) 4 %; Neutrophils # (A) 7.5 k/uL (1.3-7.7); Neutrophils % (A) 73 %; Platelet Count 164 k/uL (150-450); RBC 4.95 m/uL (4.30-5.90); RDW 13.2 % (11.5-15.5); WBC 10.3 k/uL (3.8-10.6)
[2023-07-08 13:04] LABS: Partial Thromboplastin Time 24.8 sec (22.0-30.0); Prothrombin Time 10.9 sec (10.0-12.5)
[2023-07-08 13:12] LABS: ALT 19 U/L (4-49); AST 21 U/L (17-59); African American GFR (CKD) 81 (>60 ml/min/1.73 sqM); Albumin 3.9 g/dL (3.5-5.0); Alkaline Phosphatase 57 U/L (38-126); Anion Gap 10 mmol/L; Blood Urea Nitrogen 26 mg/dL (9-20); Calcium 9.9 mg/dL (8.4-10.2); Carbon Dioxide 23 mmol/L (22-30); Chloride 105 mmol/L (98-107); Glucose 113 mg/dL (74-99); Non-African American GFR(CKD) 70 (>60 ml/min/1.73 sqM); Potassium 4.3 mmol/L (3.5-5.1); Sodium 138 mmol/L (137-145); Total Bilirubin 0.8 mg/dL (0.2-1.3); Total Protein 6.7 g/dL (6.3-8.2)
[2023-07-08 13:17] VITALS: RESP 18
--- NOTE | 2023-07-08 15:13 | ED ---
General Adult HPI - General Chief complaint: GI Bleed Stated complaint: Rectal Bleeding Time Seen by Provider: 07/08/23 11:35 Source: patient Mode of arrival: ambulatory Limitations: no limitations - History of Present Illness Initial comments: 82-year-old male with past medical history of colon polyps who presents emergency Department with rectal bleeding. provides the history. States that the patient had a colonoscopy on Sunday with polyp removal. He was referred down to [facility] because his "polyps are very large". She states that they took out to polyps however he does have 2 additional ones that need to be removed. The patient was discharged home and did not have any complaints until yesterday afternoon when he began having some bright red blood per rectum. Denies history of GI bleeding. He does not take any blood thinners. He denies having any abdominal or rectal pain. No nausea or vomiting. Denies any lightheadedness or dizziness. They called their surgeon who recommended that the patient come into the emergency department for evaluation. He denies any fevers. No urinary complaints. No other alleviating, precipitating or modifying factors - Related Data Home Medications Medication Instructions Recorded Confirmed Aspirin EC [Ecotrin Low Dose] 81 mg PO DAILY 09/02/21 12/21/22 Fluticasone/Vilanterol [Breo 1 puff INHALATION RT-DAILY 09/02/21 12/21/22 Ellipta 100-25 Mcg Inhaler] Lisinopril-Hctz 20-25 mg 0.5 tab PO DAILY 09/02/21 12/21/22 [Zestoretic 20-25] Metoprolol Tartrate [Lopressor] 25 mg PO BID 09/02/21 12/21/22 Rosuvastatin Calcium [Crestor] 5 mg PO HS 09/02/21 12/21/22 Tamsulosin [Flomax] 0.4 mg PO DAILY 09/02/21 12/21/22 ALPRAZolam [Xanax] 0.5 mg PO HS 05/19/22 12/21/22 Acetaminophen [Tylenol Arthritis] 650 mg PO BID 06/27/22 12/21/22 Ipratropium Horace 0.06%Nasal 1 spray EA NOSTRIL TID PRN 06/27/22 12/21/22 [Atrovent Nasal 0.06%] Previous Rx's Medication Instructions Recorded Atorvastatin [Lipitor] 80 mg PO HS 30 Days #30 tab 08/15/22 Fluticasone Propion/Salmeterol 1 inhalation PO BID 30 Days #1 each 08/18/22 [Advair 250-50 Diskus] Pantoprazole [Protonix] 40 mg PO DAILY #30 tab 12/19/22 Allergies Allergy/AdvReac Type Severity Reaction Status Date / Time No Known Allergies Allergy Verified 07/08/23 11:34 Review of Systems ROS Statement: Those systems with pertinent positive or pertinent negative responses have been documented in the HPI. ROS Other: All systems not noted in ROS Statement are negative. 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 History of Any Multi-Drug Resistant Organisms: None Reported Past Surgical History: Hernia Repair Additional Past Surgical History / Comment(s): ENDARECTOMY, COLONOSCOPY, Past Anesthesia/Blood Transfusion Reactions: No Reported Reaction Additional Past Anesthesia/Blood Transfusion Reaction / Comment(s): no hx blood transfusion Past Psychological History: No Psychological Hx Reported Smoking Status: Current every day smoker Past Alcohol Use History: None Reported Past Drug Use History: None Reported - Past Family History Mother Family Medical History: Cancer Father Family Medical History: Cancer General Exam Limitations: no limitations General appearance: alert, in no apparent distress Head exam: Present: atraumatic, normocephalic, normal inspection Eye exam: Present: normal appearance, PERRL, EOMI. Absent: scleral icterus, conjunctival injection, periorbital swelling ENT exam: Present: normal exam, mucous membranes moist Neck exam: Present: normal inspection. Absent: tenderness, meningismus, lymphadenopathy Respiratory exam: Present: normal lung sounds bilaterally. Absent: respiratory distress, wheezes, rales, rhonchi, stridor Cardiovascular Exam: Present: regular rate, normal rhythm, normal heart sounds. Absent: systolic murmur, diastolic murmur, rubs, gallop, clicks GI/Abdominal exam: Present: soft, normal bowel sounds. Absent: distended, tenderness, guarding, rebound, rigid Rectal exam: Present: heme (+) stool, bloody stool, hemorrhoids Extremities exam: Present: normal inspection, full ROM, normal capillary refill. Absent: tenderness, pedal edema, joint swelling, calf tenderness Back exam: Present: normal inspection Neurological exam: Present: alert, oriented X3, CN II-XII intact Psychiatric exam: Present: normal affect, normal mood Skin exam: Present: warm, dry, intact, normal color. Absent: rash Course Vital Signs 07/08/23 07/08/23 07/08/23 11:32 13:12 15:33 Temperature 97.8 F 98 F Pulse Rate 54 L 51 L 82 Respiratory 20 18 18 Rate Blood Pressure 114/58 122/67 117/53 O2 Sat by Pulse 99 94 L 98 Oximetry Medical Decision Making - Medical Decision Making Was pt. sent in by a medical professional or institution (, PA, MANAGER NET, urgent care, hospital, or usp...) When possible be specific @ -Patient was sent in by the GI doctors at [facility] Did you speak to anyone other than the patient for history (EMS, parent, family, police, friend...)? What history was obtained from this source @ -Spoke with the in regards to the history as well as the on-call GI doctor for [facility] Did you review nursing and triage notes (agree or disagree)? Why? @ -I reviewed and agree with nursing and triage notes Were old charts reviewed (outside hosp., previous admission, EMS record, old EKG, old radiological studies, urgent care reports/EKG's, usp records)? Report findings @ -No old charts were reviewed Differential Diagnosis (chest pain, altered mental status, abdominal pain women, abdominal pain men, vaginal bleeding, weakness, fever, dyspnea, syncope, headache, dizziness, GI bleed, back pain, seizure, CVA, palpatations, mental health, musculoskeletal)? @ -Differential GI Bleed: Esophageal varices, aortoenteric fistula, Abbey-Constantino, gastritis, peptic ulcer disease, diverticulosis, inflammatory bowel disease, hemorrhoids, fissure, colitis, malignancy, Meckels diverticulum, this is not meant to be an all- inclusive list. EKG interpreted by me (3pts min.). @ -Not done X-rays interpreted by me (1pt min.). @ -None done CT interpreted by me (1pt min.). @ -None done U/S interpreted by me (1pt. min.). @ -None done What testing was considered but not performed or refused? (CT, X-rays, U/S, labs)? Why? @ -None What meds were considered but not given or refused? Why? @ -None Did you discuss the management of the patient with other professionals (professionals i.e. , PA, MANAGER NET, lab, RT, psych nurse, director of social media marketing, instructional materials director, teacher, tactical response group officer, piano case maker)? Give summary @ -Spoke with the GI doctor on-call at [facility]. She does recommend observation versus transferred down to [facility] observation Was smoking cessation discussed for >3mins.? @ -No Was critical care preformed (if so, how long)? @ -No Were there social determinants of health that impacted care today? How? (Homelessness, low income, unemployed, alcoholism, drug addiction, transportation, low edu. Level, literacy, decrease access to med. care, detention, rehab)? @ -No Was there de-escalation of care discussed even if they declined (Discuss DNR or withdrawal of care, Hospice)? DNR status @ -No What co-morbidities impacted this encounter? (DM, HTN, Smoking, COPD, CAD, Cancer, CVA, ARF, Chemo, Hep., AIDS, mental health diagnosis, sleep apnea, morbi d obesity)? @ -Colon polyps Was patient admitted / discharged? Hospital course, mention meds given and route, prescriptions, significant lab abnormalities, going to OR and other pertinent info. @ -Discharged. Upon arrival patient was placed into room 17. Thorough history and physical exam was performed. IV access was established and laboratory studies are conducted. Rectal exam was performed which demonstrates bright red blood. Patient is occult positive. He is hematologically stable. I did speak with the on-call GI specialist at [facility]. Recommended overnight observation versus transferred down to [facility] for observation. We do not have GI capabilities. I discussed transfer with the patient however patient would like to go home. He is aware of the risks of leaving the hospital without observation including permanent disability and even . Patient needs to take his blood pressure. Return should he become lightheaded or have worsening bleeding. He needs to speak with his GI doctor in regards to his symptoms and absolutely return if needed. Patient and his understood this. Patient discharged from stable condition Undiagnosed new problem with uncertain prognosis? @ -No Drug Therapy requiring intensive monitoring for toxicity (Heparin, Nitro, Insulin, Cardizem)? @ -No Were any procedures done? @ -No Diagnosis/symptom? @ -Acute hematochezia, recent colonoscopy with colon polyp resection Acute, or Chronic, or Acute on Chronic? @ -Acute Uncomplicated (without systemic symptoms) or Complicated (systemic symptoms)? @ -Complicated Side effects of treatment? @ -No Exacerbation, Progression, or Severe Exacerbation? @ -No Poses a threat to life or bodily function? How? (Chest pain, [place], [place], pneumonia, PE, COPD, DKA, ARF, appy, cholecystitis, CVA, Diverticulitis, Homicidal, Suicidal, threat to staff... and all critical care pts) @ -Yes, patient does have GI bleed - Lab Data Result diagrams: 07/08/23 12:17 07/08/23 12:17 Lab Results 07/08/23 07/08/23 07/08/23 Range/Units 12:17 12:17 12:17 WBC 10.3 (3.8-10.6) k/uL RBC 4.95 (4.30-5.90) m/uL Hgb 16.0 (13.0-17.5) gm/dL Hct 48.2 (39.0-53.0) % MCV 97.5 (80.0-100.0) fL MCH 32.3 (25.0-35.0) pg MCHC 33.1 (31.0-37.0) g/dL RDW 13.2 (11.5-15.5) % Plt Count 164 (150-450) k/uL MPV 9.4 Neutrophils % 73 % Lymphocytes % 14 % Monocytes % 4 % Eosinophils % 8 % Basophils % 1 % Neutrophils # 7.5 (1.3-7.7) k/uL Lymphocytes # 1.5 (1.0-4.8) k/uL Monocytes # 0.4 (0-1.0) k/uL Eosinophils # 0.8 H (0-0.7) k/uL Basophils # 0.1 (0-0.2) k/uL PT 10.9 (10.0-12.5) sec INR 1.0 (<1.2) APTT 24.8 (22.0-30.0) sec Sodium (137-145) mmol/L Potassium (3.5-5.1) mmol/L Chloride (98-107) mmol/L Carbon Dioxide (22-30) mmol/L Anion Gap mmol/L BUN (9-20) mg/dL Creatinine (0.66-1.25) mg/dL Est GFR (CKD-EPI)AfAm (>60 ml/min/1.73 sqM) Est GFR (CKD-EPI)NonAf (>60 ml/min/1.73 sqM) Glucose (74-99) mg/dL Plasma Lactic Acid Mazin (0.7-2.0) mmol/L Calcium (8.4-10.2) mg/dL Total Bilirubin (0.2-1.3) mg/dL AST (17-59) U/L ALT (4-49) U/L Alkaline Phosphatase (38-126) U/L Troponin I (0.000-0.034) ng/mL Total Protein (6.3-8.2) g/dL Albumin (3.5-5.0) g/dL Stool Occult Blood Positive (Negative) Blood Type Blood Type Recheck Bld Type Recheck Status Antibody Screen Spec Expiration Date 07/08/23 07/08/23 07/08/23 Range/Units 12:17 12:17 12:17 WBC (3.8-10.6) k/uL RBC (4.30-5.90) m/uL Hgb (13.0-17.5) gm/dL Hct (39.0-53.0) % MCV (80.0-100.0) fL MCH (25.0-35.0) pg MCHC (31.0-37.0) g/dL RDW (11.5-15.5) % Plt Count (150-450) k/uL MPV Neutrophils % % Lymphocytes % % Monocytes % % Eosinophils % % Basophils % % Neutrophils # (1.3-7.7) k/uL Lymphocytes # (1.0-4.8) k/uL Monocytes # (0-1.0) k/uL Eosinophils # (0-0.7) k/uL Basophils # (0-0.2) k/uL PT (10.0-12.5) sec INR (<1.2) APTT (22.0-30.0) sec Sodium 138 (137-145) mmol/L Potassium 4.3 (3.5-5.1) mmol/L Chloride 105 (98-107) mmol/L Carbon Dioxide 23 (22-30) mmol/L Anion Gap 10 mmol/L BUN 26 H (9-20) mg/dL Creatinine 1.00 (0.66-1.25) mg/dL Est GFR (CKD-EPI)AfAm 81 (>60 ml/min/1.73 sqM) Est GFR (CKD-EPI)NonAf 70 (>60 ml/min/1.73 sqM) Glucose 113 H (74-99) mg/dL Plasma Lactic Acid Mazin 1.7 (0.7-2.0) mmol/L Calcium 9.9 (8.4-10.2) mg/dL Total Bilirubin 0.8 (0.2-1.3) mg/dL AST 21 (17-59) U/L ALT 19 (4-49) U/L Alkaline Phosphatase 57 (38-126) U/L Troponin I <0.012 (0.000-0.034) ng/mL Total Protein 6.7 (6.3-8.2) g/dL Albumin 3.9 (3.5-5.0) g/dL Stool Occult Blood (Negative) Blood Type Blood Type Recheck Bld Type Recheck Status Antibody Screen Spec Expiration Date 07/08/23 Range/Units 12:30 WBC (3.8-10.6) k/uL RBC (4.30-5.90) m/uL Hgb (13.0-17.5) gm/dL Hct (39.0-53.0) % MCV (80.0-100.0) fL MCH (25.0-35.0) pg MCHC (31.0-37.0) g/dL RDW (11.5-15.5) % Plt Count (150-450) k/uL MPV Neutrophils % % Lymphocytes % % Monocytes % % Eosinophils % % Basophils % % Neutrophils # (1.3-7.7) k/uL Lymphocytes # (1.0-4.8) k/uL Monocytes # (0-1.0) k/uL Eosinophils # (0-0.7) k/uL Basophils # (0-0.2) k/uL PT (10.0-12.5) sec INR (<1.2) APTT (22.0-30.0) sec Sodium (137-145) mmol/L Potassium (3.5-5.1) mmol/L Chloride (98-107) mmol/L Carbon Dioxide (22-30) mmol/L Anion Gap mmol/L BUN (9-20) mg/dL Creatinine (0.66-1.25) mg/dL Est GFR (CKD-EPI)AfAm (>60 ml/min/1.73 sqM) Est GFR (CKD-EPI)NonAf (>60 ml/min/1.73 sqM) Glucose (74-99) mg/dL Plasma Lactic Acid Mazin (0.7-2.0) mmol/L Calcium (8.4-10.2) mg/dL Total Bilirubin (0.2-1.3) mg/dL AST (17-59) U/L ALT (4-49) U/L Alkaline Phosphatase (38-126) U/L Troponin I (0.000-0.034) ng/mL Total Protein (6.3-8.2) g/dL Albumin (3.5-5.0) g/dL Stool Occult Blood (Negative) Blood Type B Negative Blood Type Recheck B Neg Bld Type Recheck Status No Antibody Screen NEGATIVE Spec Expiration Date 07/11/20232329 Disposition Clinical Impression: Hematochezia Disposition: HOME SELF-CARE Condition: Stable Instructions (If sedation given, give patient instructions): Gastrointestinal Bleeding (ED) Additional Instructions: Monitor your bleeding. I recommended hospital transfer. If your bleeding continues you will need possible colonoscopy. Return to the closest hospital for possible transfer down to [facility] Is patient prescribed a controlled substance at d/c from ED?: No Referrals: Uche Alvarado MD [Primary Care Provider] - 1-2 days Time of Disposition: 15:13
[2023-07-08 16:00] VITALS: BP 117/53; PULSE 82; TEMP 98
== END 2023-07-08 15:34 | disposition home or self-care (01) ==
LOC: EC 11:30
DX: K92.1 Melena (principal); I10 Essential (primary) hypertension; J44.9 Chronic obstructive pulmonary disease, unspecified; E78.5 Hyperlipidemia, unspecified; F17.200 Nicotine dependence, unspecified, uncomplicated; Z79.51 Long term (current) use of inhaled steroids; Z79.82 Long term (current) use of aspirin; Z79.899 Other long term (current) drug therapy; Z86.73 Personal history of transient ischemic attack (TIA), and cerebral infarction without residual deficits
CPT/HCPCS: 36415; 80053; 82272; 83605; 84484; 85025; 85610; 85730; 86850; 86900; 86901; 99284

== ENCOUNTER → 2023-08-27 | Outpatient (CLI) | payer MEDICARE, OTHER ==
[2023-08-27 11:34] LABS: African American GFR (CKD) 65 (>60 ml/min/1.73 sqM); Blood Urea Nitrogen 19 mg/dL (9-20); Non-African American GFR(CKD) 56 (>60 ml/min/1.73 sqM)
--- NOTE | 2023-08-27 12:40 | CT ---
EXAMINATION TYPE: CT chest w con CT DLP: 235.2 mGycm, Automated exposure control for dose reduction was used. DATE OF EXAM: 08/27/2023 11:54 AM COMPARISON: 07/28/2022. CLINICAL INDICATION:Male, 82 years old with history of hemoptysis; PHH, hemoptysis TECHNIQUE: Multiple axial images were obtained through the chest. Sagittal and coronal reformats were created for review. Contrast used:100 mL of Isovue 300 with IV Contrast (None if empty) Oral contrast used: (None if empty) FINDINGS: LUNGS/ PLEURA: There is apical scarring with cystic changes bilaterally. * Pleural thickening along the right lower lobe lateral aspect measuring up to 5 mm. * Right upper lung somewhat spiculated pulmonary nodule measuring 5 mm series 3 image 14. * Left lower lobe superior segment pulmonary nodule measuring 6 mm series 4 image 25. * AIRWAY: Patent and unremarkable. HEART: There is mildly enlarged for size. There is moderate coronary artery atherosclerosis. MEDIASTINUM: No gross evidence of adenopathy. Small hiatal hernia. VASCULATURE: No aortic aneurysm. Atherosclerosis of the arterial vasculature. MUSCULOSKELETAL: Moderate disc degeneration changes are present throughout the thoracolumbar spine. SOFT TISSUES/LYMPH NODES: Unremarkable. LOWER NECK: No significant findings. UPPER ABDOMEN: Cystic changes partially visualized in bilateral kidneys. What is visualized is not si gnificantly changed from 07/28/2022. Nodular changes in the bilateral adrenal glands gland are also n ot significantly changed From prior on 07/28/2022 and likely represent benign lipid rich adrenal adenomas. IMPRESSION: 1. Scattered pulmonary nodules measuring up to 6 mm. Follow-up in 3-6 months is recommended to ensur e stability. Comparisons of priors at outside institutions may be of benefit. 2. Moderate to severe emphysema and parenchymal scarring. 3. Bilateral renal cystic change and bilateral adrenal nodules are not significantly changed from pr iors. Follow up recommendations for incidental pulmonary nodules, if there are any, are per [employer] [employer] or [place] [employer]. https://radiopaedia.org/articles/qhqvkksrve-[email or web address]-cahdvp-[email or web address]-[email or web address]?lang=us
== END | disposition home or self-care (01) ==
LOC: RADCTMAIN 10:33
PROVIDERS: ATTEND Internal Medicine
DX: J43.9 Emphysema, unspecified (principal); J98.4 Other disorders of lung; R91.8 Other nonspecific abnormal finding of lung field; N28.1 Cyst of kidney, acquired; R04.2 Hemoptysis; E27.8 Other specified disorders of adrenal gland
CPT/HCPCS: 82565; 84520; 71260; 36415; Q9967

== ENCOUNTER 2024-07-31 14:41 | Emergency (ER) | payer MEDICARE, OTHER ==
--- NOTE | 2024-07-31 15:36 | ED ---
Fall HPI - General Source: patient, family, RN notes reviewed Mode of arrival: wheelchair Limitations: no limitations <Marina Galindo - Last Filed: 07/31/24 15:35> <Delaney Madison - Last Filed: 08/01/24 18:54> - General Chief Complaint: Fall Stated Complaint: shaky, dizzy Time Seen by Provider: 07/31/24 15:35 - History of Present Illness Initial Comments: Quick note: 83-year-old male presented to the ER for evaluation of fall and shaking. states last night he had a shaking episode. He reports he feels weak and having difficulties with balance. Did not hit head no blood thinners. (Marina Galindo) Patient is an 83-year-old gentleman history of prior CVAs presenting today for multiple falls and shaking episodes. History provided by patient and significant other at bedside. States that over the last month patient has been falling for no apparent reason and in the afternoon begins having shaking episodes of his upper extremities the last 2 approximately 3-6 o'clock. Patient is aware of these episodes and is conscious through the entirety of that. No hx seizures, no tongue biting or incontinence during these episodes. Today patient fall and injured his left hand. He denies head or neck injury with these falls. When asked if he has had any dizziness or lightheadedness denies dizziness states that he thinks he may be lightheaded when he falls but is unsure. Denies loss of consciousness during these episodes. He denies recent illness, fever, chills, chest pain, new shortness of breath, abdominal pain, nausea, vomiting, bloody stools though states he did have a dark stool this morning. Denies diarrhea, slurred speech, difficulty swallowing. States that he has gradually had worsening vision but denies new changes in vision. Patient was sent in by his PCP today after his significant other called their doctor. (Delaney Madison) - Related Data Home Medications Medication Instructions Recorded Confirmed Aspirin EC [Ecotrin Low Dose] 81 mg PO DAILY 09/02/21 12/21/22 Fluticasone/Vilanterol [Breo 1 puff INHALATION RT-DAILY 09/02/21 12/21/22 Ellipta 100-25 Mcg Inhaler] Lisinopril-Hctz 20-25 mg 0.5 tab PO DAILY 09/02/21 12/21/22 [Zestoretic 20-25] Metoprolol Tartrate [Lopressor] 25 mg PO BID 09/02/21 12/21/22 Rosuvastatin Calcium [Crestor] 5 mg PO HS 09/02/21 12/21/22 Tamsulosin [Flomax] 0.4 mg PO DAILY 09/02/21 12/21/22 ALPRAZolam [Xanax] 0.5 mg PO HS 05/19/22 12/21/22 Acetaminophen [Tylenol Arthritis] 650 mg PO BID 06/27/22 12/21/22 Ipratropium [place] 0.06%Nasal 1 spray EA NOSTRIL TID PRN 06/27/22 12/21/22 [Atrovent Nasal 0.06%] Previous Rx's Medication Instructions Recorded Atorvastatin [Lipitor] 80 mg PO HS 30 Days #30 tab 08/15/22 Fluticasone Propion/Salmeterol 1 inhalation PO BID 30 Days #1 each 08/18/22 [Advair 250-50 Diskus] Pantoprazole [Protonix] 40 mg PO DAILY #30 tab 12/19/22 Allergies Allergy/AdvReac Type Severity Reaction Status Date / Time No Known Allergies Allergy Verified 07/08/23 11:34 Review of Systems ROS Other: All systems not noted in ROS Statement are negative. <Marina Galindo - Last Filed: 07/31/24 15:35> ROS Other: All systems not noted in ROS Statement are negative. <Delaney Madison - Last Filed: 08/01/24 18:54> ROS Statement: Those systems with pertinent positive or pertinent negative responses have been documented in the HPI. 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 History of Any Multi-Drug Resistant Organisms: None Reported Past Surgical History: Hernia Repair Additional Past Surgical History / Comment(s): ENDARECTOMY, COLONOSCOPY, Past Anesthesia/Blood Transfusion Reactions: No Reported Reaction Additional Past Anesthesia/Blood Transfusion Reaction / Comment(s): no hx blood transfusion Past Psychological History: No Psychological Hx Reported Smoking Status: Current every day smoker Past Alcohol Use History: None Reported Past Drug Use History: None Reported - Past Family History Mother Family Medical History: Cancer Father Family Medical History: Cancer <Marina Galindo - Last Filed: 07/31/24 15:35> General Exam Limitations: no limitations <Marina Galindo - Last Filed: 07/31/24 15:35> <Delaney Madison - Last Filed: 08/01/24 18:54> - General Exam Comments Initial Comments: Visual Physical Exam Vital signs reviewed General: Well-appearing, nontoxic, no acute distress. Head: Normocephalic, atraumatic Eyes: PERRLA, EOMI ENT: Airway patent Chest: Nonlabored breathing Skin: No visual rash, normal skin tone Neuro: Alert and oriented 3 Musculoskeletal: No gross abnormalities (Annika Galindonn) PE: CONSTITUTIONAL: No apparent distress, well appearing SKIN: Warm, dry, no jaundice, hives or petechiae, small abrasion to lateral left hand EYES: Pupils are equally round, extraocular movements intact without nystagmus, clear conjunctiva, non-icteric sclera HENT: Normocephalic, atraumatic, moist mucus membranes, oropharynx clear without exudates NECK: , Full range of motion, normal appearance PULMONARY: Clear to auscultation without wheezes, rhonchi, or rales, normal excursion, no accessory muscle use and no stridor CARDIOVASCULAR: Regular rate, rhythm, normal S1 and S2. No appreciated murmurs, rubs or gallops. Strong radial pulses with intact distal perfusion. No lower extremity edema GASTROINTESTINAL: Soft, active bowel sounds throughout, non-tender, non- distended, no palpable masses, no rebound or guarding. No hepatosplenomegaly GENITOURINARY: MUSCULOSKELETAL: Extremities have no gross deformity, no edema, redness, or swelling. No calf swelling NEUROLOGIC:_a/o x 2-3 (knows is upcoming holiday, oriented to self, place and situation, GCS 15, normal mentation and speech. Moves all extremities x 4 without motor or sensory deficit, intention tremor bilaterally, calms with rest though slightly present at rest in the bilateral upper extremities, cranial nerves: II (visual sevilla without defects), III, IV and (extraocular movements are intact, pupils are equal with normal reaction to light), V (intact facial sensation and jaw opening), VII (no facial droop), IX and X (normal palate movement, midline uvula, normal voice), XI (symmetrical shoulder shrug and lateral head rotation against resistance), XII (midline tongue protrusion). Motor strength is 5/5 in all extremities. No abnormal movements. Normal muscle tone. Sensation to light touch is intact bilaterally. No cerebellar signs ([id number], [id number], and rapid alternating movements are normal) PSYCHIATRIC:_normal mood and affect, thought process is clear and linear ( Delaney Madison) Course Vital Signs 07/31/24 07/31/24 15:06 17:30 Temperature 98.3 F 98.7 F Pulse Rate 78 76 Respiratory 16 18 Rate Blood Pressure 168/69 173/78 O2 Sat by Pulse 93 L 93 L Oximetry Medical Decision Making <Marina Galindo - Last Filed: 07/31/24 15:35> - Lab Data Result diagrams: 07/31/24 15:15 07/31/24 15:15 <Delaney Madison - Last Filed: 08/01/24 18:54> - Medical Decision Making I performed the quick note portion of this chart. Electronically signed by Marina Galindo PA-C (Marina Galindo) Was pt. sent in by a medical professional or institution ([facility], [facility], urgent care, hospital, or [facility]...) When possible be specific @ -No Did you speak to anyone other than the patient for history (EMS, parent, family, police, friend...)? What history was obtained from this source @ -No Did you review nursing and triage notes (agree or disagree)? Why? @ -I reviewed and agree with nursing and triage notes Were old charts reviewed (outside hosp., previous admission, EMS record, old EKG, old radiological studies, urgent care reports/EKG's, [facility] records)? Report findings @ Medical records reviewed Differential Diagnosis (chest pain, altered mental status, abdominal pain women, abdominal pain men, vaginal bleeding, weakness, fever, dyspnea, syncope, headache, dizziness, GI bleed, back pain, seizure, CVA, palpatations, mental h ealth, musculoskeletal)? @ -Differential diagnosis remains broad however top considerations include intracranial mass, CVA, electrolyte abnormality, Parkinson disease, seizure disorder this is not all inclusive list EKG interpreted by me (3pts min.). @Sinus rhythm with occasional VPCs, rate 72 beats minute, WV interval 139 ms, QRS duration 122 ms, QT/QTc 369/393 ms, normal axis, no ST elevations or depressions X-rays interpreted by me (1pt min.). @No cardiomegaly or consolidations CT interpreted by me (1pt min.). @CT brain showed no intracranial mass or hemorrhage U/S interpreted by me (1pt. min.). @ -None done What testing was considered but not performed or refused? (CT, X-rays, U/S, lab s)? Why? @ -None What meds were considered but not given or refused? Why? @ -None Did you discuss the management of the patient with other professionals (professionals i.e. , PA, [facility], lab, RT, psych nurse, executive secretary social welfare, manager managed backup services, teacher, returning officer, case making machine operator)? Give summary @ -No Was smoking cessation discussed for >3mins.? @ -No Was critical care preformed (if so, how long)? @ -No Were there social determinants of health that impacted care today? How? (Homelessness, low income, unemployed, alcoholism, drug addiction, transportation, low edu. Level, literacy, decrease access to med. care, halfway, rehab)? @ -No Was there de-escalation of care discussed even if they declined (Discuss DNR or withdrawal of care, Hospice)? @ -No What co-morbidities impacted this encounter? (DM, HTN, Smoking, COPD, CAD, Cancer, CVA, ARF, Chemo, Hep., AIDS, mental health diagnosis, sleep apnea, morbid obesity)? @ -Prior CVA, HTN Was patient admitted / discharged? Hospital course, mention meds given and route, prescriptions, significant lab abnormalities, going to OR and other pertinent info. @ Discharged AMA- patient is an 83-year-old gentleman presenting with his significant other of 20 years, for multiple falls and tremors. On my assessment patient is resting comfortably, well-appearing and in no acute distress. Physical exam was significant for an intention tremor in the upper extremities bilaterally that improves with rest though is still slightly noticeable at present. Otherwise no focal neurologic deficits. Denies hitting his head and has no signs of head injury. Does have small abrasion to lateral left hand, which he is able to move through full ROM. I discussed with patient plan for CT brain and comprehensive labs. Patient agreeable plan of care. Of note patient is with his significant other of 20 years. She did voice concern that he would want to be discharged and is unsure if he can make his own decisions as he has had worsening memory issues over the last few months. I asked her who patient's next of kin would be and she thinks it may be patient's son but states she does not know how to get ahold of him and she does not have legal paperwork making herself the patient's next of kin. Patient is currently oriented x 2-3 and is able to provide me with history of his symptoms. Labs and imaging reviewed. Grossly within normal limits. Abnormal values not concerning for acute pathology related to presenting complaint. I discussed with patient my concern for his multiple falls and that I would like to admit him for observation and further workup. I discussed my concern that should he be returned home without further evaluation he could fall, hit his head and have a traumatic head injury or other bony injury that would be potentially life- threatening. The patient is understanding of this and adamant he would want to be discharged. Patient significant other, Aleta states the patient cannot be convinced to stay. She does not have information of next of kin. Pt states he can make his own decisions when asked about contacting next of kin to assist w ith medical decision making. He wants to get home to take care of his dog and is concerned about the upcoming snow storm and how it will impact the roads (there is indeed an upcoming snow storm). Patient is stable currently w/o neuro deficits but he will be signing out against medical advice given his multiple recent falls. Despite being unsure of exact date, he is understanding of the risks of discharge. I feel that the potential harm of restraining or sedating the patient to admit him against his will outweighs potential benefit. Patient will be continuously supervised by his significant other and has an appointment with a neurologist coming Sunday. At this point patient discharged AMA. Drug Therapy requiring intensive monitoring for toxicity (Heparin, Nitro, Insulin, Cardizem)? @ -No Were any procedures done? @ -No Diagnosis/symptom? @Multiple falls, tremor Acute, or Chronic, or Acute on Chronic? @ -Aute Uncomplicated (without systemic symptoms) or Complicated (systemic symptoms)? @ complicated Side effects of treatment? @ -No Exacerbation, Progression, or Severe Exacerbation? @ -No Poses a threat to life or bodily function? How? (Chest pain, USA, DC, pneumonia, PE, COPD, DKA, ARF, appy, cholecystitis, CVA, Diverticulitis, Homicidal, Suicidal, threat to staff... and all critical care pts) @ Immediately no, however patient's falls could eventually lead to life threatening injury. I discussed this with the patient and his partner my concerns however they decided to sign out against medical advice (Delaney Madison) - Lab Data Lab Results 07/31/24 07/31/24 07/31/24 Range/Units 15:15 15:15 15:15 WBC 10.4 (3.8-10.6) k/uL RBC 4.81 (4.30-5.90) m/uL Hgb 15.0 (13.0-17.5) gm/dL Hct 47.4 (39.0-53.0) % MCV 98.6 (80.0-100.0) fL MCH 31.2 (25.0-35.0) pg MCHC 31.6 (31.0-37.0) g/dL RDW 13.5 (11.5-15.5) % Plt Count 177 (150-450) k/uL MPV 9.0 Neutrophils % 80 % Lymphocytes % 12 % Monocytes % 4 % Eosinophils % 3 % Basophils % 1 % Neutrophils # 8.3 H (1.3-7.7) k/uL Lymphocytes # 1.2 (1.0-4.8) k/uL Monocytes # 0.4 (0-1.0) k/uL Eosinophils # 0.3 (0-0.7) k/uL Basophils # 0.1 (0-0.2) k/uL Hypochromasia Slight PT 10.6 (10.0-12.5) sec INR 1.0 (<1.2) APTT 25.7 (22.0-30.0) sec Sodium 138 (137-145) mmol/L Potassium 3.9 (3.5-5.1) mmol/L Chloride 101 (98-107) mmol/L Carbon Dioxide 31 H (22-30) mmol/L Anion Gap 6 mmol/L BUN 16 (9-20) mg/dL Creatinine 0.90 (0.66-1.25) mg/dL Est GFR (CKD-EPI)AfAm >90 (>60 ml/min/1.73 sqM) Est GFR (CKD-EPI)NonAf 79 (>60 ml/min/1.73 sqM) Glucose 146 H (74-99) mg/dL Plasma Lactic Acid Mazin (0.7-2.0) mmol/L Calcium 9.5 (8.4-10.2) mg/dL Magnesium 1.8 (1.6-2.3) mg/dL Total Bilirubin 1.0 (0.2-1.3) mg/dL AST 34 (17-59) U/L ALT 26 (4-49) U/L Alkaline Phosphatase 81 (38-126) U/L Troponin I (0.000-0.034) ng/mL Total Protein 6.7 (6.3-8.2) g/dL Albumin 4.0 (3.5-5.0) g/dL 07/31/24 07/31/24 Range/Units 15:35 15:36 WBC (3.8-10.6) k/uL RBC (4.30-5.90) m/uL Hgb (13.0-17.5) gm/dL Hct (39.0-53.0) % MCV (80.0-100.0) fL MCH (25.0-35.0) pg MCHC (31.0-37.0) g/dL RDW (11.5-15.5) % Plt Count (150-450) k/uL MPV Neutrophils % % Lymphocytes % % Monocytes % % Eosinophils % % Basophils % % Neutrophils # (1.3-7.7) k/uL Lymphocytes # (1.0-4.8) k/uL Monocytes # (0-1.0) k/uL Eosinophils # (0-0.7) k/uL Basophils # (0-0.2) k/uL Hypochromasia PT (10.0-12.5) sec INR (<1.2) APTT (22.0-30.0) sec Sodium (137-145) mmol/L Potassium (3.5-5.1) mmol/L Chloride (98-107) mmol/L Carbon Dioxide (22-30) mmol/L Anion Gap mmol/L BUN (9-20) mg/dL Creatinine (0.66-1.25) mg/dL Est GFR (CKD-EPI)AfAm (>60 ml/min/1.73 sqM) Est GFR (CKD-EPI)NonAf (>60 ml/min/1.73 sqM) Glucose (74-99) mg/dL Plasma Lactic Acid Mazin 1.7 (0.7-2.0) mmol/L Calcium (8.4-10.2) mg/dL Magnesium (1.6-2.3) mg/dL Total Bilirubin (0.2-1.3) mg/dL AST (17-59) U/L ALT (4-49) U/L Alkaline Phosphatase (38-126) U/L Troponin I <0.012 (0.000-0.034) ng/mL Total Protein (6.3-8.2) g/dL Albumin (3.5-5.0) g/dL Disposition <Marina Galindo - Last Filed: 07/31/24 15:35> <Delaney Madison - Last Filed: 08/01/24 18:54> Clinical Impression: Multiple falls, Intention tremor Disposition: LEFT AGAINST MEDICAL ADVICE Condition: Stable Referrals: Uche Alvarado MD [Primary Care Provider] - 1-2 days
[2024-07-31 15:41] LABS: Basophils # (A) 0.1 k/uL (0-0.2); Basophils % (A) 1 %; Eosinophils # (A) 0.3 k/uL (0-0.7); Eosinophils % (A) 3 %; HCT 47.4 % (39.0-53.0); Hypochromasia Slight; Lymphocytes # (A) 1.2 k/uL (1.0-4.8); Lymphocytes % (A) 12 %; MCH 31.2 pg (25.0-35.0); MCHC 31.6 g/dL (31.0-37.0); MCV 98.6 fL (80.0-100.0); Monocytes # (A) 0.4 k/uL (0-1.0); Monocytes % (A) 4 %; Neutrophils # (A) 8.3 k/uL (1.3-7.7); Neutrophils % (A) 80 %; Platelet Count 177 k/uL (150-450); RBC 4.81 m/uL (4.30-5.90); RDW 13.5 % (11.5-15.5); WBC 10.4 k/uL (3.8-10.6)
[2024-07-31 15:52] LABS: ALT 26 U/L (4-49); AST 34 U/L (17-59); African American GFR (CKD) >90 (>60 ml/min/1.73 sqM); Alkaline Phosphatase 81 U/L (38-126); Anion Gap 6 mmol/L; Blood Urea Nitrogen 16 mg/dL (9-20); Calcium 9.5 mg/dL (8.4-10.2); Carbon Dioxide 31 mmol/L (22-30); Chloride 101 mmol/L (98-107); Glucose 146 mg/dL (74-99); Non-African American GFR(CKD) 79 (>60 ml/min/1.73 sqM); Potassium 3.9 mmol/L (3.5-5.1); Sodium 138 mmol/L (137-145); Total Protein 6.7 g/dL (6.3-8.2)
[2024-07-31 16:02] LABS: Partial Thromboplastin Time 25.7 sec (22.0-30.0); Prothrombin Time 10.6 sec (10.0-12.5)
[2024-07-31 16:11] LABS: Magnesium 1.8 mg/dL (1.6-2.3)
--- NOTE | 2024-07-31 16:27 | XR ---
EXAMINATION TYPE: XR chest 2V DATE OF EXAM: 07/31/2024 4:21 PM COMPARISON: Chest radiographs from 05/14/2023 CLINICAL INDICATION: Male, 83 years old with history of tremor fall; PHH pain TECHNIQUE: XR chest 2V Frontal and lateral views of the chest. FINDINGS: Lungs/Pleura: Prominent interstitial lung markings are seen scattered throughout the lungs with leah ening of the diaphragm and increased lucency of the lung apices. No evidence of focal consolidation, pneumothorax or pleural effusion. Pulmonary vascularity: Unremarkable. Heart/mediastinum: Cardiomediastinal silhouette is unremarkable. Musculoskeletal: No acute osseous pathology. IMPRESSION: Chronic changes without acute pulmonary process. No significant change from prior. [facility], Workstation: [facility], 07/31/2024 4:25 PM
[2024-07-31 17:34] VITALS: BP 173/78; PULSE 76; RESP 18; TEMP 98.7
--- NOTE | 2024-07-31 19:23 | CT ---
EXAMINATION TYPE: CT brain wo con CT DLP: 1067.4 mGycm, Automated exposure control for dose reduction was used. DATE OF EXAM: 07/31/2024 6:58 PM COMPARISON: None. CLINICAL INDICATION:Male, 83 years old with history of multiple falls, Multiple Falls. TECHNIQUE: Brain: Axial CT images of the brain were obtained with coronal and sagittal reformats created and rev iewed. Contrast used: None. Oral contrast used: None. FINDINGS: Brain: Extra-axial spaces: No abnormal extra-axial fluid collections. Ventricular system: Dilatation in proportion to cerebral atrophy. Ex vacuo dilatation of the posterio r horn of the right lateral ventricle. Cerebral parenchyma: Cerebral atrophy. No acute intraparenchymal hemorrhage or mass effect. The nuno -white junction is well differentiated. Scattered hypoattenuating areas are seen within the white mat ter. Cerebellum: Unremarkable. Mass effect: No evidence of midline shift. Intracranial vasculature: Atherosclerotic calcifications of the intracranial vessels. Soft tissues: Normal. Calvarium/osseous structures: No acute depressed skull fracture. Paranasal sinuses and mastoid air cells: Clear Visualized orbits: Bilateral aphakia IMPRESSION: 1. No acute intracranial process. 2. Nonspecific white matter changes, likely secondary to chronic small vessel ischemic disease. [facility], , 07/31/2024 7:21 PM
== END 2024-07-31 20:05 | disposition left against medical advice (07) ==
LOC: EC 14:41
DX: G25.2 Other specified forms of tremor (principal); R29.6 Repeated falls; F17.200 Nicotine dependence, unspecified, uncomplicated; Z86.73 Personal history of transient ischemic attack (TIA), and cerebral infarction without residual deficits
CPT/HCPCS: 36415; 70450; 71046; 80053; 83605; 83735; 84484; 85025; 85610; 85730; 93005; 99284

== ENCOUNTER → 2024-12-22 | Outpatient (CLI) | payer MEDICARE, OTHER ==
[2024-12-22 13:49] LABS: African American GFR (CKD) 75 (>60 ml/min/1.73 sqM); Blood Urea Nitrogen 15 mg/dL (9-20); Non-African American GFR(CKD) 65 (>60 ml/min/1.73 sqM)
--- NOTE | 2024-12-22 14:43 | CT ---
EXAMINATION TYPE: CT chest w con CT DLP: 338 mGycm, Automated exposure control for dose reduction was used. DATE OF EXAM: 12/22/2024 2:14 PM COMPARISON: CT chest 08/27/2023 CLINICAL INDICATION:Male, 84 years old with history of R91.1 SOLITARY PULMONARY NODULE; PHH, pulmonar y lung nodule TECHNIQUE: Multiple axial images were obtained through the chest following the administration of 100 cc of Isovue 300. . Coronal and sagittal reformats reviewed. FINDINGS: LUNGS/ PLEURA: Stable biapical pleural-parenchymal scarring with coarse calcifications. No pleural ef fusion, pneumothorax. Similar right lower lobe peripheral scarring. Moderate centrilobular emphysemat ous changes. Scattered bilateral upper lobe callus or granulomas. Increasing more solid-appearing fo javy spiculated consolidation within the right lower lobe measuring up to 2.1 cm (series 4, image 46). Stable adjacent 6 mm pulmonary nodule (series 4, image 47). Other previously seen pulmonary nodules are not well visualized on today's exam. Similar right lower lung pleural thickening. AIRWAY: Patent and unremarkable.. HEART: Size within normal limits. . No pericardial effusion. Moderate coronary artery calcifications present. MEDIASTINUM: No evidence of adenopathy. VASCULATURE: No aortic aneurysm. Atherosclerotic calcification of the aorta and its branches. MUSCULOSKELETAL: No acute osseous abnormalities. DISH of the thoracic spine. No aggressive osseous le stewart. SOFT TISSUES/LYMPH NODES: Unremarkable. LOWER NECK: No significant findings. UPPER ABDOMEN: Redemonstration of multicystic simple appearing cyst involving both kidneys. Similar n odular changes within the bilateral adrenal glands. Probable lipid rich adenomas. IMPRESSION: 1. Few scattered stable pulmonary nodules measuring up to 6 mm. Additional few pulmonary nodules that were previously seen are not well-visualized to the exam. Development of a right lower lobe patchy c onsolidative spiculated opacity. Could represent developing scarring vs infectious/inflammatory proce ss. Underlying developing malignancy is not excluded. Recommend further evaluation with PET/CT versus CT chest 3 month follow-up. 2. Moderate emphysematous changes with regions of stable pleural parenchymal scarring. 3. Similar bilateral renal cystic changes and bilateral adrenal nodules from prior exams. No follow-u p recommended. [facility], , 12/22/2024 2:41 PM
== END | disposition home or self-care (01) ==
LOC: RADCTMAIN 13:10
PROVIDERS: ATTEND Internal Medicine
DX: R91.1 Solitary pulmonary nodule (principal); R91.8 Other nonspecific abnormal finding of lung field; J43.9 Emphysema, unspecified; J94.8 Other specified pleural conditions; N28.1 Cyst of kidney, acquired; E27.8 Other specified disorders of adrenal gland
CPT/HCPCS: 82565; 84520; 71260; 36415; Q9967

== ENCOUNTER → 2025-03-05 | Outpatient (CLI) | payer MEDICARE, OTHER ==
[2025-03-05 16:26] LABS: African American GFR (CKD) 71 (>60 ml/min/1.73 sqM); Blood Urea Nitrogen 17 mg/dL (9-20); Non-African American GFR(CKD) 61 (>60 ml/min/1.73 sqM)
--- NOTE | 2025-03-05 22:47 | CT ---
EXAMINATION TYPE: CT chest w con DATE OF EXAM: 03/05/2025 5:05 PM COMPARISON: Multiple prior CT chest studies, most recently dated 12/22/2024. CLINICAL INDICATION: Male, 84 years old with history of R91.8 OTHER NONSPECIFIC ABNORMAL FINDING OF L KAREEM F; PHH, pt states their physician saw spots on their lung(s) TECHNIQUE: Multiple axial images were obtained through the chest. Sagittal and coronal reformats were created for review. MIP was performed on a separate workstation. Contrast used:100 ml mL of Isovue 300 with IV Contrast (None if empty) CT DLP: 215.60 mGycm, Automated exposure control for dose reduction was used. FINDINGS: LUNGS/ PLEURA: Increasing size of spiculated nodule in the right lower lobe (47/79), now measuring ap proximately 20 x 13 mm compared to 17 x 11 mm previously it measured in a similar fashion. There is d iffuse emphysema. Nodular scarring in the lung apices appears similar prior study. Additional scatter ed stable subcentimeter pulmonary nodules compared to prior study. AIRWAY: Patent and unremarkable. HEART: Size within normal limits. MEDIASTINUM: No gross evidence of adenopathy. VASCULATURE: No aortic aneurysm. MUSCULOSKELETAL: No acute osseous abnormalities SOFT TISSUES/LYMPH NODES: Unremarkable. LOWER NECK: No significant findings. UPPER ABDOMEN: No significant acute findings. Stable simple cysts and additional indeterminate hypode nse lesions demonstrate Hounsfield attenuation higher than that of simple fluid, incompletely evaluat ed on this single phase study. Cholelithiasis. Right adrenal gland nodule measuring 1.9 cm. IMPRESSION: Increasing size of spiculated right lower lobe nodule suspicious for pulmonary malignancy. Recommend PET/CT and/or biopsy for further evaluation. [facility], , 03/05/2025 10:44 PM
== END | disposition home or self-care (01) ==
LOC: RADCTMAIN 15:27
PROVIDERS: ATTEND Internal Medicine
DX: R91.8 Other nonspecific abnormal finding of lung field (principal)
CPT/HCPCS: 82565; 84520; 71260; 36415; Q9967

== ENCOUNTER → 2025-03-13 | Outpatient (CLI) | payer MEDICARE, OTHER ==
--- NOTE | 2025-03-13 17:37 | PE ---
EXAMINATION TYPE: PET CT fusion skull to thigh DATE OF EXAM: 03/13/2025 CLINICAL INDICATION:Male, 84 years old with history of R91.1 Lung nodule; TECHNIQUE: Following the intravenous administration of 10.23 mCi of F-18 FDG, whole body images are performed from the skull base to the Mid thigh. Images are reviewed on the computer in the coronal, axial, and sagittal planes. Reconstructed rotating images are created on independent workstation an d reviewed on the computer. A non-contrast CT is performed in conjunction with the PET scan. Glucos e level 87 mg/dL CT DLP: 747 mGycm, Automated exposure control for dose reduction was used. COMPARISON: CT 03/05/2025, PET/CT None, MRI: None FINDINGS: Mediastinal SUV mean is 2.6. Hepatic parenchyma SUV mean is 2.. SKULL BASE AND NECK: No suspicious radiotracer activity. CHEST, MEDIASTINUM, AND HILAR REGION: Suspicious uptake identified; examples include: * Right lower lobe 19 mm spiculated nodule max SUV 4.5 * Right perihilar lymph nodes max SUV 3.9 * Streaky atelectasis in the right lung base ABDOMEN AND PELVIS: No suspicious radiotracer activity. MUSCULOSKELETAL STRUCTURES: No suspicious radiotracer activity. OTHER CT: Bilateral aphakia. Atherosclerosis of the arterial vasculature including the intracranial v asculature the carotid bifurcations and coronary arteries. Apical scarring of the bilateral lungs. Mo derate severe emphysema changes throughout the lungs. The heart is mildly enlarged for size. Bilatera l renal cysts some of which are hyperdense and compatible with proteinaceous/hemorrhagic cysts. Nolvia lithiasis. Scattered colonic diverticulosis.r prostatomegaly, correlate with serum PSA. Fatty changes to the inguinal canals. Nonobstructing right renal calculus versus vascular calcification measuring 6 mm. Nodular cystic appearance to the adrenal glands most compatible with lipid rich adrenal adenoma s measuring 17 mm on the right and up to 14 mm on the left. Infrarenal abdominal aortic aneurysm adrien uring up to 2.2 cm. IMPRESSION: 1. Right lower lobe perihilar spiculated nodule concerning for primary malignancy. Bronchoscopic patrick ded tissue sampling recommended. 2. Bilateral adrenal adenomas. 3. Bilateral simple renal cysts and hyperdense renal cysts. Consider renal mass protocol MRI for com plete evaluation. [facility], , 03/13/2025 5:35 PM
== END | disposition home or self-care (01) ==
LOC: RADPETMAIN 09:23
PROVIDERS: ATTEND Internal Medicine
DX: R91.1 Solitary pulmonary nodule (principal); D35.01 Benign neoplasm of right adrenal gland; D35.02 Benign neoplasm of left adrenal gland; N28.1 Cyst of kidney, acquired
CPT/HCPCS: 78815; A9552